=== PATIENT | female | born 1960 | race Caucasian/White ===

== ENCOUNTER → 2017-07-02 | Outpatient (CLI) | payer BC ==
[2017-07-02 14:46] LABS: Basophils % (A) 0 %; Eosinophils # (A) 0.1 k/uL (0-0.7); Eosinophils % (A) 1 %; HCT 43.6 % (34.0-46.0); HGB 14.7 gm/dL (11.4-16.0); Lymphocytes # (A) 2.8 k/uL (1.0-4.8); Lymphocytes % (A) 30 %; MCH 33.5 pg (25.0-35.0); MCHC 33.8 g/dL (31.0-37.0); MCV 99.1 fL (80.0-100.0); Mean Platelet Volume 7.9; Monocytes # (A) 0.6 k/uL (0-1.0); Monocytes % (A) 6 %; Neutrophils # (A) 5.9 k/uL (1.3-7.7); Neutrophils % (A) 62 %; Platelet Count 246 k/uL (150-450); RDW 11.8 % (11.5-15.5); WBC 9.5 k/uL (3.8-10.6)
[2017-07-02 14:50] LABS: Appearance,Urine Clear (Clear); Bacteria,Urine Occasional /hpf; Bilirubin,Urine Negative (Negative); Blood,Urine Negative (Negative); Color,Urine Light Yellow; Glucose,Urine (UA) Negative (Negative); Ketones,Urine Negative (Negative); Leukocyte Esterase,Urine Small (Negative); Mucus,Urine Rare /hpf; PH, Urine 5.5 (5.0-8.0); Protein,Urine Negative (Negative); RBC,Urine <1 /hpf (0-5); Specific Gravity,Urine 1.008 (1.001-1.035); Squamous Epithelial Cell,Urine 2 /hpf (0-4); Urobilinogen,Urine <2.0 mg/dL (<2.0); WBC,Urine 10 /hpf (0-5)
[2017-07-02 17:54] LABS: Erythrocyte Sedimentation Rate 28 mm/hr (0-20)
[2017-07-02 20:26] LABS: Anti-DNA, DS unit <1.0 IU/mL; Cardiolipin Ab IgG Interp NEGATIVE (NEGATIVE); Cardiolipin Ab IgM Interp Positive (NEGATIVE); Cardiolipin IgM Antibody 38.9 U/mL; DNA Double-Stranded NEGATIVE (NEGATIVE)
[2017-07-03 11:40] LABS: ANA Pattern Speckled; ANA Pattern 2 Nucleolar
[2017-07-03 12:35] LABS: APTT 43 Sec(s) (<43); Dilute Russell Viper Venom 40 Sec(s) (<44)
[2017-07-03 14:45] LABS: C-ANCA <1:20 Titer (<1:20); P-ANCA <1:20 Titer (<1:20)
== END | disposition home or self-care (01) ==
LOC: LABWHC1 13:34
PROVIDERS: ATTEND Internal Medicine Rheumatology
DX: I73.00 Raynaud's syndrome without gangrene (principal); F17.210 Nicotine dependence, cigarettes, uncomplicated; I10 Essential (primary) hypertension
CPT/HCPCS: 36415; 81001; 83516; 85025; 85613; 85652; 85730; 86038; 86039; 86140; 86147; 86160; 86225; 86255; 86850; 86880

== ENCOUNTER 2017-07-20 08:00 | Day surgery (SDC) | payer BC, OTHER ==
[2017-07-15 16:36] VITALS: BMI 38.5
[~2017-07-20 08:00] MED LIST: LACTATED RINGERS 1,000 ML IV SCH
[2017-07-20 09:28] VITALS: RESP 16; TEMP 98.2
[2017-07-20] MEDS ORDERED: PROPOFOL 10 MG/ML 20 ML VIAL IV ONE (09:40)
--- NOTE | 2017-07-20 10:24 | P.PCN ---
Date of Procedure: 07/20/17 Procedure(s) Performed: Procedure: 1. Esophagogastroduodenoscopy and biopsy. 2. Total colonoscopy and biopsy. Preoperative diagnosis: Hemoccult-positive stools. Postoperative diagnoses: 1. Small sliding hiatal hernia with no obvious esophagitis or complicated reflux disease. 2. Mild antral gastritis. 3. Diverticulosis with no evidence of acute diverticulitis or strictures. 4. Diminutive polyp sigmoid biopsied but no large polyps or cancer. Preparation: HalfLytely prep. Sedation: Was provided by anesthesia. Brief clinical history: The patient is a 56-year-old female who is scheduled for this evaluation because of finding of Hemoccult positive stools. The patient had chronic reflux symptoms and had a prior upper endoscopy several years back but had no prior colonoscopy. She has no abdominal complaints, overt bleeding or anemia. No family history of colon cancer. Procedure: With the patient on her left lateral decubitus position and after informed consent and adequate sedation, I passed the Olympus-GIF 160 video upper endoscope through the cricopharyngeus down the esophagus. GE junction was around 38 cm from the incisors and there was a small sliding hiatal hernia. The esophagus did not show any evidence of esophagitis or complicated reflux disease. The endoscope was then advanced into the stomach which was insufflated with air and inspected in detail including the retroflex view in the cardia. There was some mottling and erythema in the antrum but no ulcers or erosions. Pyloric channel, duodenal bulb, post bulbar area and descending duodenum appeared within normal limits. With her history, I obtained biopsies from the duodenum, antrum and esophagus then the endoscope was withdrawn and I proceeded with the colonoscopy. The perianal area was inspected and it did not show any fissures or fistulas. There were no masses felt on digital rectal examination. The Olympus CFQ 160L endoscope was then inserted in the rectum in the usual fashion and advanced to the cecum. The mucosa appeared healthy. A diminutive polyp was seen in the sigmoid, around 40 cm from the anal verge, which was biopsied but there were no large polyps or cancer. Multiple diverticular orifices were seen scattered in the colon with no evidence of acute diverticulitis or strictures. I retroflexed the endoscope in the rectum before the endoscope was withdrawn. Low-grade internal hemorrhoids were noted but there was no evidence of bleeding. The patient tolerated the procedure well. Plan: The patient was reassured. Discussed dietary measures. She will follow up with you as planned and I recommended repeat colonoscopy in 5-10 years.
[2017-07-20 10:30] VITALS: BP 126/79; PULSE 62
== END 2017-07-20 11:11 | disposition home or self-care (01) ==
LOC: ORWHC2ENDO 08:00
DX: K63.5 Polyp of colon (principal); K44.9 Diaphragmatic hernia without obstruction or gangrene; K57.30 Diverticulosis of large intestine without perforation or abscess without bleeding; K29.50 Unspecified chronic gastritis without bleeding; I10 Essential (primary) hypertension; I73.00 Raynaud's syndrome without gangrene; Z79.899 Other long term (current) drug therapy
CPT/HCPCS: 88305; 45380; 43239; J2704

== ENCOUNTER → 2020-11-27 | Outpatient (CLI) | payer BC ==
--- NOTE | 2020-11-28 09:11 | XR ---
EXAMINATION TYPE: XR chest special 3 views DATE OF EXAM: 11/27/2020 COMPARISON: NONE TECHNIQUE: 3 views submitted. HISTORY: Supraclavicular swelling FINDINGS: The lungs are clear and there is no pneumothorax, pleural effusion, or focal pneumonia. Heart is en larged. There is mild hyperinflation lungs and degenerative change of the spine. IMPRESSION: 1. I suggests COPD and cardiomegaly..
== END | disposition home or self-care (01) ==
LOC: RADXRYALE 16:01
PROVIDERS: ATTEND Internal Medicine Rheumatology
DX: R22.1 Localized swelling, mass and lump, neck (principal)
CPT/HCPCS: 71047

== ENCOUNTER 2021-03-11 16:55 | Inpatient (IN) | payer BC ==
[2021-03-11] MEDS ORDERED: IPRATROPIUM 0.5 MG/2.5 ML NEBU INHALATION STA (18:25)
[2021-03-11] MEDS ORDERED: ALBUTEROL NEBULIZED 2.5 MG/3 ML INHALATION STA (18:25)
[2021-03-11] MEDS ORDERED: methylPREDNISolone SOD SUCCI 125 MG/2 ML VIAL IV STA (18:25)
[2021-03-11] MEDS ORDERED: MAGNESIUM SULFATE-D5W PMX 1 GM in DEXTROSE/WATER 1 100ML.BAG IVPB STA (18:25)
[2021-03-11] MEDS ORDERED: SODIUM CHLORIDE 0.9% 1,000 ML IV STA ×3 (18:25→20:17)
[2021-03-11 19:33] LABS: Basophils % (A) 0 %; Eosinophils % (A) 0 %; HGB 17.7 gm/dL (11.4-16.0); Hyperchromasia Slight; Lymphocytes # (A) 0.6 k/uL (1.0-4.8); Lymphocytes % (A) 9 %; MCH 35.3 pg (25.0-35.0); MCHC 35.4 g/dL (31.0-37.0); MCV 99.7 fL (80.0-100.0); Mean Platelet Volume 8.2; Monocytes # (A) 0.3 k/uL (0-1.0); Monocytes % (A) 5 %; Neutrophils # (A) 5.6 k/uL (1.3-7.7); Neutrophils % (A) 84 %; Platelet Count 159 k/uL (150-450); RBC 5.02 m/uL (3.80-5.40); RDW 11.9 % (11.5-15.5); WBC 6.7 k/uL (3.8-10.6)
[2021-03-11 19:43] LABS: INR 1.1 (<1.2); Partial Thromboplastin Time 24.2 sec (22.0-30.0); Prothrombin Time 11.8 sec (9.0-12.0)
[2021-03-11 19:45] LABS: Albumin 4.2 g/dL (3.5-5.0); Calcium 8.8 mg/dL (8.4-10.2); Magnesium 2.3 mg/dL (1.6-2.3); Total Bilirubin 1.3 mg/dL (0.2-1.3); Total Protein 7.9 g/dL (6.3-8.2)
[2021-03-11 19:50] LABS: Potassium 5.6 mmol/L (3.5-5.1)
--- NOTE | 2021-03-11 20:36 | CT ---
EXAMINATION TYPE: CT angio chest DATE OF EXAM: 03/11/2021 COMPARISON: None HISTORY: covid, sob CT DLP: 866 mGycm Automated exposure control for dose reduction was used. CONTRAST: Performed with IV Contrast, patient injected with 100 mL of Isovue 370. Images obtained from the thoracic inlet to the diaphragm with IV contrast. There are 3-D post process ed images. There is extensive patchy interstitial and airspace infiltrate in both lungs. There are a few mediastinal lymph nodes that measure up to 1.5 cm. There are bronchial lymph nodes up to 1 cm. There is no evidence of filling defect in the pulmonary arteries. Thoracic aorta is intact. There is no aneurysm or dissection. Ascending aorta measures 3.6 cm. There is no pleural effusion. The bony thorax is intact. IMPRESSION: No evidence of pulmonary embolism. Extensive pulmonary infiltrates consistent with pneumonia and RDS.
--- NOTE | 2021-03-11 20:41 | ED ---
SOB HPI - General Chief Complaint: Shortness of Breath Stated Complaint: Difficulty Breathing Time Seen by Provider: 03/11/21 18:06 Source: patient Mode of arrival: wheelchair Limitations: no limitations - History of Present Illness Initial Comments: Patient presents with respiratory distress. Nothing makes it better or worse. She has taken no medicines. She has discomfort of the chest. She has no belly or back pain. She has no nausea or vomiting. She has no diaphoresis. He has no focal weakness. She has no swelling in the arms or legs. She does have palpitations. - Related Data Home Medications Medication Instructions Recorded Confirmed [employer] Supplement 1 tab PO DAILY 07/15/17 07/15/17 Calcium Carbonate [Calcium] 600 mg PO DAILY 07/15/17 07/20/17 Cholecalciferol (Vitamin D3) 5,000 unit PO DAILY 07/15/17 07/20/17 [Vitamin D3] Cinnamon Bark [Cinnamon] 500 mg PO DAILY 07/15/17 07/20/17 Cyanocobalamin [Vitamin B-12] 500 mcg PO DAILY 07/15/17 07/20/17 Folic Acid 1 mg PO DAILY 07/15/17 07/20/17 Milk Thistle 150 mg PO DAILY 07/15/17 07/20/17 NIFEdipine XL [Procardia Xl] 30 mg PO HS 07/15/17 07/20/17 atenoloL [Tenormin] 50 mg PO QA 07/15/17 07/20/17 Garlic 500 mg PO DAILY 07/20/17 07/20/17 Lansoprazole [Prevacid] 30 mg PO DAILY 07/20/17 07/20/17 Magnesium 400 mg PO 07/20/17 Ranitidine HCl [Zantac] 300 mg PO HS 07/20/17 07/20/17 Allergies Allergy/AdvReac Type Severity Reaction Status Date / Time No Known Allergies Allergy Verified 03/11/21 18:00 Review of Systems ROS Statement: Those systems with pertinent positive or pertinent negative responses have been documented in the HPI. ROS Other: All systems not noted in ROS Statement are negative. Past Medical History Past Medical History: Fibromyalgia, GERD/Reflux, Hyperlipidemia, Hypertension Additional Past Medical History / Comment(s): diverticulitis, thromboembolism, mitral valve regurg, raynauds, lupus History of Any Multi-Drug Resistant Organisms: None Reported Past Surgical History: No Surgical Hx Reported Past Psychological History: No Psychological Hx Reported Smoking Status: Never smoker Past Alcohol Use History: None Reported Past Drug Use History: None Reported General Exam Limitations: no limitations General appearance: anxious Head exam: Present: atraumatic Eye exam: Present: normal appearance Neck exam: Present: normal inspection Respiratory exam: Present: respiratory distress, wheezes Cardiovascular Exam: Present: tachycardia, irregular rhythm GI/Abdominal exam: Present: soft. Absent: tenderness Rectal exam: Present: deferred Extremities exam: Present: normal inspection, full ROM. Absent: tenderness Back exam: Present: normal inspection, full ROM. Absent: tenderness Neurological exam: Present: alert, oriented X3 Psychiatric exam: Present: normal affect Skin exam: Present: warm, intact Course Vital Signs 03/11/21 18:01 Temperature 97.8 F Pulse Rate 109 H Respiratory 22 Rate Blood Pressure 83/58 O2 Sat by Pulse 80 L Oximetry Medical Decision Making - Medical Decision Making Patient presents with shortness of breath. She is placed on BiPAP because of her hypoxemia. I obtained a CT of the chest which is negative for PE but demonstrates multifocal pneumonia. Covid test is positive. I have given her fluid bolus. I spoke with the ICU attending. Patient will be admitted to the hospital. - Lab Data Result diagrams: 03/11/21 18:35 03/11/21 18:35 Lab Results 03/11/21 03/11/21 03/11/21 Range/Units 18:35 18:35 18:35 WBC 6.7 (3.8-10.6) k/uL RBC 5.02 (3.80-5.40) m/uL Hgb 17.7 H (11.4-16.0) gm/dL Hct 50.0 H (34.0-46.0) % MCV 99.7 (80.0-100.0) fL MCH 35.3 H (25.0-35.0) pg MCHC 35.4 (31.0-37.0) g/dL RDW 11.9 (11.5-15.5) % Plt Count 159 (150-450) k/uL MPV 8.2 Neutrophils % 84 % Lymphocytes % 9 % Monocytes % 5 % Eosinophils % 0 % Basophils % 0 % Neutrophils # 5.6 (1.3-7.7) k/uL Lymphocytes # 0.6 L (1.0-4.8) k/uL Monocytes # 0.3 (0-1.0) k/uL Eosinophils # 0.0 (0-0.7) k/uL Basophils # 0.0 (0-0.2) k/uL Hyperchromasia Slight PT 11.8 (9.0-12.0) sec INR 1.1 (<1.2) APTT 24.2 (22.0-30.0) sec Sodium 116 L* (137-145) mmol/L Potassium 5.6 H (3.5-5.1) mmol/L Chloride 81 L (98-107) mmol/L Carbon Dioxide 16 L (22-30) mmol/L Anion Gap 19 mmol/L BUN 23 H (7-17) mg/dL Creatinine 0.83 (0.52-1.04) mg/dL Est GFR (CKD-EPI)AfAm 90 (>60 ml/min/1.73 sqM) Est GFR (CKD-EPI)NonAf 78 (>60 ml/min/1.73 sqM) Glucose 348 H (74-99) mg/dL Plasma Lactic Acid Senthil (0.7-2.0) mmol/L Calcium 8.8 (8.4-10.2) mg/dL Magnesium 2.3 (1.6-2.3) mg/dL Total Bilirubin 1.3 (0.2-1.3) mg/dL AST 179 H (14-36) U/L ALT 65 H (4-34) U/L Alkaline Phosphatase 58 (38-126) U/L Troponin I (0.000-0.034) ng/mL NT-Pro-B Natriuret Pep pg/mL Total Protein 7.9 (6.3-8.2) g/dL Albumin 4.2 (3.5-5.0) g/dL Coronavirus (PCR) (Not Detectd) 03/11/21 03/11/21 03/11/21 Range/Units 18:35 18:35 18:47 WBC (3.8-10.6) k/uL RBC (3.80-5.40) m/uL Hgb (11.4-16.0) gm/dL Hct (34.0-46.0) % MCV (80.0-100.0) fL MCH (25.0-35.0) pg MCHC (31.0-37.0) g/dL RDW (11.5-15.5) % Plt Count (150-450) k/uL MPV Neutrophils % % Lymphocytes % % Monocytes % % Eosinophils % % Basophils % % Neutrophils # (1.3-7.7) k/uL Lymphocytes # (1.0-4.8) k/uL Monocytes # (0-1.0) k/uL Eosinophils # (0-0.7) k/uL Basophils # (0-0.2) k/uL Hyperchromasia PT (9.0-12.0) sec INR (<1.2) APTT (22.0-30.0) sec Sodium (137-145) mmol/L Potassium (3.5-5.1) mmol/L Chloride (98-107) mmol/L Carbon Dioxide (22-30) mmol/L Anion Gap mmol/L BUN (7-17) mg/dL Creatinine (0.52-1.04) mg/dL Est GFR (CKD-EPI)AfAm (>60 ml/min/1.73 sqM) Est GFR (CKD-EPI)NonAf (>60 ml/min/1.73 sqM) Glucose (74-99) mg/dL Plasma Lactic Acid Senthil 3.2 H* (0.7-2.0) mmol/L Calcium (8.4-10.2) mg/dL Magnesium (1.6-2.3) mg/dL Total Bilirubin (0.2-1.3) mg/dL AST (14-36) U/L ALT (4-34) U/L Alkaline Phosphatase (38-126) U/L Troponin I 0.302 H* (0.000-0.034) ng/mL NT-Pro-B Natriuret Pep pg/mL Total Protein (6.3-8.2) g/dL Albumin (3.5-5.0) g/dL Coronavirus (PCR) Detected A (Not Detectd) 03/11/21 Range/Units 18:47 WBC (3.8-10.6) k/uL RBC (3.80-5.40) m/uL Hgb (11.4-16.0) gm/dL Hct (34.0-46.0) % MCV (80.0-100.0) fL MCH (25.0-35.0) pg MCHC (31.0-37.0) g/dL RDW (11.5-15.5) % Plt Count (150-450) k/uL MPV Neutrophils % % Lymphocytes % % Monocytes % % Eosinophils % % Basophils % % Neutrophils # (1.3-7.7) k/uL Lymphocytes # (1.0-4.8) k/uL Monocytes # (0-1.0) k/uL Eosinophils # (0-0.7) k/uL Basophils # (0-0.2) k/uL Hyperchromasia PT (9.0-12.0) sec INR (<1.2) APTT (22.0-30.0) sec Sodium (137-145) mmol/L Potassium (3.5-5.1) mmol/L Chloride (98-107) mmol/L Carbon Dioxide (22-30) mmol/L Anion Gap mmol/L BUN (7-17) mg/dL Creatinine (0.52-1.04) mg/dL Est GFR (CKD-EPI)AfAm (>60 ml/min/1.73 sqM) Est GFR (CKD-EPI)NonAf (>60 ml/min/1.73 sqM) Glucose (74-99) mg/dL Plasma Lactic Acid Senthil (0.7-2.0) mmol/L Calcium (8.4-10.2) mg/dL Magnesium (1.6-2.3) mg/dL Total Bilirubin (0.2-1.3) mg/dL AST (14-36) U/L ALT (4-34) U/L Alkaline Phosphatase (38-126) U/L Troponin I (0.000-0.034) ng/mL NT-Pro-B Natriuret Pep 5250 pg/mL Total Protein (6.3-8.2) g/dL Albumin (3.5-5.0) g/dL Coronavirus (PCR) (Not Detectd) 03/11/21 20:40 Twelve-lead EKG shows ventricular rate 110 bpm, there are no P waves present, there is no ST elevation or depression, the QRS complexes are normal, interpreted by me as atrial fibrillation with rapid ventricular response. Critical Care Time Critical Care Time: Yes (BIPAP) Total Critical Care Time: 35 Disposition Clinical Impression: COVID-19 Disposition: ADMITTED IP TO THIS HOSP Condition: Serious Is patient prescribed a controlled substance at d/c from ED?: No Referrals: Osmany Monroe DO [Primary Care Provider] - 1-2 days
[2021-03-11] MEDS ORDERED: HEPARIN SODIUM 1,000 UN/ML (10ML VL) IV ONE (20:43)
[2021-03-11] MEDS ORDERED: NALOXONE 0.4 MG/ML 1 ML VIAL IV PRN (20:45)
[2021-03-11] MEDS: HEPARIN SOD,PORK IN 0.45% NACL 25,000 UNIT in 0.45% NACL 1 250ML.BAG IV SCH (21:34)
[2021-03-11] MEDS: FAMOTIDINE 20 MG TAB PO SCH (21:36)
[2021-03-11 22:12] LABS: Basophils % (A) 0 %; Eosinophils % (A) 0 %; HCT 45.3 % (34.0-46.0); HGB 16.4 gm/dL (11.4-16.0); Lymphocytes # (A) 0.5 k/uL (1.0-4.8); Lymphocytes % (A) 6 %; MCH 36.5 pg (25.0-35.0); MCHC 36.3 g/dL (31.0-37.0); MCV 100.6 fL (80.0-100.0); Mean Platelet Volume 8.3; Monocytes # (A) 0.3 k/uL (0-1.0); Monocytes % (A) 3 %; Neutrophils # (A) 8.2 k/uL (1.3-7.7); Neutrophils % (A) 91 %; Platelet Count 133 k/uL (150-450); RDW 11.2 % (11.5-15.5); WBC 9.1 k/uL (3.8-10.6)
[2021-03-11 22:19] LABS: Glucose,Whole Blood 305 mg/dL (75-99)
[2021-03-11] MEDS ORDERED: FUROSEMIDE 10 MG/ML 4 ML VIAL IV STA (22:46)
[2021-03-11 22:59] LABS: ABG Base Excess -3.5 mmol/L; ABG HCO3 22 mmol/L (21-25); ABG Oxygen Saturation 93.8 % (94-97); ABG PCO2 37 mmHg (35-45); ABG PH 7.37 (7.35-7.45); ABG PO2 72 mmHg (83-108); ABG TCO2 23 mmol/L (19-24); Allen Test Performed? Yes
[2021-03-11 23:00] LABS: Amorphous Sediment,Urine Rare /hpf; Appearance,Urine Cloudy (Clear); Bacteria,Urine Rare /hpf; Bilirubin,Urine Negative (Negative); Blood,Urine Negative (Negative); Color,Urine Yellow; Glucose,Urine (UA) 2+ (Negative); Hyaline Casts,Urine 158 /lpf (0-2); Ketones,Urine 1+ (Negative); Leukocyte Esterase,Urine Negative (Negative); Mucus,Urine Occasional /hpf; Nitrite,Urine Negative (Negative); Protein,Urine 1+ (Negative); RBC,Urine 2 /hpf (0-5); Squamous Epithelial Cell,Urine 8 /hpf (0-4); Urobilinogen,Urine <2.0 mg/dL (<2.0); WBC,Urine 3 /hpf (0-5)
[2021-03-11 23:04] LABS: African American GFR (CKD) >90 (>60 ml/min/1.73 sqM); Anion Gap 12 mmol/L; Blood Urea Nitrogen 22 mg/dL (7-17); Carbon Dioxide 20 mmol/L (22-30); Chloride 87 mmol/L (98-107); Glucose 293 mg/dL (74-99); Magnesium 3.2 mg/dL (1.6-2.3); Non-African American GFR(CKD) >90 (>60 ml/min/1.73 sqM); Potassium 4.3 mmol/L (3.5-5.1)
[2021-03-11] MEDS: NIFEdipine XL 30 MG TAB.ER.24 PO SCH (23:11)
[2021-03-11 23:14] LABS: Specific Gravity,Urine >1.050 (1.001-1.035)
[2021-03-11 23:17] LABS: Sodium 119 mmol/L (137-145)
[2021-03-11] MEDS: DEXMEDETOMIDINE/0.9% NACL(PMX) 400 MCG in EMPTY BAG 1 BAG IV SCH (23:20)
[2021-03-12 05:05] LABS: Basophils % (A) 1 %; Eosinophils % (A) 0 %; HCT 44.8 % (34.0-46.0); HGB 15.6 gm/dL (11.4-16.0); Lymphocytes # (A) 0.7 k/uL (1.0-4.8); Lymphocytes % (A) 14 %; MCH 35.2 pg (25.0-35.0); MCHC 34.8 g/dL (31.0-37.0); MCV 101.1 fL (80.0-100.0); Mean Platelet Volume 8.7; Monocytes # (A) 0.2 k/uL (0-1.0); Monocytes % (A) 4 %; Neutrophils # (A) 4.1 k/uL (1.3-7.7); Neutrophils % (A) 80 %; Platelet Count 111 k/uL (150-450); RBC 4.43 m/uL (3.80-5.40); RDW 11.3 % (11.5-15.5); WBC 5.1 k/uL (3.8-10.6)
[2021-03-12 05:53] LABS: African American GFR (CKD) >90 (>60 ml/min/1.73 sqM); Anion Gap 10 mmol/L; Blood Urea Nitrogen 24 mg/dL (7-17); Calcium 7.6 mg/dL (8.4-10.2); Carbon Dioxide 19 mmol/L (22-30); Chloride 91 mmol/L (98-107); Glucose 304 mg/dL (74-99); Non-African American GFR(CKD) >90 (>60 ml/min/1.73 sqM); Potassium 4.4 mmol/L (3.5-5.1); Sodium 120 mmol/L (137-145)
[2021-03-12] MEDS ORDERED: PANTOPRAZOLE 40 MG/10 ML VIAL IV SCH (09:00)
[2021-03-12] MEDS: SODIUM CHLORIDE 0.9% 1,000 ML IV SCH ×2 (09:30→22:23)
[2021-03-12] MEDS ORDERED: FUROSEMIDE 10 MG/ML 2 ML VIAL IV STA (09:42)
[2021-03-12] MEDS: CHOLECALCIFEROL 25 MCG (1000 IU) TABLET PO SCH (09:50)
[2021-03-12] MEDS: FOLIC ACID 1 MG TAB PO SCH (10:04)
[2021-03-12] MEDS: CYANOCOBALAMIN 500 MCG TAB PO SCH (10:04)
[2021-03-12] MEDS: CALCIUM CARBONATE 500 MG CHEWABLE PO SCH (10:04)
[2021-03-12] MEDS: atenoloL 50 MG TAB PO SCH (10:05)
[2021-03-12] MEDS: PANTOPRAZOLE 40 MG TABLET PO SCH (10:05)
[2021-03-12] MEDS: DEXAMETHASONE SOD PHOSPHATE 10 MG/ML 1 ML VIAL IVP SCH (10:05)
--- NOTE | 2021-03-12 10:59 | XR ---
EXAMINATION TYPE: XR chest 1V portable DATE OF EXAM: 03/12/2021 COMPARISON: Chest x-ray 11/27/2020, CT chest 03/11/2021 HISTORY: Cold with positive, shortness of breath TECHNIQUE: Single frontal view of the chest is obtained. FINDINGS: Patchy bilateral glass density, airspace disease is present within the lungs. There are ov erlying artifacts. No evident pneumothorax or pleural effusion. The heart is enlarged, patient is rot ated. IMPRESSION: Correlate for pneumonia. Cardiomegaly. Rotated exam.
[2021-03-12 11:19] LABS: C Reactive Protein 8.3 mg/dL (<1.0)
[2021-03-12] MEDS: BARICITINIB 2 MG TABLET PO SCH (12:00)
--- NOTE | 2021-03-12 12:09 | P.CNPUL ---
History of Present Illness Consult date: 03/12/21 Requesting physician: Scar Plmumer Reason for consult: pneumonia Chief complaint: Shortness of breath History of present illness: His is a 60-year-old female, no major medical illnesses, presented to the ER yesterday with at least 1 week history of shortness of breath, intermittent cough, chest discomfort, she had no GI symptoms, no headache, no nausea no vomiting no diarrhea. Patient felt generally weak, and upon arrival to the ER, patient was noted to be hypoxic. CT of the chest showed no evidence of pulmonary embolism, but it did show extensive pulmonary infiltrates consistent w ith Covid19 pneumonia. COVID-19 PCR was positive. CBC was relatively normal except for a relative lymphopenia, relative thrombocytopenia, d-dimer was 0.94, patient was noted to have low sodium of 116, normal renal profile was noted, bicarb was noted to be a bit low at 20. Blood sugar was 293. If her enzymes were noted to be a bit elevated with AST of 179 and ALT of 65. LDH was extremely elevated at 3959, C-reactive protein of 8.3, pro BNP was over 5000, troponin was also noted to be elevated at 0.30. Patient is also known to have history of positive anti-cardiolipin antibody. Patient was placed on BiPAP, she remains on BiPAP at present, she is actually on the 100% FiO2, IPAP of 12 and EPAP of 6, and she has marginal O2 saturation. ABG last night was done on BiPAP, and her pO2 was 72 pCO2 37 pH of 7.37. Patient is yet to be seen by cardiology, however heparin was advised by cardiology, and she is on heparin drip at present. Again her CT angiogram of the chest was negative for thromboembolic disease. D-dimer was noted to be 0.94. Her pulmonary status was quite marginal last night, hence patient was given 1 dose of Lasix 40 mg IV push, and she was approached by the nurse about possible worsening and intubation, patient clearly stated to the nurse that she did not want to be intubated tomorrow what. Apparently she discussed this with her , and both agreed on no intubation. Review of Systems Constitutional: Weakness fatigue malaise, low-grade fever. HEENT: Negative no loss of sensation of taste or smell. No sore throat. Pulmonary: Cough and shortness of breath. Cardiac: Negative in spite of of multiple abnormal labs related to her cardiac status. GI: Negative Genitourinary: Negative Musculoskeletal: Vague aches and pains Skin: Negative Urologic: Negative Hematologic: Negative Psychiatric: Negative Endocrine: Negative. Past Medical History Past Medical History: Fibromyalgia, GERD/Reflux, Hyperlipidemia, Hypertension Additional Past Medical History / Comment(s): diverticulitis, thromboembolism, mitral valve regurg, raynauds, lupus History of Any Multi-Drug Resistant Organisms: None Reported Past Surgical History: No Surgical Hx Reported Past Anesthesia/Blood Transfusion Reactions: No Reported Reaction Past Psychological History: No Psychological Hx Reported Smoking Status: Former smoker Past Alcohol Use History: None Reported Past Drug Use History: None Reported Medications and Allergies Home Medications Medication Instructions Recorded Confirmed Type Cinnamon Bark [Cinnamon] 500 mg PO DAILY 07/15/17 03/11/21 History NIFEdipine XL [Procardia Xl] 30 mg PO DAILY PRN 07/15/17 03/11/21 History Lansoprazole [Prevacid] 30 mg PO BID 07/20/17 03/11/21 History Albuterol Sulfate [Ventolin HFA] 1 - 2 puff INHALATION Q4-6H PRN 03/11/21 03/11/21 History Butalb/Acetaminophen/Caffeine 1 cap PO DAILY PRN 03/11/21 03/11/21 History [Fioricet 50-300-40 mg Capsule] Calcium 500mg 500 mg PO DAILY 03/11/21 03/11/21 History Cyanocobalamin (Vitamin B-12) 1,000 mcg PO DAILY 03/11/21 03/11/21 History [Vitamin B-12] Fluticasone Nasal Viola [Flonase 1 spray EA NOSTRIL BID PRN 03/11/21 03/11/21 History Nasal Viola] Folic Acid 0.4 mg PO DAILY 03/11/21 03/11/21 History Ketorolac Tromethamine [Acular 1 drop BOTH EYES TID PRN 03/11/21 03/11/21 History 0.5%] Magnesium Oxide 400 mg PO DAILY 03/11/21 03/11/21 History Milk Thistle 500mg 500 mg PO DAILY 03/11/21 03/11/21 History Montelukast [Singulair] 10 mg PO DAILY 03/11/21 03/11/21 History Ondansetron [Zofran] 4 - 8 mg PO Q8H PRN 03/11/21 03/11/21 History Oxybutynin ER [Ditropan Xl] 10 mg PO DAILY 03/11/21 03/11/21 History Turmeric Root Extract [Turmeric] 1,053 mg PO DAILY 03/11/21 03/11/21 History Vitamin E 400 unit PO DAILY 03/11/21 03/11/21 History Zinc 15mg 15 mg PO DAILY 03/11/21 03/11/21 History atenoloL [Tenormin] 25 mg PO DAILY 03/11/21 03/11/21 History predniSONE See Taper PO DIRECTED 03/11/21 03/11/21 History Allergies Allergy/AdvReac Type Severity Reaction Status Date / Time No Known Allergies Allergy Verified 03/11/21 20:55 Physical Exam Vitals: Vital Signs Temp Pulse Resp BP Pulse Ox 03/12/21 11:00 101 H 44 H 148/103 03/12/21 10:30 95 46 H 102/73 03/12/21 10:00 81 45 H 127/71 03/12/21 09:30 80 49 H 03/12/21 09:00 97 42 H 143/111 03/12/21 08:30 98 73 H 138/107 85 L 03/12/21 08:00 93 29 H 128/101 03/12/21 07:30 92 49 H 94/71 93 L 03/12/21 07:00 71 31 H 91/65 90 L 03/12/21 06:30 72 41 H 89/59 87 L 03/12/21 06:00 82 39 H 91/63 88 L 03/12/21 05:30 75 47 H 100/81 91 L 03/12/21 05:00 69 38 H 101/62 90 L 03/12/21 04:30 76 35 H 88/45 86 L 03/12/21 04:00 98.2 F 65 34 H 87/68 88 L 03/12/21 03:30 84 34 H 87/68 87 L 03/12/21 03:00 85 35 H 108/71 89 L 03/12/21 02:30 77 37 H 108/71 86 L 03/12/21 02:00 78 40 H 88/65 88 L 03/12/21 01:30 80 50 H 95/50 85 L 03/12/21 01:00 91 60 H 96/73 87 L 03/12/21 00:30 85 37 H 96/73 82 L 03/12/21 00:00 98.0 F 100 45 H 136/100 86 L 03/11/21 23:30 91 56 H 135/106 93 L 03/11/21 23:00 109 H 44 H 125/102 92 L 03/11/21 22:30 116 H 52 H 125/101 89 L 03/11/21 21:30 98 32 H 134/98 93 L 03/11/21 21:21 109 H 50 H 131/79 92 L 03/11/21 21:00 111 H 28 H 110/72 92 L 03/11/21 20:30 99 36 H 107/80 93 L 03/11/21 20:00 104 H 36 H 108/84 89 L 03/11/21 19:30 96 38 H 136/91 91 L 03/11/21 19:05 50 H 03/11/21 18:01 97.8 F 109 H 22 83/58 80 L Intake and Output 03/11/21 03/12/21 03/12/21 22:59 06:59 14:59 Intake Total 277.950 320 Output Total 600 Balance 277.950 -280 Intake: IV 140 320 0.9 140 320 Intake, IV Titration 137.950 Amount Dexmedetomidine/0.9% NaCl 44.227 (Pmx) 400 mcg In Empty Bag 1 bag @ 0.2 MCG/KG/HR 4.536 mls/hr IV .Q22H3M YANNICK Rx#:[id number] Heparin Sod,Pork in 0.45% 93.723 NaCl 25,000 unit In 0.45 % NaCl 1 250ml.bag @ 11. 03 UNITS/KG/HR 10.006 mls /hr IV .Q24H YANNICK Rx#: [id number] Output: Urine 600 Other: Voiding Method External Catheter External Catheter # Voids 0 0 Weight 90.718 kg 92.2 kg Physical Exam: Revealed a 60-year-old female on BiPAP, seems to be comfortable, O2 sats is marginal, however the patient does not seem to be in distress. Head: Atraumatic, normocephalic. HEENT:[Neck is supple.] [No neck masses.] [No thyromegaly.] [No JVD.] Chest: Crackles at the bases bilaterally. No rhonchi and no wheezes. Cardiac Exam: [Normal S1 and S2, no S3 gallop, no murmur.] Abdomen: [Soft, nontender, no megaly, no rebound, no guarding, normal bowel sounds.] Extremities: [No clubbing, no edema, no cyanosis.] Neurological Exam: [No focal neurologic deficit.] Alert oriented 3. Psychiatric: Normal mood affect and normal mental status examination. Skin: No rashes. Musculoskeletal: No deformities and no limitation in range of motion. Results - Laboratory Findings CBC and BMP: 03/12/21 04:22 03/12/21 04:22 ABG ABG pH 7.37 (7.35-7.45) 03/11/21 22:47 ABG pCO2 37 mmHg (35-45) 03/11/21 22:47 ABG pO2 72 mmHg (83-108) L 03/11/21 22:47 ABG O2 Saturation 93.8 % (94-97) L 03/11/21 22:47 PT/INR, D-dimer PT 11.8 sec (9.0-12.0) 03/11/21 18:35 INR 1.1 (<1.2) 03/11/21 18:35 D-Dimer 0.94 mg/L FEU (<0.60) H 03/12/21 10:42 Abnormal lab findings: Abnormal Labs 03/11/21 03/11/21 03/11/21 18:35 18:35 18:35 Hgb 17.7 H Hct 50.0 H MCV MCH 35.3 H RDW Plt Count Neutrophils # Lymphocytes # 0.6 L APTT D-Dimer ABG pO2 ABG O2 Saturation Sodium 116 L* Potassium 5.6 H Chloride 81 L Carbon Dioxide 16 L BUN 23 H Glucose 348 H POC Glucose (mg/dL) Plasma Lactic Acid Senthil 3.2 H* Calcium Magnesium AST 179 H ALT 65 H Lactate Dehydrogenase Troponin I C-Reactive Protein Urine Appearance Ur Specific Miracle Urine Protein Urine Glucose (UA) Urine Ketones Ur Squamous Epith Cells Amorphous Sediment Urine Bacteria Hyaline Casts Urine Mucus Coronavirus (PCR) 03/11/21 03/11/21 03/11/21 18:35 18:47 21:48 Hgb 16.4 H Hct MCV 100.6 H MCH 36.5 H RDW 11.2 L Plt Count 133 L Neutrophils # 8.2 H Lymphocytes # 0.5 L APTT D-Dimer ABG pO2 ABG O2 Saturation Sodium Potassium Chloride Carbon Dioxide BUN Glucose POC Glucose (mg/dL) Plasma Lactic Acid Senthil Calcium Magnesium AST ALT Lactate Dehydrogenase Troponin I 0.302 H* C-Reactive Protein Urine Appearance Ur Specific Miracle Urine Protein Urine Glucose (UA) Urine Ketones Ur Squamous Epith Cells Amorphous Sediment Urine Bacteria Hyaline Casts Urine Mucus Coronavirus (PCR) Detected A 03/11/21 03/11/21 03/11/21 21:48 22:00 22:18 Hgb Hct MCV MCH RDW Plt Count Neutrophils # Lymphocytes # APTT D-Dimer ABG pO2 ABG O2 Saturation Sodium 119 L* Potassium Chloride 87 L Carbon Dioxide 20 L BUN 22 H Glucose 293 H POC Glucose (mg/dL) 305 H Plasma Lactic Acid Senthil Calcium 8.0 L Magnesium 3.2 H AST ALT Lactate Dehydrogenase Troponin I C-Reactive Protein Urine Appearance Cloudy H Ur Specific Miracle >1.050 H Urine Protein 1+ H Urine Glucose (UA) 2+ H Urine Ketones 1+ H Ur Squamous Epith Cells 8 H Amorphous Sediment Rare H Urine Bacteria Rare H Hyaline Casts 158 H Urine Mucus Occasional H Coronavirus (PCR) 03/11/21 03/12/21 03/12/21 22:47 04:22 04:22 Hgb Hct MCV 101.1 H MCH 35.2 H RDW 11.3 L Plt Count 111 L Neutrophils # Lymphocytes # 0.7 L APTT D-Dimer ABG pO2 72 L ABG O2 Saturation 93.8 L Sodium 120 L Potassium Chloride 91 L Carbon Dioxide 19 L BUN 24 H Glucose 304 H POC Glucose (mg/dL) Plasma Lactic Acid Senthil Calcium 7.6 L Magnesium AST ALT Lactate Dehydrogenase Troponin I C-Reactive Protein Urine Appearance Ur Specific Miracle Urine Protein Urine Glucose (UA) Urine Ketones Ur Squamous Epith Cells Amorphous Sediment Urine Bacteria Hyaline Casts Urine Mucus Coronavirus (PCR) 03/12/21 03/12/21 03/12/21 04:22 10:42 10:42 Hgb Hct MCV MCH RDW Plt Count Neutrophils # Lymphocytes # APTT 128.5 H* D-Dimer 0.94 H ABG pO2 ABG O2 Saturation Sodium Potassium Chloride Carbon Dioxide BUN Glucose POC Glucose (mg/dL) Plasma Lactic Acid Senthil Calcium Magnesium AST ALT Lactate Dehydrogenase 3959 H Troponin I C-Reactive Protein 8.3 H Urine Appearance Ur Specific Miracle Urine Protein Urine Glucose (UA) Urine Ketones Ur Squamous Epith Cells Amorphous Sediment Urine Bacteria Hyaline Casts Urine Mucus Coronavirus (PCR) - Diagnostic Findings Chest x-ray: image reviewed (Chest x-ray this morning showed patchy bilateral opacities,disease in both lungs.) CT scan - chest: image reviewed (As noted in HPI.) Assessment and Plan Assessment: Impression: Acute hypoxic respiratory failure secondary to COVID-19 pneumonia Elevated inflammatory markers secondary to COVID-19 pneumonia Suspect non-ST elevation myocardial infarction. Patient is yet to be seen by cardiology on consultation. Hyponatremia, possibly hypovolemic in nature. Patient did receive fluid boluses yesterday, and at one point she did receive 1 dose of Lasix. Sodium improved from 116 up to 120 this morning. Remains on IV fluid in the form of 0.9 normal saline. History of positive KESHIA and positive cardiolipin antibody. Recommendation: Continue oxygen and titrate accordingly. Cardiology to see the patient on consultation for her abnormal troponin, echocardiogram is pending. Start patient on COVID-19 cocktail including Decadron, she is also on multivitamins, and I recommending starting the patient on baricitinib GI and DVT prophylaxis. Monitor platelets closely, may have to discontinue heparin close monitoring of the sodium. prognosis is definitely guarded, we will continue to monitor in the ICU. patient clearly expressed wishes as not to be intubated no matter what, and this was discussed last night with the nurse taking care of the patient. Time with Patient: Greater than 30
--- NOTE | 2021-03-12 12:23 | CONS ---
CONSULTATION This is a 60-year-old lady with a history of hypertension, gastroesophageal reflux disease who is unvaccinated. She came into the hospital with increasing shortness of breath and has been admitted to the hospital with COVID pneumonia, hypoxia requiring BiPAP. She has no chest discomfort. There is a troponin elevation which may represent a type 2 myocardial infarction. She has hypertension, hyperlipidemia and history of fibromyalgia and gastroesophageal reflux disease. No documented prior myocardial infarction. She is on a BiPAP at this time but indicates to me that she is more comfortable compared to when she came in. She has no chest pain at the time of my evaluation. PAST MEDICAL HISTORY: 1. Patient is unvaccinated and has come in with what seems to be COVID pneumonia. 2. Hypertension. 3. Hyperlipidemia. 4. Gastroesophageal reflux disease. 5. Probable underlying Raynaud's phenomenon. MEDICATIONS: Medications at home include some supplements, Procardia XL 30 mg daily, atenolol 50 mg daily, calcium supplements, and also Prevacid 30 mg daily. ALLERGIES: NONE. PHYSICAL EXAMINATION: On examination, blood pressure is 96/60. Pulse rate is about 70 per minute. HEENT unremarkable. Fundus was not examined. Neck is supple. There is no JVD or carotid bruit. Heart exam reveals S1, S2 with irregularity in rhythm and a short systolic murmur. Lungs revealed diminished air entry with scattered rales. Abdomen is soft. Lower extremities reveal diminished pulses. Central nervous system grossly no focal deficits. EKG revealed atrial fibrillation, moderate ventricular rate, nonspecific ST changes. IMPRESSION: 1. COVID pneumonia. 2. New-onset atrial fibrillation. 3. Troponin elevation suggestive of a type 2 [id number] DE. The troponin is 0.3 on arrival. BNP is 5250. RECOMMENDATIONS: I am recommending that we continue the IV heparin and obtain an echocardiogram to assess LV function and continue supportive care with oxygenation per Pulmonology. Overall prognosis remains guarded. Beta melany has been resumed. Sodium is low. Will hydrate her with 0.9 saline 75 mL/hour. Obtain echocardiogram to assess LV function. Further management from a pulmonary standpoint will be addressed by Dr. Starkey. Atrial fibrillation rate is well controlled. Beta melany will be continued. Intravenous heparin is also on board. Will continue to follow. MMODL / IJN: [id number] /
--- NOTE | 2021-03-12 13:00 | ECHOF ---
Referral Reason:cardiomyopathy MEASUREMENTS -------- HEIGHT: 152.4 cm WEIGHT: 92.1 kg BP: 91/63 RVIDd: 3.1 cm (< 3.3) Ao Diam: 2.6 cm (2.0 - 3.7) AV Cusp: 1.8 cm (1.5 - 2.6) RAP: 5.00 mmHg RVSP: 31.78 mmHg FINDINGS -------- Sinus rhythm. This was a technically difficult study with suboptimal views. The left ventricular size is normal. Overall left ventricular systolic function is low-normal with, an EF between 50 - 55 %. There is apical cap hypokinesis which may be seen with Takotsubo's cardio myopathy. Clinical correlation recommended. The RV was not well visualized. The left atrium was not well visualized. The right atrium was not well visualized. 5.0mg of Lumason was utilized for enhancement of images The aortic valve was not well visualized. There is no evidence of aortic regurgitation. There is no evidence of aortic stenosis. The mitral valve was not well visualized. No mitral regurgitation. The tricuspid valve was not well visualized. The pulmonic valve was not well visualized. The aortic root size is normal. IVC Not well visulized. There is no pericardial effusion. CONCLUSIONS -------- 1. The left ventricular size is normal. 2. Overall left ventricular systolic function is low-normal with, an EF between 50 - 55 %. 3. There is apical cap hypokinesis which may be seen with Takotsubo's cardiomyopathy. Clinical corre lation recommended. POT FIRER: Marcella Gupta RDCS
[2021-03-12] MEDS ORDERED: BUTALB/APAP/CAFF 50-325-40MG TAB PO PRN (14:43)
[2021-03-12] MEDS ORDERED: FLUTICASONE 50MCG/SPRAY NASAL 16GM EA NOSTRIL PRN (14:43)
--- NOTE | 2021-03-12 16:09 | US ---
EXAMINATION TYPE: US venous doppler duplex LE DATE OF EXAM: 03/12/2021 3:48 PM COMPARISON: NONE CLINICAL HISTORY: dvt. SOB SIDE PERFORMED: Bilateral TECHNIQUE: The lower extremity deep venous system is examined utilizing real time linear array sonog lachelle with graded compression, doppler sonography and color-flow sonography. VESSELS IMAGED: Common Femoral Vein Deep Femoral Vein Greater Saphenous Vein * Femoral Vein Popliteal Vein Small Saphenous Vein * Proximal Calf Veins (* superficial vessels) There is normal flow, compressibility, vascular waveforms Right Leg: Negative for DVT Left Leg: Negative for DVT Limited exam due to patient body habitus, IMPRESSION: There is no evident deep venous thrombosis from the level of the knee centrally within th e lower extremities within the limitations of the exam
[2021-03-12 17:11] LABS: Glucose,Whole Blood 119 mg/dL (75-99)
--- NOTE | 2021-03-12 17:42 | HP ---
HISTORY AND PHYSICAL DATE OF SERVICE: 03/12/2021. CHIEF COMPLAINT: Shortness of breath. HISTORY OF PRESENT ILLNESS: This 60-year-old woman with a past medical history of multiple medical problems, including fibromyalgia, GERD, hypertension, hyperlipidemia, history of diverticulosis, history of thromboembolism, history of mitral valve regurgitation, history of Raynaud's, history of lupus, being followed by Dr. Monroe in the outpatient setting, is complaining of shortness of breath. The patient was taking no medications home, but the patient had some chest discomfort, intermittent cough and was found to have COVID- 19 positive pneumonia. The patient also was found to be hypoxic. Patient had elevated inflammatory markers of COVID-19. D-dimer is elevated at 0.94 and troponin elevated up to 0.063. LDH was also elevated. The patient was admitted for further evaluation and treatment. The EKG done at the time of admission showed atrial fibrillation with diffuse ST-T changes. Otherwise, a chest CT and a chest x-ray were also done, both reviewed personally by me, showing extensive bilateral interstitial infiltrates highly suggestive of COVID-19 pneumonia. Patient admitted for further evaluation and treatment. The patient is on high-flow nasal cannula at this time. The patient is conscious and able to answer the questions. There is no history of rigor or chills at this time. The patient is unvaccinated. PAST MEDICAL HISTORY: History of fibromyalgia, GERD, hypertension, hyperlipidemia, history of diverticulitis. HOME MEDICATIONS: Prednisone, zinc, vitamin E, turmeric, Zofran, Ditropan, Fioricet, Singulair, Ventolin, milk thistle, Procardia, Prevacid, vitamin B12, calcium and cinnamon. Doses are reviewed. ALLERGIES: NONE. FAMILY HISTORY: No history of heart disease or strokes in the family. SOCIAL HISTORY: Previous history of smoking. REVIEW OF SYSTEMS: ENT: No diminished hearing. No diminished vision. CARDIOVASCULAR SYSTEM: As mentioned earlier. RESPIRATORY SYSTEM: As mentioned earlier. GI: No nausea, vomiting, diarrhea. : No dysuria. NERVOUS SYSTEM: No numbness, weakness. ALLERGY/IMMUNOLOGY: No asthma or hay fever. MUSCULOSKELETAL: As mentioned earlier. HEMATOLOGY/ONCOLOGY: No history of anemia. ENDOCRINE: No history of diabetes or hypothyroidism. CONSTITUTIONAL: As mentioned earlier. DERMATOLOGY: Negative. RHEUMATOLOGY: Negative. PSYCHIATRY: As mentioned earlier. PHYSICAL EXAMINATION: Patient alert and oriented x3. Pulse 70, blood pressure 100/51, respiration 20, temperature normal, pulse ox 89% on 10 L oxygen. HEENT: Conjunctivae normal. NECK: No jugular venous distention. CARDIOVASCULAR: S1, S2 muffled. RESPIRATION: Breath sounds diminished at the bases. A few scattered rhonchi. ABDOMEN: Soft, nontender. No mass palpable. LEGS: No edema. No swelling. NERVOUS SYSTEM: Higher functions as mentioned earlier. Moves all 4 limbs. No focal motor or sensory deficit. LYMPHATICS: No lymph node palpable in neck, axillae or groin. SKIN: No ulcer, rash, bleeding. JOINTS: No active deforming arthropathy. LABS: WBC 5.1, hemoglobin 15.6, and D-dimer is 0.94. ABGS noted. Sodium 120, potassium 4.4 and troponin 0.063. ASSESSMENT: 1. Acute COVID-19 pneumonia with acute bilateral interstitial pneumonia with acute hypoxic respiratory failure, present on admission. 2. Elevated troponin 0.063. Rule out acute myocardial infarction. 3. Elevated inflammatory markers of COVID-19. 4. Diabetes mellitus, type 2, with hyperglycemia, uncontrolled. 5. Elevated D-dimer without evidence of pulmonary embolism. 6. Increased mean corpuscular volume. 7. Thrombocytopenia. 8. History of fibromyalgia. 9. Gastroesophageal reflux disease. 10.Hypertension. 11.Hyperlipidemia. 12.History of diverticulitis. 13.History of thromboembolism. 14.History of mitral valve regurgitation. 15.History of Raynaud's. 16.History of lupus. 17.Obesity with body mass index of 13.7. 18.History of positive KESHIA and positive cardiolipin antibody. 19.FULL CODE. RECOMMENDATIONS AND DISCUSSION: In this 60-year-old woman who presented with multiple complex medical issues, we will monitor the patient closely, continue the current medications, continue symptomatic treatment. We will monitor the patient closely in the ICU. Bronchodilators, steroids, dexamethasone, IV heparin have been initiated. The prognosis is guarded because of multiple complex medical issues. Further recommendations to follow. See orders for further details. Closely follow with Pulmonary. I would also recommend ultrasound of the leg and a 2D echo with Doppler to complete the workup. Repeat labs will be ordered. A copy of this dictation is being forwarded to Dr. Monroe, who is the primary physician. MMODL / IJN: [id number] / DEBRA
[2021-03-12] MEDS: DEXMEDETOMIDINE/0.9% NACL(PMX) 400 MCG in EMPTY BAG 1 BAG IV SCH (20:33)
[2021-03-12] MEDS: FAMOTIDINE 20 MG TAB PO SCH (21:00)
[2021-03-12] MEDS: HEPARIN SOD,PORK IN 0.45% NACL 25,000 UNIT in 0.45% NACL 1 250ML.BAG IV SCH (21:16)
[2021-03-12] MEDS: NIFEdipine XL 30 MG TAB.ER.24 PO SCH (21:17)
[2021-03-13] MEDS: HEPARIN SODIUM 1,000 UN/ML (10ML VL) IV PRN ×2 (00:55→22:54)
[2021-03-13] MEDS: SODIUM CHLORIDE 0.9% 1,000 ML IV SCH (04:35)
[2021-03-13] MEDS: HEPARIN SOD,PORK IN 0.45% NACL 25,000 UNIT in 0.45% NACL 1 250ML.BAG IV SCH (05:00)
[2021-03-13 07:14] LABS: Glucose,Whole Blood 264 mg/dL (75-99)
[2021-03-13 07:14] LABS: Glucose,Whole Blood 309 mg/dL (75-99)
[2021-03-13 07:28] LABS: African American GFR (CKD) >90 (>60 ml/min/1.73 sqM); Anion Gap 8 mmol/L; Blood Urea Nitrogen 22 mg/dL (7-17); Calcium 8.2 mg/dL (8.4-10.2); Carbon Dioxide 21 mmol/L (22-30); Chloride 100 mmol/L (98-107); Glucose 262 mg/dL (74-99); Non-African American GFR(CKD) >90 (>60 ml/min/1.73 sqM); Sodium 129 mmol/L (137-145)
[2021-03-13 07:33] LABS: Basophils % (A) 0 %; Eosinophils % (A) 0 %; HCT 45.8 % (34.0-46.0); HGB 16.1 gm/dL (11.4-16.0); Lymphocytes # (A) 0.6 k/uL (1.0-4.8); Lymphocytes % (A) 6 %; MCH 36.1 pg (25.0-35.0); MCHC 35.2 g/dL (31.0-37.0); MCV 102.4 fL (80.0-100.0); Macrocytosis Slight; Mean Platelet Volume 8.3; Monocytes # (A) 0.2 k/uL (0-1.0); Monocytes % (A) 2 %; Neutrophils # (A) 7.9 k/uL (1.3-7.7); Neutrophils % (A) 90 %; Platelet Count 149 k/uL (150-450); RBC 4.48 m/uL (3.80-5.40); RDW 12.4 % (11.5-15.5); WBC 8.8 k/uL (3.8-10.6)
[2021-03-13 07:41] LABS: LDH 3064 U/L (313-618); Potassium 4.5 mmol/L (3.5-5.1)
[2021-03-13] MEDS: DEXAMETHASONE SOD PHOSPHATE 10 MG/ML 1 ML VIAL IVP SCH (09:18)
[2021-03-13] MEDS: atenoloL 25 MG TAB PO SCH (09:18)
[2021-03-13] MEDS: PANTOPRAZOLE 40 MG TABLET PO SCH (09:19)
[2021-03-13] MEDS: atenoloL 50 MG TAB PO SCH (09:19)
[2021-03-13] MEDS: OXYBUTYNIN 10 MG TAB.ER.24 PO SCH (09:19)
[2021-03-13] MEDS: CALCIUM CARBONATE 500 MG CHEWABLE PO SCH (09:19)
--- NOTE | 2021-03-13 09:19 | PN ---
PROGRESS NOTE Mrs. Cain is still on high-flow oxygen. She has no chest pain. Her troponins have shown a downward trend. She has COVID pneumonia and the troponin profile suggests secondary myocardial injury secondary to hypoxia, but she is doing better. We will continue IV heparin for now. I will place her on Lasix 20 mg b.i.d. and I will change the atenolol to 25 mg b.i.d. She is in atrial fibrillation. Rate is controlled. I am recommending that we continue IV heparin, switch the atenolol from 50 mg daily to 25 b.i.d. and Lasix 20 mg p.o. b.i.d. I will continue to see the patient as needed. Patient will need all long-term anticoagulation. JOHN / JOEN: [id number] /
[2021-03-13] MEDS: FUROSEMIDE 20 MG TAB PO SCH ×2 (09:20→16:48)
[2021-03-13] MEDS: CYANOCOBALAMIN 500 MCG TAB PO SCH (09:20)
[2021-03-13] MEDS: FOLIC ACID 1 MG TAB PO SCH ×2 (09:20→09:23)
[2021-03-13] MEDS: BARICITINIB 2 MG TABLET PO SCH (09:20)
[2021-03-13] MEDS: CHOLECALCIFEROL 25 MCG (1000 IU) TABLET PO SCH (09:20)
[2021-03-13 09:41] LABS: C Reactive Protein 5.7 mg/dL (<1.0)
[2021-03-13 11:59] LABS: Glucose,Whole Blood 214 mg/dL (75-99)
--- NOTE | 2021-03-13 13:04 | P.PN ---
Subjective Progress Note Date: 03/13/21 Principal diagnosis: Acute hypoxic respiratory failure secondary to COVID-19 pneumonia THis is a 60-year-old female, no major medical illnesses, presented to the ER yesterday with at least 1 week history of shortness of breath, intermittent cough, chest discomfort, she had no GI symptoms, no headache, no nausea no vomiting no diarrhea. Patient felt generally weak, and upon arrival to the ER, patient was noted to be hypoxic. CT of the chest showed no evidence of pulmonary embolism, but it did show extensive pulmonary infiltrates consistent with Covid19 pneumonia. COVID-19 PCR was positive. CBC was relatively normal except for a relative lymphopenia, relative thrombocytopenia, d-dimer was 0.94, patient was noted to have low sodium of 116, normal renal profile was noted, bicarb was noted to be a bit low at 20. Blood sugar was 293. If her enzymes were noted to be a bit elevated with AST of 179 and ALT of 65. LDH was extremely elevated at 3959, C-reactive protein of 8.3, pro BNP was over 5000, troponin was also noted to be elevated at 0.30. Patient is also known to have history of positive anti-cardiolipin antibody. Patient was placed on BiPAP, she remains on BiPAP at present, she is actually on the 100% FiO2, IPAP of 12 and EPAP of 6, and she has marginal O2 saturation. ABG last night was done on BiPAP, and her pO2 was 72 pCO2 37 pH of 7.37. Patient is yet to be seen by cardiology, however heparin was advised by cardiology, and she is on heparin dri p at present. Again her CT angiogram of the chest was negative for thromboembolic disease. D-dimer was noted to be 0.94. Her pulmonary status was quite marginal last night, hence patient was given 1 dose of Lasix 40 mg IV push, and she was approached by the nurse about possible worsening and intu bation, patient clearly stated to the nurse that she did not want to be intubated tomorrow what. Apparently she discussed this with her , and both agreed on no intubation. Patient was reevaluated today on 03/13/21, remains in the ICU, remains on BiPAP on the percent FiO2, EPAP of 6 and IPAP of 12. O2 saturation remains extremely marginal. Patient has previously expressed wishes as she does not want to be intubated and placed on mechanical ventilation no matter what. Patient is on the COVID-19 cocktail, she was also started upon admission on BARICITINIB and she was seen on consultation by cardiology for her possible non-ST elevation myocardial infarction. Remains on heparin. Echocardiogram showed good ejection fraction. No significant abnormality noted. Although there was a mention of apical Hypokinesis, and the compression molding machine tender raised the possibility of takustubo syndrome. And she was given Lasix by the consulting compression molding machine tender. Her EDC count today is 8.8 hemoglobin is 16.1. Electrolytes showed low sodium of 129, renal profile is normal bicarb is normal. A shunt sodium on presentation was 116. PTT today is 66, and have d-dimer 0.50. LDH is elevated over 3000 and C- reactive protein is 5.7. Objective - Vital Signs Vital signs: Vital Signs Temp 98.5 F 03/13/21 08:00 Pulse 73 03/13/21 11:30 Resp 42 H 03/13/21 11:30 BP 123/95 03/13/21 11:30 Pulse Ox 89 L 03/13/21 11:30 Intake & Output 03/12/21 03/13/21 03/13/21 18:59 06:59 18:59 Intake Total 6711.452 4998.538 577.739 Output Total 1225 550 Balance -82.700 515.538 577.739 Weight 94.3 kg Intake: IV 620 825 0.9 620 825 Intake, IV Titration 232.300 190.538 407.739 Amount Dexmedetomidine/0.9% NaCl 29.484 12.077 (Pmx) 400 mcg In Empty Bag 1 bag @ 0.2 MCG/KG/HR 4.536 mls/hr IV .Q22H3M YANNICK Rx#:[id number] Heparin Sod,Pork in 0.45% 52.816 103.461 32.739 NaCl 25,000 unit In 0.45 % NaCl 1 250ml.bag @ 11. 03 UNITS/KG/HR 10.006 mls /hr IV .Q24H YANNICK Rx#: [id number] Sodium Chloride 0.9% 1, 150 75 375 000 ml @ 75 mls/hr IV . [id number] YANNICK Rx#:[id number] Oral 290 50 170 Output: Urine 1225 550 Other: Voiding Method External Catheter External Catheter External Catheter # Voids 0 0 0 - Exam Physical Exam: Revealed a 60-year-old female on BiPAP, 100% IPAP of 12 EPAP of 6. Head: Atraumatic, normocephalic. HEENT:[Neck is supple.] [No neck masses.] [No thyromegaly.] [No JVD.] Chest: Crackles at the bases bilaterally. No rhonchi and no wheezes. Cardiac Exam: [Normal S1 and S2, no S3 gallop, no murmur.] Abdomen: [Soft, nontender, no megaly, no rebound, no guarding, normal bowel sounds.] Extremities: [No clubbing, no edema, no cyanosis.] Neurological Exam: [No focal neurologic deficit.] Alert oriented 3. Psychiatric: Normal mood affect and normal mental status examination. Skin: No rashes. Musculoskeletal: No deformities and no limitation in range of motion. - Labs CBC & Chem 7: 03/13/21 06:55 03/13/21 06:55 Labs: Abnormal Lab Results - Last 24 Hours (Table) 03/12/21 03/12/21 03/12/21 Range/Units 14:45 17:09 23:46 Hgb (11.4-16.0) gm/dL MCV (80.0-100.0) fL MCH (25.0-35.0) pg Plt Count (150-450) k/uL Neutrophils # (1.3-7.7) k/uL Lymphocytes # (1.0-4.8) k/uL APTT 38.9 H 42.8 H (22.0-30.0) sec Sodium (137-145) mmol/L Carbon Dioxide (22-30) mmol/L BUN (7-17) mg/dL Creatinine (0.52-1.04) mg/dL Glucose (74-99) mg/dL POC Glucose (mg/dL) 119 H (75-99) mg/dL Calcium (8.4-10.2) mg/dL Lactate Dehydrogenase (313-618) U/L C-Reactive Protein (<1.0) mg/dL 03/13/21 03/13/21 03/13/21 Range/Units 06:55 06:55 06:55 Hgb 16.1 H (11.4-16.0) gm/dL MCV 102.4 H (80.0-100.0) fL MCH 36.1 H (25.0-35.0) pg Plt Count 149 L (150-450) k/uL Neutrophils # 7.9 H (1.3-7.7) k/uL Lymphocytes # 0.6 L (1.0-4.8) k/uL APTT 66.0 H (22.0-30.0) sec Sodium 129 L (137-145) mmol/L Carbon Dioxide 21 L (22-30) mmol/L BUN 22 H (7-17) mg/dL Creatinine 0.50 L (0.52-1.04) mg/dL Glucose 262 H (74-99) mg/dL POC Glucose (mg/dL) (75-99) mg/dL Calcium 8.2 L (8.4-10.2) mg/dL Lactate Dehydrogenase 3064 H (313-618) U/L C-Reactive Protein 5.7 H (<1.0) mg/dL 03/13/21 03/13/21 03/13/21 Range/Units 07:11 07:13 11:58 Hgb (11.4-16.0) gm/dL MCV (80.0-100.0) fL MCH (25.0-35.0) pg Plt Count (150-450) k/uL Neutrophils # (1.3-7.7) k/uL Lymphocytes # (1.0-4.8) k/uL APTT (22.0-30.0) sec Sodium (137-145) mmol/L Carbon Dioxide (22-30) mmol/L BUN (7-17) mg/dL Creatinine (0.52-1.04) mg/dL Glucose (74-99) mg/dL POC Glucose (mg/dL) 309 H 264 H 214 H (75-99) mg/dL Calcium (8.4-10.2) mg/dL Lactate Dehydrogenase (313-618) U/L C-Reactive Protein (<1.0) mg/dL Assessment and Plan Assessment: Impression: Acute hypoxic respiratory failure secondary to COVID-19 pneumonia Elevated inflammatory markers secondary to COVID-19 pneumonia Suspect non-ST elevation myocardial infarction. HEENT followed by cardiology, remains on heparin. Hyponatremia, possibly hypovolemic in nature. Improved, her sodium is 129 today. History of positive KESHIA and positive cardiolipin antibody. Recommendation: Continue oxygen and titrate accordingly. Continue BiPAP for now. Reviewed the results of the echocardiogram, remains on heparin. Continue COVID-19 cocktail including Decadron, she is also on multivitamins, continue baricitinib GI and DVT prophylaxis. Monitor platelets closely close monitoring of the sodium. prognosis is definitely guarded, we will continue to monitor in the ICU. patient clearly expressed wishes as not to be intubated no matter what, and this was discussed last night with the nurse taking care of the patient. Time with Patient: Less than 30
[2021-03-13] MEDS ORDERED: LIDOCAINE 1% INJ 10MG/ML (20 ML MDV) ONE (13:12)
[2021-03-13] MEDS ORDERED: LIDOCAINE 1% INJ 10MG/ML (20 ML MDV) SQ ONE (14:18)
--- NOTE | 2021-03-13 15:04 | XR ---
EXAMINATION TYPE: XR chest 1V confirm line [facility] DATE OF EXAM: 03/13/2021 COMPARISON: Chest x-ray 03/12/2021 HISTORY: Status post PICC line placement TECHNIQUE: Single frontal view of the chest is obtained. FINDINGS: There is no focal air space opacity, pleural effusion, or pneumothorax seen. The cardiac silhouette size is within normal limits. There's been interval placement of left-sided PICC line, di stal tips overlying the superior vena cava. The osseous structures are intact. IMPRESSION: No evident complication status post PICC line placement.
[2021-03-13] MEDS ORDERED: INSULIN DETEMIR (LEVEMIR) 100 UNIT/ML SYR SQ ONE (15:15)
--- NOTE | 2021-03-13 15:17 | IR ---
EXAMINATION TYPE: IR cvc insert >=5 years DATE OF EXAM: 03/13/2021 COMPARISON: NONE HISTORY: Covid infection Hypotension Needs long-term intravenous access for nasal processes, intraven ous fluid. FINDINGS: Maximal barrier technique was utilized. Hand hygiene obtained with soap and water and alco hol-based hand rub. The skin overlying the left basilic vein was localized with ultrasound and noted to be compressible and patent by ultrasound. An ultrasound image was obtained and submitted on huma clarke's chart. Sterile technique utilized with the ultrasound machine. The skin overlying was prepped an d draped and Lidocaine used for local anesthesia. A skin eneida was made with a scalpel. Access was g ained to the vein under direct ultrasound guidance with a 21-gauge needle and a 0.018 inch wire was a dvanced. Access site was dilated with a peel-away sheath and the catheter tailored to length. Charlee ter advanced centrally and a post procedure chest x-ray verified placement with tip at the superior v gilbert cava. Catheter was fixed to the skin and a sterile dressing placed. Hemostasis achieved and the catheter was aspirated and flushed with sterile saline. The patient remained in stable condition. IMPRESSION: STATUS POST ULTRASOUND GUIDED PICC LINE PLACEMENT, READY FOR USE. THIS PROCEDURE WAS PER FORMED BY THE UNDERSIGNED.
[2021-03-13] MEDS ORDERED: DRY MOUTH SPRAY 44.3 SPRAY/44.3 ML SPRAY MUCOUS MEM PRN (15:51)
[2021-03-13 16:56] LABS: Glucose,Whole Blood 279 mg/dL (75-99)
--- NOTE | 2021-03-13 17:22 | PN ---
PROGRESS NOTE DATE OF SERVICE: 03/13/2021 This 60-year-old woman who was admitted with acute Covid 19 pneumonia as well as bilateral interstitial pneumonia with acute hypoxic respiratory failure also had elevated troponin. The patient is on IV heparin. Cardiology is following the patient closely. Blood sugar is also elevated. The patient probably has diabetes mellitus also unmasked by the high-dose IV steroids as well. Secondary myocardial injury due to hypoxia has been considered at this time. The EKG which was reviewed personally by me showed atrial fibrillation with rapid ventricular response also. The patient is on BiPAP, saturating on low 90s at this time. PAST MEDICAL HISTORY: Reviewed. REVIEW OF SYSTEMS: Cardiovascular: As mentioned earlier. Respiratory as mentioned earlier. GI: As mentioned earlier. : No dysuria. Nervous system: No numbness, weakness. PHYSICAL EXAMINATION: Cardiovascular: S1, S2. Respiration: A few scattered rhonchi. Abdomen: Soft, nontender. Legs are no edema. No swelling. Nervous system: No focal deficits. LABS: WBC 8.8, hemoglobin 16.1. APTT noted. Sodium 129, glucose noted. ASSESSMENT: 1. Acute COVID-19 infection with acute bilateral interstitial pneumonia with acute hypoxic respiratory failure, present on admission, on BiPAP. 2. Elevated troponin 0.063, possibly secondary to Covid 19 and type 2 myocardial infarction, or myocardial injury. 3. Elevated inflammatory markers of COVID-19. 4. Atrial fibrillation with fast ventricular rate. 5. Heparin monitoring. 6. Diabetes mellitus type 2 with hyperglycemia, uncontrolled. 7. Elevated D-dimer without any evidence of acute pulmonary embolism. 8. Increased MCV. 9. Thrombocytopenia. 10.History of fibromyalgia. 11.Gastroesophageal reflux disease. 12.Hypertension. 13.Hyperlipidemia. 14.History of diverticulitis. 15.History of thromboembolism. 16.History of mitral valve regurgitation. 17.History of Raynaud's. 18.History of lupus. 19.Obesity with body mass index of 13.7. 20.History of positive KESHIA and positive anticardiolipin antibody. 21.FULL CODE. RECOMMENDATIONS AND DISCUSSION: I recommend to continue current medications, symptomatic treatment. Otherwise, continue the BiPAP. Otherwise, I would recommend continue with IV heparin at this time, transition to Eliquis once stable and okay with Cardiology. Otherwise continue the bronchodilators, rest of the Covid medications and continue to monitor. Prognosis guarded because of multiple complex medical issues. Further recommendations to follow. There is no evidence of any pulmonary embolism currently. The patient has bilateral extensive interstitial pneumonia, so still hypoxic. Further recommendations to follow. MMODL / IJN: [id number] /
[2021-03-13] MEDS: INSULIN ASPART (NovoLOG) 100 UNIT/ML VIAL SQ SCH ×2 (17:32→21:58)
[2021-03-13 21:36] LABS: Glucose,Whole Blood 281 mg/dL (75-99)
[2021-03-13] MEDS: DEXMEDETOMIDINE/0.9% NACL(PMX) 400 MCG in EMPTY BAG 1 BAG IV SCH (21:56)
[2021-03-13] MEDS: FAMOTIDINE 20 MG TAB PO SCH (21:57)
[2021-03-13] MEDS: NIFEdipine XL 30 MG TAB.ER.24 PO SCH (21:57)
[2021-03-14] MEDS: INSULIN DETEMIR (LEVEMIR) 100 UNIT/ML SYR SQ SCH ×2 (00:02→20:37)
[2021-03-14] MEDS: SODIUM CHLORIDE 0.9% 1,000 ML IV SCH ×2 (00:13→15:31)
[2021-03-14 05:26] LABS: Basophils % (A) 0 %; Eosinophils % (A) 0 %; HCT 41.2 % (34.0-46.0); HGB 14.3 gm/dL (11.4-16.0); Lymphocytes # (A) 0.7 k/uL (1.0-4.8); Lymphocytes % (A) 9 %; MCH 35.3 pg (25.0-35.0); MCHC 34.8 g/dL (31.0-37.0); MCV 101.2 fL (80.0-100.0); Mean Platelet Volume 8.6; Monocytes # (A) 0.3 k/uL (0-1.0); Monocytes % (A) 4 %; Neutrophils # (A) 6.6 k/uL (1.3-7.7); Neutrophils % (A) 86 %; Platelet Count 175 k/uL (150-450); RBC 4.07 m/uL (3.80-5.40); RDW 11.6 % (11.5-15.5); WBC 7.6 k/uL (3.8-10.6)
[2021-03-14 05:57] LABS: ALT 41 U/L (4-34); AST 54 U/L (14-36); African American GFR (CKD) >90 (>60 ml/min/1.73 sqM); Albumin 2.8 g/dL (3.5-5.0); Alkaline Phosphatase 66 U/L (38-126); Anion Gap 4 mmol/L; Blood Urea Nitrogen 19 mg/dL (7-17); Calcium 8.2 mg/dL (8.4-10.2); Carbon Dioxide 30 mmol/L (22-30); Chloride 101 mmol/L (98-107); Glucose 180 mg/dL (74-99); Non-African American GFR(CKD) >90 (>60 ml/min/1.73 sqM); Potassium 3.5 mmol/L (3.5-5.1); Sodium 135 mmol/L (137-145); Total Bilirubin 0.8 mg/dL (0.2-1.3); Total Protein 5.7 g/dL (6.3-8.2)
[2021-03-14] MEDS ORDERED: Potassium Replacement Protocol 1 EACH MISC MISCELLANE PRN (06:07)
[2021-03-14] MEDS: POTASSIUM CHLORIDE 10 MEQ in WATER FOR INJECTION 1 100ML.BAG IVPB SCH ×4 (06:15→11:25)
[2021-03-14] MEDS: HEPARIN SOD,PORK IN 0.45% NACL 25,000 UNIT in 0.45% NACL 1 250ML.BAG IV SCH (06:24)
[2021-03-14 06:33] LABS: Glucose,Whole Blood 171 mg/dL (75-99)
[2021-03-14] MEDS: INSULIN ASPART (NovoLOG) 100 UNIT/ML VIAL SQ SCH ×4 (06:33→20:37)
[2021-03-14] MEDS: atenoloL 25 MG TAB PO SCH ×2 (07:56→20:36)
[2021-03-14] MEDS: FOLIC ACID 1 MG TAB PO SCH ×2 (07:56→07:58)
[2021-03-14] MEDS: DEXAMETHASONE SOD PHOSPHATE 10 MG/ML 1 ML VIAL IVP SCH (07:56)
[2021-03-14] MEDS: OXYBUTYNIN 10 MG TAB.ER.24 PO SCH (07:56)
[2021-03-14] MEDS: PANTOPRAZOLE 40 MG TABLET PO SCH (07:56)
[2021-03-14] MEDS: FUROSEMIDE 20 MG TAB PO SCH ×2 (07:57→16:44)
[2021-03-14] MEDS: NIFEdipine XL 30 MG TAB.ER.24 PO SCH (07:57)
[2021-03-14] MEDS: CYANOCOBALAMIN 500 MCG TAB PO SCH (07:57)
[2021-03-14] MEDS: CALCIUM CARBONATE 500 MG CHEWABLE PO SCH (07:57)
[2021-03-14] MEDS: CHOLECALCIFEROL 25 MCG (1000 IU) TABLET PO SCH (07:57)
[2021-03-14] MEDS: BARICITINIB 2 MG TABLET PO SCH (08:00)
--- NOTE | 2021-03-14 09:26 | XR ---
EXAMINATION TYPE: XR chest 1V portable DATE OF EXAM: 03/14/2021 COMPARISON: NONE HISTORY: PICC line placement TECHNIQUE: Single frontal view of the chest is obtained. FINDINGS: Diffuse interstitial pattern with bilateral infiltrates and pleural effusion. PICC line se en the tip overlying the SVC. No sizable pneumothorax. Heart enlarged. Underlying COPD suspected. IMPRESSION: Stable diffuse bilateral infiltrate
--- NOTE | 2021-03-14 10:21 | CDI ---
Documentation Clarification Form Date: 03/14/2021 09:39:17 AM From: Evi Cummings RN CCDS Admit Date: 03/11/2021 08:45:00 PM Patient Name: Liliane Cain Visit Number: [id number] Discharge Date: ATTENTION: The Clinical Documentation Specialists (CDI) and [facility] Coding Staff appreciate your assistance in clarifying documentation. Please respond to the clarification below the line at the bottom and electronically sign. The CDI & [facility] Coding staff will review the response and follow-up if needed. Please note: Queries are made part of the Legal Health Record. If you have any questions, please contact the author of this message via ITS. Dr. Harjinder Ridley There is documentation of Takotsubos cardiomyopathy, 03/12, Echo. Additional clarification is requested. History/Risk Factors: 60-year-old female presents to the ED with increasing shortness of breath admitted with COVID Pneumonia. Medical History: HTN & HLD. 03/12, Cardiology Consult. Clinical Indicators: LABS: 03/11: BNP 5250; 03/01 Troponin 0.302, 03/12 Troponin 0.063 ECHO 03/12 Left ventricular size is normal. Overall left ventricular systolic function is low-normal with, EF between 50-55%. There is apical cap hypokinesis which may be seen with Takotsubos cardiomyopathy. Treatment: 03/11 to current Procardia XL PO HS, 03/11 Lasix 40mg IV x 1, 03/12 Lasix 20mg IV x 1, 03/13 to current Lasix 20mg PO BID, 03/11 Heparin 4,000 units IV x 1, 03/11 to current Heparin Sodium 25,000 in Sodium Chloride 250mls @ 10.006 mls/hr IVPB Q24HR, 03/12 -03/13 Tenormin 50mg PO QAM, 03/13 to current Tenormin 25mg PO BID. Is there an additional diagnosis and/or clinical significance to the above Echocardiogram result/information? [ ] Takotsubo Cardiomyopathy [ ] Other, please specify [ ] Unable to determine (Template Last Revised: June 2020) Unable to determine MTDD
--- NOTE | 2021-03-14 10:40 | CDI ---
The patient presented with the following clinical indicators. Additional clarification regarding the etiology/cause of the clinical indicators is requested. History/Risk Factors: 60-year-old female presents to the ED with shortness of breath, chest discomfort and intermittent cough. Medical History: HTN, HLD, Fibromyalgia and Obesity. 03/12, H&P. Clinical Indicators: Admitted with COVID 19 pneumonia, Acute Hypoxic Respiratory. WBC: 03/11 6.7 Lactic acid: 03/11 3.2 Serology: 03/11 Coronavirus (PCR) Detected. Vitals signs: 03/11 B/P 83/58, HR 109, Temp 97.8 F, RR 22, SpO2 80% ra Treatment: Pulmonary Consult: 03/12 Acute hypoxic respiratory failure secondary to COVID 19 pneumonia. Elevated inflammatory markers secondary to COVID 19 pneumonia. Medications: 03/12 to current 03/14 Baricitinib 4mg PO Daily, 03/12 to current Vitamin D3 125mcg PO Daily, 03/12 to current Vitamin B-12, 03/12 to current Decadron 6mg IVP Daily, 03/02 to current Folic Acid 1mg PO Daily. IV Bolus: 03/11 3L 0.9NS IV Bolus In your professional opinion, please clarify if these findings signify one of the following conditions: [ ] Sepsis Ruled Out [ ] Sepsis POA [ ] Other, please specify [ ] Unable to determine SIRS Criteria: 2 or more of the following may indicate SIRS -Temperature < 96.8F (36C) or > 101.0F (38.3C) -Heart Rate > 90 bpm -Respiratory Rate > 20 breaths/min or PaCO2 < 32 mmHg -White Blood Cell Count > 12,000 or < 4,000 cells/mm3 or > 10% bands ] Sepsis Ruled Out MTDD
[2021-03-14 11:48] LABS: Glucose,Whole Blood 217 mg/dL (75-99)
--- NOTE | 2021-03-14 12:36 | P.PN ---
Subjective Progress Note Date: 03/14/21 Principal diagnosis: Acute hypoxic respiratory failure secondary to COVID-19 pneumonia THis is a 60-year-old female, no major medical illnesses, presented to the ER yesterday with at least 1 week history of shortness of breath, intermittent cough, chest discomfort, she had no GI symptoms, no headache, no nausea no vomiting no diarrhea. Patient felt generally weak, and upon arrival to the ER, patient was noted to be hypoxic. CT of the chest showed no evidence of pulmonary embolism, but it did show extensive pulmonary infiltrates consistent with Covid19 pneumonia. COVID-19 PCR was positive. CBC was relatively normal except for a relative lymphopenia, relative thrombocytopenia, d-dimer was 0.94, patient was noted to have low sodium of 116, normal renal profile was noted, bicarb was noted to be a bit low at 20. Blood sugar was 293. If her enzymes were noted to be a bit elevated with AST of 179 and ALT of 65. LDH was extremely elevated at 3959, C-reactive protein of 8.3, pro BNP was over 5000, troponin was also noted to be elevated at 0.30. Patient is also known to have history of positive anti-cardiolipin antibody. Patient was placed on BiPAP, she remains on BiPAP at present, she is actually on the 100% FiO2, IPAP of 12 and EPAP of 6, and she has marginal O2 saturation. ABG last night was done on BiPAP, and her pO2 was 72 pCO2 37 pH of 7.37. Patient is yet to be seen by cardiology, however heparin was advised by cardiology, and she is on heparin dri p at present. Again her CT angiogram of the chest was negative for thromboembolic disease. D-dimer was noted to be 0.94. Her pulmonary status was quite marginal last night, hence patient was given 1 dose of Lasix 40 mg IV push, and she was approached by the nurse about possible worsening and intu bation, patient clearly stated to the nurse that she did not want to be intubated tomorrow what. Apparently she discussed this with her , and both agreed on no intubation. Patient was reevaluated today on 03/13/21, remains in the ICU, remains on BiPAP on the percent FiO2, EPAP of 6 and IPAP of 12. O2 saturation remains extremely marginal. Patient has previously expressed wishes as she does not want to be intubated and placed on mechanical ventilation no matter what. Patient is on the COVID-19 cocktail, she was also started upon admission on BARICITINIB and she was seen on consultation by cardiology for her possible non-ST elevation myocardial infarction. Remains on heparin. Echocardiogram showed good ejection fraction. No significant abnormality noted. Although there was a mention of apical Hypokinesis, and the wardrobe assistant raised the possibility of takustubo syndrome. And she was given Lasix by the consulting wardrobe assistant. Her EDC count today is 8.8 hemoglobin is 16.1. Electrolytes showed low sodium of 129, renal profile is normal bicarb is normal. A shunt sodium on presentation was 116. PTT today is 66, and have d-dimer 0.50. LDH is elevated over 3000 and C- reactive protein is 5.7. Patient was reevaluated today on 03/14/21, remains in the ICU, remains on BiPAP with FiO2 of 100% IPAP of 14 and EPAP of 6, remains marginal at best. O2 saturation is in the low 90s. Patient is requiring Precedex drip otherwise she gets extremely agitated and anxious. Patient is also on the COVID-19 cocktail, and she was seen by cardiology were and the patient was placed on heparin for possible non-ST elevation myocardial infarction. Her Precedex is at 0.15 mcg/kg per hour. CBC count is normal left lites are normal renal profile is normal. Chest x-ray continues to show bilateral infiltrates consistent with COVID-19 pneumonia. Patient had a PICC line placed to yesterday, and the plan is to start TPN on this patient because she is not eating much Objective - Vital Signs Vital signs: Vital Signs Temp 98.1 F 03/14/21 12:00 Pulse 75 03/14/21 12:00 Resp 41 H 03/14/21 12:00 BP 89/59 03/14/21 12:00 Pulse Ox 93 L 03/14/21 12:00 Intake & Output 03/13/21 03/14/21 03/14/21 18:59 06:59 18:59 Intake Total 8689.167 8323.615 900 Output Total 1275 250 400 Balance -2.261 953.615 500 Weight 95.1 kg 95.1 kg Intake: IV 825 750 0.9 825 75 Potassium Chloride 10 meq 300 In Water For Injection 1 100ml.bag @ 100 mls/hr IVPB Q1HR YANNICK Rx#: [id number] Sodium Chloride 0.9% 1, 375 000 ml @ 75 mls/hr IV . [id number] YANNICK Rx#:[id number] Intake, IV Titration 932.739 378.615 Amount Dexmedetomidine/0.9% NaCl 86.354 (Pmx) 400 mcg In Empty Bag 1 bag @ 0.2 MCG/KG/HR 4.536 mls/hr IV .Q22H3M YANNICK Rx#:[id number] Heparin Sod,Pork in 0.45% 32.739 217.261 NaCl 25,000 unit In 0.45 % NaCl 1 250ml.bag @ 11. 03 UNITS/KG/HR 10.006 mls /hr IV .Q24H YANNICK Rx#: [id number] Sodium Chloride 0.9% 1, 900 75 000 ml @ 75 mls/hr IV . [id number] YANNICK Rx#:[id number] Oral 340 150 Output: Urine 1275 250 400 Other: Voiding Method External Catheter External Catheter External Catheter # Voids 0 1 - Exam Physical Exam: Revealed a 60-year-old female on BiPAP, 100% IPAP of 14 and EPAP of 6. Head: Atraumatic, normocephalic. HEENT:[Neck is supple.] [No neck masses.] [No thyromegaly.] [No JVD.] Chest: Crackles at the bases bilaterally. No rhonchi and no wheezes. Cardiac Exam: [Normal S1 and S2, no S3 gallop, no murmur.] Abdomen: [Soft, nontender, no megaly, no rebound, no guarding, normal bowel sounds.] Extremities: [No clubbing, no edema, no cyanosis.] Neurological Exam: [No focal neurologic deficit.] Alert oriented 3. Psychiatric: Normal mood affect and normal mental status examination. Skin: No rashes. Musculoskeletal: No deformities and no limitation in range of motion. - Labs CBC & Chem 7: 03/14/21 05:00 03/14/21 05:00 Labs: Abnormal Lab Results - Last 24 Hours (Table) 03/13/21 03/13/21 03/14/21 Range/Units 16:55 21:35 05:00 MCV 101.2 H (80.0-100.0) fL MCH 35.3 H (25.0-35.0) pg Lymphocytes # 0.7 L (1.0-4.8) k/uL APTT (22.0-30.0) sec Sodium (137-145) mmol/L BUN (7-17) mg/dL Glucose (74-99) mg/dL POC Glucose (mg/dL) 279 H 281 H (75-99) mg/dL Calcium (8.4-10.2) mg/dL AST (14-36) U/L ALT (4-34) U/L Total Protein (6.3-8.2) g/dL Albumin (3.5-5.0) g/dL 03/14/21 03/14/21 03/14/21 Range/Units 05:00 05:00 06:31 MCV (80.0-100.0) fL MCH (25.0-35.0) pg Lymphocytes # (1.0-4.8) k/uL APTT 89.7 H (22.0-30.0) sec Sodium 135 L (137-145) mmol/L BUN 19 H (7-17) mg/dL Glucose 180 H (74-99) mg/dL POC Glucose (mg/dL) 171 H (75-99) mg/dL Calcium 8.2 L (8.4-10.2) mg/dL AST 54 H (14-36) U/L ALT 41 H (4-34) U/L Total Protein 5.7 L (6.3-8.2) g/dL Albumin 2.8 L (3.5-5.0) g/dL 03/14/21 Range/Units 11:47 MCV (80.0-100.0) fL MCH (25.0-35.0) pg Lymphocytes # (1.0-4.8) k/uL APTT (22.0-30.0) sec Sodium (137-145) mmol/L BUN (7-17) mg/dL Glucose (74-99) mg/dL POC Glucose (mg/dL) 217 H (75-99) mg/dL Calcium (8.4-10.2) mg/dL AST (14-36) U/L ALT (4-34) U/L Total Protein (6.3-8.2) g/dL Albumin (3.5-5.0) g/dL Assessment and Plan Assessment: Impression: Acute hypoxic respiratory failure secondary to COVID-19 pneumonia Elevated inflammatory markers secondary to COVID-19 pneumonia Suspect non-ST elevation myocardial infarction. HEENT followed by cardiology, remains on heparin. Hyponatremia, possibly hypovolemic in nature. Improved History of positive KESHIA and positive cardiolipin antibody. Recommendation: Continue oxygen and titrate accordingly. Continue BiPAP for now. Continue heparin as per cardiology. Continue COVID-19 cocktail including Decadron,, continue baricitinib GI and DVT prophylaxis. Monitor platelets closely To be flutter electrolytes, we'll order inflammatory markers to be done in a.m. And follow-up chest x-ray in a.m. prognosis is definitely guarded, we will continue to monitor in the ICU. Time with Patient: Less than 30
[2021-03-14 13:55] LABS: Ionized Calcium 4.4 mg/dL (4.5-5.3)
[2021-03-14 14:00] LABS: Magnesium 2.2 mg/dL (1.6-2.3)
[2021-03-14] MEDS ORDERED: MVI, ADULT NO.4 WITH VIT K 10 ML, TRACE (CONC-1ML/DOSE) 1 ML in AMINO ACID 5%-D20W+LYTE... IV SCH ×3 (15:00)
--- NOTE | 2021-03-14 15:30 | PN ---
PROGRESS NOTE DATE OF SERVICE: 03/14/2021. This 60-year-old woman who was admitted with acute COVID-19 infection, acute bilateral interstitial pneumonia and acute hypoxic respiratory failure is still on BiPAP at this time. The chest x-ray showed extensive bilateral infiltrates which were confirmed by CT scan of the chest, which I reviewed personally. The patient is on BiPAP at this time. The chest x-ray showed some minimal improvement at this time. The patient also had elevated troponin. Cardiology is following the patient closely. A 2D echo with Doppler showed ejection fraction about 50% to 55% with LV size normal. Apical hypokinesis was also noted, possibly takotsubo syndrome. The patient is being closely monitored. Past medical history reviewed. REVIEW OF SYSTEMS: CARDIOVASCULAR SYSTEM: No angina. RESPIRATION: As mentioned earlier. GI: As mentioned earlier. : No dysuria. NERVOUS SYSTEM: No numbness, weakness. LABS: WBC 7.6, hemoglobin is 14.3, sodium 132, potassium 3.5. ASSESSMENT: 1. Acute COVID-19 infection with acute bilateral interstitial pneumonia with acute hypoxic respiratory failure, present on admission, on BiPAP. 2. Elevated troponin 0.063. Possible acute vzb-PA-jxpljvc-elevation myocardial infarction, type 2 myocardial infarction, possibly. 3. Possible takotsubo syndrome. 4. Elevated inflammatory markers of COVID-19. 5. Atrial fibrillation with fast ventricular rate. 6. Heparin monitoring. 7. Diabetes mellitus, type 2, with hyperglycemia, uncontrolled. 8. Elevated D-dimer without any evidence of pulmonary embolism. 9. Increased mean corpuscular volume. 10.Thrombocytopenia. 11.History of fibromyalgia. 12.Gastroesophageal reflux disease. 13.Hypertension. 14.Hyperlipidemia. 15.History of diverticulitis. 16.History of thromboembolism. 17.History of mitral regurgitation. 18.History of Raynaud's. 19.History of lupus. 20.Obesity with body mass index of . 21.History of positive KESHIA and positive anticardiolipin antibodies. 22.FULL CODE. RECOMMENDATIONS AND DISCUSSION: I recommend to continue current medications, continue with symptomatic treatment. Otherwise at this time I would also recommend evaluation of the KESHIA, rheumatoid factor, follow the inflammatory markers. Continue the medications. Continue with IV heparin per Cardiology. Overall prognosis is extremely guarded because of multiple complex medical issues, including the pulmonary and respiratory complications of COVID- 19, as mentioned earlier. Guarded prognosis. Further recommendations to follow. MMODL / IJN: [id number] / MTDSherri
[2021-03-14 16:58] LABS: Glucose,Whole Blood 207 mg/dL (75-99)
[2021-03-14 17:29] LABS: Potassium 4.3 mmol/L (3.5-5.1)
[2021-03-14 20:30] LABS: Glucose,Whole Blood 301 mg/dL (75-99)
[2021-03-14] MEDS: FAMOTIDINE 20 MG TAB PO SCH (20:36)
[2021-03-15] MEDS: DEXMEDETOMIDINE/0.9% NACL(PMX) 400 MCG in EMPTY BAG 1 BAG IV SCH ×2 (00:37→17:39)
[2021-03-15 04:31] LABS: Cardiolipin Ab IgG Interp NEGATIVE (NEGATIVE); Cardiolipin Ab IgM Interp Positive (NEGATIVE); Cardiolipin IgA Antibody 3.4 U/mL; Cardiolipin IgM Antibody 35.3 U/mL
[2021-03-15 04:34] LABS: HCT 48.4 % (34.0-46.0); Hyperchromasia Slight; MCHC 35.7 g/dL (31.0-37.0); Mean Platelet Volume 8.6; Platelet Count 266 k/uL (150-450); RBC 4.79 m/uL (3.80-5.40); RDW 12.2 % (11.5-15.5); WBC 13.6 k/uL (3.8-10.6)
[2021-03-15 04:35] LABS: HGB 17.3 gm/dL (11.4-16.0)
[2021-03-15 04:37] LABS: Phosphorus 1.8 mg/dL (2.5-4.5)
[2021-03-15 04:41] LABS: ALT 53 U/L (4-34); AST 74 U/L (14-36); African American GFR (CKD) >90 (>60 ml/min/1.73 sqM); Albumin 3.6 g/dL (3.5-5.0); Alkaline Phosphatase 96 U/L (38-126); Anion Gap 10 mmol/L; Blood Urea Nitrogen 19 mg/dL (7-17); C Reactive Protein 4.3 mg/dL (<1.0); Calcium 9.3 mg/dL (8.4-10.2); Carbon Dioxide 28 mmol/L (22-30); Chloride 94 mmol/L (98-107); Glucose 237 mg/dL (74-99); Non-African American GFR(CKD) >90 (>60 ml/min/1.73 sqM); Potassium 3.6 mmol/L (3.5-5.1); Sodium 132 mmol/L (137-145); Total Bilirubin 1.4 mg/dL (0.2-1.3); Total Protein 6.8 g/dL (6.3-8.2)
[2021-03-15] MEDS: HEPARIN SOD,PORK IN 0.45% NACL 25,000 UNIT in 0.45% NACL 1 250ML.BAG IV SCH (04:47)
[2021-03-15] MEDS: SODIUM CHLORIDE 0.9% 1,000 ML IV SCH ×2 (04:47→18:53)
[2021-03-15 04:58] LABS: LDH 2667 U/L (313-618)
[2021-03-15 05:04] LABS: Band Neutrophils % 1 %; Lymphocytes # (M) 0.82 k/uL (1.0-4.8); Monocytes # (M) 0.41 k/uL (0-1.0); Neutrophils % (M) 90 %; Nucleated Red Blood Cells 0 /100 WBC (0-0); Total Cells Counted 100
[2021-03-15] MEDS: POTASSIUM CHLORIDE 10 MEQ in WATER FOR INJECTION 1 100ML.BAG IVPB SCH ×2 (05:06→06:30)
[2021-03-15 06:23] LABS: Glucose,Whole Blood 272 mg/dL (75-99)
[2021-03-15] MEDS: INSULIN ASPART (NovoLOG) 100 UNIT/ML VIAL SQ SCH ×3 (06:29→23:15)
[2021-03-15] MEDS ORDERED: SODIUM PHOSPHATE 10 MMOL in SODIUM CHLORIDE 0.9% 250 ML IVPB ONE (09:00)
[2021-03-15] MEDS: CHOLECALCIFEROL 25 MCG (1000 IU) TABLET PO SCH (09:51)
[2021-03-15] MEDS: CALCIUM CARBONATE 500 MG CHEWABLE PO SCH (09:51)
[2021-03-15] MEDS: atenoloL 50 MG TAB PO SCH (09:51)
[2021-03-15] MEDS: CYANOCOBALAMIN 500 MCG TAB PO SCH (09:51)
[2021-03-15] MEDS: PANTOPRAZOLE 40 MG TABLET PO SCH (09:52)
[2021-03-15] MEDS: FUROSEMIDE 20 MG TAB PO SCH ×2 (09:52→17:40)
[2021-03-15] MEDS: OXYBUTYNIN 10 MG TAB.ER.24 PO SCH (09:52)
[2021-03-15] MEDS: FOLIC ACID 1 MG TAB PO SCH (09:52)
[2021-03-15] MEDS: DEXAMETHASONE SOD PHOSPHATE 10 MG/ML 1 ML VIAL IVP SCH (10:09)
--- NOTE | 2021-03-15 10:27 | XR ---
EXAMINATION TYPE: XR chest 1V portable DATE OF EXAM: 03/15/2021 COMPARISON: Chest x-ray 03/14/[address] 03/11/2021 HISTORY: Covid pneumonia TECHNIQUE: Single frontal view of the chest is obtained. FINDINGS: Bilateral airspace disease is again noted, there is some prominence of interstitium. Left- sided PICC line shows the distal tip overlying the superior vena cava. There is no evident pneumothor ax or pleural effusion. Cardiac mediastinal silhouette shows an enlarged heart. There are overlying a rtifacts. IMPRESSION: Findings are similar to prior exam. Rotated exam, correlate for pneumonia. Appearance of enlarged heart may be at least in part due to prominent epicardial fat pads.
--- NOTE | 2021-03-15 11:32 | P.PN ---
Subjective Progress Note Date: 03/15/21 Principal diagnosis: Acute hypoxic respiratory failure secondary to acute COVID-19 pneumonia THis is a 60-year-old female, no major medical illnesses, presented to the ER yesterday with at least 1 week history of shortness of breath, intermittent cough, chest discomfort, she had no GI symptoms, no headache, no nausea no vomiting no diarrhea. Patient felt generally weak, and upon arrival to the ER, patient was noted to be hypoxic. CT of the chest showed no evidence of pulmo nary embolism, but it did show extensive pulmonary infiltrates consistent with Covid19 pneumonia. COVID-19 PCR was positive. CBC was relatively normal except for a relative lymphopenia, relative thrombocytopenia, d-dimer was 0.94, patient was noted to have low sodium of 116, normal renal profile was noted, bicarb was noted to be a bit low at 20. Blood sugar was 293. If her enzymes were noted to be a bit elevated with AST of 179 and ALT of 65. LDH was extremely elevated at 3959, C-reactive protein of 8.3, pro BNP was over 5000, troponin was also noted to be elevated at 0.30. Patient is also known to have history of positive anti- cardiolipin antibody. Patient was placed on BiPAP, she remains on BiPAP at present, she is actually on the 100% FiO2, IPAP of 12 and EPAP of 6, and she has marginal O2 saturation. ABG last night was done on BiPAP, and her pO2 was 72 pCO2 37 pH of 7.37. Patient is yet to be seen by cardiology, however heparin was advised by cardiology, and she is on heparin drip at present. Again her CT angiogram of the chest was negative for thromboembolic disease. D-dimer was noted to be 0.94. Her pulmonary status was quite marginal last night, hence patient was given 1 dose of Lasix 40 mg IV push, and she was approached by the nurse about possible worsening and intubation, patient clearly stated to the nurse that she did not want to be intubated tomorrow what. Apparently she discussed this with her , and both agreed on no intubation. Patient was reevaluated today on 03/13/21, remains in the ICU, remains on BiPAP on the percent FiO2, EPAP of 6 and IPAP of 12. O2 saturation remains extremely marginal. Patient has previously expressed wishes as she does not want to be intubated and placed on mechanical ventilation no matter what. Patient is on the COVID-19 cocktail, she was also started upon admission on BARICITINIB and she was seen on consultation by cardiology for her possible non-ST elevation myocardial infarction. Remains on heparin. Echocardiogram showed good ejection fraction. No significant abnormality noted. Although there was a mention of apical Hypokinesis, and the auto transmission mechanic raised the possibility of takustubo syndrome. And she was given Lasix by the consulting auto transmission mechanic. Her EDC count today is 8.8 hemoglobin is 16.1. Electrolytes showed low sodium of 129, renal profile is normal bicarb is normal. A shunt sodium on presentation was 116. PTT today is 66, and have d-dimer 0.50. LDH is elevated over 3000 and C- reactive protein is 5.7. Patient was reevaluated today on 03/14/21, remains in the ICU, remains on BiPAP with FiO2 of 100% IPAP of 14 and EPAP of 6, remains marginal at best. O2 saturation is in the low 90s. Patient is requiring Precedex drip otherwise she gets extremely agitated and anxious. Patient is also on the COVID-19 cocktail, and she was seen by cardiology were and the patient was placed on heparin for possible non-ST elevation myocardial infarction. Her Precedex is at 0.15 mcg/kg per hour. CBC count is normal left lites are normal renal profile is normal. Chest x-ray continues to show bilateral infiltrates consistent with COVID-19 pneumonia. Patient had a PICC line placed to yesterday, and the plan is to start TPN on this patient because she is not eating much The patient is seen today 03/15/2021 in follow-up in the intensive care unit. She has not shown much improvement. She is on BiPAP 16/6 and 100% FiO2 to maintain O2 saturations in the upper 80s. Chest x-ray continues to show bilateral airspace disease. No evidence of pneumothorax or pleural effusions. She remains in atrial fibrillation with a rapid ventricular response. She is currently on a heparin drip. She is on Precedex at 0.6 micrograms per kilogram per hour. She remains on Decadron. Continued on Baricitinib. Continued on vitamin supplements. White count 13.6. Hemoglobin 17.3. Lymphocytes 0.82. D- dimer 1.54. Sodium 132. Potassium 3.6. Creatinine 0.47. LDH 2667. C- reactive protein 4.3. She is being nourished with TPN. Objective - Vital Signs Vital signs: Vital Signs Temp 98.1 F 03/15/21 00:00 Pulse 134 H 03/15/21 10:00 Resp 55 H 03/15/21 10:00 BP 107/85 03/15/21 10:00 Pulse Ox 87 L 03/15/21 10:00 Intake & Output 03/14/21 03/15/21 03/15/21 18:59 06:59 18:59 Intake Total 1440 1621.469 119.062 Output Total 1050 1750 Balance 390 -128.531 119.062 Weight 95.1 kg 91.7 kg 91.7 kg Intake: IV 1290 930 75 0.9 75 Mvi, Adult No.4 with Vit 90 30 K 10 ml Trace (Conc-1Ml/ Dose) 1 ml In Amino Acid 5%-D20w+Lytes*E* 1,000 ml @ 30 mls/hr IV .Q24H YANNICK Rx#:[id number] Potassium Chloride 10 meq 300 In Water For Injection 1 100ml.bag @ 100 mls/hr IVPB Q1HR YANNICK Rx#: [id number] Sodium Chloride 0.9% 1, 825 900 75 000 ml @ 75 mls/hr IV . [id number] YANNICK Rx#:[id number] Intake, IV Titration 361.469 14.062 Amount Dexmedetomidine/0.9% NaCl 126.630 14.062 (Pmx) 400 mcg In Empty Bag 1 bag @ 0.2 MCG/KG/HR 4.536 mls/hr IV .Q22H3M YANNICK Rx#:[id number] Heparin Sod,Pork in 0.45% 234.839 NaCl 25,000 unit In 0.45 % NaCl 1 250ml.bag @ 11. 03 UNITS/KG/HR 10.006 mls /hr IV .Q24H YANNICK Rx#: [id number] Oral 150 TPN/PPN 330 30 Mvi, Adult No.4 with Vit 330 30 K 10 ml Trace (Conc-1Ml/ Dose) 1 ml In Amino Acid 5%-D20w+Lytes*E* 1,000 ml @ 30 mls/hr IV .Q24H YANNICK Rx#:[id number] Output: Urine 1050 1750 Other: Voiding Method External Catheter External Catheter # Voids 1 - Exam GENERAL EXAM: Alert, restless, 60-year-old female patient, on BiPAP 16/6 and 100% FiO2, and mild to moderate respiratory distress. HEAD: Normocephalic. EYES: Normal reaction of pupils, equal size. NOSE: Clear with pink turbinates. THROAT: No erythema or exudates. NECK: No masses, no JVD. CHEST: No chest wall deformity. LUNGS: Equal air entry with coarse crackles in the posterior bases. CVS: S1 and S2 normal with no audible murmur, regular rhythm. ABDOMEN: No hepatosplenomegaly, normal bowel sounds, no guarding or rigidity. SPINE: No scoliosis or deformity SKIN: No rashes CENTRAL NERVOUS SYSTEM: No focal deficits, tone is normal in all 4 extremities. EXTREMITIES: Left upper extremity PICC line. There is no peripheral edema. No clubbing, no cyanosis. Peripheral pulses are intact. - Labs CBC & Chem 7: 03/15/21 03:58 03/15/21 03:58 Labs: Abnormal Lab Results - Last 24 Hours (Table) 03/14/21 03/14/21 03/14/21 Range/Units 11:47 12:26 12:27 WBC (3.8-10.6) k/uL Hgb (11.4-16.0) gm/dL Hct (34.0-46.0) % MCV (80.0-100.0) fL MCH (25.0-35.0) pg Neutrophils # (Manual) (1.3-7.7) k/uL Lymphocytes # (Manual) (1.0-4.8) k/uL APTT 62.6 H (22.0-30.0) sec D-Dimer (<0.60) mg/L FEU Sodium (137-145) mmol/L Chloride (98-107) mmol/L BUN (7-17) mg/dL Creatinine (0.52-1.04) mg/dL Glucose (74-99) mg/dL POC Glucose (mg/dL) 217 H (75-99) mg/dL Ionized Calcium Maday 4.4 L (4.5-5.3) mg/dL Phosphorus 2.0 L (2.5-4.5) mg/dL Total Bilirubin (0.2-1.3) mg/dL AST (14-36) U/L ALT (4-34) U/L Lactate Dehydrogenase (313-618) U/L C-Reactive Protein (<1.0) mg/dL Triglycerides 200.00 H (0.00-149.00) mg/dL Cardiolipin IgM Interp (NEGATIVE) 03/14/21 03/14/21 03/14/21 Range/Units 13:54 16:57 20:29 WBC (3.8-10.6) k/uL Hgb (11.4-16.0) gm/dL Hct (34.0-46.0) % MCV (80.0-100.0) fL MCH (25.0-35.0) pg Neutrophils # (Manual) (1.3-7.7) k/uL Lymphocytes # (Manual) (1.0-4.8) k/uL APTT (22.0-30.0) sec D-Dimer (<0.60) mg/L FEU Sodium (137-145) mmol/L Chloride (98-107) mmol/L BUN (7-17) mg/dL Creatinine (0.52-1.04) mg/dL Glucose (74-99) mg/dL POC Glucose (mg/dL) 207 H 301 H (75-99) mg/dL Ionized Calcium Maday (4.5-5.3) mg/dL Phosphorus (2.5-4.5) mg/dL Total Bilirubin (0.2-1.3) mg/dL AST (14-36) U/L ALT (4-34) U/L Lactate Dehydrogenase (313-618) U/L C-Reactive Protein (<1.0) mg/dL Triglycerides (0.00-149.00) mg/dL Cardiolipin IgM Interp Positive A (NEGATIVE) 03/15/21 03/15/21 03/15/21 Range/Units 03:58 03:58 03:58 WBC 13.6 H (3.8-10.6) k/uL Hgb 17.3 H D (11.4-16.0) gm/dL Hct 48.4 H (34.0-46.0) % MCV 101.0 H (80.0-100.0) fL MCH 36.0 H (25.0-35.0) pg Neutrophils # (Manual) 12.30 H (1.3-7.7) k/uL Lymphocytes # (Manual) 0.82 L (1.0-4.8) k/uL APTT (22.0-30.0) sec D-Dimer 1.54 H (<0.60) mg/L FEU Sodium 132 L (137-145) mmol/L Chloride 94 L (98-107) mmol/L BUN 19 H (7-17) mg/dL Creatinine 0.47 L (0.52-1.04) mg/dL Glucose 237 H (74-99) mg/dL POC Glucose (mg/dL) (75-99) mg/dL Ionized Calcium Maday (4.5-5.3) mg/dL Phosphorus (2.5-4.5) mg/dL Total Bilirubin 1.4 H (0.2-1.3) mg/dL AST 74 H (14-36) U/L ALT 53 H (4-34) U/L Lactate Dehydrogenase 2667 H (313-618) U/L C-Reactive Protein 4.3 H (<1.0) mg/dL Triglycerides (0.00-149.00) mg/dL Cardiolipin IgM Interp (NEGATIVE) 03/15/21 03/15/21 03/15/21 Range/Units 03:58 03:58 06:22 WBC (3.8-10.6) k/uL Hgb (11.4-16.0) gm/dL Hct (34.0-46.0) % MCV (80.0-100.0) fL MCH (25.0-35.0) pg Neutrophils # (Manual) (1.3-7.7) k/uL Lymphocytes # (Manual) (1.0-4.8) k/uL APTT 37.1 H (22.0-30.0) sec D-Dimer (<0.60) mg/L FEU Sodium (137-145) mmol/L Chloride (98-107) mmol/L BUN (7-17) mg/dL Creatinine (0.52-1.04) mg/dL Glucose (74-99) mg/dL POC Glucose (mg/dL) 272 H (75-99) mg/dL Ionized Calcium Maday (4.5-5.3) mg/dL Phosphorus 1.8 L (2.5-4.5) mg/dL Total Bilirubin (0.2-1.3) mg/dL AST (14-36) U/L ALT (4-34) U/L Lactate Dehydrogenase (313-618) U/L C-Reactive Protein (<1.0) mg/dL Triglycerides (0.00-149.00) mg/dL Cardiolipin IgM Interp (NEGATIVE) Assessment and Plan Assessment: 1 Acute hypoxemic respiratory failure secondary to COVID-19 pneumonia 2 Elevated inflammatory markers secondary to above 3 Suspected non-ST segment elevation myocardial infarction 4 Atrial fibrillation with rapid ventricular response, currently on a heparin drip 5 Hyponatremia improving currently 132 Plan: The patient was seen and evaluated by Dr. Starkey Chest xray and labs reviewed Her prognosis remains poor Continue Baricitinib, Decadron, heparin drip Increase BiPAP to 16/6 at 100% FiO2 Continue to titrate Precedex DO NOT INTUBATE CODE STATUS to come in to visit with the patient today We will continue to offer supportive care I, the cosigning physician, performed a history & physical examination of the patient. Lungs sounds crackles in the bilateral bases. Maintaining O2 saturations in the 80s on BiPAP 16/6 and 100% FiO2. I discussed the assessment and plan of care with my nurse practitioner, Shi Arias. I attest to the above note as dictated by her.
[2021-03-15 12:10] LABS: APTT 94 Sec(s) (<43); APTT 1:1 Mix 67 Sec(s) (<43); DRVVT 1:1 Mix 39 Sec(s) (<44); Dilute Russell Viper Venom 47 Sec(s) (<44); Hexagonal Phase Neutralization Negative (Negative)
[2021-03-15] MEDS ORDERED: DEXTROSE 5% IN WATER 100 ML with AMIODARONE 150 MG IV ONE (14:13)
[2021-03-15] MEDS ORDERED: AMIODARONE 360 MG in DEXTROSE 5% IN WATER 200 ML IV ONE ×2 (14:13)
[2021-03-15] MEDS: BARICITINIB 2 MG TABLET PO SCH (14:20)
--- NOTE | 2021-03-15 14:49 | PN ---
PROGRESS NOTE DATE OF SERVICE: 03/15/2021 This 60-year-old woman who was admitted with acute COVID-19 infection has extensive bilateral interstitial pneumonia which is possibly secondary to COVID-19 acute hypoxia. Patient is on BiPAP at this time. The patient also had possibly takotsubo cardiomyopathy. The patient is on 100% FiO2. Saturations are 87. Patient is extremely short of breath. Patient is tachycardic also. The patient apparently refused intubations also. Past medical history reviewed. Review of systems could not be taken; the patient is extremely short of breath, on BiPAP. CURRENT MEDICATIONS: Reviewed. They include Fioricet, Tenormin, Tums, vitamin B12, Decadron, Pepcid, TPN, folic acid, Lasix, IV heparin, Levemir, Procardia, Ditropan, Protonix, Zosyn. PHYSICAL EXAMINATION: Patient is alert, oriented x2. Pulse is 134, blood pressure 106/85, respiration , temperature normal. Pulse ox 87% on 100% FiO2. BiPAP settings are noted. HEENT: Conjunctivae normal. NECK: No jugular venous distention. CARDIOVASCULAR: S1, S2 muffled. Tachycardic. RESPIRATION: Breath sounds diminished at the bases. A few scattered rhonchi. ABDOMEN: Soft, obese. LEGS: No edema. No swelling. NERVOUS SYSTEM: Diffusely weak. LABS/INVESTIGATIONS: WBC 13.6, hemoglobin 17.3. D-dimer is 1.54. Sodium 132. Otherwise LFTs are noted. Magnesium 1.4 cardiolipin antibody IgM is positive. ASSESSMENT: 1. Acute COVID-19 infection with bilateral interstitial pneumonia with acute hypoxic respiratory failure, present on admission, on BiPAP, worsening. 2. Elevated troponin 0.063. Possible acute lsb-IC-xwyrhaq-elevation myocardial infarction, type 2 myocardial infarction possibly. 3. Possible takotsubo syndrome. 4. Elevated inflammatory markers of COVID-19. 5. Change in mental status, metabolic encephalopathy, multifactorial. 6. Atrial fibrillation with fast ventricular rate. 7. Hypomagnesemia. 8. Heparin monitoring. 9. Elevated D-dimer without any evidence of acute pulmonary embolism. 10.Diabetes mellitus, type 2, with hyperglycemia, uncontrolled. 11.Increased mean corpuscular volume. 12.Thrombocytopenia. 13.History of fibromyalgia. 14.Gastroesophageal reflux disease. 15.Hypertension. 16.Hyperlipidemia. 17.History of diverticulitis. 18.History of thromboembolism. 19.History of mitral regurgitation. 20.History of Raynaud's. 21.History of lupus. 22.Obesity with body mass index of 39.5. 23.Positive cardiolipin. 24.Hyponatremia. 25.Increased white count. RECOMMENDATIONS AND DISCUSSION: In this 60-year-old woman who presented with multiple complex medical issues, we will monitor the patient closely, continue the current medications, continue symptomatic treatment. The patient is actually worsening despite intensive treatment. Will continue with the dexamethasone and other medications and continue to monitor. Guarded prognosis because of multiple complex medical issues. Further recommendations to follow. Discussed with the family at length, and at this time apparently the patient's wishes are not to be intubated; however, we will continue to monitor along with Pulmonary. Chest x-ray was reviewed personally. MMGARETTL / IVÁN: [id number] / MTDD
[2021-03-15] MEDS ORDERED: FAT EMULSION 20% 250 ML IV SCH (15:00)
[2021-03-15] MEDS ORDERED: AMIODARONE IN DEXTROSE,ISO-OSM 360 MG/200 ML PLAST..BAG IV ONE (15:00)
[2021-03-15] MEDS ORDERED: AMIODARONE IN DEXTROSE,ISO-OSM 150 MG/100 ML PLAST..BAG IV ONE (15:00)
[2021-03-15] MEDS ORDERED: CISATRACURIUM 2 MG/ML 5 ML VIAL IV ONE (16:59)
[2021-03-15] MEDS ORDERED: propofoL 100 ML IV ONE (17:20)
[2021-03-15] MEDS ORDERED: SODIUM BICARB 8.4% 50 ML SYR (1 MEQ/ML) ONE (17:21)
[2021-03-15] MEDS: CISATRACURIUM 200 MG in SODIUM CHLORIDE 0.9% 180 ML IV SCH (17:28)
[2021-03-15] MEDS: fentaNYL (PF). 1,000 MCG in SODIUM CHLORIDE 0.9% 80 ML IV SCH (17:36)
[2021-03-15] MEDS: 1: AMINO ACID 5%-D20W+LYTES*E* 1,000 ML 2: MVI, ADULT NO.4 WITH VIT K 10 ML, TRACE (CON IV SCH ×3 (17:39)
[2021-03-15] MEDS: NOREPINEPHRINE 8 MG in SODIUM CHLORIDE 0.9% 250 ML IV SCH ×2 (18:05→23:05)
--- NOTE | 2021-03-15 18:14 | XR ---
EXAMINATION TYPE: XR chest 1V portable DATE OF EXAM: 03/15/2021 COMPARISON: 03/15/2021 HISTORY: 60 years Female. STUDY INDICATION GIVEN: ett placement . TECHNIQUE: Portable AP supine chest radiograph IMPRESSION: Interval intubation. Tip of ET tube 3.6 cm above andrew. Enteric tube courses into the stomach. Left upper extremity PICC tip at the junction of the left brachiocephalic and superior vena cava stable in position since prior. Again demonstrated are findings of multifocal pneumonia and mild interstitial pneumonia with bibasila r right greater than left atelectasis. No pneumothorax or pleural effusion. The cardiomediastinal silhouette within normal limit.
[2021-03-15 18:34] LABS: ABG Base Excess 3.2 mmol/L; ABG HCO3 27 mmol/L (21-25); ABG Oxygen Saturation 74.3 % (94-97); ABG PCO2 39 mmHg (35-45); ABG PH 7.45 (7.35-7.45); ABG TCO2 28 mmol/L (19-24); Allen Test Performed? Yes
[2021-03-15 18:41] LABS: ABG PO2 39 mmHg (83-108)
[2021-03-15] MEDS ORDERED: FUROSEMIDE 10 MG/ML 4 ML VIAL IV STA (18:46)
[2021-03-15 19:00] LABS: Glucose,Whole Blood 207 mg/dL (75-99)
[2021-03-15] MEDS: AMIODARONE 450 MG in DEXTROSE 5% IN WATER 250 ML IV SCH ×2 (20:07)
[2021-03-15] MEDS: atenoloL 25 MG TAB PO SCH (20:33)
[2021-03-15] MEDS: ARTIFICIAL TEARS-HYPROMELLOSE DROPS 15 ML BTL BOTH EYES SCH ×2 (20:33→23:05)
[2021-03-15] MEDS: NIFEdipine XL 30 MG TAB.ER.24 PO SCH (20:33)
[2021-03-15] MEDS: FAMOTIDINE 20 MG TAB PO SCH (20:35)
[2021-03-15] MEDS: INSULIN DETEMIR (LEVEMIR) 100 UNIT/ML SYR SQ SCH (20:35)
[2021-03-15] MEDS: CHLORHEXIDINE GLUCONATE 15 ML CUP MUCOUS MEM SCH (20:35)
[2021-03-15 23:13] LABS: Glucose,Whole Blood 210 mg/dL (75-99)
[2021-03-16] MEDS: HEPARIN SOD,PORK IN 0.45% NACL 25,000 UNIT in 0.45% NACL 1 250ML.BAG IV SCH
[2021-03-16] MEDS: 1: AMINO ACID 5%-D20W+LYTES*E* 1,000 ML 2: MVI, ADULT NO.4 WITH VIT K 10 ML, TRACE (CON IV SCH ×3 (00:05)
[2021-03-16] MEDS: NOREPINEPHRINE 8 MG in SODIUM CHLORIDE 0.9% 250 ML IV SCH ×5 (03:50→22:01)
[2021-03-16] MEDS: ARTIFICIAL TEARS-HYPROMELLOSE DROPS 15 ML BTL BOTH EYES SCH ×6 (03:53→23:57)
[2021-03-16 04:59] LABS: HCT 43.2 % (34.0-46.0); HGB 15.5 gm/dL (11.4-16.0); MCH 36.5 pg (25.0-35.0); MCHC 35.8 g/dL (31.0-37.0); MCV 102.2 fL (80.0-100.0); Macrocytosis Slight; Mean Platelet Volume 9.7; Platelet Count 223 k/uL (150-450); Poikilocytosis Slight; RBC 4.23 m/uL (3.80-5.40); RDW 12.9 % (11.5-15.5); WBC 8.5 k/uL (3.8-10.6)
[2021-03-16 05:15] LABS: Glucose,Whole Blood 174 mg/dL (75-99)
[2021-03-16] MEDS: INSULIN ASPART (NovoLOG) 100 UNIT/ML VIAL SQ SCH ×4 (05:17→23:56)
[2021-03-16 05:44] LABS: Band Neutrophils % 24 %; Lymphocytes # (M) 0.94 k/uL (1.0-4.8); Monocytes # (M) 0.09 k/uL (0-1.0); Neutrophils % (M) 64 %; Nucleated Red Blood Cells 0 /100 WBC (0-0); Total Cells Counted 100
[2021-03-16 06:05] LABS: Albumin 2.5 g/dL (3.5-5.0); Calcium 7.7 mg/dL (8.4-10.2); Potassium 3.8 mmol/L (3.5-5.1); Total Bilirubin 1.5 mg/dL (0.2-1.3); Total Protein 5.3 g/dL (6.3-8.2)
[2021-03-16 06:17] LABS: ABG HCO3 25 mmol/L (21-25); ABG Oxygen Saturation 91.7 % (94-97); ABG PCO2 44 mmHg (35-45); ABG PH 7.37 (7.35-7.45); ABG PO2 61 mmHg (83-108); ABG TCO2 27 mmol/L (19-24); Allen Test Performed? Yes
[2021-03-16] MEDS: SODIUM CHLORIDE 0.9% 1,000 ML IV SCH ×2 (07:57→19:02)
--- NOTE | 2021-03-16 08:04 | XR ---
EXAMINATION TYPE: XR chest 1V portable DATE OF EXAM: 03/16/2021 Comparison: 03/15/2021 Clinical History: 60-year-old female Tube placement Findings: ET tube tip at the level of the medial clavicular heads. Left PICC tip at the lower SVC level. Heart borderline enlarged. Hyperinflation. Diffuse interstitial densities persist. More confluent consolida tion now in the right mid and lower lung. NG tube sidehole is above the GE junction by at least 3.5 c m. Impression: 1. COPD with continued diffuse interstitial changes but with significantly worsening airspace disease in the right mid and lower lung. 2. Note that the NG tube sidehole is above the diaphragm, at least 3.5 cm to the GE junction.
[2021-03-16] MEDS: BARICITINIB 2 MG TABLET PO SCH (08:16)
[2021-03-16] MEDS: atenoloL 50 MG TAB PO SCH (08:16)
[2021-03-16] MEDS: CALCIUM CARBONATE 500 MG CHEWABLE PO SCH (08:17)
[2021-03-16] MEDS: CHOLECALCIFEROL 25 MCG (1000 IU) TABLET PO SCH (08:18)
[2021-03-16] MEDS: CHLORHEXIDINE GLUCONATE 15 ML CUP MUCOUS MEM SCH ×2 (08:18→20:21)
[2021-03-16] MEDS: CYANOCOBALAMIN 500 MCG TAB PO SCH (08:19)
[2021-03-16] MEDS: FUROSEMIDE 20 MG TAB PO SCH ×2 (08:19→15:55)
[2021-03-16] MEDS: FOLIC ACID 1 MG TAB PO SCH (08:19)
[2021-03-16] MEDS: DEXAMETHASONE SOD PHOSPHATE 10 MG/ML 1 ML VIAL IVP SCH ×2 (08:19→20:21)
[2021-03-16] MEDS: OXYBUTYNIN 10 MG TAB.ER.24 PO SCH (08:20)
[2021-03-16] MEDS: PANTOPRAZOLE 40 MG TABLET PO SCH (08:20)
[2021-03-16] MEDS: AMIODARONE 450 MG in DEXTROSE 5% IN WATER 250 ML IV SCH ×2 (08:34)
[2021-03-16] MEDS: PIPERACILLIN-TAZOBACTAM 3.375 GM in SODIUM CHLORIDE 0.9% 100 ML IVPB SCH ×3 (08:53→23:57)
[2021-03-16 09:53] LABS: Magnesium 1.8 mg/dL (1.6-2.3); Phosphorus 3.4 mg/dL (2.5-4.5)
[2021-03-16] MEDS ORDERED: POTASSIUM CHLORIDE ER 20 MEQ TAB.ER PO SCH (10:00)
--- NOTE | 2021-03-16 10:22 | P.PN ---
Subjective Progress Note Date: 03/16/21 Principal diagnosis: Acute hypoxic respiratory failure secondary to acute COVID-19 pneumonia THis is a 60-year-old female, no major medical illnesses, presented to the ER yesterday with at least 1 week history of shortness of breath, intermittent cough, chest discomfort, she had no GI symptoms, no headache, no nausea no vomiting no diarrhea. Patient felt generally weak, and upon arrival to the ER, patient was noted to be hypoxic. CT of the chest showed no evidence of pulmo nary embolism, but it did show extensive pulmonary infiltrates consistent with Covid19 pneumonia. COVID-19 PCR was positive. CBC was relatively normal except for a relative lymphopenia, relative thrombocytopenia, d-dimer was 0.94, patient was noted to have low sodium of 116, normal renal profile was noted, bicarb was noted to be a bit low at 20. Blood sugar was 293. If her enzymes were noted to be a bit elevated with AST of 179 and ALT of 65. LDH was extremely elevated at 3959, C-reactive protein of 8.3, pro BNP was over 5000, troponin was also noted to be elevated at 0.30. Patient is also known to have history of positive anti- cardiolipin antibody. Patient was placed on BiPAP, she remains on BiPAP at present, she is actually on the 100% FiO2, IPAP of 12 and EPAP of 6, and she has marginal O2 saturation. ABG last night was done on BiPAP, and her pO2 was 72 pCO2 37 pH of 7.37. Patient is yet to be seen by cardiology, however heparin was advised by cardiology, and she is on heparin drip at present. Again her CT angiogram of the chest was negative for thromboembolic disease. D-dimer was noted to be 0.94. Her pulmonary status was quite marginal last night, hence patient was given 1 dose of Lasix 40 mg IV push, and she was approached by the nurse about possible worsening and intubation, patient clearly stated to the nurse that she did not want to be intubated tomorrow what. Apparently she discussed this with her , and both agreed on no intubation. Patient was reevaluated today on 03/13/21, remains in the ICU, remains on BiPAP on the percent FiO2, EPAP of 6 and IPAP of 12. O2 saturation remains extremely marginal. Patient has previously expressed wishes as she does not want to be intubated and placed on mechanical ventilation no matter what. Patient is on the COVID-19 cocktail, she was also started upon admission on BARICITINIB and she was seen on consultation by cardiology for her possible non-ST elevation myocardial infarction. Remains on heparin. Echocardiogram showed good ejection fraction. No significant abnormality noted. Although there was a mention of apical Hypokinesis, and the call center dispatcher raised the possibility of takustubo syndrome. And she was given Lasix by the consulting call center dispatcher. Her EDC count today is 8.8 hemoglobin is 16.1. Electrolytes showed low sodium of 129, renal profile is normal bicarb is normal. A shunt sodium on presentation was 116. PTT today is 66, and have d-dimer 0.50. LDH is elevated over 3000 and C- reactive protein is 5.7. Patient was reevaluated today on 03/14/21, remains in the ICU, remains on BiPAP with FiO2 of 100% IPAP of 14 and EPAP of 6, remains marginal at best. O2 saturation is in the low 90s. Patient is requiring Precedex drip otherwise she gets extremely agitated and anxious. Patient is also on the COVID-19 cocktail, and she was seen by cardiology were and the patient was placed on heparin for possible non-ST elevation myocardial infarction. Her Precedex is at 0.15 mcg/kg per hour. CBC count is normal left lites are normal renal profile is normal. Chest x-ray continues to show bilateral infiltrates consistent with COVID-19 pneumonia. Patient had a PICC line placed to yesterday, and the plan is to start TPN on this patient because she is not eating much The patient is seen today 03/15/2021 in follow-up in the intensive care unit. She has not shown much improvement. She is on BiPAP 16/6 and 100% FiO2 to maintain O2 saturations in the upper 80s. Chest x-ray continues to show bilateral airspace disease. No evidence of pneumothorax or pleural effusions. She remains in atrial fibrillation with a rapid ventricular response. She is currently on a heparin drip. She is on Precedex at 0.6 micrograms per kilogram per hour. She remains on Decadron. Continued on Baricitinib. Continued on vitamin supplements. White count 13.6. Hemoglobin 17.3. Lymphocytes 0.82. D- dimer 1.54. Sodium 132. Potassium 3.6. Creatinine 0.47. LDH 2667. C- reactive protein 4.3. She is being nourished with TPN. The patient is seen today 03/16/2021 in follow-up in the intensive care unit. Her condition continued to deteriorate yesterday and her family came in and requested she be a full code CODE STATUS. She was subsequently intubated and placed on mechanical ventilator. Currently he says control mode with a rate of 36, tidal volume 375, FiO2 100% and a PEEP of 18. Morning blood gases revealed a pO2 of 61, pCO2 44, pH 7.37. She is sedated on propofol at 40 mcg/kg/m. She is on an amiodarone drip at 0.5 mg/m. Heparin drip per weight based protocol, n orepinephrine at 0.2 mcg/kg/m. She is paralyzed with Nimbex at 1.25 mcg/kg/m. Fentanyl drip at 0.5 mcg/kg per hour. Her chest x-ray shows infiltrate in the right lower lobe with possible bacterial pneumonia on top of CoVID 19 pneumonia. White count 8.5. Hemoglobin 15.5. Lymphocytes 0.9. Sodium 133. Potassium 3.8. Creatinine 0.88. Glucose 187. AST 41. ALT 30. She remains on Decadron, Baricitinib, vitamin supplements. Objective - Vital Signs Vital signs: Vital Signs Temp 98.8 F 03/16/21 04:00 Pulse 112 H 03/16/21 07:00 Resp 36 H 03/16/21 07:00 BP 114/99 03/15/21 17:00 Pulse Ox 92 L 03/16/21 07:00 Intake & Output 03/15/21 03/16/21 03/16/21 18:59 06:59 18:59 Intake Total 132.491 8325.179 460.529 Output Total 300 685 30 Balance 138.422 1276.179 430.529 Weight 91.7 kg 92 kg 92 kg Intake: IV 315 753 23 0.9 220 20 Mvi, Adult No.4 with Vit 240 K 10 ml Trace (Conc-1Ml/ Dose) 1 ml In Amino Acid 5%-D20w+Lytes*E* 1,000 ml @ 30 mls/hr IV .Q24H [facility] Rx#:[id number] Sodium Chloride 0.9% 1, 75 500 000 ml @ 75 mls/hr IV . [id number] [facility] Rx#:[id number] pressure bag 33 3 Intake, IV Titration 79.518 979.179 437.529 Amount Amiodarone 450 mg In 207.504 Dextrose 5% in Water 250 ml @ 0.5 MG/MIN 16.667 mls/hr IV .Q15H [facility] Rx#: [id number] Cisatracurium 200 mg In 7.978 88.307 33.244 Sodium Chloride 0.9% 180 ml @ 1 MCG/KG/MIN 5.502 mls/hr IV .Q24H [facility] Rx#: [id number] Dexmedetomidine/0.9% NaCl 64.147 (Pmx) 400 mcg In Empty Bag 1 bag @ 0.2 MCG/KG/HR 4.536 mls/hr IV .Q22H3M [facility] Rx#:[id number] Heparin Sod,Pork in 0.45% 238.827 0 NaCl 25,000 unit In 0.45 % NaCl 1 250ml.bag @ 11. 03 UNITS/KG/HR 10.006 mls /hr IV .Q24H [facility] Rx#: [id number] Norepinephrine 8 mg In 7.393 455.577 196.781 Sodium Chloride 0.9% 250 ml @ 0.05 MCG/KG/MIN 8. 872 mls/hr IV .Q24H [facility] Rx#:[id number] fentaNYL (PF). 1,000 mcg 0 0 In Sodium Chloride 0.9% 80 ml @ 0.5 MCG/KG/HR 4. 585 mls/hr IV .Q02H05X [facility] Rx#:[id number] propofoL 1,000 mg In 196.468 Empty Bag 1 bag @ Titrate IV .Q0M [facility] Rx#: [id number] TPN/PPN 30 0 Mvi, Adult No.4 with Vit 30 0 K 10 ml Trace (Conc-1Ml/ Dose) 1 ml In Amino Acid 5%-D20w+Lytes*E* 1,000 ml @ 30 mls/hr IV .Q24H [facility] Rx#:[id number] Output: Urine 300 685 30 Other: Voiding Method External Catheter Indwelling Catheter ABP, PAP, CO, CI - Last Documented Arterial Blood Pressure 90/57 - Exam GENERAL EXAM: Intubated, sedated, paralyzed 60-year-old female patient, on the mechanical ventilator. HEAD: Normocephalic. EYES: Normal reaction of pupils, equal size. NOSE: Clear with pink turbinates. THROAT: No erythema or exudates. NECK: No masses, no JVD. CHEST: No chest wall deformity. LUNGS: Equal air entry with coarse crackles in the posterior bases right greater than left. CVS: S1 and S2 normal with no audible murmur, regular rhythm. ABDOMEN: No hepatosplenomegaly, normal bowel sounds, no guarding or rigidity. SPINE: No scoliosis or deformity SKIN: No rashes CENTRAL NERVOUS SYSTEM: No focal deficits, tone is normal in all 4 extremities. EXTREMITIES: Left upper extremity PICC line. There is no peripheral edema. No clubbing, no cyanosis. Peripheral pulses are intact. - Labs CBC & Chem 7: 03/16/21 04:00 03/16/21 05:00 Labs: Abnormal Lab Results - Last 24 Hours (Table) 03/14/21 03/15/21 03/15/21 Range/Units 13:54 18:31 18:59 MCV (80.0-100.0) fL MCH (25.0-35.0) pg Lymphocytes # (Manual) (1.0-4.8) k/uL APTT (22.0-30.0) sec Lupus Anticoag aPTT 94 H (<43) Sec(s) Lupus Anticoag PTT Mix 67 H (<43) Sec(s) Dil Bacilio Viper Venom 47 H (<44) Sec(s) ABG pO2 39 L* (83-108) mmHg ABG HCO3 27 H (21-25) mmol/L ABG Total CO2 28 H (19-24) mmol/L ABG O2 Saturation 74.3 L (94-97) % Sodium (137-145) mmol/L BUN (7-17) mg/dL Glucose (74-99) mg/dL POC Glucose (mg/dL) 207 H (75-99) mg/dL Calcium (8.4-10.2) mg/dL Total Bilirubin (0.2-1.3) mg/dL AST (14-36) U/L Total Protein (6.3-8.2) g/dL Albumin (3.5-5.0) g/dL 11/19/21 11/19/21 11/20/21 Range/Units 20:07 23:12 04:00 MCV 102.2 H (80.0-100.0) fL MCH 36.5 H (25.0-35.0) pg Lymphocytes # (Manual) 0.94 L (1.0-4.8) k/uL APTT 100.9 H* (22.0-30.0) sec Lupus Anticoag aPTT (<43) Sec(s) Lupus Anticoag PTT Mix (<43) Sec(s) Dil Bacilio Viper Venom (<44) Sec(s) ABG pO2 (83-108) mmHg ABG HCO3 (21-25) mmol/L ABG Total CO2 (19-24) mmol/L ABG O2 Saturation (94-97) % Sodium (137-145) mmol/L BUN (7-17) mg/dL Glucose (74-99) mg/dL POC Glucose (mg/dL) 210 H (75-99) mg/dL Calcium (8.4-10.2) mg/dL Total Bilirubin (0.2-1.3) mg/dL AST (14-36) U/L Total Protein (6.3-8.2) g/dL Albumin (3.5-5.0) g/dL 03/16/21 03/16/21 03/16/21 Range/Units 04:00 05:00 05:13 MCV (80.0-100.0) fL MCH (25.0-35.0) pg Lymphocytes # (Manual) (1.0-4.8) k/uL APTT 109.6 H* (22.0-30.0) sec Lupus Anticoag aPTT (<43) Sec(s) Lupus Anticoag PTT Mix (<43) Sec(s) Dil Bacilio Viper Venom (<44) Sec(s) ABG pO2 (83-108) mmHg ABG HCO3 (21-25) mmol/L ABG Total CO2 (19-24) mmol/L ABG O2 Saturation (94-97) % Sodium 133 L (137-145) mmol/L BUN 28 H (7-17) mg/dL Glucose 187 H (74-99) mg/dL POC Glucose (mg/dL) 174 H (75-99) mg/dL Calcium 7.7 L (8.4-10.2) mg/dL Total Bilirubin 1.5 H (0.2-1.3) mg/dL AST 41 H (14-36) U/L Total Protein 5.3 L (6.3-8.2) g/dL Albumin 2.5 L (3.5-5.0) g/dL 03/16/21 Range/Units 06:12 MCV (80.0-100.0) fL MCH (25.0-35.0) pg Lymphocytes # (Manual) (1.0-4.8) k/uL APTT (22.0-30.0) sec Lupus Anticoag aPTT (<43) Sec(s) Lupus Anticoag PTT Mix (<43) Sec(s) Dil Bacilio Viper Venom (<44) Sec(s) ABG pO2 61 L (83-108) mmHg ABG HCO3 (21-25) mmol/L ABG Total CO2 27 H (19-24) mmol/L ABG O2 Saturation 91.7 L (94-97) % Sodium (137-145) mmol/L BUN (7-17) mg/dL Glucose (74-99) mg/dL POC Glucose (mg/dL) (75-99) mg/dL Calcium (8.4-10.2) mg/dL Total Bilirubin (0.2-1.3) mg/dL AST (14-36) U/L Total Protein (6.3-8.2) g/dL Albumin (3.5-5.0) g/dL Assessment and Plan Assessment: 1 Acute hypoxemic respiratory failure secondary to COVID-19 pneumonia with deterioration. Possible bacterial pneumonia in the right lower lobe. On Baricitinib. Required intubation mechanical ventilatory support on 03/15/2021. 2 Hypotension requiring pressor support 3 Suspected non-ST segment elevation myocardial infarction 4 Atrial fibrillation with rapid ventricular response, currently on a heparin drip 5 Hyponatremia improving currently 132 Plan: The patient was seen and evaluated by Dr. Starkey The patient's family reversed the CODE STATUS and she was intubated yesterday Chest xray, ABGs and labs reviewed Discontinue Baricitinib Initiate Zosyn Increase Decadron to twice a day Discontinue TPN Initiate tube feedings Prognosis remains quite poor and guarded We will continue follow and make further recommendations based on her clinical status Critical care time 38 minutes I, the cosigning physician, performed a history & physical examination of the patient. Lungs sounds crackles in the bilateral bases. Maintaining O2 saturations in the 90s on 100% FiO2 and a PEEP of 18 via the mechanical ventilator. I discussed the assessment and plan of care with my nurse practitioner, Shi Arias. I attest to the above note as dictated by her.
[2021-03-16 11:24] LABS: Glucose,Whole Blood 129 mg/dL (75-99)
[2021-03-16] MEDS: SODIUM CHLORIDE 0.9% 50 ML with VASOPRESSIN 20 UNIT IVPB SCH ×4 (13:07→20:06)
--- NOTE | 2021-03-16 15:21 | XR ---
EXAMINATION TYPE: XR chest 1V portable DATE OF EXAM: 03/16/2021 COMPARISON: Today HISTORY: Check tube placement TECHNIQUE: FINDINGS: Heart is enlarged. There is nasogastric tube in the stomach. There is endotracheal tube 4.5 cm from the andrew. There is left subclavian catheter with tip in the superior vena cava. There is p atchy pulmonary edema. There are chest leads. IMPRESSION: Tubing in fairly good position. Pulmonary edema which is improved on the right side ruben red to exam earlier today.
[2021-03-16] MEDS: CISATRACURIUM 200 MG in SODIUM CHLORIDE 0.9% 180 ML IV SCH (15:56)
[2021-03-16 17:39] LABS: Glucose,Whole Blood 125 mg/dL (75-99)
[2021-03-16] MEDS ORDERED: AMIODARONE 450 MG in DEXTROSE 5% IN WATER 250 ML IV SCH ×2 (19:00)
[2021-03-16 19:25] LABS: Glucose,Whole Blood 125 mg/dL (75-99)
[2021-03-16] MEDS: fentaNYL (PF). 1,000 MCG in SODIUM CHLORIDE 0.9% 80 ML IV SCH (20:04)
[2021-03-16] MEDS: atenoloL 25 MG TAB PO SCH (20:21)
[2021-03-16] MEDS: INSULIN DETEMIR (LEVEMIR) 100 UNIT/ML SYR SQ SCH (20:21)
[2021-03-16] MEDS: FAMOTIDINE 20 MG TAB PO SCH (20:21)
[2021-03-16] MEDS: NIFEdipine XL 30 MG TAB.ER.24 PO SCH (20:21)
--- NOTE | 2021-03-16 21:34 | PN ---
PROGRESS NOTE DATE OF SERVICE: 03/16/2021 This 60-year-old woman who was admitted with acute COVID-19 infection also had acute COVID-19 bilateral interstitial pneumonia and acute hypoxic respiratory failure. Patient took a turn for the worse yesterday. Apparently the family would like to continue with mechanical ventilation. The patient is on mechanical ventilation. The vent settings are noted. Dr. Starkey is following the patient closely. The patient was on amiodarone drip also. The patient is on steroids and heparin also. Multiple consultants are following the patient closely. Patient is on broad-spectrum IV antibiotics also. The cultures are negative so far. ABGs are noted. Past medical history reviewed. Review of systems could not be taken. Procalcitonin is 9.12. The patient was also hypotensive, on pressure support. CURRENT MEDICATIONS: Reviewed. They include Fioricet, Tenormin, Tums, Peridex, vitamin B2, Decadron. Other medications and doses are reviewed. PHYSICAL EXAMINATION: Patient is mechanically ventilated and sedated. Pulse 87, blood pressure 98/85, respiration 36, temperature 99 degrees, pulse ox 97% on 100%. HEENT: Conjunctivae normal. NECK: No jugular venous distention. CARDIOVASCULAR: S1, S2 muffled. RESPIRATION: Breath sounds diminished at the bases. ABDOMEN: Soft, obese. LEGS: No edema. No swelling. NERVOUS SYSTEM: Patient is mechanically ventilated and sedated. LABS: Labs at this time show WBC 8.3, hemoglobin 15.5. Other labs are noted. ASSESSMENT: 1. Acute COVID-19 infection with bilateral interstitial pneumonia with acute hypoxic respiratory failure. Was on BiPAP, currently on mechanical ventilation. 2. Elevated troponin at 0.06 with possible acute dxv-[id number]-elevation myocardial infarction with type 2 myocardial infarction possibly. 3. Acute possible superadded bacterial pneumonia with severe sepsis and hypotension, on pressor support. 4. Possible takotsubo syndrome. 5. Elevated inflammatory markers of COVID-19. 6. Change in mental status, acute metabolic encephalopathy, multifactorial. 7. Atrial fibrillation with fast ventricular rate. 8. Hypomagnesemia. 9. Heparin monitoring. 10.Elevated D-dimer without any evidence of acute pulmonary embolism. 11.Diabetes mellitus, type 2, with hyperglycemia, uncontrolled. 12.Elevated procalcitonin. 13.Increased mean corpuscular volume. 14.Thrombocytopenia. 15.History of fibromyalgia. 16.Gastroesophageal reflux disease. 17.Hypertension. 18.Hyperlipidemia. 19.History of diverticulitis. 20.History of thromboembolism. 21.History of mitral regurgitation. 22.History of Raynaud's. 23.History of lupus. 24.Obesity with body mass index of 39.5. 25.Positive cardiolipin. 26.Hyponatremia. 27.Increased white count. 28.FULL CODE. RECOMMENDATIONS AND DISCUSSION: I recommend to continue current medications, continue with symptomatic treatment. Otherwise at this time I would recommend continuing with mechanical ventilation. Continue with pressor support. Continue the broad-spectrum IV antibiotics. Prognosis guarded because of multiple complex medical issues. Further recommendations to follow. I had a detailed discussion with the family yesterday and the patient is currently FULL CODE. See orders for further details. MMODL / IJN: [id number] /
[2021-03-16 23:32] LABS: Glucose,Whole Blood 148 mg/dL (75-99)
[2021-03-17] MEDS: NOREPINEPHRINE 8 MG in SODIUM CHLORIDE 0.9% 250 ML IV SCH ×3 (01:53→17:13)
[2021-03-17] MEDS: fentaNYL (PF). 1,000 MCG in SODIUM CHLORIDE 0.9% 80 ML IV SCH ×2 (01:55→21:08)
[2021-03-17] MEDS: ARTIFICIAL TEARS-HYPROMELLOSE DROPS 15 ML BTL BOTH EYES SCH ×6 (04:42→23:53)
[2021-03-17 04:59] LABS: HCT 42.3 % (34.0-46.0); HGB 14.3 gm/dL (11.4-16.0); MCH 35.6 pg (25.0-35.0); MCHC 33.8 g/dL (31.0-37.0); MCV 105.3 fL (80.0-100.0); Macrocytosis Slight; Mean Platelet Volume 9.5; Platelet Count 219 k/uL (150-450); RBC 4.02 m/uL (3.80-5.40); RDW 12.2 % (11.5-15.5); WBC 10.5 k/uL (3.8-10.6)
[2021-03-17 05:37] LABS: Glucose,Whole Blood 165 mg/dL (75-99)
[2021-03-17] MEDS: INSULIN ASPART (NovoLOG) 100 UNIT/ML VIAL SQ SCH ×4 (05:38→23:52)
[2021-03-17 05:40] LABS: Albumin 2.4 g/dL (3.5-5.0); Calcium 7.5 mg/dL (8.4-10.2); Magnesium 2.1 mg/dL (1.6-2.3); Phosphorus 3.9 mg/dL (2.5-4.5); Total Bilirubin 1.9 mg/dL (0.2-1.3); Total Protein 5.2 g/dL (6.3-8.2)
[2021-03-17 05:45] LABS: Band Neutrophils % 14 %; Lymphocytes # (M) 1.16 k/uL (1.0-4.8); Monocytes # (M) 0.21 k/uL (0-1.0); Neutrophils % (M) 73 %; Nucleated Red Blood Cells 0 /100 WBC (0-0); Total Cells Counted 100
[2021-03-17 06:03] LABS: ABG Base Excess -4.6 mmol/L; ABG HCO3 21 mmol/L (21-25); ABG Oxygen Saturation 94.3 % (94-97); ABG PCO2 38 mmHg (35-45); ABG PH 7.35 (7.35-7.45); ABG PO2 71 mmHg (83-108); ABG TCO2 22 mmol/L (19-24); Allen Test Performed? Yes
--- NOTE | 2021-03-17 07:56 | XR ---
EXAMINATION TYPE: XR chest 1V portable DATE OF EXAM: 03/17/2021 COMPARISON: 03/16/2021 HISTORY: 60 years Female. STUDY INDICATION GIVEN: Tube placement . TECHNIQUE: AP chest radiograph IMPRESSION: The patient is rotated. The tip of endotracheal tube is 4.5 cm above the andrew. The enteric tube courses into the stomach. T ip of left upper extremity PICC is stable in course. Due to patient rotation appearance of the tubes and drains is shifted to the left side of the midline compared to the prior study. There are stable airspace opacities in the right lung and increased opacities in the left lower lobe which likely reflects combination of infiltrates and atelectasis. There is moderate right greater than left interstitial edema. No large pleural effusion or pneumothorax. Stable mild cardiomegaly.
[2021-03-17] MEDS: CHLORHEXIDINE GLUCONATE 15 ML CUP MUCOUS MEM SCH ×2 (08:08→20:44)
[2021-03-17] MEDS: PIPERACILLIN-TAZOBACTAM 3.375 GM in SODIUM CHLORIDE 0.9% 100 ML IVPB SCH ×3 (08:08→23:53)
[2021-03-17] MEDS: OXYBUTYNIN 10 MG TAB.ER.24 PO SCH (08:11)
[2021-03-17] MEDS: CALCIUM CARBONATE 500 MG CHEWABLE PO SCH (08:11)
[2021-03-17] MEDS: CHOLECALCIFEROL 25 MCG (1000 IU) TABLET PO SCH (08:11)
[2021-03-17] MEDS: FUROSEMIDE 20 MG TAB PO SCH (08:12)
[2021-03-17] MEDS: PANTOPRAZOLE 40 MG TABLET PO SCH (08:12)
[2021-03-17] MEDS: SODIUM CHLORIDE 0.9% 1,000 ML IV SCH ×2 (08:13→15:55)
[2021-03-17] MEDS: DEXAMETHASONE SOD PHOSPHATE 10 MG/ML 1 ML VIAL IVP SCH ×2 (08:14→20:44)
[2021-03-17] MEDS: CYANOCOBALAMIN 500 MCG TAB PO SCH (08:14)
[2021-03-17] MEDS: FOLIC ACID 1 MG TAB PO SCH (08:17)
[2021-03-17] MEDS: AMIODARONE 200 MG TAB PO SCH ×2 (08:25→20:43)
[2021-03-17] MEDS ORDERED: atenoloL 25 MG TAB PO SCH (09:00)
[2021-03-17] MEDS: SODIUM CHLORIDE 0.9% 50 ML with VASOPRESSIN 20 UNIT IVPB SCH ×4 (09:07→21:13)
[2021-03-17] MEDS: HEPARIN SOD,PORK IN 0.45% NACL 25,000 UNIT in 0.45% NACL 1 250ML.BAG IV SCH (12:00)
[2021-03-17 12:15] LABS: Glucose,Whole Blood 213 mg/dL (75-99)
--- NOTE | 2021-03-17 14:25 | P.PN ---
Subjective Progress Note Date: 03/17/21 Principal diagnosis: Acute hypoxic respiratory failure secondary to acute COVID-19 pneumonia THis is a 60-year-old female, no major medical illnesses, presented to the ER yesterday with at least 1 week history of shortness of breath, intermittent cough, chest discomfort, she had no GI symptoms, no headache, no nausea no vomiting no diarrhea. Patient felt generally weak, and upon arrival to the ER, patient was noted to be hypoxic. CT of the chest showed no evidence of pulmo nary embolism, but it did show extensive pulmonary infiltrates consistent with Covid19 pneumonia. COVID-19 PCR was positive. CBC was relatively normal except for a relative lymphopenia, relative thrombocytopenia, d-dimer was 0.94, patient was noted to have low sodium of 116, normal renal profile was noted, bicarb was noted to be a bit low at 20. Blood sugar was 293. If her enzymes were noted to be a bit elevated with AST of 179 and ALT of 65. LDH was extremely elevated at 3959, C-reactive protein of 8.3, pro BNP was over 5000, troponin was also noted to be elevated at 0.30. Patient is also known to have history of positive anti- cardiolipin antibody. Patient was placed on BiPAP, she remains on BiPAP at present, she is actually on the 100% FiO2, IPAP of 12 and EPAP of 6, and she has marginal O2 saturation. ABG last night was done on BiPAP, and her pO2 was 72 pCO2 37 pH of 7.37. Patient is yet to be seen by cardiology, however heparin was advised by cardiology, and she is on heparin drip at present. Again her CT angiogram of the chest was negative for thromboembolic disease. D-dimer was noted to be 0.94. Her pulmonary status was quite marginal last night, hence patient was given 1 dose of Lasix 40 mg IV push, and she was approached by the nurse about possible worsening and intubation, patient clearly stated to the nurse that she did not want to be intubated tomorrow what. Apparently she discussed this with her , and both agreed on no intubation. Patient was reevaluated today on 03/13/21, remains in the ICU, remains on BiPAP on the percent FiO2, EPAP of 6 and IPAP of 12. O2 saturation remains extremely marginal. Patient has previously expressed wishes as she does not want to be intubated and placed on mechanical ventilation no matter what. Patient is on the COVID-19 cocktail, she was also started upon admission on BARICITINIB and she was seen on consultation by cardiology for her possible non-ST elevation myocardial infarction. Remains on heparin. Echocardiogram showed good ejection fraction. No significant abnormality noted. Although there was a mention of apical Hypokinesis, and the governor assembler hydraulic raised the possibility of takustubo syndrome. And she was given Lasix by the consulting governor assembler hydraulic. Her EDC count today is 8.8 hemoglobin is 16.1. Electrolytes showed low sodium of 129, renal profile is normal bicarb is normal. A shunt sodium on presentation was 116. PTT today is 66, and have d-dimer 0.50. LDH is elevated over 3000 and C- reactive protein is 5.7. Patient was reevaluated today on 03/14/21, remains in the ICU, remains on BiPAP with FiO2 of 100% IPAP of 14 and EPAP of 6, remains marginal at best. O2 saturation is in the low 90s. Patient is requiring Precedex drip otherwise she gets extremely agitated and anxious. Patient is also on the COVID-19 cocktail, and she was seen by cardiology were and the patient was placed on heparin for possible non-ST elevation myocardial infarction. Her Precedex is at 0.15 mcg/kg per hour. CBC count is normal left lites are normal renal profile is normal. Chest x-ray continues to show bilateral infiltrates consistent with COVID-19 pneumonia. Patient had a PICC line placed to yesterday, and the plan is to start TPN on this patient because she is not eating much The patient is seen today 03/15/2021 in follow-up in the intensive care unit. She has not shown much improvement. She is on BiPAP 16/6 and 100% FiO2 to maintain O2 saturations in the upper 80s. Chest x-ray continues to show bilateral airspace disease. No evidence of pneumothorax or pleural effusions. She remains in atrial fibrillation with a rapid ventricular response. She is currently on a heparin drip. She is on Precedex at 0.6 micrograms per kilogram per hour. She remains on Decadron. Continued on Baricitinib. Continued on vitamin supplements. White count 13.6. Hemoglobin 17.3. Lymphocytes 0.82. D- dimer 1.54. Sodium 132. Potassium 3.6. Creatinine 0.47. LDH 2667. C- reactive protein 4.3. She is being nourished with TPN. The patient is seen today 03/16/2021 in follow-up in the intensive care unit. Her condition continued to deteriorate yesterday and her family came in and requested she be a full code CODE STATUS. She was subsequently intubated and placed on mechanical ventilator. Currently he says control mode with a rate of 36, tidal volume 375, FiO2 100% and a PEEP of 18. Morning blood gases revealed a pO2 of 61, pCO2 44, pH 7.37. She is sedated on propofol at 40 mcg/kg/m. She is on an amiodarone drip at 0.5 mg/m. Heparin drip per weight based protocol, n orepinephrine at 0.2 mcg/kg/m. She is paralyzed with Nimbex at 1.25 mcg/kg/m. Fentanyl drip at 0.5 mcg/kg per hour. Her chest x-ray shows infiltrate in the right lower lobe with possible bacterial pneumonia on top of CoVID 19 pneumonia. White count 8.5. Hemoglobin 15.5. Lymphocytes 0.9. Sodium 133. Potassium 3.8. Creatinine 0.88. Glucose 187. AST 41. ALT 30. She remains on Decadron, Baricitinib, vitamin supplements. The patient is seen today 03/17/2021 in follow-up in the intensive care unit. She remains intubated and on the mechanical ventilator. Current settings are assist-control mode, rate of 36, tidal volume 375, FiO2 80% and a PEEP of 18. Pressures 36. Plateau pressure 34. Morning blood gases revealed a pO2 of 71, pCO2 37, pH 7.37. Urine output remains borderline at 25-30 ML's per hour. She is being nourished with vital HPI at 25 ML's per hour which is goal. She remains on amiodarone at 0.5 mg/m. Fentanyl drip at 0.5 mcg/kg per hour, Nimbex at 1.25 mcg/kg/m propofol at 40 mcg/kg/m. She remains on norepinephrine at 0.15 g/kg/m. She is also on vasopressin now at 0.03 units/m. She is continued on Decadron. Anticoagulated with a heparin drip per weight base protocol. Remains in atrial fibrillation with a controlled ventricular rate. X-ray continues to show bilateral airspace disease. White count 10.5. Hemoglobin 14.3. Sodium 137. Potassium 4.0. Creatinine 1.13. Glucose 196. Objective - Vital Signs Vital signs: Vital Signs Temp 98.5 F 03/17/21 08:00 Pulse 88 03/17/21 12:00 Resp 36 H 03/17/21 12:00 BP 110/79 03/17/21 12:00 Pulse Ox 91 L 03/17/21 12:00 Intake & Output 03/16/21 03/17/21 03/17/21 18:59 06:59 18:59 Intake Total 2295.205 1792.102 1351.998 Output Total 295 330 350 Balance 7608.573 3372.102 1001.998 Weight 92 kg 94.6 kg Intake: IV 516 858 468 0.9 180 825 75 Sodium Chloride 0.9% 1, 300 375 000 ml @ 125 mls/hr IV . Q8H YANNICK Rx#:[id number] pressure bag 36 33 18 Intake, IV Titration 1234.264 884.102 603.998 Amount Amiodarone 450 mg In 207.504 Dextrose 5% in Water 250 ml @ 0.5 MG/MIN 16.667 mls/hr IV .Q15H YANNICK Rx#: [id number] Amiodarone 450 mg In 194.726 Dextrose 5% in Water 250 ml @ 0.5 MG/MIN 16.667 mls/hr IV .Q15H YANNICK Rx#: [id number] Cisatracurium 200 mg In 71.391 Sodium Chloride 0.9% 180 ml @ 1 MCG/KG/MIN 5.502 mls/hr IV .Q24H YANNICK Rx#: [id number] Heparin Sod,Pork in 0.45% 0 182.563 NaCl 25,000 unit In 0.45 % NaCl 1 250ml.bag @ 11. 03 UNITS/KG/HR 10.006 mls /hr IV .Q24H YANNICK Rx#: [id number] Norepinephrine 8 mg In 755.369 630.975 135.445 Sodium Chloride 0.9% 250 ml @ 0.05 MCG/KG/MIN 8. 872 mls/hr IV .Q24H YANNICK Rx#:[id number] Piperacillin-Tazobactam 3 100 .375 gm In Sodium Chloride 0.9% 100 ml @ 25 mls/hr IVPB Q8HR YANNICK Rx# :[id number] fentaNYL (PF). 1,000 mcg 0 78.327 In Sodium Chloride 0.9% 80 ml @ 0.5 MCG/KG/HR 4. 585 mls/hr IV .[id number] YANNICK Rx#:[id number] propofoL 1,000 mg In 100 174.800 91.264 Empty Bag 1 bag @ Titrate IV .Q0M YANNICK Rx#: [id number] Tube Feeding 110 255 150 Other 60 90 130 Output: Urine 295 330 350 Other: Voiding Method Indwelling Catheter Indwelling Catheter Indwelling Catheter ABP, PAP, CO, CI - Last Documented Arterial Blood Pressure 104/67 - Exam GENERAL EXAM: Intubated, sedated, paralyzed 60-year-old female patient, on the mechanical ventilator. HEAD: Normocephalic. EYES: Normal reaction of pupils, equal size. NOSE: Clear with pink turbinates. THROAT: No erythema or exudates. NECK: No masses, no JVD. CHEST: No chest wall deformity. LUNGS: Equal air entry with coarse crackles in the posterior bases right greater than left. CVS: S1 and S2 normal with no audible murmur, regular rhythm. ABDOMEN: No hepatosplenomegaly, normal bowel sounds, no guarding or rigidity. SPINE: No scoliosis or deformity SKIN: No rashes CENTRAL NERVOUS SYSTEM: No focal deficits, tone is normal in all 4 extremities. EXTREMITIES: Left upper extremity PICC line. There is no peripheral edema. No clubbing, no cyanosis. Peripheral pulses are intact. - Labs CBC & Chem 7: 03/17/21 04:10 03/17/21 04:10 Labs: Abnormal Lab Results - Last 24 Hours (Table) 03/16/21 03/16/21 03/16/21 Range/Units 04:00 13:30 17:38 MCV (80.0-100.0) fL MCH (25.0-35.0) pg Neutrophils # (Manual) (1.3-7.7) k/uL APTT 55.1 H (22.0-30.0) sec ABG pO2 (83-108) mmHg Carbon Dioxide (22-30) mmol/L BUN (7-17) mg/dL Creatinine (0.52-1.04) mg/dL Glucose (74-99) mg/dL POC Glucose (mg/dL) 125 H (75-99) mg/dL Calcium (8.4-10.2) mg/dL Total Bilirubin (0.2-1.3) mg/dL AST (14-36) U/L Total Protein (6.3-8.2) g/dL Albumin (3.5-5.0) g/dL Procalcitonin 9.12 H (0.02-0.09) ng/mL 03/16/21 03/16/21 03/17/21 Range/Units 19:24 23:30 04:10 MCV 105.3 H (80.0-100.0) fL MCH 35.6 H (25.0-35.0) pg Neutrophils # (Manual) 9.10 H (1.3-7.7) k/uL APTT (22.0-30.0) sec ABG pO2 (83-108) mmHg Carbon Dioxide (22-30) mmol/L BUN (7-17) mg/dL Creatinine (0.52-1.04) mg/dL Glucose (74-99) mg/dL POC Glucose (mg/dL) 125 H 148 H (75-99) mg/dL Calcium (8.4-10.2) mg/dL Total Bilirubin (0.2-1.3) mg/dL AST (14-36) U/L Total Protein (6.3-8.2) g/dL Albumin (3.5-5.0) g/dL Procalcitonin (0.02-0.09) ng/mL 03/17/21 03/17/21 03/17/21 Range/Units 04:10 04:10 05:36 MCV (80.0-100.0) fL MCH (25.0-35.0) pg Neutrophils # (Manual) (1.3-7.7) k/uL APTT 45.4 H (22.0-30.0) sec ABG pO2 (83-108) mmHg Carbon Dioxide 19 L (22-30) mmol/L BUN 40 H (7-17) mg/dL Creatinine 1.13 H (0.52-1.04) mg/dL Glucose 196 H (74-99) mg/dL POC Glucose (mg/dL) 165 H (75-99) mg/dL Calcium 7.5 L (8.4-10.2) mg/dL Total Bilirubin 1.9 H (0.2-1.3) mg/dL AST 38 H (14-36) U/L Total Protein 5.2 L (6.3-8.2) g/dL Albumin 2.4 L (3.5-5.0) g/dL Procalcitonin (0.02-0.09) ng/mL 03/17/21 03/17/21 Range/Units 05:55 12:13 MCV (80.0-100.0) fL MCH (25.0-35.0) pg Neutrophils # (Manual) (1.3-7.7) k/uL APTT (22.0-30.0) sec ABG pO2 71 L (83-108) mmHg Carbon Dioxide (22-30) mmol/L BUN (7-17) mg/dL Creatinine (0.52-1.04) mg/dL Glucose (74-99) mg/dL POC Glucose (mg/dL) 213 H (75-99) mg/dL Calcium (8.4-10.2) mg/dL Total Bilirubin (0.2-1.3) mg/dL AST (14-36) U/L Total Protein (6.3-8.2) g/dL Albumin (3.5-5.0) g/dL Procalcitonin (0.02-0.09) ng/mL Microbiology - Last 24 Hours (Table) 03/16/21 20:00 Urine Culture - Preliminary Urine,Catheterized 03/16/21 19:55 Sputum Culture - Preliminary Sputum Assessment and Plan Assessment: 1 Acute hypoxemic respiratory failure secondary to COVID-19 pneumonia with deterioration. Possible bacterial pneumonia in the right lower lobe. On Baric itinib. Required intubation mechanical ventilatory support on 03/15/2021. 2 Hypotension requiring pressor support 3 Suspected non-ST segment elevation myocardial infarction 4 Atrial fibrillation with rapid ventricular response, currently on a heparin drip. On amiodarone and atenolol and rate is better controlled 5 Hyponatremia improving currently 137 Plan: The patient was seen and evaluated by Dr. Starkey Chest xray, ABGs and labs reviewed Discontinue Lasix Increase 0.9 normal saline to 125 ML's per hour Decrease FiO2 to 75% Continue to titrate as tolerated Follow-up chest x-ray, ABGs and labs in the a.m. Prognosis remains quite poor and guarded We will continue follow and make further recommendations based on her clinical status Critical care time 36 minutes I, the cosigning physician, performed a history & physical examination of the patient. Lungs sounds crackles in the bilateral bases. Maintaining O2 saturations in the 90s on 75% FiO2 and a PEEP of 18 via the mechanical ventilator. I discussed the assessment and plan of care with my nurse practitioner, Shi Arias. I attest to the above note as dictated by her.
[2021-03-17] MEDS ORDERED: VANCOMYCIN IV PER PHARMACY 1 EACH MISC MISCELLANE PRN (18:48)
[2021-03-17] MEDS: CISATRACURIUM 200 MG in SODIUM CHLORIDE 0.9% 180 ML IV SCH (18:56)
[2021-03-17 19:02] LABS: Glucose,Whole Blood 322 mg/dL (75-99)
[2021-03-17] MEDS ORDERED: VANCOMYCIN 1,500 MG in SODIUM CHLORIDE 0.9% 250 ML IVPB ONE (20:00)
--- NOTE | 2021-03-17 20:09 | PN ---
PROGRESS NOTE DATE OF SERVICE: 03/17/2021 This 60-year-old woman who was admitted with acute Covid 19 infection bilateral pneumonia had acute hypoxic respiratory failure also. The patient mechanically sedated. The patient on pressor support. The vasopressor support is being stabilized at this time. Chest x-ray showed bilateral interstitial pneumonia, right more the left. Patient being closely monitored. Vent settings are noted. Dr. Starkey is following the patient closely. Past medical history reviewed. REVIEW OF SYSTEMS: Could not be taken, the patient mechanically ventilated and sedated. MEDICATIONS: Current medications reviewed and include: Fioricet, Cordarone, Tenormin, Peridex, Pepcid, Fentanyl, other doses reviewed. IV heparin. PHYSICAL EXAMINATION: Patient is mechanically sedated. Pulse is 79, blood pressure 99/62, respiration 30, temperature 99.1 pulse ox 93% on 70% FiO2. HEENT: Conjunctivae normal. Neck: No JVD. Cardiovascular: S1, S2 muffled. Respiratory: Breath sounds diminished in the bases. Bilateral scattered rhonchi and crackles. Abdomen: Soft, nontender. Legs are no edema. No swelling. Nervous system: Sedated. LABS: CBC noted. Otherwise sodium 137, potassium 4, creatinine is 1.13. LFTs are noted. ASSESSMENT: 1. Acute COVID-19 infection with bilateral interstitial pneumonia with acute hypoxic respiratory failure, currently on mechanical ventilation. 2. Elevated troponin 0.06. Possible acute [id number]-elevation myocardial infarction with type 2 myocardial infarction possibly. 3. Acute supra added bacterial pneumonia possibly with severe sepsis and hypotension on pressor support. 4. Possible takotsubo syndrome. 5. Elevated inflammatory markers of Covid 19. 6. Change in mental status, acute metabolic encephalopathy multifactorial. 7. Atrial fibrillation with fast ventricular rate. 8. Hypomagnesemia. 9. Heparin monitoring. 10.Elevated D-dimer without any evidence of acute pulmonary embolism. 11.Diabetes mellitus type 2 with hyperglycemia uncontrolled. 12.Elevated procalcitonin. 13.Increased MCV. 14.Thrombocytopenia. 15.History of fibromyalgia. 16.History of gastroesophageal reflux disease. 17.Hypertension. 18.Hyperlipidemia. 19.History of diverticulitis. 20.History of thromboembolism. 21.History of mitral regurgitation. 22.History of Raynaud's. 23.History of lupus. 24.Obesity with body mass index of 39.5. 25.Positive cardiolipin. 26.Hyponatremia. 27.Increased WBC. 28.FULL CODE. RECOMMENDATIONS AND DISCUSSION: To continue current medications, management. Symptomatic treatment. Continue with IV antibiotics. Continue the bronchodilators. Continue with mechanical ventilation. Continue with the steroids. Continue the rest of medications. Repeat labs. Continue with IV heparin. The cultures are negative so far. The preliminary blood culture showed some gram-positive cocci. Vancomycin also added to the current regimen. Guarded prognosis. Further recommendations to follow. MMGARETTL / IJN: [id number] / [facility]
[2021-03-17] MEDS: INSULIN DETEMIR (LEVEMIR) 100 UNIT/ML SYR SQ SCH (20:42)
[2021-03-17] MEDS: atenoloL 25 MG TAB PO SCH (20:44)
[2021-03-17] MEDS: FAMOTIDINE 20 MG TAB PO SCH (20:44)
[2021-03-17] MEDS: NIFEdipine XL 30 MG TAB.ER.24 PO SCH (20:44)
[2021-03-17 23:52] LABS: Glucose,Whole Blood 287 mg/dL (75-99)
[2021-03-18] MEDS: PIPERACILLIN-TAZOBACTAM 3.375 GM in SODIUM CHLORIDE 0.9% 100 ML IVPB SCH (00:40)
[2021-03-18] MEDS: NOREPINEPHRINE 8 MG in SODIUM CHLORIDE 0.9% 250 ML IV SCH (02:46)
[2021-03-18 03:54] LABS: Basophils % (A) 0 %; Eosinophils % (A) 0 %; HCT 38.9 % (34.0-46.0); HGB 13.1 gm/dL (11.4-16.0); Lymphocytes # (A) 0.5 k/uL (1.0-4.8); Lymphocytes % (A) 5 %; MCH 35.5 pg (25.0-35.0); MCHC 33.6 g/dL (31.0-37.0); MCV 105.5 fL (80.0-100.0); Macrocytosis Slight; Mean Platelet Volume 9.2; Monocytes # (A) 0.3 k/uL (0-1.0); Monocytes % (A) 3 %; Neutrophils # (A) 8.6 k/uL (1.3-7.7); Neutrophils % (A) 92 %; Platelet Count 174 k/uL (150-450); RBC 3.69 m/uL (3.80-5.40); RDW 12.5 % (11.5-15.5); WBC 9.4 k/uL (3.8-10.6)
[2021-03-18] MEDS: ARTIFICIAL TEARS-HYPROMELLOSE DROPS 15 ML BTL BOTH EYES SCH ×6 (04:10→23:49)
[2021-03-18 04:32] LABS: ALT 27 U/L (4-34); AST 39 U/L (14-36); African American GFR (CKD) >90 (>60 ml/min/1.73 sqM); Albumin 2.1 g/dL (3.5-5.0); Alkaline Phosphatase 102 U/L (38-126); Anion Gap 7 mmol/L; Blood Urea Nitrogen 28 mg/dL (7-17); Calcium 7.8 mg/dL (8.4-10.2); Carbon Dioxide 23 mmol/L (22-30); Chloride 110 mmol/L (98-107); Glucose 315 mg/dL (74-99); Non-African American GFR(CKD) >90 (>60 ml/min/1.73 sqM); Phosphorus 1.9 mg/dL (2.5-4.5); Sodium 140 mmol/L (137-145); Total Bilirubin 1.6 mg/dL (0.2-1.3); Total Protein 4.9 g/dL (6.3-8.2)
[2021-03-18 05:06] LABS: Glucose,Whole Blood 303 mg/dL (75-99)
[2021-03-18] MEDS: INSULIN ASPART (NovoLOG) 100 UNIT/ML VIAL SQ SCH ×2 (05:06→13:11)
[2021-03-18] MEDS: POTASSIUM BICARBONATE/CIT AC 20 MEQ TABLET.EFF NG-TUBE SCH ×2 (05:07→06:10)
[2021-03-18 05:54] LABS: ABG Base Excess -1.6 mmol/L; ABG HCO3 24 mmol/L (21-25); ABG Oxygen Saturation 85.2 % (94-97); ABG PCO2 43 mmHg (35-45); ABG PH 7.36 (7.35-7.45); ABG TCO2 25 mmol/L (19-24); Allen Test Performed? Yes
[2021-03-18 05:57] LABS: ABG PO2 50 mmHg (83-108)
[2021-03-18] MEDS: SODIUM CHLORIDE 0.9% 1,000 ML IV SCH ×2 (06:11→15:20)
[2021-03-18 08:29] LABS: ABG Base Excess -0.5 mmol/L; ABG HCO3 25 mmol/L (21-25); ABG Oxygen Saturation 88.6 % (94-97); ABG PCO2 44 mmHg (35-45); ABG PH 7.36 (7.35-7.45); ABG TCO2 26 mmol/L (19-24)
[2021-03-18 08:30] LABS: ABG PO2 55 mmHg (83-108)
[2021-03-18] MEDS ORDERED: VANCOMYCIN 1,500 MG in SODIUM CHLORIDE 0.9% 250 ML IVPB SCH (09:00)
[2021-03-18] MEDS ORDERED: FAT EMULSION 20% 500 ML in EMPTY BAG 1 BAG IV SCH (09:00)
--- NOTE | 2021-03-18 09:11 | XR ---
EXAMINATION TYPE: XR chest 1V portable DATE OF EXAM: 03/18/2021 COMPARISON: Chest x-ray 03/17/2021 HISTORY: Intubated TECHNIQUE: Single frontal view of the chest is obtained. FINDINGS: Patient is rotated. Endotracheal tube, NG tube, left-sided PICC line are overlying appropr iate positions, there is no evident pneumothorax. Biapical pleural thickening is stable. Cardiac medi astinal silhouette felt likely to be stable. Bilateral airspace disease is again noted. Interstitium is increased. Difficult to exclude left effusion, the hemidiaphragms obscured. IMPRESSION: Rotated exam, no significant interval change is evident.
[2021-03-18] MEDS: CALCIUM CARBONATE 500 MG CHEWABLE PO SCH (09:33)
[2021-03-18] MEDS: DEXAMETHASONE SOD PHOSPHATE 10 MG/ML 1 ML VIAL IVP SCH ×2 (09:33→21:05)
[2021-03-18] MEDS: CHLORHEXIDINE GLUCONATE 15 ML CUP MUCOUS MEM SCH ×2 (09:33→21:05)
[2021-03-18] MEDS: PANTOPRAZOLE 40 MG TABLET PO SCH (09:33)
[2021-03-18] MEDS: ZINC SULFATE 220 MG CAP PO SCH (09:33)
[2021-03-18] MEDS: CYANOCOBALAMIN 500 MCG TAB PO SCH (09:34)
[2021-03-18] MEDS: AMIODARONE 200 MG TAB PO SCH ×2 (09:34→21:04)
[2021-03-18] MEDS: CHOLECALCIFEROL 25 MCG (1000 IU) TABLET PO SCH (09:34)
[2021-03-18] MEDS: FOLIC ACID 1 MG TAB PO SCH (09:34)
[2021-03-18] MEDS: ASCORBIC ACID 500 MG TAB PO SCH ×2 (09:34→21:05)
[2021-03-18] MEDS: OXYBUTYNIN 10 MG TAB.ER.24 PO SCH (10:30)
--- NOTE | 2021-03-18 10:44 | P.PN ---
Subjective Progress Note Date: 03/18/21 Principal diagnosis: Respiratory failure. Acute hypoxic respiratory failure secondary to acute COVID-19 pneumonia THis is a 60-year-old female, no major medical illnesses, presented to the ER yesterday with at least 1 week history of shortness of breath, intermittent cough, chest discomfort, she had no GI symptoms, no headache, no nausea no vomiting no diarrhea. Patient felt generally weak, and upon arrival to the ER, patient was noted to be hypoxic. CT of the chest showed no evidence of pulmonary embolism, but it did show extensive pulmonary infiltrates consistent with Covid19 pneumonia. COVID-19 PCR was positive. CBC was relatively normal except for a relative lymphopenia, relative thrombocytopenia, d-dimer was 0.94, patient was noted to have low sodium of 116, normal renal profile was noted, bicarb was noted to be a bit low at 20. Blood sugar was 293. If her enzymes were noted to be a bit elevated with AST of 179 and ALT of 65. LDH was extremely elevated at 3959, C-reactive protein of 8.3, pro BNP was over 5000, troponin was also noted to be elevated at 0.30. Patient is also known to have history of positive anti-cardiolipin antibody. Patient was placed on BiPAP, she remains on BiPAP at present, she is actually on the 100% FiO2, IPAP of 12 and EP AP of 6, and she has marginal O2 saturation. ABG last night was done on BiPAP, and her pO2 was 72 pCO2 37 pH of 7.37. Patient is yet to be seen by cardiology, however heparin was advised by cardiology, and she is on heparin drip at present. Again her CT angiogram of the chest was negative for thromboembolic disease. D-dimer was noted to be 0.94. Her pulmonary status was quite marginal last night, hence patient was given 1 dose of Lasix 40 mg IV push, and she was approached by the nurse about possible worsening and intubation, patient clearly stated to the nurse that she did not want to be intubated tomorrow what. Apparently she discussed this with her , and both agreed on no int ubation. Patient was reevaluated today on 03/13/21, remains in the ICU, remains on BiPAP on the percent FiO2, EPAP of 6 and IPAP of 12. O2 saturation remains extremely marginal. Patient has previously expressed wishes as she does not want to be intubated and placed on mechanical ventilation no matter what. Patient is on the COVID-19 cocktail, she was also started upon admission on BARICITINIB and she was seen on consultation by cardiology for her possible non-ST elevation myocardial infarction. Remains on heparin. Echocardiogram showed good ejection fraction. No significant abnormality noted. Although there was a mention of apical Hypokinesis, and the electrocardiogram technician raised the possibility of takustubo syndrome. And she was given Lasix by the consulting electrocardiogram technician. Her EDC count today is 8.8 hemoglobin is 16.1. Electrolytes showed low sodium of 129, renal profile is normal bicarb is normal. A shunt sodium on presentation was 116. PTT today is 66, and have d-dimer 0.50. LDH is elevated over 3000 and C- reactive protein is 5.7. Patient was reevaluated today on 03/14/21, remains in the ICU, remains on BiPAP with FiO2 of 100% IPAP of 14 and EPAP of 6, remains marginal at best. O2 saturation is in the low 90s. Patient is requiring Precedex drip otherwise she gets extremely agitated and anxious. Patient is also on the COVID-19 cocktail, and she was seen by cardiology were and the patient was placed on heparin for possible non-ST elevation myocardial infarction. Her Precedex is at 0.15 mcg/kg per hour. CBC count is normal left lites are normal renal profile is normal. Chest x-ray continues to show bilateral infiltrates consistent with COVID-19 pneumonia. Patient had a PICC line placed to yesterday, and the plan is to start TPN on this patient because she is not eating much The patient is seen today 03/15/2021 in follow-up in the intensive care unit. She has not shown much improvement. She is on BiPAP 16/6 and 100% FiO2 to maintain O2 saturations in the upper 80s. Chest x-ray continues to show bilateral airspace disease. No evidence of pneumothorax or pleural effusions. She remains in atrial fibrillation with a rapid ventricular response. She is currently on a heparin drip. She is on Precedex at 0.6 micrograms per kilogram per hour. She remains on Decadron. Continued on Baricitinib. Continued on vitamin supplements. White count 13.6. Hemoglobin 17.3. Lymphocytes 0.82. D- dimer 1.54. Sodium 132. Potassium 3.6. Creatinine 0.47. LDH 2667. C- reactive protein 4.3. She is being nourished with TPN. The patient is seen today 03/16/2021 in follow-up in the intensive care unit. Her condition continued to deteriorate yesterday and her family came in and requested she be a full code CODE STATUS. She was subsequently intubated and placed on mechanical ventilator. Currently he says control mode with a rate of 36, tidal volume 375, FiO2 100% and a PEEP of 18. Morning blood gases revealed a pO2 of 61, pCO2 44, pH 7.37. She is sedated on propofol at 40 mcg/kg/m. She is on an amiodarone drip at 0.5 mg/m. Heparin drip per weight based protocol, norepinephrine at 0.2 mcg/kg/m. She is paralyzed with Nimbex at 1.25 mcg/kg/m. Fentanyl drip at 0.5 mcg/kg per hour. Her chest x-ray shows infiltrate in the right lower lobe with possible bacterial pneumonia on top of CoVID 19 pneumonia. White count 8.5. Hemoglobin 15.5. Lymphocytes 0.9. Sodium 133. Potassium 3.8. Creatinine 0.88. Glucose 187. AST 41. ALT 30. She remains on Decadron, Baricitinib, vitamin supplements. The patient is seen today 03/17/2021 in follow-up in the intensive care unit. She remains intubated and on the mechanical ventilator. Current settings are assist-control mode, rate of 36, tidal volume 375, FiO2 80% and a PEEP of 18. Pressures 36. Plateau pressure 34. Morning blood gases revealed a pO2 of 71, pCO2 37, pH 7.37. Urine output remains borderline at 25-30 ML's per hour. She is being nourished with vital HPI at 25 ML's per hour which is goal. She remains on amiodarone at 0.5 mg/m. Fentanyl drip at 0.5 mcg/kg per hour, Nimbex at 1.25 mcg/kg/m propofol at 40 mcg/kg/m. She remains on norepinephrine at 0.15 g/kg/m. She is also on vasopressin now at 0.03 units/m. She is continued on Decadron. Anticoagulated with a heparin drip per weight base protocol. Remains in atrial fibrillation with a controlled ventricular rate. X-ray continues to show bilateral airspace disease. White count 10.5. Hemoglobin 14.3. Sodium 137. Potassium 4.0. Creatinine 1.13. Glucose 196. Progress note dated 03/18/2021. The patient is again seen in the intensive care unit, in room 256. The patient was admitted back on March 11, for coronavirus infection, non-ST segment elevation myocardial infarction, and atrial fibrillation. The patient was intubated on March 15 the patient remains on the mechanical ventilator, with settings of volume assist control mode, rate 36, tidal volume 375, FiO2 70%, and PEEP of 20. Arterial blood gases show a PaO2 of 55, pCO2 of 44, and a pH is 7.36. Earlier blood gases, had a pO2 of only 50. The patient is on propofol at 40 mcg/kg/m, fentanyl at 0.5 mcg/kg/h, vital AF at 25 mL an hour, which is goal, 0.9 at 125 mL an hour, heparin via weightbase protocol, norepinephrine at 9.5 m cg/m, and Nimbex at 1 mcg/kg/m. White count 9.4, he will 13.1, hematocrit 38.9, and platelet count was normal. Sodium 140, potassium 3, chlorides 110, CO2 23, anion gap 7, BUN 28, and creatinine 0.59. Chest x-ray shows diffuse bilateral infiltrates. Chest x-ray, when compared to the chest x-ray from a day earlier, is unchanged. Objective - Vital Signs Vital signs: Vital Signs Temp 96.7 F L 03/18/21 04:00 Pulse 86 03/18/21 07:00 Resp 36 H 03/18/21 07:00 BP 120/81 03/18/21 07:00 Pulse Ox 89 L 03/18/21 07:00 Intake & Output 03/17/21 03/18/21 03/18/21 18:59 06:59 18:59 Intake Total 2473.088 2842.672 278 Output Total 795 875 45 Balance 5891.309 3668.672 233 Intake: IV 936 1736 128 0.9 75 1375 125 Sodium Chloride 0.9% 1, 825 75 000 ml @ 125 mls/hr IV . Q8H [facility] Rx#:[id number] Vancomycin 1,500 mg In 250 Sodium Chloride 0.9% 250 ml @ 125 mls/hr IVPB ONCE ONE Rx#:[id number] pressure bag 36 36 3 Intake, IV Titration 1047.088 716.672 100 Amount Amiodarone 450 mg In 194.726 Dextrose 5% in Water 250 ml @ 0.5 MG/MIN 16.667 mls/hr IV .Q15H [facility] Rx#: [id number] Cisatracurium 200 mg In 148.554 Sodium Chloride 0.9% 180 ml @ 1 MCG/KG/MIN 5.502 mls/hr IV .Q24H [facility] Rx#: [id number] Heparin Sod,Pork in 0.45% 182.563 104.352 NaCl 25,000 unit In 0.45 % NaCl 1 250ml.bag @ 11. 03 UNITS/KG/HR 10.006 mls /hr IV .Q24H [facility] Rx#: [id number] Norepinephrine 8 mg In 329.981 249.391 Sodium Chloride 0.9% 250 ml @ 0.05 MCG/KG/MIN 8. 872 mls/hr IV .Q24H [facility] Rx#:[id number] fentaNYL (PF). 1,000 mcg 88.108 In Sodium Chloride 0.9% 80 ml @ 0.5 MCG/KG/HR 4. 585 mls/hr IV .[id number] [facility] Rx#:[id number] propofoL 1,000 mg In 191.264 274.821 100 Empty Bag 1 bag @ Titrate IV .Q0M [facility] Rx#: [id number] Tube Feeding 300 300 50 Other 190 90 Output: Urine 795 875 45 Other: Voiding Method Indwelling Catheter Indwelling Catheter ABP, PAP, CO, CI - Last Documented Arterial Blood Pressure 113/62 - Exam No acute distress, currently sedated, and paralyzed. The patient has a orally placed endotracheal tube and NG tube. HEENT examination is grossly unremarkable. Neck supple. Full range of motion. No adenopathy thyromegaly or neck vein distention. Cardiovascular examination reveals an irregular rhythm and rate. S1-S2 normal. No S3 or S4. No discernible murmur noted. Heart rate 86 bpm. Heart sounds are distant. Lungs reveal bilateral coarse rhonchi, and crackles. Breath sounds are equal bilaterally. No wheezes. Abdomen soft bowel sounds are heard. No masses or tenderness. Extremities are intact. No cyanosis clubbing or edema. Skin is without rash or lesion. Neurologic examination cannot be adequately assessed as the patient's heavily sedated and paralyzed. - Labs CBC & Chem 7: 03/18/21 03:45 03/18/21 03:45 Labs: Abnormal Lab Results - Last 24 Hours (Table) 03/17/21 03/17/21 03/17/21 Range/Units 12:13 19:01 23:50 RBC (3.80-5.40) m/uL MCV (80.0-100.0) fL MCH (25.0-35.0) pg Neutrophils # (1.3-7.7) k/uL Lymphocytes # (1.0-4.8) k/uL ABG pO2 (83-108) mmHg ABG Total CO2 (19-24) mmol/L ABG O2 Saturation (94-97) % Potassium (3.5-5.1) mmol/L Chloride (98-107) mmol/L BUN (7-17) mg/dL Glucose (74-99) mg/dL POC Glucose (mg/dL) 213 H 322 H 287 H (75-99) mg/dL Calcium (8.4-10.2) mg/dL Phosphorus (2.5-4.5) mg/dL Total Bilirubin (0.2-1.3) mg/dL AST (14-36) U/L Total Protein (6.3-8.2) g/dL Albumin (3.5-5.0) g/dL 03/18/21 03/18/21 03/18/21 Range/Units 03:45 03:45 05:04 RBC 3.69 L (3.80-5.40) m/uL MCV 105.5 H (80.0-100.0) fL MCH 35.5 H (25.0-35.0) pg Neutrophils # 8.6 H (1.3-7.7) k/uL Lymphocytes # 0.5 L (1.0-4.8) k/uL ABG pO2 (83-108) mmHg ABG Total CO2 (19-24) mmol/L ABG O2 Saturation (94-97) % Potassium 3.0 L (3.5-5.1) mmol/L Chloride 110 H (98-107) mmol/L BUN 28 H (7-17) mg/dL Glucose 315 H (74-99) mg/dL POC Glucose (mg/dL) 303 H (75-99) mg/dL Calcium 7.8 L (8.4-10.2) mg/dL Phosphorus 1.9 L (2.5-4.5) mg/dL Total Bilirubin 1.6 H (0.2-1.3) mg/dL AST 39 H (14-36) U/L Total Protein 4.9 L (6.3-8.2) g/dL Albumin 2.1 L (3.5-5.0) g/dL 03/18/21 03/18/21 Range/Units 05:51 08:26 RBC (3.80-5.40) m/uL MCV (80.0-100.0) fL MCH (25.0-35.0) pg Neutrophils # (1.3-7.7) k/uL Lymphocytes # (1.0-4.8) k/uL ABG pO2 50 L* 55 L* (83-108) mmHg ABG Total CO2 25 H 26 H (19-24) mmol/L ABG O2 Saturation 85.2 L 88.6 L (94-97) % Potassium (3.5-5.1) mmol/L Chloride (98-107) mmol/L BUN (7-17) mg/dL Glucose (74-99) mg/dL POC Glucose (mg/dL) (75-99) mg/dL Calcium (8.4-10.2) mg/dL Phosphorus (2.5-4.5) mg/dL Total Bilirubin (0.2-1.3) mg/dL AST (14-36) U/L Total Protein (6.3-8.2) g/dL Albumin (3.5-5.0) g/dL Microbiology - Last 24 Hours (Table) 03/16/21 19:55 Gram Stain - Preliminary Sputum Sputum Culture - Preliminary 03/16/21 20:02 Blood Culture Gram Stain - Preliminary Blood Blood Culture - Preliminary Staphylococcus aureus 03/16/21 20:02 Blood Culture - Final Blood 03/16/21 20:00 Urine Culture - Preliminary Urine,Catheterized Assessment and Plan Assessment: Acute hypoxemic respiratory failure, secondary to coronavirus associated pneumonia. Status post intubation and mechanical ventilation on 03/15/2021. Hypotension, likely related to underlying coronavirus associated sepsis, non-ST segment elevation myocardial infarction, and atrial fibrillation with RVR. Non-ST segment elevation myocardial infarction. History of atrial fibrillation with RVR. Hyponatremia, improved. Plan: Plan dated 03/18/2021. The patient's IV fluids will be discontinued. She is way ahead on fluids. Labs x-rays a medications are all reviewed. Overall prognosis remains very guarded. The patient remains on IV heparin, norepinephrine, Nimbex, propofol, fentanyl, and tube feeds. We will continue to follow make recommendations where appropriate. Prognosis is very guarded. Time with Patient: Greater than 30
[2021-03-18 11:31] LABS: Glucose,Whole Blood 291 mg/dL (75-99)
[2021-03-18 11:46] LABS: African American GFR (CKD) >90 (>60 ml/min/1.73 sqM); Anion Gap 5 mmol/L; Blood Urea Nitrogen 27 mg/dL (7-17); Carbon Dioxide 24 mmol/L (22-30); Chloride 109 mmol/L (98-107); Glucose 332 mg/dL (74-99); Non-African American GFR(CKD) >90 (>60 ml/min/1.73 sqM); Potassium 3.9 mmol/L (3.5-5.1); Sodium 138 mmol/L (137-145)
[2021-03-18] MEDS: HEPARIN SODIUM 1,000 UN/ML (10ML VL) IV PRN (13:19)
--- NOTE | 2021-03-18 13:47 | P.PN ---
Subjective Progress Note Date: 03/18/21 This is a 51 female who was in hospital for an acute COVID-19 infection with acute hypoxic respiratory failure requiring intubation on 03/15/2021. 03/18/2021 Patient is evaluated today in the intensive care unit. She is being followed closely by intensive care/pulmonary services. She is currently intubated. Chest x-ray today shows no significant interval change as compared to yesterday. There is no evidence for pneumothorax. Blood culture is positive for staph aureus, repeat blood cultures pending. Patient was transitioned to oral amiodarone off the amiodarone drip. Continues on heparin drip. Adequate urine output, urine is clear yellow. Labs today show a white count of 9.4, RBC 3.69, sodium 138, potassium 3.9, chloride 109, CO2 24, BUN 27, creatinine 0.52, sugars in the 200s, follows 1.9, mag 2.0, total bili 1.6, AST 39. Blood pressure is 115/80 on pressor support, heart rate 104, respiratory rate 36, afebrile and last 48 hours. Patient's prognosis as guarded she is currently intubated, and requires pressor support. Unable to complete a review of system as patient is intubated PHYSICAL EXAMINATION: GENERAL: Patient is intubated. HEENT: Pupils are round and equally reacting to light. EOMI. No scleral icterus. No conjunctival pallor. Normocephalic, atraumatic. No pharyngeal erythema. No thyromegaly. CARDIOVASCULAR: S1 and S2 present. No murmurs, rubs, or gallops. PULMONARY: Chest is clear to auscultation, no wheezing or crackles. ABDOMEN: Soft, nontender, nondistended, normoactive bowel sounds. No palpable organomegaly. MUSCULOSKELETAL: No joint swelling or deformity. EXTREMITIES: No cyanosis, clubbing, or pedal edema. NEUROLOGICAL: Unable to complete as patient is intubated SKIN: No rashes. Assessment and plan Assessment Acute COVID-19 infection with bilateral interstitial pneumonia with acute hypoxic respiratory failure, currently on mechanical ventilation Elevated troponins, possibility of acute NSTEMI with type II myocardial infarction Possible bacterial pneumonia with severe sepsis and hypotension on pressor sup port Positive blood culture with staph aureus Possible Takotsubo syndrome Atrial fibrillation with fast ventricular rate Elevated d-dimer, CT negative for pulmonary embolism Diabetes mellitus type 2 with hyperglycemia Thrombocytopenia Hypomagnesemia Hyponatremia History of GERD Hypertension Hyperlipidemia History of thromboembolism History of mitral regurgitation GI prophylaxis Protonix DVT prophylaxis heparin drip Full code Plan IV fluids discontinued per risk control consultant Continues on tube feeds Continue with empiric IV antibiotics Continue with systemic steroids and bronchodilators Continue all other supportive care Adjust insulin for hyperglycemia Repeat labs in the morning Objective - Vital Signs Vital signs: Vital Signs Temp 99.3 F 03/18/21 08:00 Pulse 104 H 03/18/21 11:00 Resp 36 H 03/18/21 11:00 BP 115/80 03/18/21 11:00 Pulse Ox 90 L 03/18/21 09:00 Intake & Output 03/17/21 03/18/21 03/18/21 18:59 06:59 18:59 Intake Total 2473.088 2842.672 725 Output Total 795 875 320 Balance 2118.050 1473.672 405 Intake: IV 936 1736 325 0.9 75 1375 310 Sodium Chloride 0.9% 1, 825 75 000 ml @ 125 mls/hr IV . Q8H [facility] Rx#:[id number] Vancomycin 1,500 mg In 250 Sodium Chloride 0.9% 250 ml @ 125 mls/hr IVPB ONCE ONE Rx#:[id number] pressure bag 36 36 15 Intake, IV Titration 1047.088 716.672 150 Amount Amiodarone 450 mg In 194.726 Dextrose 5% in Water 250 ml @ 0.5 MG/MIN 16.667 mls/hr IV .Q15H [facility] Rx#: [id number] Cisatracurium 200 mg In 148.554 Sodium Chloride 0.9% 180 ml @ 1 MCG/KG/MIN 5.502 mls/hr IV .Q24H [facility] Rx#: [id number] Heparin Sod,Pork in 0.45% 182.563 104.352 NaCl 25,000 unit In 0.45 % NaCl 1 250ml.bag @ 11. 03 UNITS/KG/HR 10.006 mls /hr IV .Q24H [facility] Rx#: [id number] Norepinephrine 8 mg In 329.981 249.391 Sodium Chloride 0.9% 250 ml @ 0.05 MCG/KG/MIN 8. 872 mls/hr IV .Q24H [facility] Rx#:[id number] ceFAZolin 2 gm In Sodium 50 Chloride 0.9% 50 ml @ 100 mls/hr IVPB Q8HR [facility] Rx# :[id number] fentaNYL (PF). 1,000 mcg 88.108 In Sodium Chloride 0.9% 80 ml @ 0.5 MCG/KG/HR 4. 585 mls/hr IV .[id number] [facility] Rx#:[id number] propofoL 1,000 mg In 191.264 274.821 100 Empty Bag 1 bag @ Titrate IV .Q0M [facility] Rx#: [id number] Tube Feeding 300 300 150 Other 190 90 100 Output: Urine 795 875 320 Other: Voiding Method Indwelling Catheter Indwelling Catheter Indwelling Catheter ABP, PAP, CO, CI - Last Documented Arterial Blood Pressure 122/72 - Labs CBC & Chem 7: 03/18/21 03:45 03/18/21 11:14 Labs: Abnormal Lab Results - Last 24 Hours (Table) 03/17/21 03/17/21 03/18/21 Range/Units 19:01 23:50 03:45 RBC (3.80-5.40) m/uL MCV (80.0-100.0) fL MCH (25.0-35.0) pg Neutrophils # (1.3-7.7) k/uL Lymphocytes # (1.0-4.8) k/uL APTT (22.0-30.0) sec ABG pO2 (83-108) mmHg ABG Total CO2 (19-24) mmol/L ABG O2 Saturation (94-97) % Potassium 3.0 L (3.5-5.1) mmol/L Chloride 110 H (98-107) mmol/L BUN 28 H (7-17) mg/dL Glucose 315 H (74-99) mg/dL POC Glucose (mg/dL) 322 H 287 H (75-99) mg/dL Calcium 7.8 L (8.4-10.2) mg/dL Phosphorus 1.9 L (2.5-4.5) mg/dL Total Bilirubin 1.6 H (0.2-1.3) mg/dL AST 39 H (14-36) U/L Total Protein 4.9 L (6.3-8.2) g/dL Albumin 2.1 L (3.5-5.0) g/dL 03/18/21 03/18/21 03/18/21 Range/Units 03:45 05:04 05:51 RBC 3.69 L (3.80-5.40) m/uL MCV 105.5 H (80.0-100.0) fL MCH 35.5 H (25.0-35.0) pg Neutrophils # 8.6 H (1.3-7.7) k/uL Lymphocytes # 0.5 L (1.0-4.8) k/uL APTT (22.0-30.0) sec ABG pO2 50 L* (83-108) mmHg ABG Total CO2 25 H (19-24) mmol/L ABG O2 Saturation 85.2 L (94-97) % Potassium (3.5-5.1) mmol/L Chloride (98-107) mmol/L BUN (7-17) mg/dL Glucose (74-99) mg/dL POC Glucose (mg/dL) 303 H (75-99) mg/dL Calcium (8.4-10.2) mg/dL Phosphorus (2.5-4.5) mg/dL Total Bilirubin (0.2-1.3) mg/dL AST (14-36) U/L Total Protein (6.3-8.2) g/dL Albumin (3.5-5.0) g/dL 03/18/21 03/18/21 03/18/21 Range/Units 08:26 11:14 11:14 RBC (3.80-5.40) m/uL MCV (80.0-100.0) fL MCH (25.0-35.0) pg Neutrophils # (1.3-7.7) k/uL Lymphocytes # (1.0-4.8) k/uL APTT 30.1 H (22.0-30.0) sec ABG pO2 55 L* (83-108) mmHg ABG Total CO2 26 H (19-24) mmol/L ABG O2 Saturation 88.6 L (94-97) % Potassium (3.5-5.1) mmol/L Chloride 109 H (98-107) mmol/L BUN 27 H (7-17) mg/dL Glucose 332 H (74-99) mg/dL POC Glucose (mg/dL) (75-99) mg/dL Calcium 8.0 L (8.4-10.2) mg/dL Phosphorus (2.5-4.5) mg/dL Total Bilirubin (0.2-1.3) mg/dL AST (14-36) U/L Total Protein (6.3-8.2) g/dL Albumin (3.5-5.0) g/dL 03/18/21 Range/Units 11:29 RBC (3.80-5.40) m/uL MCV (80.0-100.0) fL MCH (25.0-35.0) pg Neutrophils # (1.3-7.7) k/uL Lymphocytes # (1.0-4.8) k/uL APTT (22.0-30.0) sec ABG pO2 (83-108) mmHg ABG Total CO2 (19-24) mmol/L ABG O2 Saturation (94-97) % Potassium (3.5-5.1) mmol/L Chloride (98-107) mmol/L BUN (7-17) mg/dL Glucose (74-99) mg/dL POC Glucose (mg/dL) 291 H (75-99) mg/dL Calcium (8.4-10.2) mg/dL Phosphorus (2.5-4.5) mg/dL Total Bilirubin (0.2-1.3) mg/dL AST (14-36) U/L Total Protein (6.3-8.2) g/dL Albumin (3.5-5.0) g/dL Microbiology - Last 24 Hours (Table) 03/16/21 20:02 Blood Culture Gram Stain - Preliminary Blood Blood Culture - Preliminary Staphylococcus aureus 03/16/21 20:00 Urine Culture - Final Urine,Catheterized 03/16/21 19:55 Gram Stain - Preliminary Sputum Sputum Culture - Preliminary 03/16/21 20:02 Blood Culture - Final Blood Assessment and Plan Time with Patient: Greater than 30
[2021-03-18] MEDS ORDERED: INSULIN REGULAR BOLUS (FROM DRIP BAG) IV PRN (13:49)
[2021-03-18] MEDS ORDERED: INSULIN REGULAR 100 UNIT in SODIUM CHLORIDE 0.9% 100 ML IV SCH (14:00)
[2021-03-18] MEDS: atenoloL 50 MG TAB PO SCH (15:40)
[2021-03-18 15:49] LABS: Glucose,Whole Blood 241 mg/dL (75-99)
[2021-03-18 17:07] LABS: Glucose,Whole Blood 202 mg/dL (75-99)
[2021-03-18] MEDS: fentaNYL (PF). 1,000 MCG in SODIUM CHLORIDE 0.9% 80 ML IV SCH (17:37)
[2021-03-18] MEDS: HEPARIN SOD,PORK IN 0.45% NACL 25,000 UNIT in 0.45% NACL 1 250ML.BAG IV SCH (17:37)
[2021-03-18] MEDS: CISATRACURIUM 200 MG in SODIUM CHLORIDE 0.9% 180 ML IV SCH (17:39)
[2021-03-18 18:03] LABS: Glucose,Whole Blood 191 mg/dL (75-99)
[2021-03-18 19:07] LABS: Glucose,Whole Blood 133 mg/dL (75-99)
[2021-03-18 20:14] LABS: Glucose,Whole Blood 113 mg/dL (75-99)
[2021-03-18] MEDS ORDERED: INSULIN DETEMIR (LEVEMIR) 100 UNIT/ML SYR SQ SCH (21:00)
[2021-03-18] MEDS: FAMOTIDINE 20 MG TAB PO SCH (21:05)
[2021-03-18] MEDS: atenoloL 25 MG TAB PO SCH (21:05)
[2021-03-18 21:17] LABS: Glucose,Whole Blood 109 mg/dL (75-99)
[2021-03-18 22:15] LABS: Glucose,Whole Blood 121 mg/dL (75-99)
--- NOTE | 2021-03-18 22:54 | P.CONS ---
History of Present Illness - Reason for Consult Consult date: 03/18/21 bacteremia Requesting physician: Fransisco Starkey - Chief Complaint shortness of breath x days - History of Present Illness History of present illness : Patient is 60-year female presented to the hospital about a week ago for evaluation of increasing shortness of breath and this patient with evidence of extensive pulmonary. Consistent with ARDS/ COVID-19 positive test (U07.1, COVID-19) with Acute Pneumonia (J12.89, Other viral pneumonia) (If respiratory failure or sepsis present, add as separate assessment) Patient on presentation to the hospital was afebrile and did not have any fever until 03/16/2020 1 repeat spiked a fever 100.7 F and 9 point the patient did have a blood cultures obtained as well as sputum cultures blood cultures are coming back positive with staph for his has been finalized with MSSA patient was initially on Zosyn and vancomycin was added yesterday antibiotic has been adjusted to cefazolin this morning after the cultures are finalized infectious disease was consulted last evening for further management of antibiotic therapy most information has been obtained from review the chart and talking nursing staff and the patient is currently intubated on the vent patient is on low-dose pressor support is currently being weaned off no significant purulent secretion through the ET diarrhea or any other change reported by nursing staff patient currently to have a PICC line and art line and no evidence of any cellulitis around his IV sites Review of system: Positive point has been mentioned in HPI complete review could not be obtained because patient is sedated on the vent Past medical history : Reviewed, documented below Past surgical history : Reviewed, documented below Social history: Reviewed, documented below Medications: Reviewed, as documented below EXAMINATION: Vital sigans= Reviewed and documented below GENERAL DESCRIPTION: Middle-aged female intubated on the vent, no distress. No tachypnea or accessory muscle of respiration use. HEENT: Shows Pallor , no scleral icterus. Oral mucous membrane is dry. NECK: Trachea central, no thyromegaly. LUNGS: Unlabored breathing. Decrease intensity of breath sounds. No wheeze or crackle. HEART: S1, S2, regular rate and rhythm. ABDOMEN: Soft, no tenderness , guarding or rigidity EXTREMITIES: No edema of feet. SKIN: No rash, no masses palpable. NEUROLOGICAL: The patient is sedated on the vent LABS AND RADIOLOGY: Reviewed results see below Assessment : 1-patient with MSSA bacteremia and this patient has been admitted to the hospital with acute respiratory failure secondary to extensive COVID-19 pneumonia patient was afebrile on admission and did spike a fever on 03/16/2021 and which her blood cultures are now coming back positive with MSSA, source p ossibly pneumonia as the patient currently do not have any evidence of cellulitis at her art line or the PICC line no evidence of any joint swelling or cellulitis Plan: 1-blood cultures will be repeated document clearance of bacteremia 2-await sputum culture to finalize 3-cefazolin 2 g every 8 hours We will follow on clinical condition and cultures to further adjust medication if needed Thank you for this consultation we will follow the patient along with you Past Medical History Past Medical History: Fibromyalgia, GERD/Reflux, Hyperlipidemia, Hypertension Additional Past Medical History / Comment(s): diverticulitis, thromboembolism, mitral valve regurg, raynauds, lupus History of Any Multi-Drug Resistant Organisms: None Reported Past Surgical History: No Surgical Hx Reported Past Anesthesia/Blood Transfusion Reactions: No Reported Reaction Past Psychological History: No Psychological Hx Reported Smoking Status: Former smoker Past Alcohol Use History: None Reported Past Drug Use History: None Reported Medications and Allergies Home Medications Medication Instructions Recorded Confirmed Type Cinnamon Bark [Cinnamon] 500 mg PO DAILY 07/15/17 03/11/21 History NIFEdipine XL [Procardia Xl] 30 mg PO DAILY PRN 07/15/17 03/11/21 History Lansoprazole [Prevacid] 30 mg PO BID 07/20/17 03/11/21 History Albuterol Sulfate [Ventolin HFA] 1 - 2 puff INHALATION Q4-6H PRN 03/11/21 03/11/21 History Butalb/Acetaminophen/Caffeine 1 cap PO DAILY PRN 03/11/21 03/11/21 History [Fioricet 50-300-40 mg Capsule] Calcium 500mg 500 mg PO DAILY 03/11/21 03/11/21 History Cyanocobalamin (Vitamin B-12) 1,000 mcg PO DAILY 03/11/21 03/11/21 History [Vitamin B-12] Fluticasone Nasal Keller [Flonase 1 spray EA NOSTRIL BID PRN 03/11/21 03/11/21 History Nasal Keller] Folic Acid 0.4 mg PO DAILY 03/11/21 03/11/21 History Ketorolac Tromethamine [Acular 1 drop BOTH EYES TID PRN 03/11/21 03/11/21 History 0.5%] Magnesium Oxide 400 mg PO DAILY 03/11/21 03/11/21 History Milk Thistle 500mg 500 mg PO DAILY 03/11/21 03/11/21 History Montelukast [Singulair] 10 mg PO DAILY 03/11/21 03/11/21 History Ondansetron [Zofran] 4 - 8 mg PO Q8H PRN 03/11/21 03/11/21 History Oxybutynin ER [Ditropan Xl] 10 mg PO DAILY 03/11/21 03/11/21 History Turmeric Root Extract [Turmeric] 1,053 mg PO DAILY 03/11/21 03/11/21 History Vitamin E 400 unit PO DAILY 03/11/21 03/11/21 History Zinc 15mg 15 mg PO DAILY 03/11/21 03/11/21 History atenoloL [Tenormin] 25 mg PO DAILY 03/11/21 03/11/21 History predniSONE See Taper PO DIRECTED 03/11/21 03/11/21 History Allergies Allergy/AdvReac Type Severity Reaction Status Date / Time No Known Allergies Allergy Verified 03/11/21 20:55 Physical Exam Vitals: Vital Signs Temp Pulse Resp BP Pulse Ox 03/18/21 07:00 86 36 H 120/81 89 L 03/18/21 06:00 84 36 H 111/80 89 L 03/18/21 05:00 69 36 H 113/85 88 L 03/18/21 04:00 96.7 F L 76 36 H 114/79 91 L 03/18/21 03:00 70 36 H 108/85 91 L 03/18/21 02:00 78 36 H 106/80 93 L 03/18/21 01:00 89 36 H 112/78 91 L 03/18/21 00:00 97.9 F 83 36 H 97/69 87 L 03/17/21 23:20 82 36 H 99/75 89 L 03/17/21 23:00 79 36 H 94/70 90 L 03/17/21 22:00 81 36 H 99/64 90 L 03/17/21 21:00 80 36 H 101/69 91 L 03/17/21 20:00 97.8 F 78 36 H 101/66 91 L 03/17/21 19:00 79 36 H 99/62 92 L 03/17/21 18:00 82 29 H 109/71 03/17/21 17:00 99.1 F 80 29 H 86/50 03/17/21 16:00 82 29 H 93/63 90 L 03/17/21 15:00 79 24 107/78 92 L 03/17/21 14:00 84 29 H 101/76 03/17/21 13:00 80 36 H 104/74 92 L 03/17/21 12:00 88 36 H 110/79 91 L Intake and Output 03/17/21 03/18/21 03/18/21 22:59 06:59 14:59 Intake Total 6007.879 8388.445 278 Output Total 595 550 45 Balance 3413.396 4803.445 233 Intake: IV 1024 1024 128 0.9 375 1000 125 Sodium Chloride 0.9% 1, 375 000 ml @ 125 mls/hr IV . Q8H [facility]ANN[facility] Rx#:[id number] Vancomycin 1,500 mg In 250 Sodium Chloride 0.9% 250 ml @ 125 mls/hr IVPB ONCE ONE Rx#:[id number] pressure bag 24 24 3 Intake, IV Titration 612.317 447.445 100 Amount Cisatracurium 200 mg In 148.554 Sodium Chloride 0.9% 180 ml @ 1 MCG/KG/MIN 5.502 mls/hr IV .Q24H [facility]ANN[facility] Rx#: [id number] Heparin Sod,Pork in 0.45% 104.352 NaCl 25,000 unit In 0.45 % NaCl 1 250ml.bag @ 11. 03 UNITS/KG/HR 10.006 mls /hr IV .Q24H [facility] Rx#: [id number] Norepinephrine 8 mg In 275.655 168.272 Sodium Chloride 0.9% 250 ml @ 0.05 MCG/KG/MIN 8. 872 mls/hr IV .Q24H [facility] Rx#:[id number] fentaNYL (PF). 1,000 mcg 88.108 In Sodium Chloride 0.9% 80 ml @ 0.5 MCG/KG/HR 4. 585 mls/hr IV .[id number] [facility]ANN[facility] Rx#:[id number] propofoL 1,000 mg In 100 174.821 100 Empty Bag 1 bag @ Titrate IV .Q0M [facility] Rx#: [id number] Tube Feeding 200 200 50 Other 60 60 Output: Urine 595 550 45 Other: Voiding Method Indwelling Catheter Indwelling Catheter ABP, PAP, CO, CI - Last 8 Hours Arterial Blood Pressure 113/62 Arterial Blood Pressure 115/60 Arterial Blood Pressure 94/59 Arterial Blood Pressure 110/65 Results CBC & Chem 7: 03/18/21 03:45 03/18/21 11:14 Labs: Abnormal Lab Results - Last 24 Hours (Table) 03/17/21 03/17/21 03/17/21 Range/Units 12:13 19:01 23:50 RBC (3.80-5.40) m/uL MCV (80.0-100.0) fL MCH (25.0-35.0) pg Neutrophils # (1.3-7.7) k/uL Lymphocytes # (1.0-4.8) k/uL ABG pO2 (83-108) mmHg ABG Total CO2 (19-24) mmol/L ABG O2 Saturation (94-97) % Potassium (3.5-5.1) mmol/L Chloride (98-107) mmol/L BUN (7-17) mg/dL Glucose (74-99) mg/dL POC Glucose (mg/dL) 213 H 322 H 287 H (75-99) mg/dL Calcium (8.4-10.2) mg/dL Phosphorus (2.5-4.5) mg/dL Total Bilirubin (0.2-1.3) mg/dL AST (14-36) U/L Total Protein (6.3-8.2) g/dL Albumin (3.5-5.0) g/dL 03/18/21 03/18/21 03/18/21 Range/Units 03:45 03:45 05:04 RBC 3.69 L (3.80-5.40) m/uL MCV 105.5 H (80.0-100.0) fL MCH 35.5 H (25.0-35.0) pg Neutrophils # 8.6 H (1.3-7.7) k/uL Lymphocytes # 0.5 L (1.0-4.8) k/uL ABG pO2 (83-108) mmHg ABG Total CO2 (19-24) mmol/L ABG O2 Saturation (94-97) % Potassium 3.0 L (3.5-5.1) mmol/L Chloride 110 H (98-107) mmol/L BUN 28 H (7-17) mg/dL Glucose 315 H (74-99) mg/dL POC Glucose (mg/dL) 303 H (75-99) mg/dL Calcium 7.8 L (8.4-10.2) mg/dL Phosphorus 1.9 L (2.5-4.5) mg/dL Total Bilirubin 1.6 H (0.2-1.3) mg/dL AST 39 H (14-36) U/L Total Protein 4.9 L (6.3-8.2) g/dL Albumin 2.1 L (3.5-5.0) g/dL 03/18/21 03/18/21 Range/Units 05:51 08:26 RBC (3.80-5.40) m/uL MCV (80.0-100.0) fL MCH (25.0-35.0) pg Neutrophils # (1.3-7.7) k/uL Lymphocytes # (1.0-4.8) k/uL ABG pO2 50 L* 55 L* (83-108) mmHg ABG Total CO2 25 H 26 H (19-24) mmol/L ABG O2 Saturation 85.2 L 88.6 L (94-97) % Potassium (3.5-5.1) mmol/L Chloride (98-107) mmol/L BUN (7-17) mg/dL Glucose (74-99) mg/dL POC Glucose (mg/dL) (75-99) mg/dL Calcium (8.4-10.2) mg/dL Phosphorus (2.5-4.5) mg/dL Total Bilirubin (0.2-1.3) mg/dL AST (14-36) U/L Total Protein (6.3-8.2) g/dL Albumin (3.5-5.0) g/dL Microbiology - Last 24 Hours (Table) 03/16/21 20:00 Urine Culture - Final Urine,Catheterized 03/16/21 19:55 Gram Stain - Preliminary Sputum Sputum Culture - Preliminary 03/16/21 20:02 Blood Culture Gram Stain - Preliminary Blood Blood Culture - Preliminary Staphylococcus aureus 03/16/21 20:02 Blood Culture - Final Blood
[2021-03-18 23:04] LABS: Glucose,Whole Blood 134 mg/dL (75-99)
[2021-03-18 23:58] LABS: Glucose,Whole Blood 147 mg/dL (75-99)
[2021-03-19 01:09] LABS: Glucose,Whole Blood 142 mg/dL (75-99)
[2021-03-19] MEDS: NOREPINEPHRINE 8 MG in SODIUM CHLORIDE 0.9% 250 ML IV SCH ×3 (01:36→20:57)
[2021-03-19 02:22] LABS: Glucose,Whole Blood 126 mg/dL (75-99)
[2021-03-19 03:11] LABS: Glucose,Whole Blood 117 mg/dL (75-99)
[2021-03-19 03:16] LABS: Glucose,Whole Blood 121 mg/dL (75-99)
[2021-03-19 04:11] LABS: HCT 39.5 % (34.0-46.0); HGB 13.2 gm/dL (11.4-16.0); MCH 35.7 pg (25.0-35.0); MCHC 33.3 g/dL (31.0-37.0); MCV 107.1 fL (80.0-100.0); Macrocytosis Moderate; Mean Platelet Volume 10.6; Platelet Count 128 k/uL (150-450); Poikilocytosis Slight; RBC 3.69 m/uL (3.80-5.40); RDW 12.6 % (11.5-15.5)
[2021-03-19 04:39] LABS: African American GFR (CKD) >90 (>60 ml/min/1.73 sqM); Anion Gap 6 mmol/L; Blood Urea Nitrogen 31 mg/dL (7-17); Calcium 8.2 mg/dL (8.4-10.2); Carbon Dioxide 24 mmol/L (22-30); Chloride 110 mmol/L (98-107); Glucose 136 mg/dL (74-99); Non-African American GFR(CKD) >90 (>60 ml/min/1.73 sqM); Potassium 4.4 mmol/L (3.5-5.1); Sodium 140 mmol/L (137-145)
[2021-03-19 04:53] LABS: Band Neutrophils % 13 %; Monocytes # (M) 0.16 k/uL (0-1.0); Neutrophils % (M) 80 %; Nucleated Red Blood Cells 3 /100 WBC (0-0); Total Cells Counted 100
[2021-03-19 04:54] LABS: Lymphocytes # (M) 0.39 k/uL (1.0-4.8); Polychromasia Present; WBC 7.8 k/uL (3.8-10.6)
[2021-03-19 04:57] LABS: Glucose,Whole Blood 138 mg/dL (75-99)
--- NOTE | 2021-03-19 05:19 | XR ---
EXAMINATION TYPE: XR chest 1V portable DATE OF EXAM: 03/19/2021 COMPARISON: Yesterday HISTORY: Check line placement TECHNIQUE: FINDINGS: There is moderate diffuse pulmonary edema. There is nasogastric tube in the stomach. The en dotracheal tube is 4.3 cm from the andrew. There is left subclavian catheter with the tip over the le ft subclavian vein at the mid clavicle. There is no pleural effusion. IMPRESSION: Moderate pulmonary edema without change compared to yesterday. There is change in positio n of the left side central venous catheter.
[2021-03-19 05:29] LABS: C Reactive Protein 36.1 mg/dL (<1.0)
[2021-03-19] MEDS: ARTIFICIAL TEARS-HYPROMELLOSE DROPS 15 ML BTL BOTH EYES SCH ×5 (06:02→21:01)
[2021-03-19 06:12] LABS: Allen Test Performed? Yes
[2021-03-19 06:19] LABS: ABG Base Excess -1.1 mmol/L; ABG HCO3 25 mmol/L (21-25); ABG PCO2 50 mmHg (35-45); ABG PH 7.32 (7.35-7.45); ABG PO2 52 mmHg (83-108); ABG TCO2 16 mmol/L (19-24)
[2021-03-19 06:42] LABS: Glucose,Whole Blood 146 mg/dL (75-99)
[2021-03-19 08:16] LABS: Glucose,Whole Blood 138 mg/dL (75-99)
[2021-03-19] MEDS: DEXAMETHASONE SOD PHOSPHATE 10 MG/ML 1 ML VIAL IVP SCH ×2 (08:48→21:00)
[2021-03-19] MEDS: CALCIUM CARBONATE 500 MG CHEWABLE PO SCH (08:48)
[2021-03-19] MEDS: ZINC SULFATE 220 MG CAP PO SCH (08:48)
[2021-03-19] MEDS: CYANOCOBALAMIN 500 MCG TAB PO SCH (08:48)
[2021-03-19] MEDS: ASCORBIC ACID 500 MG TAB PO SCH ×2 (08:48→20:57)
[2021-03-19] MEDS: PANTOPRAZOLE 40 MG TABLET PO SCH (08:48)
[2021-03-19] MEDS: CHOLECALCIFEROL 25 MCG (1000 IU) TABLET PO SCH (08:49)
[2021-03-19] MEDS: AMIODARONE 200 MG TAB PO SCH ×2 (08:49→20:57)
[2021-03-19] MEDS: CHLORHEXIDINE GLUCONATE 15 ML CUP MUCOUS MEM SCH ×2 (08:49→21:00)
--- NOTE | 2021-03-19 11:18 | XR ---
EXAMINATION TYPE: XR chest 1V portable DATE OF EXAM: 03/19/2021 CLINICAL HISTORY: Central line placement. TECHNIQUE: Single AP portable semiupright view of the chest is obtained. COMPARISON: Chest x-ray from earlier today and older studies. FINDINGS: New left internal jugular central venous catheter terminates the cavoatrial junction. Stab le endotracheal and orogastric tubes. Stable left-sided PICC line short of the SVC. Cardiac silhouette size stable and within normal limits with atherosclerotic thoracic aorta. Persiste nt bilateral multifocal and confluent opacities. Osseous structures are intact. IMPRESSION: No pneumothorax after central line placement. Other findings stable. Findings consistent with known covid-19 infection redemonstrated.
--- NOTE | 2021-03-19 11:21 | P.PN ---
Subjective Progress Note Date: 03/19/21 Principal diagnosis: Respiratory failure. Acute hypoxic respiratory failure secondary to acute COVID-19 pneumonia THis is a 60-year-old female, no major medical illnesses, presented to the ER yesterday with at least 1 week history of shortness of breath, intermittent cough, chest discomfort, she had no GI symptoms, no headache, no nausea no vomiting no diarrhea. Patient felt generally weak, and upon arrival to the ER, patient was noted to be hypoxic. CT of the chest showed no evidence of pulmonary embolism, but it did show extensive pulmonary infiltrates consistent with Covid19 pneumonia. COVID-19 PCR was positive. CBC was relatively normal except for a relative lymphopenia, relative thrombocytopenia, d-dimer was 0.94, patient was noted to have low sodium of 116, normal renal profile was noted, bicarb was noted to be a bit low at 20. Blood sugar was 293. If her enzymes were noted to be a bit elevated with AST of 179 and ALT of 65. LDH was extremely elevated at 3959, C-reactive protein of 8.3, pro BNP was over 5000, troponin was also noted to be elevated at 0.30. Patient is also known to have history of positive anti-cardiolipin antibody. Patient was placed on BiPAP, she remains on BiPAP at present, she is actually on the 100% FiO2, IPAP of 12 and EP AP of 6, and she has marginal O2 saturation. ABG last night was done on BiPAP, and her pO2 was 72 pCO2 37 pH of 7.37. Patient is yet to be seen by cardiology, however heparin was advised by cardiology, and she is on heparin drip at present. Again her CT angiogram of the chest was negative for thromboembolic disease. D-dimer was noted to be 0.94. Her pulmonary status was quite marginal last night, hence patient was given 1 dose of Lasix 40 mg IV push, and she was approached by the nurse about possible worsening and intubation, patient clearly stated to the nurse that she did not want to be intubated tomorrow what. Apparently she discussed this with her , and both agreed on no int ubation. Patient was reevaluated today on 03/13/21, remains in the ICU, remains on BiPAP on the percent FiO2, EPAP of 6 and IPAP of 12. O2 saturation remains extremely marginal. Patient has previously expressed wishes as she does not want to be intubated and placed on mechanical ventilation no matter what. Patient is on the COVID-19 cocktail, she was also started upon admission on BARICITINIB and she was seen on consultation by cardiology for her possible non-ST elevation myocardial infarction. Remains on heparin. Echocardiogram showed good ejection fraction. No significant abnormality noted. Although there was a mention of apical Hypokinesis, and the night cleaner raised the possibility of takustubo syndrome. And she was given Lasix by the consulting night cleaner. Her EDC count today is 8.8 hemoglobin is 16.1. Electrolytes showed low sodium of 129, renal profile is normal bicarb is normal. A shunt sodium on presentation was 116. PTT today is 66, and have d-dimer 0.50. LDH is elevated over 3000 and C- reactive protein is 5.7. Patient was reevaluated today on 03/14/21, remains in the ICU, remains on BiPAP with FiO2 of 100% IPAP of 14 and EPAP of 6, remains marginal at best. O2 saturation is in the low 90s. Patient is requiring Precedex drip otherwise she gets extremely agitated and anxious. Patient is also on the COVID-19 cocktail, and she was seen by cardiology were and the patient was placed on heparin for possible non-ST elevation myocardial infarction. Her Precedex is at 0.15 mcg/kg per hour. CBC count is normal left lites are normal renal profile is normal. Chest x-ray continues to show bilateral infiltrates consistent with COVID-19 pneumonia. Patient had a PICC line placed to yesterday, and the plan is to start TPN on this patient because she is not eating much The patient is seen today 03/15/2021 in follow-up in the intensive care unit. She has not shown much improvement. She is on BiPAP 16/6 and 100% FiO2 to maintain O2 saturations in the upper 80s. Chest x-ray continues to show bilateral airspace disease. No evidence of pneumothorax or pleural effusions. She remains in atrial fibrillation with a rapid ventricular response. She is currently on a heparin drip. She is on Precedex at 0.6 micrograms per kilogram per hour. She remains on Decadron. Continued on Baricitinib. Continued on vitamin supplements. White count 13.6. Hemoglobin 17.3. Lymphocytes 0.82. D- dimer 1.54. Sodium 132. Potassium 3.6. Creatinine 0.47. LDH 2667. C- reactive protein 4.3. She is being nourished with TPN. The patient is seen today 03/16/2021 in follow-up in the intensive care unit. Her condition continued to deteriorate yesterday and her family came in and requested she be a full code CODE STATUS. She was subsequently intubated and placed on mechanical ventilator. Currently he says control mode with a rate of 36, tidal volume 375, FiO2 100% and a PEEP of 18. Morning blood gases revealed a pO2 of 61, pCO2 44, pH 7.37. She is sedated on propofol at 40 mcg/kg/m. She is on an amiodarone drip at 0.5 mg/m. Heparin drip per weight based protocol, norepinephrine at 0.2 mcg/kg/m. She is paralyzed with Nimbex at 1.25 mcg/kg/m. Fentanyl drip at 0.5 mcg/kg per hour. Her chest x-ray shows infiltrate in the right lower lobe with possible bacterial pneumonia on top of CoVID 19 pneumonia. White count 8.5. Hemoglobin 15.5. Lymphocytes 0.9. Sodium 133. Potassium 3.8. Creatinine 0.88. Glucose 187. AST 41. ALT 30. She remains on Decadron, Baricitinib, vitamin supplements. The patient is seen today 03/17/2021 in follow-up in the intensive care unit. She remains intubated and on the mechanical ventilator. Current settings are assist-control mode, rate of 36, tidal volume 375, FiO2 80% and a PEEP of 18. Pressures 36. Plateau pressure 34. Morning blood gases revealed a pO2 of 71, pCO2 37, pH 7.37. Urine output remains borderline at 25-30 ML's per hour. She is being nourished with vital HPI at 25 ML's per hour which is goal. She remains on amiodarone at 0.5 mg/m. Fentanyl drip at 0.5 mcg/kg per hour, Nimbex at 1.25 mcg/kg/m propofol at 40 mcg/kg/m. She remains on norepinephrine at 0.15 g/kg/m. She is also on vasopressin now at 0.03 units/m. She is continued on Decadron. Anticoagulated with a heparin drip per weight base protocol. Remains in atrial fibrillation with a controlled ventricular rate. X-ray continues to show bilateral airspace disease. White count 10.5. Hemoglobin 14.3. Sodium 137. Potassium 4.0. Creatinine 1.13. Glucose 196. Progress note dated 03/18/2021. The patient is again seen in the intensive care unit, in room 256. The patient was admitted back on March 11, for coronavirus infection, non-ST segment elevation myocardial infarction, and atrial fibrillation. The patient was intubated on March 15 the patient remains on the mechanical ventilator, with settings of volume assist control mode, rate 36, tidal volume 375, FiO2 70%, and PEEP of 20. Arterial blood gases show a PaO2 of 55, pCO2 of 44, and a pH is 7.36. Earlier blood gases, had a pO2 of only 50. The patient is on propofol at 40 mcg/kg/m, fentanyl at 0.5 mcg/kg/h, vital AF at 25 mL an hour, which is goal, 0.9 at 125 mL an hour, heparin via weightbase protocol, norepinephrine at 9.5 m cg/m, and Nimbex at 1 mcg/kg/m. White count 9.4, he will 13.1, hematocrit 38.9, and platelet count was normal. Sodium 140, potassium 3, chlorides 110, CO2 23, anion gap 7, BUN 28, and creatinine 0.59. Chest x-ray shows diffuse bilateral infiltrates. Chest x-ray, when compared to the chest x-ray from a day earlier, is unchanged. Progress note dated 03/19/2021. This is a 60-year-old female, again seen in room 256. She was admitted back on March 11 for coronavirus infection, non-ST segment elevation myocardial infarction, and atrial fibrillation. Because of worsening hypoxemic respiratory failure, she was intubated on March 15. She remains on the mechanical ventilator. She is on the volume assist control mode, rate 36, tidal volume 375, FiO2 is 70%, PEEP of 20. Arterial blood gases show pO2 of 52, pCO2 of 50, and a pH is 7.32. The FiO2 was increased to 100%. Repeat blood gas will be done in 4-6 hours. The patient is currently on heparin via weightbase protocol, saline at 20 mL an hour, propofol at 40 mcg/kg/m, norepinephrine at 9 mcg/m, Nimbex at 1 mcg/kg/m, fentanyl at 0.5 mcg/kg/h, insulin drip is on hold, and vital AF is running at goal, which is 25 mL an hour. White count 7.8, hemoglobin 13.2, hematocrit 39.5, platelet count 128,000. Sodium 140, potassium 4.4, chlorides 110, CO2 24, anion gap 6, BUN 31, creatinine 0.65. Pro- calcitonin level is 6.99. Chest x-ray shows diffuse bilateral infiltrates, essentially unchanged, and consistent with a diagnosis of coronavirus associated pneumonia. Objective - Vital Signs Vital signs: Vital Signs Temp 98.6 F 03/19/21 08:30 Pulse 101 H 03/19/21 11:00 Resp 36 H 03/19/21 11:00 BP 112/83 03/19/21 11:00 Pulse Ox 94 L 03/19/21 11:00 Intake & Output 03/18/21 03/19/21 03/19/21 18:59 06:59 18:59 Intake Total 1665.767 631.259 167.426 Output Total 735 400 Balance 930.767 231.259 167.426 Weight 94.6 kg Intake: IV 486 243 0.9 450 220 pressure bag 36 23 Intake, IV Titration 929.767 363.259 167.426 Amount Cisatracurium 200 mg In 124.987 Sodium Chloride 0.9% 180 ml @ 1 MCG/KG/MIN 5.502 mls/hr IV .Q24H YANNICK Rx#: [id number] Heparin Sod,Pork in 0.45% 131.390 NaCl 25,000 unit In 0.45 % NaCl 1 250ml.bag @ 11. 03 UNITS/KG/HR 10.006 mls /hr IV .Q24H YANNICK Rx#: [id number] Insulin Regular 100 unit 21.480 In Sodium Chloride 0.9% 100 ml @ Per Protocol IV .Q0M YANNICK Rx#:[id number] Norepinephrine 8 mg In 196.604 55.125 67.426 Sodium Chloride 0.9% 250 ml @ 0.05 MCG/KG/MIN 8. 872 mls/hr IV .Q24H YANNICK Rx#:[id number] ceFAZolin 2 gm In Sodium 100 100 Chloride 0.9% 50 ml @ 100 mls/hr IVPB Q8HR YANNICK Rx# :[id number] fentaNYL (PF). 1,000 mcg 93.916 In Sodium Chloride 0.9% 80 ml @ 0.5 MCG/KG/HR 4. 585 mls/hr IV .[id number] YANNICK Rx#:[id number] propofoL 1,000 mg In 282.87 186.654 100 Empty Bag 1 bag @ Titrate IV .Q0M YANNICK Rx#: [id number] Tube Feeding 150 25 Other 100 Output: Urine 735 400 Other: Voiding Method Indwelling Catheter Indwelling Catheter ABP, PAP, CO, CI - Last Documented Arterial Blood Pressure 129/75 - Exam No acute distress, currently sedated, and paralyzed. The patient has a orally placed endotracheal tube and NG tube. HEENT examination is grossly unremarkable. Neck supple. Full range of motion. No adenopathy thyromegaly or neck vein distention. Cardiovascular examination reveals an irregular rhythm and rate. S1-S2 normal. No S3 or S4. No discernible murmur noted. Heart rate 101 bpm. Heart sounds are distant. Lungs reveal bilateral coarse rhonchi, and crackles. Breath sounds are equal bilaterally. No wheezes. Abdomen soft bowel sounds are heard. No masses or tenderness. Extremities are intact. No cyanosis clubbing or edema. Skin is without rash or lesion. Neurologic examination cannot be adequately assessed as the patient's heavily sedated and paralyzed. - Labs CBC & Chem 7: 03/19/21 03:45 03/19/21 03:45 Labs: Abnormal Lab Results - Last 24 Hours (Table) 03/18/21 03/18/21 03/18/21 Range/Units 11:14 11:14 11:29 RBC (3.80-5.40) m/uL MCV (80.0-100.0) fL MCH (25.0-35.0) pg Plt Count (150-450) k/uL Lymphocytes # (Manual) (1.0-4.8) k/uL Nucleated RBCs (0-0) /100 WBC APTT 30.1 H (22.0-30.0) sec ABG pH (7.35-7.45) ABG pCO2 (35-45) mmHg ABG pO2 (83-108) mmHg ABG Total CO2 (19-24) mmol/L ABG O2 Saturation (94-97) % Chloride 109 H (98-107) mmol/L BUN 27 H (7-17) mg/dL Glucose 332 H (74-99) mg/dL POC Glucose (mg/dL) 291 H (75-99) mg/dL Calcium 8.0 L (8.4-10.2) mg/dL C-Reactive Protein (<1.0) mg/dL Procalcitonin (0.02-0.09) ng/mL 03/18/21 03/18/21 03/18/21 Range/Units 15:48 17:06 18:02 RBC (3.80-5.40) m/uL MCV (80.0-100.0) fL MCH (25.0-35.0) pg Plt Count (150-450) k/uL Lymphocytes # (Manual) (1.0-4.8) k/uL Nucleated RBCs (0-0) /100 WBC APTT (22.0-30.0) sec ABG pH (7.35-7.45) ABG pCO2 (35-45) mmHg ABG pO2 (83-108) mmHg ABG Total CO2 (19-24) mmol/L ABG O2 Saturation (94-97) % Chloride (98-107) mmol/L BUN (7-17) mg/dL Glucose (74-99) mg/dL POC Glucose (mg/dL) 241 H 202 H 191 H (75-99) mg/dL Calcium (8.4-10.2) mg/dL C-Reactive Protein (<1.0) mg/dL Procalcitonin (0.02-0.09) ng/mL 03/18/21 03/18/21 03/18/21 Range/Units 19:06 19:13 20:12 RBC (3.80-5.40) m/uL MCV (80.0-100.0) fL MCH (25.0-35.0) pg Plt Count (150-450) k/uL Lymphocytes # (Manual) (1.0-4.8) k/uL Nucleated RBCs (0-0) /100 WBC APTT 47.6 H (22.0-30.0) sec ABG pH (7.35-7.45) ABG pCO2 (35-45) mmHg ABG pO2 (83-108) mmHg ABG Total CO2 (19-24) mmol/L ABG O2 Saturation (94-97) % Chloride (98-107) mmol/L BUN (7-17) mg/dL Glucose (74-99) mg/dL POC Glucose (mg/dL) 133 H 113 H (75-99) mg/dL Calcium (8.4-10.2) mg/dL C-Reactive Protein (<1.0) mg/dL Procalcitonin (0.02-0.09) ng/mL 03/18/21 03/18/21 03/18/21 Range/Units 21:15 22:13 23:02 RBC (3.80-5.40) m/uL MCV (80.0-100.0) fL MCH (25.0-35.0) pg Plt Count (150-450) k/uL Lymphocytes # (Manual) (1.0-4.8) k/uL Nucleated RBCs (0-0) /100 WBC APTT (22.0-30.0) sec ABG pH (7.35-7.45) ABG pCO2 (35-45) mmHg ABG pO2 (83-108) mmHg ABG Total CO2 (19-24) mmol/L ABG O2 Saturation (94-97) % Chloride (98-107) mmol/L BUN (7-17) mg/dL Glucose (74-99) mg/dL POC Glucose (mg/dL) 109 H 121 H 134 H (75-99) mg/dL Calcium (8.4-10.2) mg/dL C-Reactive Protein (<1.0) mg/dL Procalcitonin (0.02-0.09) ng/mL 03/18/21 03/19/21 03/19/21 Range/Units 23:56 01:07 02:21 RBC (3.80-5.40) m/uL MCV (80.0-100.0) fL MCH (25.0-35.0) pg Plt Count (150-450) k/uL Lymphocytes # (Manual) (1.0-4.8) k/uL Nucleated RBCs (0-0) /100 WBC APTT (22.0-30.0) sec ABG pH (7.35-7.45) ABG pCO2 (35-45) mmHg ABG pO2 (83-108) mmHg ABG Total CO2 (19-24) mmol/L ABG O2 Saturation (94-97) % Chloride (98-107) mmol/L BUN (7-17) mg/dL Glucose (74-99) mg/dL POC Glucose (mg/dL) 147 H 142 H 126 H (75-99) mg/dL Calcium (8.4-10.2) mg/dL C-Reactive Protein (<1.0) mg/dL Procalcitonin (0.02-0.09) ng/mL 03/19/21 03/19/21 03/19/21 Range/Units 03:09 03:14 03:45 RBC (3.80-5.40) m/uL MCV (80.0-100.0) fL MCH (25.0-35.0) pg Plt Count (150-450) k/uL Lymphocytes # (Manual) (1.0-4.8) k/uL Nucleated RBCs (0-0) /100 WBC APTT 48.7 H (22.0-30.0) sec ABG pH (7.35-7.45) ABG pCO2 (35-45) mmHg ABG pO2 (83-108) mmHg ABG Total CO2 (19-24) mmol/L ABG O2 Saturation (94-97) % Chloride (98-107) mmol/L BUN (7-17) mg/dL Glucose (74-99) mg/dL POC Glucose (mg/dL) 117 H 121 H (75-99) mg/dL Calcium (8.4-10.2) mg/dL C-Reactive Protein (<1.0) mg/dL Procalcitonin (0.02-0.09) ng/mL 03/19/21 03/19/21 03/19/21 Range/Units 03:45 03:45 03:45 RBC 3.69 L (3.80-5.40) m/uL MCV 107.1 H (80.0-100.0) fL MCH 35.7 H (25.0-35.0) pg Plt Count 128 L (150-450) k/uL Lymphocytes # (Manual) 0.39 L (1.0-4.8) k/uL Nucleated RBCs 3 H (0-0) /100 WBC APTT (22.0-30.0) sec ABG pH (7.35-7.45) ABG pCO2 (35-45) mmHg ABG pO2 (83-108) mmHg ABG Total CO2 (19-24) mmol/L ABG O2 Saturation (94-97) % Chloride 110 H (98-107) mmol/L BUN 31 H (7-17) mg/dL Glucose 136 H (74-99) mg/dL POC Glucose (mg/dL) (75-99) mg/dL Calcium 8.2 L (8.4-10.2) mg/dL C-Reactive Protein 36.1 H (<1.0) mg/dL Procalcitonin 6.99 H (0.02-0.09) ng/mL 03/19/21 03/19/21 03/19/21 Range/Units 04:55 06:00 06:41 RBC (3.80-5.40) m/uL MCV (80.0-100.0) fL MCH (25.0-35.0) pg Plt Count (150-450) k/uL Lymphocytes # (Manual) (1.0-4.8) k/uL Nucleated RBCs (0-0) /100 WBC APTT (22.0-30.0) sec ABG pH 7.32 L (7.35-7.45) ABG pCO2 50 H (35-45) mmHg ABG pO2 52 L* (83-108) mmHg ABG Total CO2 16 L (19-24) mmol/L ABG O2 Saturation 88.0 L (94-97) % Chloride (98-107) mmol/L BUN (7-17) mg/dL Glucose (74-99) mg/dL POC Glucose (mg/dL) 138 H 146 H (75-99) mg/dL Calcium (8.4-10.2) mg/dL C-Reactive Protein (<1.0) mg/dL Procalcitonin (0.02-0.09) ng/mL 03/19/21 Range/Units 08:14 RBC (3.80-5.40) m/uL MCV (80.0-100.0) fL MCH (25.0-35.0) pg Plt Count (150-450) k/uL Lymphocytes # (Manual) (1.0-4.8) k/uL Nucleated RBCs (0-0) /100 WBC APTT (22.0-30.0) sec ABG pH (7.35-7.45) ABG pCO2 (35-45) mmHg ABG pO2 (83-108) mmHg ABG Total CO2 (19-24) mmol/L ABG O2 Saturation (94-97) % Chloride (98-107) mmol/L BUN (7-17) mg/dL Glucose (74-99) mg/dL POC Glucose (mg/dL) 138 H (75-99) mg/dL Calcium (8.4-10.2) mg/dL C-Reactive Protein (<1.0) mg/dL Procalcitonin (0.02-0.09) ng/mL Microbiology - Last 24 Hours (Table) 03/16/21 19:55 Gram Stain - Preliminary Sputum Sputum Culture - Preliminary Proteus mirabilis Presumptive Staph aureus 03/17/21 19:58 Blood Culture Gram Stain - Preliminary Blood 03/17/21 19:58 Blood Culture - Final Blood 03/16/21 20:02 Blood Culture Gram Stain - Preliminary Blood Blood Culture - Preliminary Staphylococcus aureus 03/16/21 20:00 Urine Culture - Final Urine,Catheterized Assessment and Plan Assessment: Acute hypoxemic respiratory failure, secondary to coronavirus associated p neumonia. Status post intubation and mechanical ventilation on 03/15/2021. Hypotension, likely related to underlying coronavirus associated sepsis, non-ST segment elevation myocardial infarction, and atrial fibrillation with RVR. Non-ST segment elevation myocardial infarction. History of atrial fibrillation with RVR. Hyponatremia, improved. Plan: Plan dated 03/18/2021. The patient's IV fluids will be discontinued. She is way ahead on fluids. Labs x-rays a medications are all reviewed. Overall prognosis remains very guarded. The patient remains on IV heparin, norepinephrine, Nimbex, propofol, fentanyl, and tube feeds. We will continue to follow make recommendations where appropriate. Prognosis is very guarded. Plan dated 03/19/2021. The patient remains on the mechanical ventilator. She still very critically ill. The FiO2 was increased to 100%. Her blood gases will be repeated in 4 hours. In the process of moving here from the prone position to the supine position, all her IVs were lost. Hence, a left internal jugular triple-lumen catheter was placed this morning, as well as a right femoral arterial line. The patient remains on a number drips including propofol, norepinephrine, Nimbex, fentanyl, insulin, and IV heparin. Additional recommendations and suggestions are forthcoming. Prognosis is guarded. We will continue to follow make recommendations where appropriate. Time with Patient: Greater than 30
--- NOTE | 2021-03-19 11:38 | PCN ---
PROCEDURE NOTE PLACEMENT OF LEFT INTERNAL JUGULAR TRIPLE-LUMEN CATHETER: OPERATORS: 1. Dr. Trotter. 2. Dr. Arias. 3. Dr. Fernandez. PREOPERATIVE DIAGNOSIS: Administration of fluids and pressors. POSTOPERATIVE DIAGNOSIS: Administration of fluids and pressors. PROCEDURE DESCRIPTION: A time-out was completed verifying correct patient, procedure, site, positioning, and implant(s) or special equipment if applicable. The patient was placed in a dependent position appropriate for triple lumen catheter placement based on the vein to be cannulated. The patient's left neck was prepped and draped in sterile fashion. 1% Lidocaine was used to anesthetize the surrounding skin area. A triple lumen 9F Cordis catheter was introduced into the left internal jugular vein using Seldinger technique. We did a posterior approach. The catheter was threaded smoothly over the guide wire and appropriate blood return was obtained. There was good blood return from all 3 ports. Each lumen of the catheter was evacuated of air and flushed with sterile saline. The catheter was then sutured in place to the skin and a sterile dressing applied by the nurse. Perfusion to the extremity distal to the point of catheter insertion was checked and found to be adequate. A chest x-ray was ordered to rule out pneumothorax and to check catheter placement. There was no immediate complication. The patient tolerated the procedure well. PLACEMENT OF RIGHT FEMORAL ARTERIAL LINE: PREOPERATIVE DIAGNOSIS: Frequent blood draws and blood gas monitoring. POSTOPERATIVE DIAGNOSIS: Frequent blood draws and blood gas monitoring. OPERATORS: 1. Dr. Trotter. 2. Dr. Fernandez. 3. Dr. Arias. PROCEDURE DESCRIPTION: A time-out was completed verifying correct patient, procedure, site, positioning, and implant(s) or special equipment if applicable. Travon's test was performed to ensure adequate perfusion. The patient's right groin was prepped and draped in sterile fashion. 1% Lidocaine was used to anesthetize the area. An 18G Arrow arterial line was introduced into the right femoral artery. The catheter was threaded over the guide wire and the needle was removed with appropriate pulsatile blood return. Blood loss was minimal. The catheter was then sutured in place to the skin and a sterile dressing applied by the nurse. Perfusion to the extremity distal to the point of catheter insertion was checked and found to be adequate. The patient tolerated the procedure well and there was no immediate complication. MMODL / IJN: [id number] /
[2021-03-19 11:43] LABS: Glucose,Whole Blood 134 mg/dL (75-99)
[2021-03-19] MEDS: atenoloL 50 MG TAB PO SCH (12:02)
[2021-03-19 13:09] LABS: ABG Base Excess 0.1 mmol/L; ABG HCO3 26 mmol/L (21-25); ABG Oxygen Saturation 93.6 % (94-97); ABG PCO2 51 mmHg (35-45); ABG PH 7.32 (7.35-7.45); ABG PO2 70 mmHg (83-108); ABG TCO2 28 mmol/L (19-24)
--- NOTE | 2021-03-19 14:44 | P.PN ---
Subjective Progress Note Date: 03/19/21 This is a 51 female who was in hospital for an acute COVID-19 infection with acute hypoxic respiratory failure requiring intubation on 03/15/2021. 03/18/2021 Patient is evaluated today in the intensive care unit. She is being followed closely by intensive care/pulmonary services. She is currently intubated. Chest x-ray today shows no significant interval change as compared to yesterday. There is no evidence for pneumothorax. Blood culture is positive for staph aureus, repeat blood cultures pending. Patient was transitioned to oral amiodarone off the amiodarone drip. Continues on heparin drip. Adequate urine output, urine is clear yellow. Labs today show a white count of 9.4, RBC 3.69, sodium 138, potassium 3.9, chloride 109, CO2 24, BUN 27, creatinine 0.52, sugars in the 200s, follows 1.9, mag 2.0, total bili 1.6, AST 39. Blood pressure is 115/80 on pressor support, heart rate 104, respiratory rate 36, afebrile and last 48 hours. Patient's prognosis as guarded she is currently intubated, and requires pressor support. 03/19/2021 Patient still intubated in the intensive care unit. She is being followed closely by intensive care and pulmonary services. Labs today show white count 7.8, neutrophils 10.2. Her ABGs show oxygen saturation 93.6%, pO2 of 70, pCO2 of 51 and a pH of 7.32, HCO3 is 26. Sodium is 140, potassium 4.4, chloride 110, BUN 31, creatinine 0.65, sugars in the 130s. Inflammatory markers today show a CRP of 36.1, pro calcitonin 6.99. Patient was started on IV cefepime for empiric coverage. She continues on propofol, levophed support, heparin drip, insulin drip, and vital AF at goal. Blood sugars have improved since yesterday, and gtt has been on hold most of the day. Chest x-ray today shows findings consistent with known COVID-19 infection redemonstrated. Patient had a central line placed today. She was proned for around 16 hours yesterday per RN and today her blood gas was worsening and subsequently her FiO2 was increased to 100% today. Will discuss and update family today. Unable to complete a review of system as patient is intubated PHYSICAL EXAMINATION: GENERAL: Patient is intubated. HEENT: Pupils are round and equally reacting to light CARDIOVASCULAR: S1 and S2 present. No murmurs, rubs, or gallops. PULMONARY: ABDOMEN: Soft, nontender, nondistended, normoactive bowel sounds. No palpable organomegaly. MUSCULOSKELETAL: No joint swelling or deformity. EXTREMITIES: No cyanosis, clubbing, or pedal edema. NEUROLOGICAL: Unable to complete as patient is intubated SKIN: No rashes. Assessment and plan Assessment Acute COVID-19 infection with bilateral interstitial pneumonia with acute hypox ic respiratory failure, currently on mechanical ventilation, 100% FiO2 Elevated troponins, possibility of acute NSTEMI with type II myocardial infarction Possible bacterial pneumonia with severe sepsis and hypotension on pressor support Positive blood culture with staph aureus, repeat cultures are pending Possible Takotsubo syndrome Atrial fibrillation with fast ventricular rate Elevated d-dimer, CT negative for pulmonary embolism Diabetes mellitus type 2 with hyperglycemia Mild protein malnutrition requiring TPN due to intubation Thrombocytopenia Hypomagnesemia Hyponatremia History of GERD Hypertension Hyperlipidemia History of thromboembolism History of mitral regurgitation GI prophylaxis Protonix DVT prophylaxis heparin drip Full code Plan Continues on tube feeds Continue with empiric IV antibiotics Continue with systemic steroids and bronchodilators Continue all other supportive care Blood sugars improved, will transition to novolog s/s coverage Q4h off the insulin gtt. Repeat labs in the morning Objective - Vital Signs Vital signs: Vital Signs Temp 98.7 F 03/19/21 05:00 Pulse 91 03/19/21 07:00 Resp 36 H 03/19/21 07:00 BP 117/72 03/19/21 07:00 Pulse Ox 91 L 03/19/21 07:00 Intake & Output 03/18/21 03/19/21 03/19/21 18:59 06:59 18:59 Intake Total 1665.767 631.259 44.951 Output Total 735 400 Balance 930.767 231.259 44.951 Intake: IV 486 243 0.9 450 220 pressure bag 36 23 Intake, IV Titration 929.767 363.259 44.951 Amount Cisatracurium 200 mg In 124.987 Sodium Chloride 0.9% 180 ml @ 1 MCG/KG/MIN 5.502 mls/hr IV .Q24H [facility] Rx#: [id number] Heparin Sod,Pork in 0.45% 131.390 NaCl 25,000 unit In 0.45 % NaCl 1 250ml.bag @ 11. 03 UNITS/KG/HR 10.006 mls /hr IV .Q24H [facility] Rx#: [id number] Insulin Regular 100 unit 21.480 In Sodium Chloride 0.9% 100 ml @ Per Protocol IV .Q0M [facility] Rx#:[id number] Norepinephrine 8 mg In 196.604 55.125 44.951 Sodium Chloride 0.9% 250 ml @ 0.05 MCG/KG/MIN 8. 872 mls/hr IV .Q24H [facility] Rx#:[id number] ceFAZolin 2 gm In Sodium 100 100 Chloride 0.9% 50 ml @ 100 mls/hr IVPB Q8HR [facility] Rx# :[id number] fentaNYL (PF). 1,000 mcg 93.916 In Sodium Chloride 0.9% 80 ml @ 0.5 MCG/KG/HR 4. 585 mls/hr IV .[id number] [facility] Rx#:[id number] propofoL 1,000 mg In 282.87 186.654 Empty Bag 1 bag @ Titrate IV .Q0M [facility] Rx#: [id number] Tube Feeding 150 25 Other 100 Output: Urine 735 400 Other: Voiding Method Indwelling Catheter Indwelling Catheter ABP, PAP, CO, CI - Last Documented Arterial Blood Pressure 89/46 - Labs CBC & Chem 7: 03/19/21 03:45 03/19/21 03:45 Labs: Abnormal Lab Results - Last 24 Hours (Table) 03/18/21 03/18/21 03/18/21 Range/Units 08:26 11:14 11:14 RBC (3.80-5.40) m/uL MCV (80.0-100.0) fL MCH (25.0-35.0) pg Plt Count (150-450) k/uL Lymphocytes # (Manual) (1.0-4.8) k/uL Nucleated RBCs (0-0) /100 WBC APTT 30.1 H (22.0-30.0) sec ABG pH (7.35-7.45) ABG pCO2 (35-45) mmHg ABG pO2 55 L* (83-108) mmHg ABG Total CO2 26 H (19-24) mmol/L ABG O2 Saturation 88.6 L (94-97) % Chloride 109 H (98-107) mmol/L BUN 27 H (7-17) mg/dL Glucose 332 H (74-99) mg/dL POC Glucose (mg/dL) (75-99) mg/dL Calcium 8.0 L (8.4-10.2) mg/dL C-Reactive Protein (<1.0) mg/dL 03/18/21 03/18/21 03/18/21 Range/Units 11:29 15:48 17:06 RBC (3.80-5.40) m/uL MCV (80.0-100.0) fL MCH (25.0-35.0) pg Plt Count (150-450) k/uL Lymphocytes # (Manual) (1.0-4.8) k/uL Nucleated RBCs (0-0) /100 WBC APTT (22.0-30.0) sec ABG pH (7.35-7.45) ABG pCO2 (35-45) mmHg ABG pO2 (83-108) mmHg ABG Total CO2 (19-24) mmol/L ABG O2 Saturation (94-97) % Chloride (98-107) mmol/L BUN (7-17) mg/dL Glucose (74-99) mg/dL POC Glucose (mg/dL) 291 H 241 H 202 H (75-99) mg/dL Calcium (8.4-10.2) mg/dL C-Reactive Protein (<1.0) mg/dL 03/18/21 03/18/21 03/18/21 Range/Units 18:02 19:06 19:13 RBC (3.80-5.40) m/uL MCV (80.0-100.0) fL MCH (25.0-35.0) pg Plt Count (150-450) k/uL Lymphocytes # (Manual) (1.0-4.8) k/uL Nucleated RBCs (0-0) /100 WBC APTT 47.6 H (22.0-30.0) sec ABG pH (7.35-7.45) ABG pCO2 (35-45) mmHg ABG pO2 (83-108) mmHg ABG Total CO2 (19-24) mmol/L ABG O2 Saturation (94-97) % Chloride (98-107) mmol/L BUN (7-17) mg/dL Glucose (74-99) mg/dL POC Glucose (mg/dL) 191 H 133 H (75-99) mg/dL Calcium (8.4-10.2) mg/dL C-Reactive Protein (<1.0) mg/dL 03/18/21 03/18/21 03/18/21 Range/Units 20:12 21:15 22:13 RBC (3.80-5.40) m/uL MCV (80.0-100.0) fL MCH (25.0-35.0) pg Plt Count (150-450) k/uL Lymphocytes # (Manual) (1.0-4.8) k/uL Nucleated RBCs (0-0) /100 WBC APTT (22.0-30.0) sec ABG pH (7.35-7.45) ABG pCO2 (35-45) mmHg ABG pO2 (83-108) mmHg ABG Total CO2 (19-24) mmol/L ABG O2 Saturation (94-97) % Chloride (98-107) mmol/L BUN (7-17) mg/dL Glucose (74-99) mg/dL POC Glucose (mg/dL) 113 H 109 H 121 H (75-99) mg/dL Calcium (8.4-10.2) mg/dL C-Reactive Protein (<1.0) mg/dL 03/18/21 03/18/21 03/19/21 Range/Units 23:02 23:56 01:07 RBC (3.80-5.40) m/uL MCV (80.0-100.0) fL MCH (25.0-35.0) pg Plt Count (150-450) k/uL Lymphocytes # (Manual) (1.0-4.8) k/uL Nucleated RBCs (0-0) /100 WBC APTT (22.0-30.0) sec ABG pH (7.35-7.45) ABG pCO2 (35-45) mmHg ABG pO2 (83-108) mmHg ABG Total CO2 (19-24) mmol/L ABG O2 Saturation (94-97) % Chloride (98-107) mmol/L BUN (7-17) mg/dL Glucose (74-99) mg/dL POC Glucose (mg/dL) 134 H 147 H 142 H (75-99) mg/dL Calcium (8.4-10.2) mg/dL C-Reactive Protein (<1.0) mg/dL 03/19/21 03/19/21 03/19/21 Range/Units 02:21 03:09 03:14 RBC (3.80-5.40) m/uL MCV (80.0-100.0) fL MCH (25.0-35.0) pg Plt Count (150-450) k/uL Lymphocytes # (Manual) (1.0-4.8) k/uL Nucleated RBCs (0-0) /100 WBC APTT (22.0-30.0) sec ABG pH (7.35-7.45) ABG pCO2 (35-45) mmHg ABG pO2 (83-108) mmHg ABG Total CO2 (19-24) mmol/L ABG O2 Saturation (94-97) % Chloride (98-107) mmol/L BUN (7-17) mg/dL Glucose (74-99) mg/dL POC Glucose (mg/dL) 126 H 117 H 121 H (75-99) mg/dL Calcium (8.4-10.2) mg/dL C-Reactive Protein (<1.0) mg/dL 03/19/21 03/19/21 03/19/21 Range/Units 03:45 03:45 03:45 RBC 3.69 L (3.80-5.40) m/uL MCV 107.1 H (80.0-100.0) fL MCH 35.7 H (25.0-35.0) pg Plt Count 128 L (150-450) k/uL Lymphocytes # (Manual) 0.39 L (1.0-4.8) k/uL Nucleated RBCs 3 H (0-0) /100 WBC APTT 48.7 H (22.0-30.0) sec ABG pH (7.35-7.45) ABG pCO2 (35-45) mmHg ABG pO2 (83-108) mmHg ABG Total CO2 (19-24) mmol/L ABG O2 Saturation (94-97) % Chloride 110 H (98-107) mmol/L BUN 31 H (7-17) mg/dL Glucose 136 H (74-99) mg/dL POC Glucose (mg/dL) (75-99) mg/dL Calcium 8.2 L (8.4-10.2) mg/dL C-Reactive Protein 36.1 H (<1.0) mg/dL 03/19/21 03/19/21 03/19/21 Range/Units 04:55 06:00 06:41 RBC (3.80-5.40) m/uL MCV (80.0-100.0) fL MCH (25.0-35.0) pg Plt Count (150-450) k/uL Lymphocytes # (Manual) (1.0-4.8) k/uL Nucleated RBCs (0-0) /100 WBC APTT (22.0-30.0) sec ABG pH 7.32 L (7.35-7.45) ABG pCO2 50 H (35-45) mmHg ABG pO2 52 L* (83-108) mmHg ABG Total CO2 16 L (19-24) mmol/L ABG O2 Saturation 88.0 L (94-97) % Chloride (98-107) mmol/L BUN (7-17) mg/dL Glucose (74-99) mg/dL POC Glucose (mg/dL) 138 H 146 H (75-99) mg/dL Calcium (8.4-10.2) mg/dL C-Reactive Protein (<1.0) mg/dL 03/19/21 Range/Units 08:14 RBC (3.80-5.40) m/uL MCV (80.0-100.0) fL MCH (25.0-35.0) pg Plt Count (150-450) k/uL Lymphocytes # (Manual) (1.0-4.8) k/uL Nucleated RBCs (0-0) /100 WBC APTT (22.0-30.0) sec ABG pH (7.35-7.45) ABG pCO2 (35-45) mmHg ABG pO2 (83-108) mmHg ABG Total CO2 (19-24) mmol/L ABG O2 Saturation (94-97) % Chloride (98-107) mmol/L BUN (7-17) mg/dL Glucose (74-99) mg/dL POC Glucose (mg/dL) 138 H (75-99) mg/dL Calcium (8.4-10.2) mg/dL C-Reactive Protein (<1.0) mg/dL Microbiology - Last 24 Hours (Table) 03/17/21 19:58 Blood Culture Gram Stain - Preliminary Blood 03/17/21 19:58 Blood Culture - Final Blood 03/16/21 19:55 Gram Stain - Preliminary Sputum Sputum Culture - Preliminary Gram Neg Bacilli 03/16/21 20:02 Blood Culture Gram Stain - Preliminary Blood Blood Culture - Preliminary Staphylococcus aureus 03/16/21 20:00 Urine Culture - Final Urine,Catheterized Assessment and Plan Time with Patient: Greater than 30
[2021-03-19] MEDS ORDERED: INSULIN ASPART (NovoLOG) 100 UNIT/ML VIAL SQ SCH (15:00)
[2021-03-19] MEDS: SODIUM CHLORIDE 0.9% 1,000 ML IV SCH (16:01)
[2021-03-19] MEDS: CEFEPIME 2 GM in SODIUM CHLORIDE 0.9% 100 ML IVPB SCH (16:51)
[2021-03-19] MEDS: fentaNYL (PF). 1,000 MCG in SODIUM CHLORIDE 0.9% 80 ML IV SCH (16:52)
[2021-03-19 16:59] LABS: Glucose,Whole Blood 117 mg/dL (75-99)
[2021-03-19] MEDS: INSULIN ASPART (NovoLOG) 100 UNIT/ML VIAL SQ SCH ×2 (17:39→21:01)
[2021-03-19] MEDS: HEPARIN SOD,PORK IN 0.45% NACL 25,000 UNIT in 0.45% NACL 1 250ML.BAG IV SCH (17:57)
[2021-03-19 20:49] LABS: Glucose,Whole Blood 188 mg/dL (75-99)
[2021-03-19 20:50] VITALS: RESP 36
[2021-03-19] MEDS: FAMOTIDINE 20 MG TAB PO SCH (20:57)
[2021-03-19] MEDS: atenoloL 25 MG TAB PO SCH (21:00)
[2021-03-19] MEDS: CISATRACURIUM 200 MG in SODIUM CHLORIDE 0.9% 180 ML IV SCH (21:01)
--- NOTE | 2021-03-19 22:47 | PN ---
PROGRESS NOTE DATE OF SERVICE: 03/19/2021 REASON FOR FOLLOWUP: Bacteremia and pneumonia. INTERVAL HISTORY: The patient has been running a fever. She did spike a fever of 100.2 last night. The patient is requiring more pressor support. FiO2 is up to 100%. No significant purulent secretions through the ET, diarrhea or any other changes reported by the nursing staff. PHYSICAL EXAMINATION: Blood pressure 113/76 pulse 115, temperature 100.1. She is 92% on 100% FiO2. General description is a middle-aged female lying in bed in no distress. Respiratory system: Unlabored breathing, decreased intensity of breath sounds. No wheeze. Heart S1, S2. Regular rate and rhythm. Abdomen soft, no tenderness. Extremities no edema of the feet. LABS: Hemoglobin 13.1, white count 7.8. BUN of 31, creatinine 0.65. Procalcitonin is 6.99. Sputum is showing presumptive Staph aureus and Proteus mirabilis that is resistant to the cefazolin. DIAGNOSTIC IMPRESSION AND PLAN: Patient with MSSA bacteremia. Source is likely pneumonia in this patient now with also Proteus mirabilis in the sputum that is resistant to cefazolin. Antibiotic has been adjusted to cefepime to cover for both pathogens. Blood cultures will be repeated to document clearance of bacteremia and monitor clinical course closely. MMODL / IJN: [id number] /
[2021-03-20 00:03] LABS: Glucose,Whole Blood 191 mg/dL (75-99)
[2021-03-20] MEDS: INSULIN ASPART (NovoLOG) 100 UNIT/ML VIAL SQ SCH ×6 (00:06→22:20)
[2021-03-20] MEDS: ARTIFICIAL TEARS-HYPROMELLOSE DROPS 15 ML BTL BOTH EYES SCH ×7 (00:07→23:25)
[2021-03-20] MEDS: CEFEPIME 2 GM in SODIUM CHLORIDE 0.9% 100 ML IVPB SCH ×2 (00:07→09:49)
[2021-03-20 04:23] LABS: Glucose,Whole Blood 190 mg/dL (75-99)
[2021-03-20 04:33] LABS: Basophils % (A) 0 %; Eosinophils % (A) 0 %; HCT 39.1 % (34.0-46.0); HGB 12.5 gm/dL (11.4-16.0); Lymphocytes # (A) 0.6 k/uL (1.0-4.8); Lymphocytes % (A) 6 %; MCH 34.6 pg (25.0-35.0); MCHC 31.9 g/dL (31.0-37.0); MCV 108.6 fL (80.0-100.0); Macrocytosis Moderate; Mean Platelet Volume 11.3; Monocytes # (A) 0.3 k/uL (0-1.0); Monocytes % (A) 3 %; Neutrophils % (A) 90 %; Platelet Count 134 k/uL (150-450); Poikilocytosis Slight; RDW 12.8 % (11.5-15.5)
[2021-03-20] MEDS: NOREPINEPHRINE 8 MG in SODIUM CHLORIDE 0.9% 250 ML IV SCH ×2 (04:50→15:27)
[2021-03-20 05:25] LABS: Potassium 4.9 mmol/L (3.5-5.1)
[2021-03-20 05:28] LABS: Calcium 8.2 mg/dL (8.4-10.2)
[2021-03-20 06:18] LABS: ABG Base Excess -2.4 mmol/L; ABG HCO3 25 mmol/L (21-25); ABG Oxygen Saturation 92.5 % (94-97); ABG PCO2 57 mmHg (35-45); ABG PH 7.25 (7.35-7.45); ABG PO2 69 mmHg (83-108); ABG TCO2 27 mmol/L (19-24); Allen Test Performed? Yes
--- NOTE | 2021-03-20 09:19 | XR ---
EXAMINATION TYPE: XR chest 1V portable DATE OF EXAM: 03/20/2021 COMPARISON: Chest x-ray 03/19/2021 HISTORY: Intubated TECHNIQUE: Single frontal view of the chest is obtained. FINDINGS: Endotracheal tube and NG tube, left jugular central venous catheter are overlying appropri ate positions, stable. Bilateral airspace disease, prominence interstitium shows a similar appearance , there is biapical pleural thickening. Cardiac mediastinal silhouette is not significantly changed. There are overlying artifacts. IMPRESSION: Correlate for pneumonia, congestive heart failure, ARDS
[2021-03-20] MEDS: atenoloL 50 MG TAB PO SCH (09:50)
[2021-03-20] MEDS: DEXAMETHASONE SOD PHOSPHATE 10 MG/ML 1 ML VIAL IVP SCH ×2 (09:50→20:09)
[2021-03-20] MEDS: AMIODARONE 200 MG TAB PO SCH ×2 (09:50→20:09)
[2021-03-20] MEDS: ASCORBIC ACID 500 MG TAB PO SCH ×2 (09:50→20:09)
[2021-03-20] MEDS: fentaNYL (PF). 1,000 MCG in SODIUM CHLORIDE 0.9% 80 ML IV SCH (09:50)
[2021-03-20] MEDS: CYANOCOBALAMIN 500 MCG TAB PO SCH (09:50)
[2021-03-20] MEDS: PANTOPRAZOLE 40 MG TABLET PO SCH (09:50)
[2021-03-20] MEDS: CALCIUM CARBONATE 500 MG CHEWABLE PO SCH (09:50)
[2021-03-20] MEDS: ZINC SULFATE 220 MG CAP PO SCH (09:50)
[2021-03-20] MEDS: CHLORHEXIDINE GLUCONATE 15 ML CUP MUCOUS MEM SCH ×2 (09:50→20:09)
[2021-03-20] MEDS: CHOLECALCIFEROL 25 MCG (1000 IU) TABLET PO SCH (09:51)
[2021-03-20 10:03] LABS: Glucose,Whole Blood 146 mg/dL (75-99)
[2021-03-20] MEDS: HEPARIN SOD,PORK IN 0.45% NACL 25,000 UNIT in 0.45% NACL 1 250ML.BAG IV SCH (11:59)
[2021-03-20] MEDS: LACTULOSE 20 GM/30 ML CUP PO SCH (11:59)
[2021-03-20 12:09] LABS: Glucose,Whole Blood 163 mg/dL (75-99)
--- NOTE | 2021-03-20 12:21 | P.PN ---
Subjective Progress Note Date: 03/20/21 Principal diagnosis: Respiratory failure. Acute hypoxic respiratory failure secondary to acute COVID-19 pneumonia THis is a 60-year-old female, no major medical illnesses, presented to the ER yesterday with at least 1 week history of shortness of breath, intermittent cough, chest discomfort, she had no GI symptoms, no headache, no nausea no vomiting no diarrhea. Patient felt generally weak, and upon arrival to the ER, patient was noted to be hypoxic. CT of the chest showed no evidence of pulmonary embolism, but it did show extensive pulmonary infiltrates consistent with Covid19 pneumonia. COVID-19 PCR was positive. CBC was relatively normal except for a relative lymphopenia, relative thrombocytopenia, d-dimer was 0.94, patient was noted to have low sodium of 116, normal renal profile was noted, bicarb was noted to be a bit low at 20. Blood sugar was 293. If her enzymes were noted to be a bit elevated with AST of 179 and ALT of 65. LDH was extremely elevated at 3959, C-reactive protein of 8.3, pro BNP was over 5000, troponin was also noted to be elevated at 0.30. Patient is also known to have history of positive anti-cardiolipin antibody. Patient was placed on BiPAP, she remains on BiPAP at present, she is actually on the 100% FiO2, IPAP of 12 and EP AP of 6, and she has marginal O2 saturation. ABG last night was done on BiPAP, and her pO2 was 72 pCO2 37 pH of 7.37. Patient is yet to be seen by cardiology, however heparin was advised by cardiology, and she is on heparin drip at present. Again her CT angiogram of the chest was negative for thromboembolic disease. D-dimer was noted to be 0.94. Her pulmonary status was quite marginal last night, hence patient was given 1 dose of Lasix 40 mg IV push, and she was approached by the nurse about possible worsening and intubation, patient clearly stated to the nurse that she did not want to be intubated tomorrow what. Apparently she discussed this with her , and both agreed on no int ubation. Patient was reevaluated today on 03/13/21, remains in the ICU, remains on BiPAP on the percent FiO2, EPAP of 6 and IPAP of 12. O2 saturation remains extremely marginal. Patient has previously expressed wishes as she does not want to be intubated and placed on mechanical ventilation no matter what. Patient is on the COVID-19 cocktail, she was also started upon admission on BARICITINIB and she was seen on consultation by cardiology for her possible non-ST elevation myocardial infarction. Remains on heparin. Echocardiogram showed good ejection fraction. No significant abnormality noted. Although there was a mention of apical Hypokinesis, and the sec accountant raised the possibility of takustubo syndrome. And she was given Lasix by the consulting sec accountant. Her EDC count today is 8.8 hemoglobin is 16.1. Electrolytes showed low sodium of 129, renal profile is normal bicarb is normal. A shunt sodium on presentation was 116. PTT today is 66, and have d-dimer 0.50. LDH is elevated over 3000 and C- reactive protein is 5.7. Patient was reevaluated today on 03/14/21, remains in the ICU, remains on BiPAP with FiO2 of 100% IPAP of 14 and EPAP of 6, remains marginal at best. O2 saturation is in the low 90s. Patient is requiring Precedex drip otherwise she gets extremely agitated and anxious. Patient is also on the COVID-19 cocktail, and she was seen by cardiology were and the patient was placed on heparin for possible non-ST elevation myocardial infarction. Her Precedex is at 0.15 mcg/kg per hour. CBC count is normal left lites are normal renal profile is normal. Chest x-ray continues to show bilateral infiltrates consistent with COVID-19 pneumonia. Patient had a PICC line placed to yesterday, and the plan is to start TPN on this patient because she is not eating much The patient is seen today 03/15/2021 in follow-up in the intensive care unit. She has not shown much improvement. She is on BiPAP 16/6 and 100% FiO2 to maintain O2 saturations in the upper 80s. Chest x-ray continues to show bilateral airspace disease. No evidence of pneumothorax or pleural effusions. She remains in atrial fibrillation with a rapid ventricular response. She is currently on a heparin drip. She is on Precedex at 0.6 micrograms per kilogram per hour. She remains on Decadron. Continued on Baricitinib. Continued on vitamin supplements. White count 13.6. Hemoglobin 17.3. Lymphocytes 0.82. D- dimer 1.54. Sodium 132. Potassium 3.6. Creatinine 0.47. LDH 2667. C- reactive protein 4.3. She is being nourished with TPN. The patient is seen today 03/16/2021 in follow-up in the intensive care unit. Her condition continued to deteriorate yesterday and her family came in and requested she be a full code CODE STATUS. She was subsequently intubated and placed on mechanical ventilator. Currently he says control mode with a rate of 36, tidal volume 375, FiO2 100% and a PEEP of 18. Morning blood gases revealed a pO2 of 61, pCO2 44, pH 7.37. She is sedated on propofol at 40 mcg/kg/m. She is on an amiodarone drip at 0.5 mg/m. Heparin drip per weight based protocol, norepinephrine at 0.2 mcg/kg/m. She is paralyzed with Nimbex at 1.25 mcg/kg/m. Fentanyl drip at 0.5 mcg/kg per hour. Her chest x-ray shows infiltrate in the right lower lobe with possible bacterial pneumonia on top of CoVID 19 pneumonia. White count 8.5. Hemoglobin 15.5. Lymphocytes 0.9. Sodium 133. Potassium 3.8. Creatinine 0.88. Glucose 187. AST 41. ALT 30. She remains on Decadron, Baricitinib, vitamin supplements. The patient is seen today 03/17/2021 in follow-up in the intensive care unit. She remains intubated and on the mechanical ventilator. Current settings are assist-control mode, rate of 36, tidal volume 375, FiO2 80% and a PEEP of 18. Pressures 36. Plateau pressure 34. Morning blood gases revealed a pO2 of 71, pCO2 37, pH 7.37. Urine output remains borderline at 25-30 ML's per hour. She is being nourished with vital HPI at 25 ML's per hour which is goal. She remains on amiodarone at 0.5 mg/m. Fentanyl drip at 0.5 mcg/kg per hour, Nimbex at 1.25 mcg/kg/m propofol at 40 mcg/kg/m. She remains on norepinephrine at 0.15 g/kg/m. She is also on vasopressin now at 0.03 units/m. She is continued on Decadron. Anticoagulated with a heparin drip per weight base protocol. Remains in atrial fibrillation with a controlled ventricular rate. X-ray continues to show bilateral airspace disease. White count 10.5. Hemoglobin 14.3. Sodium 137. Potassium 4.0. Creatinine 1.13. Glucose 196. Progress note dated 03/18/2021. The patient is again seen in the intensive care unit, in room 256. The patient was admitted back on March 11, for coronavirus infection, non-ST segment elevation myocardial infarction, and atrial fibrillation. The patient was intubated on March 15 the patient remains on the mechanical ventilator, with settings of volume assist control mode, rate 36, tidal volume 375, FiO2 70%, and PEEP of 20. Arterial blood gases show a PaO2 of 55, pCO2 of 44, and a pH is 7.36. Earlier blood gases, had a pO2 of only 50. The patient is on propofol at 40 mcg/kg/m, fentanyl at 0.5 mcg/kg/h, vital AF at 25 mL an hour, which is goal, 0.9 at 125 mL an hour, heparin via weightbase protocol, norepinephrine at 9.5 m cg/m, and Nimbex at 1 mcg/kg/m. White count 9.4, he will 13.1, hematocrit 38.9, and platelet count was normal. Sodium 140, potassium 3, chlorides 110, CO2 23, anion gap 7, BUN 28, and creatinine 0.59. Chest x-ray shows diffuse bilateral infiltrates. Chest x-ray, when compared to the chest x-ray from a day earlier, is unchanged. Progress note dated 03/19/2021. This is a 60-year-old female, again seen in room 256. She was admitted back on March 11 for coronavirus infection, non-ST segment elevation myocardial infarction, and atrial fibrillation. Because of worsening hypoxemic respiratory failure, she was intubated on March 15. She remains on the mechanical ventilator. She is on the volume assist control mode, rate 36, tidal volume 375, FiO2 is 70%, PEEP of 20. Arterial blood gases show pO2 of 52, pCO2 of 50, and a pH is 7.32. The FiO2 was increased to 100%. Repeat blood gas will be done in 4-6 hours. The patient is currently on heparin via weightbase protocol, saline at 20 mL an hour, propofol at 40 mcg/kg/m, norepinephrine at 9 mcg/m, Nimbex at 1 mcg/kg/m, fentanyl at 0.5 mcg/kg/h, insulin drip is on hold, and vital AF is running at goal, which is 25 mL an hour. White count 7.8, hemoglobin 13.2, hematocrit 39.5, platelet count 128,000. Sodium 140, potassium 4.4, chlorides 110, CO2 24, anion gap 6, BUN 31, creatinine 0.65. Pro- calcitonin level is 6.99. Chest x-ray shows diffuse bilateral infiltrates, essentially unchanged, and consistent with a diagnosis of coronavirus associated pneumonia. Progress note dated 03/20/2021. This is a 60-year-old female, again seen in room 256. She was admitted back on March 11 for coronavirus infection. Because of worsening hypoxemic respiratory failure, he was intubated on March 15. [facility]. She is on the volume assist control mode, rate 36, tidal volume 375, FiO2 100%, and PEEP of 20. Blood gases show a PaO2 of 69, pCO2 of 57, and a pH is 7.25. The patient remains on saline at KVO, heparin via weightbase protocol, propofol at 40 mcg/kg/m, Nimbex at 1 mcg/kg/m, fentanyl at 0.5 mcg/kg/h, and norepinephrine at 16 mcg/m. The patient's getting vital AF at 25 mL an hour, which is goal. White count 10, hemoglobin 12.5, hematocrit 39.1, and platelet count 134,000. PTT is 43.5. Sodium 140, potassium 4.9, chlorides 113, CO2 23, anion gap 7, BUN 57, creatinine 1.17. Blood cultures are positive for Staphylococcus aureus. Sputum Gram stain back on March 16 with positive for Proteus mirabilis, and staph aureus. The patient is currently on cefepime. Chest x-ray is unchanged and shows diffuse bilateral patchy infiltrates. Objective - Vital Signs Vital signs: Vital Signs Temp 100.3 F H 03/20/21 08:00 Pulse 107 H 03/20/21 11:00 Resp 36 H 03/20/21 11:00 BP 101/77 03/20/21 11:00 Pulse Ox 96 03/20/21 11:00 Intake & Output 03/19/21 03/20/21 03/20/21 18:59 06:59 18:59 Intake Total 2561.299 0009.751 972.244 Output Total 330 405 185 Balance 1172.798 914.751 787.244 Weight 94.6 kg 100.6 kg Intake: IV 276 243 112 0.9 240 220 100 Sodium Chloride 0.9% 1, 20 000 ml @ 20 mls/hr IV . Q24H YANNICK Rx#:[id number] pressure bag 36 3 12 Intake, IV Titration 1051.798 721.751 735.244 Amount Cefepime 2 gm In Sodium 150 100 Chloride 0.9% 100 ml @ 25 mls/hr IVPB Q8HR YANNICK Rx# :[id number] Cisatracurium 200 mg In 150.571 Sodium Chloride 0.9% 180 ml @ 1 MCG/KG/MIN 5.502 mls/hr IV .Q24H YANNICK Rx#: [id number] Heparin Sod,Pork in 0.45% 250 212.667 NaCl 25,000 unit In 0.45 % NaCl 1 250ml.bag @ 11. 03 UNITS/KG/HR 10.006 mls /hr IV .Q24H YANNICK Rx#: [id number] Norepinephrine 8 mg In 273.848 400.041 149.05 Sodium Chloride 0.9% 250 ml @ 0.05 MCG/KG/MIN 8. 872 mls/hr IV .Q24H YANNICK Rx#:[id number] fentaNYL (PF). 1,000 mcg 100 77.792 In Sodium Chloride 0.9% 80 ml @ 0.5 MCG/KG/HR 4. 585 mls/hr IV .[id number] YANNICK Rx#:[id number] propofoL 1,000 mg In 277.95 171.139 195.735 Empty Bag 1 bag @ Titrate IV .Q0M YANNICK Rx#: [id number] Tube Feeding 175 325 125 Other 30 Output: Urine 330 405 185 Other: Voiding Method Indwelling Catheter Indwelling Catheter Indwelling Catheter ABP, PAP, CO, CI - Last Documented Arterial Blood Pressure 111/64 - Exam No acute distress, currently sedated, and paralyzed. The patient has a orally placed endotracheal tube and NG tube. HEENT examination is grossly unremarkable. Neck supple. Full range of motion. No adenopathy thyromegaly or neck vein distention. Cardiovascular examination reveals an irregular rhythm and rate. S1-S2 normal. No S3 or S4. No discernible murmur noted. Heart rate 107 bpm. Heart sounds are distant. Lungs reveal bilateral coarse rhonchi, and crackles. Breath sounds are equal b ilaterally. No wheezes. Saturations are 96%. Abdomen soft bowel sounds are heard. No masses or tenderness. Extremities are intact. No cyanosis clubbing or edema. Skin is without rash or lesion. Neurologic examination cannot be adequately assessed as the patient's heavily sedated and paralyzed. - Labs CBC & Chem 7: 03/20/21 04:20 03/20/21 04:20 Labs: Abnormal Lab Results - Last 24 Hours (Table) 03/19/21 03/19/21 03/19/21 Range/Units 03:45 13:04 16:57 RBC (3.80-5.40) m/uL MCV (80.0-100.0) fL Plt Count (150-450) k/uL Neutrophils # (1.3-7.7) k/uL Lymphocytes # (1.0-4.8) k/uL APTT (22.0-30.0) sec ABG pH 7.32 L (7.35-7.45) ABG pCO2 51 H (35-45) mmHg ABG pO2 70 L (83-108) mmHg ABG HCO3 26 H (21-25) mmol/L ABG Total CO2 28 H (19-24) mmol/L ABG O2 Saturation 93.6 L (94-97) % Chloride (98-107) mmol/L BUN (7-17) mg/dL Creatinine (0.52-1.04) mg/dL Glucose (74-99) mg/dL POC Glucose (mg/dL) 117 H (75-99) mg/dL Hemoglobin A1c 7.7 H (4.0-6.0) % Calcium (8.4-10.2) mg/dL 03/19/21 03/20/21 03/20/21 Range/Units 20:47 00:02 04:20 RBC 3.60 L (3.80-5.40) m/uL MCV 108.6 H (80.0-100.0) fL Plt Count 134 L (150-450) k/uL Neutrophils # 9.0 H (1.3-7.7) k/uL Lymphocytes # 0.6 L (1.0-4.8) k/uL APTT (22.0-30.0) sec ABG pH (7.35-7.45) ABG pCO2 (35-45) mmHg ABG pO2 (83-108) mmHg ABG HCO3 (21-25) mmol/L ABG Total CO2 (19-24) mmol/L ABG O2 Saturation (94-97) % Chloride (98-107) mmol/L BUN (7-17) mg/dL Creatinine (0.52-1.04) mg/dL Glucose (74-99) mg/dL POC Glucose (mg/dL) 188 H 191 H (75-99) mg/dL Hemoglobin A1c (4.0-6.0) % Calcium (8.4-10.2) mg/dL 03/20/21 03/20/21 03/20/21 Range/Units 04:20 04:20 04:21 RBC (3.80-5.40) m/uL MCV (80.0-100.0) fL Plt Count (150-450) k/uL Neutrophils # (1.3-7.7) k/uL Lymphocytes # (1.0-4.8) k/uL APTT 43.5 H (22.0-30.0) sec ABG pH (7.35-7.45) ABG pCO2 (35-45) mmHg ABG pO2 (83-108) mmHg ABG HCO3 (21-25) mmol/L ABG Total CO2 (19-24) mmol/L ABG O2 Saturation (94-97) % Chloride 113 H (98-107) mmol/L BUN 57 H (7-17) mg/dL Creatinine 1.17 H (0.52-1.04) mg/dL Glucose 209 H (74-99) mg/dL POC Glucose (mg/dL) 190 H (75-99) mg/dL Hemoglobin A1c (4.0-6.0) % Calcium 8.2 L (8.4-10.2) mg/dL 03/20/21 03/20/21 03/20/21 Range/Units 06:13 10:02 12:08 RBC (3.80-5.40) m/uL MCV (80.0-100.0) fL Plt Count (150-450) k/uL Neutrophils # (1.3-7.7) k/uL Lymphocytes # (1.0-4.8) k/uL APTT (22.0-30.0) sec ABG pH 7.25 L (7.35-7.45) ABG pCO2 57 H (35-45) mmHg ABG pO2 69 L (83-108) mmHg ABG HCO3 (21-25) mmol/L ABG Total CO2 27 H (19-24) mmol/L ABG O2 Saturation 92.5 L (94-97) % Chloride (98-107) mmol/L BUN (7-17) mg/dL Creatinine (0.52-1.04) mg/dL Glucose (74-99) mg/dL POC Glucose (mg/dL) 146 H 163 H (75-99) mg/dL Hemoglobin A1c (4.0-6.0) % Calcium (8.4-10.2) mg/dL Microbiology - Last 24 Hours (Table) 03/16/21 19:55 Gram Stain - Final Sputum Sputum Culture - Final Proteus mirabilis Staphylococcus aureus 03/19/21 03:45 Blood Culture - Preliminary Blood No Growth after 24 hours 03/16/21 20:02 Blood Culture Gram Stain - Final Blood Blood Culture - Final Staphylococcus aureus Assessment and Plan Assessment: Acute hypoxemic respiratory failure, secondary to coronavirus associated pneumonia. Status post intubation and mechanical ventilation on 03/15/2021. Acute respiratory distress syndrome (ARDS). Hypotension, likely related to underlying coronavirus associated sepsis, non-ST segment elevation myocardial infarction, and atrial fibrillation with RVR. Methicillin sensitive staph aureus bacteremia. Proteus mirabilis tracheobronchitis/bronchopneumonia. Non-ST segment elevation myocardial infarction. History of atrial fibrillation with RVR. Hyponatremia, improved. Plan: Plan dated 03/18/2021. The patient's IV fluids will be discontinued. She is way ahead on fluids. Labs x-rays a medications are all reviewed. Overall prognosis remains very guarded. The patient remains on IV heparin, norepinephrine, Nimbex, propofol, fentanyl, and tube feeds. We will continue to follow make recommendations where appropriate. Prognosis is very guarded. Plan dated 03/19/2021. The patient remains on the mechanical ventilator. She still very critically ill. The FiO2 was increased to 100%. Her blood gases will be repeated in 4 hours. In the process of moving here from the prone position to the supine position, all her IVs were lost. Hence, a left internal jugular triple-lumen catheter was placed this morning, as well as a right femoral arterial line. The patient remains on a number drips including propofol, norepinephrine, Nimbex, fentanyl, insulin, and IV heparin. Additional recommendations and suggestions are forthcoming. Prognosis is guarded. We will continue to follow make recommendations where appropriate. Plan dated 03/20/2021. The patient remains on the mechanical ventilator. She is currently on 100 percent and 20 of PEEP. PO2 was only 69 mm Hg.. She remains on IV heparin, IV propofol, IV Nimbex, and IV fentanyl. She also remains on norepinephrine. She is getting tube feeds. The patient had evidence of methicillin sensitive staph aureus bacteremia, and possible Proteus mirabilis tracheobronchitis as bronchopneumonia. Been followed by infectious diseases and she is on cefepime. Overall prognosis remains very guarded/poor. We will continue to follow make recommendations where appropriate. New central line and art line were placed re cently. Time with Patient: Greater than 30
--- NOTE | 2021-03-20 13:01 | P.PN ---
Subjective Progress Note Date: 03/20/21 This is a 51 female who was in hospital for an acute COVID-19 infection with acute hypoxic respiratory failure requiring intubation on 03/15/2021. 03/18/2021 Patient is evaluated today in the intensive care unit. She is being followed closely by intensive care/pulmonary services. She is currently intubated. Chest x-ray today shows no significant interval change as compared to yesterday. There is no evidence for pneumothorax. Blood culture is positive for staph aureus, repeat blood cultures pending. Patient was transitioned to oral amiodarone off the amiodarone drip. Continues on heparin drip. Adequate urine output, urine is clear yellow. Labs today show a white count of 9.4, RBC 3.69, sodium 138, potassium 3.9, chloride 109, CO2 24, BUN 27, creatinine 0.52, sugars in the 200s, follows 1.9, mag 2.0, total bili 1.6, AST 39. Blood pressure is 115/80 on pressor support, heart rate 104, respiratory rate 36, afebrile and last 48 hours. Patient's prognosis as guarded she is currently intubated, and requires pressor support. 03/19/2021 Patient still intubated in the intensive care unit. She is being followed closely by intensive care and pulmonary services. Labs today show white count 7.8, neutrophils 10.2. Her ABGs show oxygen saturation 93.6%, pO2 of 70, pCO2 of 51 and a pH of 7.32, HCO3 is 26. Sodium is 140, potassium 4.4, chloride 110, BUN 31, creatinine 0.65, sugars in the 130s. Inflammatory markers today show a CRP of 36.1, pro calcitonin 6.99. Patient was started on IV cefepime for empiric coverage. She continues on propofol, levophed support, heparin drip, insulin drip, and vital AF at goal. Blood sugars have improved since yesterday, and gtt has been on hold most of the day. Chest x-ray today shows findings consistent with known COVID-19 infection redemonstrated. Patient had a central line placed today. She was proned for around 16 hours yesterday per RN and today her blood gas was worsening and subsequently her FiO2 was increased to 100% today. Will discuss and update family today. 03/20/2021 Patient is in the ICU intubated with an FiO2 of 100%. Bowel sounds are positive, per RN no BM in days, lactulose was ordered. Repeat blood cultures are pending. Preliminary shows no growth after 24 hours. She is on IV Cefepime per ID. Labs today show a sodium of 143, potassium 4.9, chloride 113, CO2 23, BUN 57, creatinine 1.17, sugars in the 190s to 160s. She continues on Accu-Cheks every 4 hours. Patient is being followed closely by intensive care/pulmonary services as well as infectious disease. Patient is still requiring blood pressure supp ort with norepinephrine. She is also on IVP Decadron twice a day. Prognosis is very guarded for this patient and she has a very poor prognosis due to multiple medications needed as well as being on the mechanical ventilator with a PEEP of 20 and FiO2 of 100%. Temperature today is 100.3, heart rate 107, blood pressure 101/77, respirations are 36 and she is 96% oxygen saturation on 100% FiO2 [facility] anical ventilator. Unable to complete a review of system as patient is intubated PHYSICAL EXAMINATION: GENERAL: Patient is intubated. HEENT: Pupils are round and equally reacting to light CARDIOVASCULAR: S1 and S2 present. No murmurs, rubs, or gallops. PULMONARY: Lungs are diminished ABDOMEN: Soft, nontender, nondistended, hypoactive bowel sounds MUSCULOSKELETAL: No joint swelling or deformity. EXTREMITIES: No cyanosis, clubbing, or pedal edema. NEUROLOGICAL: Unable to complete as patient is intubated SKIN: No rashes. Assessment and plan Assessment Acute COVID-19 infection with bilateral interstitial pneumonia with acute hypoxic respiratory failure, currently on mechanical ventilation, 100% FiO2 Elevated troponins, possibility of acute NSTEMI with type II myocardial infarction Possible bacterial pneumonia with severe sepsis and hypotension on pressor support Positive blood culture with staph aureus, repeat cultures are pending Possible Takotsubo syndrome Atrial fibrillation with fast ventricular rate Elevated d-dimer, CT negative for pulmonary embolism Diabetes mellitus type 2 with hyperglycemia Mild protein malnutrition requiring TPN due to intubation Thrombocytopenia Hypomagnesemia Hyponatremia History of GERD Hypertension Hyperlipidemia History of thromboembolism History of mitral regurgitation GI prophylaxis Protonix DVT prophylaxis heparin drip Full code Plan Continues on tube feeds Continue with empiric IV antibiotics Continue with systemic steroids and bronchodilators Continue all other supportive care Continue with Accu-Cheks every 4 hours with s/s coverage Lactulose daily for BM Repeat labs in the morning Guarded/poor prognosis Objective - Vital Signs Vital signs: Vital Signs Temp 99.2 F 03/20/21 04:00 Pulse 105 H 03/20/21 07:00 Resp 36 H 03/20/21 07:00 BP 113/76 03/19/21 20:30 Pulse Ox 94 L 03/20/21 07:00 Intake & Output 03/19/21 03/20/21 03/20/21 18:59 06:59 18:59 Intake Total 5520.107 4713.751 367.577 Output Total 330 405 35 Balance 1172.798 914.751 332.577 Weight 94.6 kg 100.6 kg Intake: IV 276 243 20 0.9 240 220 20 Sodium Chloride 0.9% 1, 20 000 ml @ 20 mls/hr IV . Q24H YANNICK Rx#:[id number] pressure bag 36 3 Intake, IV Titration 1051.798 721.751 322.577 Amount Cefepime 2 gm In Sodium 150 Chloride 0.9% 100 ml @ 25 mls/hr IVPB Q8HR YANNICK Rx# :[id number] Cisatracurium 200 mg In 150.571 Sodium Chloride 0.9% 180 ml @ 1 MCG/KG/MIN 5.502 mls/hr IV .Q24H YANNICK Rx#: [id number] Heparin Sod,Pork in 0.45% 250 NaCl 25,000 unit In 0.45 % NaCl 1 250ml.bag @ 11. 03 UNITS/KG/HR 10.006 mls /hr IV .Q24H YANNICK Rx#: [id number] Norepinephrine 8 mg In 273.848 400.041 149.05 Sodium Chloride 0.9% 250 ml @ 0.05 MCG/KG/MIN 8. 872 mls/hr IV .Q24H YANNICK Rx#:[id number] fentaNYL (PF). 1,000 mcg 100 77.792 In Sodium Chloride 0.9% 80 ml @ 0.5 MCG/KG/HR 4. 585 mls/hr IV .[id number] YANNICK Rx#:[id number] propofoL 1,000 mg In 277.95 171.139 95.735 Empty Bag 1 bag @ Titrate IV .Q0M YANNICK Rx#: [id number] Tube Feeding 175 325 25 Other 30 Output: Urine 330 405 35 Other: Voiding Method Indwelling Catheter Indwelling Catheter ABP, PAP, CO, CI - Last Documented Arterial Blood Pressure 114/69 - Labs CBC & Chem 7: 03/20/21 04:20 03/20/21 04:20 Labs: Abnormal Lab Results - Last 24 Hours (Table) 03/19/21 03/19/21 03/19/21 Range/Units 03:45 11:42 13:04 RBC (3.80-5.40) m/uL MCV (80.0-100.0) fL Plt Count (150-450) k/uL Neutrophils # (1.3-7.7) k/uL Lymphocytes # (1.0-4.8) k/uL APTT (22.0-30.0) sec ABG pH 7.32 L (7.35-7.45) ABG pCO2 51 H (35-45) mmHg ABG pO2 70 L (83-108) mmHg ABG HCO3 26 H (21-25) mmol/L ABG Total CO2 28 H (19-24) mmol/L ABG O2 Saturation 93.6 L (94-97) % Chloride (98-107) mmol/L BUN (7-17) mg/dL Creatinine (0.52-1.04) mg/dL Glucose (74-99) mg/dL POC Glucose (mg/dL) 134 H (75-99) mg/dL Hemoglobin A1c 7.7 H (4.0-6.0) % Calcium (8.4-10.2) mg/dL 03/19/21 03/19/21 03/20/21 Range/Units 16:57 20:47 00:02 RBC (3.80-5.40) m/uL MCV (80.0-100.0) fL Plt Count (150-450) k/uL Neutrophils # (1.3-7.7) k/uL Lymphocytes # (1.0-4.8) k/uL APTT (22.0-30.0) sec ABG pH (7.35-7.45) ABG pCO2 (35-45) mmHg ABG pO2 (83-108) mmHg ABG HCO3 (21-25) mmol/L ABG Total CO2 (19-24) mmol/L ABG O2 Saturation (94-97) % Chloride (98-107) mmol/L BUN (7-17) mg/dL Creatinine (0.52-1.04) mg/dL Glucose (74-99) mg/dL POC Glucose (mg/dL) 117 H 188 H 191 H (75-99) mg/dL Hemoglobin A1c (4.0-6.0) % Calcium (8.4-10.2) mg/dL 03/20/21 03/20/21 03/20/21 Range/Units 04:20 04:20 04:20 RBC 3.60 L (3.80-5.40) m/uL MCV 108.6 H (80.0-100.0) fL Plt Count 134 L (150-450) k/uL Neutrophils # 9.0 H (1.3-7.7) k/uL Lymphocytes # 0.6 L (1.0-4.8) k/uL APTT 43.5 H (22.0-30.0) sec ABG pH (7.35-7.45) ABG pCO2 (35-45) mmHg ABG pO2 (83-108) mmHg ABG HCO3 (21-25) mmol/L ABG Total CO2 (19-24) mmol/L ABG O2 Saturation (94-97) % Chloride 113 H (98-107) mmol/L BUN 57 H (7-17) mg/dL Creatinine 1.17 H (0.52-1.04) mg/dL Glucose 209 H (74-99) mg/dL POC Glucose (mg/dL) (75-99) mg/dL Hemoglobin A1c (4.0-6.0) % Calcium 8.2 L (8.4-10.2) mg/dL 03/20/21 03/20/21 03/20/21 Range/Units 04:21 06:13 10:02 RBC (3.80-5.40) m/uL MCV (80.0-100.0) fL Plt Count (150-450) k/uL Neutrophils # (1.3-7.7) k/uL Lymphocytes # (1.0-4.8) k/uL APTT (22.0-30.0) sec ABG pH 7.25 L (7.35-7.45) ABG pCO2 57 H (35-45) mmHg ABG pO2 69 L (83-108) mmHg ABG HCO3 (21-25) mmol/L ABG Total CO2 27 H (19-24) mmol/L ABG O2 Saturation 92.5 L (94-97) % Chloride (98-107) mmol/L BUN (7-17) mg/dL Creatinine (0.52-1.04) mg/dL Glucose (74-99) mg/dL POC Glucose (mg/dL) 190 H 146 H (75-99) mg/dL Hemoglobin A1c (4.0-6.0) % Calcium (8.4-10.2) mg/dL Microbiology - Last 24 Hours (Table) 03/19/21 03:45 Blood Culture - Preliminary Blood No Growth after 24 hours 03/16/21 20:02 Blood Culture Gram Stain - Final Blood Blood Culture - Final Staphylococcus aureus 03/16/21 19:55 Gram Stain - Preliminary Sputum Sputum Culture - Preliminary Proteus mirabilis Presumptive Staph aureus Assessment and Plan Time with Patient: Greater than 30
[2021-03-20] MEDS: SODIUM CHLORIDE 0.9% 1,000 ML IV SCH (16:47)
[2021-03-20 16:57] LABS: Glucose,Whole Blood 182 mg/dL (75-99)
[2021-03-20] MEDS: atenoloL 25 MG TAB PO SCH (20:09)
[2021-03-20] MEDS: FAMOTIDINE 20 MG TAB PO SCH (20:10)
[2021-03-20 20:20] LABS: Glucose,Whole Blood 175 mg/dL (75-99)
[2021-03-20] MEDS ORDERED: CEFEPIME 2 GM in SODIUM CHLORIDE 0.9% 100 ML IVPB SCH (21:00)
[2021-03-20] MEDS ORDERED: VANCOMYCIN IV PER PHARMACY 1 EACH MISC MISCELLANE PRN (21:44)
--- NOTE | 2021-03-20 22:18 | PN ---
PROGRESS NOTE DATE OF SERVICE: 03/20/2021 REASON FOR FOLLOWUP: MSSA bacteremia and pneumonia. INTERVAL HISTORY: Patient is afebrile. The patient is still requiring pressor support and FiO2 is currently 100%. However, no significant purulent secretions through the ET, diarrhea or any other changes reported by nursing staff. PHYSICAL EXAMINATION: Blood pressure 96/57, pulse of 78, temperature 98.6. She is 95% on 100% FIO2. General description is a middle-aged female lying in bed in no distress. Respiratory system: Unlabored breathing, decreased intensity of breath sounds. No wheeze. Heart S1, S2. Regular rate and rhythm. Abdomen soft, no tenderness. LABS: One of the blood cultures has now been finalized as MRSA. Previously was reported as MSSA. DIAGNOSTIC IMPRESSION AND PLAN: 1. Patient with MRSA/MSSA bacteremia. Blood cultures will be repeated. Vancomycin will be added. 2. Patient with Proteus mirabilis pneumonia and is covered with cefepime. Continue supportive care. MMODL / IJN: [id number] /
[2021-03-20] MEDS: CISATRACURIUM 200 MG in SODIUM CHLORIDE 0.9% 180 ML IV SCH (22:22)
[2021-03-20] MEDS ORDERED: VANCOMYCIN 2,000 MG in SODIUM CHLORIDE 0.9% 500 ML 500 ML IVPB ONE (22:30)
[2021-03-21 00:41] LABS: Glucose,Whole Blood 194 mg/dL (75-99)
[2021-03-21] MEDS: INSULIN ASPART (NovoLOG) 100 UNIT/ML VIAL SQ SCH ×6 (00:44→20:23)
[2021-03-21] MEDS: ARTIFICIAL TEARS-HYPROMELLOSE DROPS 15 ML BTL BOTH EYES SCH ×6 (03:09→23:42)
[2021-03-21 04:31] LABS: Glucose,Whole Blood 232 mg/dL (75-99)
[2021-03-21 04:44] LABS: Basophils # (A) 0.1 k/uL (0-0.2); Basophils % (A) 1 %; Eosinophils % (A) 0 %; HCT 33.1 % (34.0-46.0); HGB 10.8 gm/dL (11.4-16.0); Lymphocytes # (A) 0.6 k/uL (1.0-4.8); Lymphocytes % (A) 6 %; MCH 35.4 pg (25.0-35.0); MCHC 32.6 g/dL (31.0-37.0); MCV 108.6 fL (80.0-100.0); Macrocytosis Moderate; Mean Platelet Volume 11.2; Monocytes # (A) 0.3 k/uL (0-1.0); Monocytes % (A) 3 %; Neutrophils # (A) 8.4 k/uL (1.3-7.7); Neutrophils % (A) 90 %; Platelet Count 102 k/uL (150-450); Poikilocytosis Slight; RBC 3.05 m/uL (3.80-5.40); RDW 13.3 % (11.5-15.5); WBC 9.3 k/uL (3.8-10.6)
[2021-03-21 05:16] LABS: Calcium 8.6 mg/dL (8.4-10.2); Potassium 5.4 mmol/L (3.5-5.1)
[2021-03-21 05:59] LABS: ABG Base Excess -4.2 mmol/L; ABG HCO3 24 mmol/L (21-25); ABG Oxygen Saturation 94.4 % (94-97); ABG PCO2 59 mmHg (35-45); ABG PH 7.21 (7.35-7.45); ABG PO2 78 mmHg (83-108); ABG TCO2 25 mmol/L (19-24)
[2021-03-21] MEDS: fentaNYL (PF). 1,000 MCG in SODIUM CHLORIDE 0.9% 80 ML IV SCH (06:17)
[2021-03-21 06:33] LABS: Allen Test Performed? no
--- NOTE | 2021-03-21 07:39 | XR ---
EXAMINATION TYPE: XR chest 1V portable DATE OF EXAM: 03/21/2021 CLINICAL HISTORY: Difficulty breathing progress study. TECHNIQUE: Single AP portable upright view of the chest is obtained. COMPARISON: Chest x-ray from one day earlier and older studies. FINDINGS: Stable endotracheal and orogastric tubes. Stable left internal jugular central venous cath eter. Patient more rotated to the left on current study. Cardiac silhouette size stable and within normal l imits. Persistent bilateral multifocal and confluent opacities. Osseous structures are intact. IMPRESSION: Persistent bilateral multifocal and confluent opacities consistent with known covid-19 in fection redemonstrated. No significant change from one day earlier.
[2021-03-21] MEDS: CYANOCOBALAMIN 500 MCG TAB PO SCH (09:53)
[2021-03-21] MEDS: PANTOPRAZOLE 40 MG TABLET PO SCH (09:53)
[2021-03-21] MEDS: CHLORHEXIDINE GLUCONATE 15 ML CUP MUCOUS MEM SCH ×2 (09:53→20:31)
[2021-03-21] MEDS: AMIODARONE 200 MG TAB PO SCH ×2 (09:53→20:32)
[2021-03-21] MEDS: ASCORBIC ACID 500 MG TAB PO SCH ×2 (09:53→20:32)
[2021-03-21] MEDS: CHOLECALCIFEROL 25 MCG (1000 IU) TABLET PO SCH (09:53)
[2021-03-21] MEDS: CEFEPIME 1 GM in SODIUM CHLORIDE 0.9% 50 ML IVPB SCH ×2 (09:53→20:31)
[2021-03-21] MEDS: CALCIUM CARBONATE 500 MG CHEWABLE PO SCH (09:53)
[2021-03-21] MEDS: atenoloL 50 MG TAB PO SCH (09:54)
[2021-03-21] MEDS: DEXAMETHASONE SOD PHOSPHATE 10 MG/ML 1 ML VIAL IVP SCH ×2 (09:54→20:31)
[2021-03-21] MEDS: ZINC SULFATE 220 MG CAP PO SCH (09:55)
[2021-03-21] MEDS: LACTULOSE 20 GM/30 ML CUP PO SCH (09:55)
[2021-03-21 11:10] LABS: Glucose,Whole Blood 291 mg/dL (75-99)
--- NOTE | 2021-03-21 11:23 | P.PN ---
Subjective Progress Note Date: 03/21/21 This is a 51 female who was in hospital for an acute COVID-19 infection with acute hypoxic respiratory failure requiring intubation on 03/15/2021. 03/18/2021 Patient is evaluated today in the intensive care unit. She is being followed closely by intensive care/pulmonary services. She is currently intubated. Chest x-ray today shows no significant interval change as compared to yesterday. There is no evidence for pneumothorax. Blood culture is positive for staph aureus, repeat blood cultures pending. Patient was transitioned to oral amiodarone off the amiodarone drip. Continues on heparin drip. Adequate urine output, urine is clear yellow. Labs today show a white count of 9.4, RBC 3.69, sodium 138, potassium 3.9, chloride 109, CO2 24, BUN 27, creatinine 0.52, sugars in the 200s, follows 1.9, mag 2.0, total bili 1.6, AST 39. Blood pressure is 115/80 on pressor support, heart rate 104, respiratory rate 36, afebrile and last 48 hours. Patient's prognosis as guarded she is currently intubated, and requires pressor support. 03/19/2021 Patient still intubated in the intensive care unit. She is being followed closely by intensive care and pulmonary services. Labs today show white count 7.8, neutrophils 10.2. Her ABGs show oxygen saturation 93.6%, pO2 of 70, pCO2 of 51 and a pH of 7.32, HCO3 is 26. Sodium is 140, potassium 4.4, chloride 110, BUN 31, creatinine 0.65, sugars in the 130s. Inflammatory markers today show a CRP of 36.1, pro calcitonin 6.99. Patient was started on IV cefepime for empiric coverage. She continues on propofol, levophed support, heparin drip, insulin drip, and vital AF at goal. Blood sugars have improved since yesterday, and gtt has been on hold most of the day. Chest x-ray today shows findings consistent with known COVID-19 infection redemonstrated. Patient had a central line placed today. She was proned for around 16 hours yesterday per RN and today her blood gas was worsening and subsequently her FiO2 was increased to 100% today. Will discuss and update family today. 03/20/2021 Patient is in the ICU intubated with an FiO2 of 100%. Bowel sounds are positive, per RN no BM in days, lactulose was ordered. Repeat blood cultures are pending. Preliminary shows no growth after 24 hours. She is on IV Cefepime per ID. Labs today show a sodium of 143, potassium 4.9, chloride 113, CO2 23, BUN 57, creatinine 1.17, sugars in the 190s to 160s. She continues on Accu-Cheks every 4 hours. Patient is being followed closely by intensive care/pulmonary services as well as infectious disease. Patient is still requiring blood pressure supp ort with norepinephrine. She is also on IVP Decadron twice a day. Prognosis is very guarded for this patient and she has a very poor prognosis due to multiple medications needed as well as being on the mechanical ventilator with a PEEP of 20 and FiO2 of 100%. Temperature today is 100.3, heart rate 107, blood pressure 101/77, respirations are 36 and she is 96% oxygen saturation on 100% FiO2 [facility] anical ventilator. 03/21/2021 Patient is evaluated in intensive care unit, she is being followed closely by pulmonary, intensive care services. She is still on mechanical ventilator with an FiO2 of 100%. Patient is on IV Vanco per ID for positive blood cultures. Cultures are finalized his show methicillin-resistant staph aureus in the blood. Repeat blood cultures are preliminary, no growth after 48 hours. Labs today show white count of 9.3, hemoglobin 10.8 neutrophils 8.4. Her pO2 blood gas is improved to 78 as compared to yesterday. Potassium today is 5.4, chloride 113, BUN 84, creatinine 1.81. Sugars are in the 200s she is still on novolog Q4. Myofascial temp of 98.9, heart rate 64, respirations are 36, blood pressure 98/57 and she is 94% on 100% mechanical ventilator. Levophed is paused. No BM yet, lactulose daily. Unable to complete a review of system as patient is intubated PHYSICAL EXAMINATION: GENERAL: Patient is intubated. HEENT: Pupils are round and equally reacting to light CARDIOVASCULAR: S1 and S2 present. No murmurs, rubs, or gallops. PULMONARY: Lungs are diminished ABDOMEN: Soft, nontender, nondistended, hypoactive bowel sounds MUSCULOSKELETAL: No joint swelling or deformity. EXTREMITIES: No cyanosis, clubbing, or pedal edema. NEUROLOGICAL: Unable to complete as patient is intubated SKIN: No rashes. Assessment and plan Assessment Acute COVID-19 infection with bilateral interstitial pneumonia with acute hypoxi c respiratory failure, currently on mechanical ventilation, 100% FiO2 Elevated troponins, possibility of acute NSTEMI with type II myocardial infarction Possible bacterial pneumonia with severe sepsis and hypotension , pressor support O/H Positive blood culture with MRSA, pending finalized repeat cultures, on IV Vanco Acute kidney injury Possible Takotsubo syndrome Atrial fibrillation with fast ventricular rate, currently in sinus rhythm on po amio Elevated d-dimer, CT negative for pulmonary embolism Diabetes mellitus type 2 with hyperglycemia Mild protein malnutrition requiring TPN due to intubation Thrombocytopenia Hypomagnesemia Hyponatremia History of GERD Hypertension Hyperlipidemia History of thromboembolism History of mitral regurgitation GI prophylaxis Protonix DVT prophylaxis heparin drip Full code Plan Consult nephrology Continues on tube feeds Continue with empiric IV antibiotics Continue with systemic steroids and bronchodilators Continue all other supportive care Continue with Accu-Cheks every 4 hours with s/s coverage Lactulose daily for BM Repeat labs in the morning Guarded/poor prognosis Objective - Vital Signs Vital signs: Vital Signs Temp 97.9 F 03/21/21 04:00 Pulse 64 03/21/21 07:00 Resp 36 H 03/21/21 07:00 BP 96/58 03/21/21 07:00 Pulse Ox 94 L 03/21/21 07:00 Intake & Output 03/20/21 03/21/21 03/21/21 18:59 06:59 18:59 Intake Total 1743.002 7357.831 48 Output Total 505 465 25 Balance 1113.049 833.831 23 Intake: IV 296 253 23 0.9 260 220 20 pressure bag 36 33 3 Intake, IV Titration 997.049 680.831 Amount Cefepime 2 gm In Sodium 100 100 Chloride 0.9% 100 ml @ 25 mls/hr IVPB Q8HR [facility] Rx# :[id number] Cisatracurium 200 mg In 165.702 Sodium Chloride 0.9% 180 ml @ 1 MCG/KG/MIN 5.502 mls/hr IV .Q24H [facility]ANNICK Rx#: [id number] Heparin Sod,Pork in 0.45% 212.667 NaCl 25,000 unit In 0.45 % NaCl 1 250ml.bag @ 11. 03 UNITS/KG/HR 10.006 mls /hr IV .Q24H YANNICK Rx#: [id number] Norepinephrine 8 mg In 332.526 36.226 Sodium Chloride 0.9% 250 ml @ 0.05 MCG/KG/MIN 8. 872 mls/hr IV .Q24H YANNICK Rx#:[id number] fentaNYL (PF). 1,000 mcg 77.792 93.763 In Sodium Chloride 0.9% 80 ml @ 0.5 MCG/KG/HR 4. 585 mls/hr IV .[id number] YANNICK Rx#:[id number] propofoL 1,000 mg In 274.064 285.14 Empty Bag 1 bag @ Titrate IV .Q0M YANNICK Rx#: [id number] Tube Feeding 325 275 25 Other 90 Output: Urine 505 465 25 Other: Voiding Method Indwelling Catheter Indwelling Catheter ABP, PAP, CO, CI - Last Documented Arterial Blood Pressure 107/52 - Labs CBC & Chem 7: 03/21/21 04:30 03/21/21 04:30 Labs: Abnormal Lab Results - Last 24 Hours (Table) 03/20/21 03/20/21 03/20/21 Range/Units 10:02 12:08 16:56 RBC (3.80-5.40) m/uL Hgb (11.4-16.0) gm/dL Hct (34.0-46.0) % MCV (80.0-100.0) fL MCH (25.0-35.0) pg Plt Count (150-450) k/uL Neutrophils # (1.3-7.7) k/uL Lymphocytes # (1.0-4.8) k/uL APTT (22.0-30.0) sec ABG pH (7.35-7.45) ABG pCO2 (35-45) mmHg ABG pO2 (83-108) mmHg ABG Total CO2 (19-24) mmol/L Potassium (3.5-5.1) mmol/L Chloride (98-107) mmol/L BUN (7-17) mg/dL Creatinine (0.52-1.04) mg/dL Glucose (74-99) mg/dL POC Glucose (mg/dL) 146 H 163 H 182 H (75-99) mg/dL 03/20/21 03/21/21 03/21/21 Range/Units 20:18 00:39 04:28 RBC (3.80-5.40) m/uL Hgb (11.4-16.0) gm/dL Hct (34.0-46.0) % MCV (80.0-100.0) fL MCH (25.0-35.0) pg Plt Count (150-450) k/uL Neutrophils # (1.3-7.7) k/uL Lymphocytes # (1.0-4.8) k/uL APTT (22.0-30.0) sec ABG pH (7.35-7.45) ABG pCO2 (35-45) mmHg ABG pO2 (83-108) mmHg ABG Total CO2 (19-24) mmol/L Potassium (3.5-5.1) mmol/L Chloride (98-107) mmol/L BUN (7-17) mg/dL Creatinine (0.52-1.04) mg/dL Glucose (74-99) mg/dL POC Glucose (mg/dL) 175 H 194 H 232 H (75-99) mg/dL 03/21/21 03/21/21 03/21/21 Range/Units 04:30 04:30 04:30 RBC 3.05 L (3.80-5.40) m/uL Hgb 10.8 L (11.4-16.0) gm/dL Hct 33.1 L (34.0-46.0) % MCV 108.6 H (80.0-100.0) fL MCH 35.4 H (25.0-35.0) pg Plt Count 102 L (150-450) k/uL Neutrophils # 8.4 H (1.3-7.7) k/uL Lymphocytes # 0.6 L (1.0-4.8) k/uL APTT 54.1 H (22.0-30.0) sec ABG pH (7.35-7.45) ABG pCO2 (35-45) mmHg ABG pO2 (83-108) mmHg ABG Total CO2 (19-24) mmol/L Potassium 5.4 H (3.5-5.1) mmol/L Chloride 113 H (98-107) mmol/L BUN 84 H (7-17) mg/dL Creatinine 1.81 H (0.52-1.04) mg/dL Glucose 232 H (74-99) mg/dL POC Glucose (mg/dL) (75-99) mg/dL 03/21/21 Range/Units 05:58 RBC (3.80-5.40) m/uL Hgb (11.4-16.0) gm/dL Hct (34.0-46.0) % MCV (80.0-100.0) fL MCH (25.0-35.0) pg Plt Count (150-450) k/uL Neutrophils # (1.3-7.7) k/uL Lymphocytes # (1.0-4.8) k/uL APTT (22.0-30.0) sec ABG pH 7.21 L (7.35-7.45) ABG pCO2 59 H (35-45) mmHg ABG pO2 78 L (83-108) mmHg ABG Total CO2 25 H (19-24) mmol/L Potassium (3.5-5.1) mmol/L Chloride (98-107) mmol/L BUN (7-17) mg/dL Creatinine (0.52-1.04) mg/dL Glucose (74-99) mg/dL POC Glucose (mg/dL) (75-99) mg/dL Microbiology - Last 24 Hours (Table) 03/20/21 04:20 Blood Culture Gram Stain - Preliminary Blood 03/20/21 04:20 Blood Culture - Final Blood 03/19/21 03:45 Blood Culture - Preliminary Blood No Growth after 48 hours 03/17/21 19:58 Blood Culture Gram Stain - Final Blood Blood Culture - Final Staphylococcus aureus Methicillin resist S. aureus 03/16/21 19:55 Gram Stain - Final Sputum Sputum Culture - Final Proteus mirabilis Staphylococcus aureus Assessment and Plan Time with Patient: Greater than 30
--- NOTE | 2021-03-21 11:47 | P.PN ---
Subjective Progress Note Date: 03/21/21 Principal diagnosis: Respiratory failure. Acute hypoxic respiratory failure secondary to acute COVID-19 pneumonia THis is a 60-year-old female, no major medical illnesses, presented to the ER yesterday with at least 1 week history of shortness of breath, intermittent cough, chest discomfort, she had no GI symptoms, no headache, no nausea no vomiting no diarrhea. Patient felt generally weak, and upon arrival to the ER, patient was noted to be hypoxic. CT of the chest showed no evidence of pulmonary embolism, but it did show extensive pulmonary infiltrates consistent with Covid19 pneumonia. COVID-19 PCR was positive. CBC was relatively normal except for a relative lymphopenia, relative thrombocytopenia, d-dimer was 0.94, patient was noted to have low sodium of 116, normal renal profile was noted, bicarb was noted to be a bit low at 20. Blood sugar was 293. If her enzymes were noted to be a bit elevated with AST of 179 and ALT of 65. LDH was extremely elevated at 3959, C-reactive protein of 8.3, pro BNP was over 5000, troponin was also noted to be elevated at 0.30. Patient is also known to have history of positive anti-cardiolipin antibody. Patient was placed on BiPAP, she remains on BiPAP at present, she is actually on the 100% FiO2, IPAP of 12 and EP AP of 6, and she has marginal O2 saturation. ABG last night was done on BiPAP, and her pO2 was 72 pCO2 37 pH of 7.37. Patient is yet to be seen by cardiology, however heparin was advised by cardiology, and she is on heparin drip at present. Again her CT angiogram of the chest was negative for thromboembolic disease. D-dimer was noted to be 0.94. Her pulmonary status was quite marginal last night, hence patient was given 1 dose of Lasix 40 mg IV push, and she was approached by the nurse about possible worsening and intubation, patient clearly stated to the nurse that she did not want to be intubated tomorrow what. Apparently she discussed this with her , and both agreed on no int ubation. Patient was reevaluated today on 03/13/21, remains in the ICU, remains on BiPAP on the percent FiO2, EPAP of 6 and IPAP of 12. O2 saturation remains extremely marginal. Patient has previously expressed wishes as she does not want to be intubated and placed on mechanical ventilation no matter what. Patient is on the COVID-19 cocktail, she was also started upon admission on BARICITINIB and she was seen on consultation by cardiology for her possible non-ST elevation myocardial infarction. Remains on heparin. Echocardiogram showed good ejection fraction. No significant abnormality noted. Although there was a mention of apical Hypokinesis, and the milk delivery driver raised the possibility of takustubo syndrome. And she was given Lasix by the consulting milk delivery driver. Her EDC count today is 8.8 hemoglobin is 16.1. Electrolytes showed low sodium of 129, renal profile is normal bicarb is normal. A shunt sodium on presentation was 116. PTT today is 66, and have d-dimer 0.50. LDH is elevated over 3000 and C- reactive protein is 5.7. Patient was reevaluated today on 03/14/21, remains in the ICU, remains on BiPAP with FiO2 of 100% IPAP of 14 and EPAP of 6, remains marginal at best. O2 saturation is in the low 90s. Patient is requiring Precedex drip otherwise she gets extremely agitated and anxious. Patient is also on the COVID-19 cocktail, and she was seen by cardiology were and the patient was placed on heparin for possible non-ST elevation myocardial infarction. Her Precedex is at 0.15 mcg/kg per hour. CBC count is normal left lites are normal renal profile is normal. Chest x-ray continues to show bilateral infiltrates consistent with COVID-19 pneumonia. Patient had a PICC line placed to yesterday, and the plan is to start TPN on this patient because she is not eating much The patient is seen today 03/15/2021 in follow-up in the intensive care unit. She has not shown much improvement. She is on BiPAP 16/6 and 100% FiO2 to maintain O2 saturations in the upper 80s. Chest x-ray continues to show bilateral airspace disease. No evidence of pneumothorax or pleural effusions. She remains in atrial fibrillation with a rapid ventricular response. She is currently on a heparin drip. She is on Precedex at 0.6 micrograms per kilogram per hour. She remains on Decadron. Continued on Baricitinib. Continued on vitamin supplements. White count 13.6. Hemoglobin 17.3. Lymphocytes 0.82. D- dimer 1.54. Sodium 132. Potassium 3.6. Creatinine 0.47. LDH 2667. C- reactive protein 4.3. She is being nourished with TPN. The patient is seen today 03/16/2021 in follow-up in the intensive care unit. Her condition continued to deteriorate yesterday and her family came in and requested she be a full code CODE STATUS. She was subsequently intubated and placed on mechanical ventilator. Currently he says control mode with a rate of 36, tidal volume 375, FiO2 100% and a PEEP of 18. Morning blood gases revealed a pO2 of 61, pCO2 44, pH 7.37. She is sedated on propofol at 40 mcg/kg/m. She is on an amiodarone drip at 0.5 mg/m. Heparin drip per weight based protocol, norepinephrine at 0.2 mcg/kg/m. She is paralyzed with Nimbex at 1.25 mcg/kg/m. Fentanyl drip at 0.5 mcg/kg per hour. Her chest x-ray shows infiltrate in the right lower lobe with possible bacterial pneumonia on top of CoVID 19 pneumonia. White count 8.5. Hemoglobin 15.5. Lymphocytes 0.9. Sodium 133. Potassium 3.8. Creatinine 0.88. Glucose 187. AST 41. ALT 30. She remains on Decadron, Baricitinib, vitamin supplements. The patient is seen today 03/17/2021 in follow-up in the intensive care unit. She remains intubated and on the mechanical ventilator. Current settings are assist-control mode, rate of 36, tidal volume 375, FiO2 80% and a PEEP of 18. Pressures 36. Plateau pressure 34. Morning blood gases revealed a pO2 of 71, pCO2 37, pH 7.37. Urine output remains borderline at 25-30 ML's per hour. She is being nourished with vital HPI at 25 ML's per hour which is goal. She remains on amiodarone at 0.5 mg/m. Fentanyl drip at 0.5 mcg/kg per hour, Nimbex at 1.25 mcg/kg/m propofol at 40 mcg/kg/m. She remains on norepinephrine at 0.15 g/kg/m. She is also on vasopressin now at 0.03 units/m. She is continued on Decadron. Anticoagulated with a heparin drip per weight base protocol. Remains in atrial fibrillation with a controlled ventricular rate. X-ray continues to show bilateral airspace disease. White count 10.5. Hemoglobin 14.3. Sodium 137. Potassium 4.0. Creatinine 1.13. Glucose 196. Progress note dated 03/18/2021. The patient is again seen in the intensive care unit, in room 256. The patient was admitted back on March 11, for coronavirus infection, non-ST segment elevation myocardial infarction, and atrial fibrillation. The patient was intubated on March 15 the patient remains on the mechanical ventilator, with settings of volume assist control mode, rate 36, tidal volume 375, FiO2 70%, and PEEP of 20. Arterial blood gases show a PaO2 of 55, pCO2 of 44, and a pH is 7.36. Earlier blood gases, had a pO2 of only 50. The patient is on propofol at 40 mcg/kg/m, fentanyl at 0.5 mcg/kg/h, vital AF at 25 mL an hour, which is goal, 0.9 at 125 mL an hour, heparin via weightbase protocol, norepinephrine at 9.5 m cg/m, and Nimbex at 1 mcg/kg/m. White count 9.4, he will 13.1, hematocrit 38.9, and platelet count was normal. Sodium 140, potassium 3, chlorides 110, CO2 23, anion gap 7, BUN 28, and creatinine 0.59. Chest x-ray shows diffuse bilateral infiltrates. Chest x-ray, when compared to the chest x-ray from a day earlier, is unchanged. Progress note dated 03/19/2021. This is a 60-year-old female, again seen in room 256. She was admitted back on March 11 for coronavirus infection, non-ST segment elevation myocardial infarction, and atrial fibrillation. Because of worsening hypoxemic respiratory failure, she was intubated on March 15. She remains on the mechanical ventilator. She is on the volume assist control mode, rate 36, tidal volume 375, FiO2 is 70%, PEEP of 20. Arterial blood gases show pO2 of 52, pCO2 of 50, and a pH is 7.32. The FiO2 was increased to 100%. Repeat blood gas will be done in 4-6 hours. The patient is currently on heparin via weightbase protocol, saline at 20 mL an hour, propofol at 40 mcg/kg/m, norepinephrine at 9 mcg/m, Nimbex at 1 mcg/kg/m, fentanyl at 0.5 mcg/kg/h, insulin drip is on hold, and vital AF is running at goal, which is 25 mL an hour. White count 7.8, hemoglobin 13.2, hematocrit 39.5, platelet count 128,000. Sodium 140, potassium 4.4, chlorides 110, CO2 24, anion gap 6, BUN 31, creatinine 0.65. Pro- calcitonin level is 6.99. Chest x-ray shows diffuse bilateral infiltrates, essentially unchanged, and consistent with a diagnosis of coronavirus associated pneumonia. Progress note dated 03/20/2021. This is a 60-year-old female, again seen in room 256. She was admitted back on March 11 for coronavirus infection. Because of worsening hypoxemic respiratory failure, he was intubated on March 15. She remains on the [facility] [employer] ventilator. She is on the volume assist control mode, rate 36, tidal volume 375, FiO2 100%, and PEEP of 20. Blood gases show a PaO2 of 69, pCO2 of 57, and a pH is 7.25. The patient remains on saline at KVO, heparin via weightbase protocol, propofol at 40 mcg/kg/m, Nimbex at 1 mcg/kg/m, fentanyl at 0.5 mcg/kg/h, and norepinephrine at 16 mcg/m. The patient's getting vital AF at 25 mL an hour, which is goal. White count 10, hemoglobin 12.5, hematocrit 39.1, and platelet count 134,000. PTT is 43.5. Sodium 140, potassium 4.9, chlorides 113, CO2 23, anion gap 7, BUN 57, creatinine 1.17. Blood cultures are positive for Staphylococcus aureus. Sputum Gram stain back on March 16 with positive for Proteus mirabilis, and staph aureus. The patient is currently on cefepime. Chest x-ray is unchanged and shows diffuse bilateral patchy infiltrates. Progress note dated 03/21/2021. 60-year-old female, again seen in room 256. She was admitted on March 11 for coronavirus infection. The patient had worsening hypoxemic respiratory failure and was intubated on March 15. She remains on the ventilator. She is on the volume assist control mode, rate 36, tidal volume 375, FiO2 100%, with a PEEP of 20. Blood gases show a PaO2 of 78, pCO2 59, and pH is 7.21. The patient rem ains on Nimbex at 0.5 mcg/kg/m, propofol at 40 mcg/kg/m, fentanyl at 0.5 mcg/h, heparin via weightbase protocol, saline at 20 mL an hour, and vital, at 25 mL an hour, which is her goal. White count 9.3, hemoglobin 10.8, hematocrit 33.1, and platelet count 102,000. PTT is 54.1, with a sodium 142, potassium 5.4, chlorides 113, CO2 22, anion gap 7, BUN 84, creatinine 1.81. Chest x-ray continues to show bilateral multifocal and confluence opacities, unchanged. Objective - Vital Signs Vital signs: Vital Signs Temp 98.9 F 03/21/21 08:00 Pulse 64 03/21/21 09:30 Resp 36 H 03/21/21 09:30 BP 98/57 03/21/21 09:30 Pulse Ox 94 L 03/21/21 09:30 Intake & Output 03/20/21 03/21/21 03/21/21 18:59 06:59 18:59 Intake Total 5530.236 3615.831 48 Output Total 505 465 25 Balance 1113.049 833.831 23 Intake: IV 296 253 23 0.9 260 220 20 pressure bag 36 33 3 Intake, IV Titration 997.049 680.831 Amount Cefepime 2 gm In Sodium 100 100 Chloride 0.9% 100 ml @ 25 mls/hr IVPB Q8HR [facility] Rx# :[id number] Cisatracurium 200 mg In 165.702 Sodium Chloride 0.9% 180 ml @ 1 MCG/KG/MIN 5.502 mls/hr IV .Q24H [facility] Rx#: [id number] Heparin Sod,Pork in 0.45% 212.667 NaCl 25,000 unit In 0.45 % NaCl 1 250ml.bag @ 11. 03 UNITS/KG/HR 10.006 mls /hr IV .Q24H [facility] Rx#: [id number] Norepinephrine 8 mg In 332.526 36.226 Sodium Chloride 0.9% 250 ml @ 0.05 MCG/KG/MIN 8. 872 mls/hr IV .Q24H [facility] Rx#:[id number] fentaNYL (PF). 1,000 mcg 77.792 93.763 In Sodium Chloride 0.9% 80 ml @ 0.5 MCG/KG/HR 4. 585 mls/hr IV .[id number] [facility] Rx#:[id number] propofoL 1,000 mg In 274.064 285.14 Empty Bag 1 bag @ Titrate IV .Q0M [facility] Rx#: [id number] Tube Feeding 325 275 25 Other 90 Output: Urine 505 465 25 Other: Voiding Method Indwelling Catheter Indwelling Catheter ABP, PAP, CO, CI - Last Documented Arterial Blood Pressure 109/52 - Exam No acute distress, currently sedated, and paralyzed. The patient has a orally placed endotracheal tube and NG tube. HEENT examination is grossly unremarkable. Neck supple. Full range of motion. No adenopathy thyromegaly or neck vein distention. Cardiovascular examination reveals an irregular rhythm and rate. S1-S2 normal. No S3 or S4. No discernible murmur noted. Heart rate 64 bpm. Heart sounds are distant. Lungs reveal bilateral coarse rhonchi, and crackles. Breath sounds are equal bilaterally. No wheezes. Saturations are 94%. Abdomen soft bowel sounds are heard. No masses or tenderness. Extremities are intact. No cyanosis clubbing or edema. Skin is without rash or lesion. Neurologic examination cannot be adequately assessed as the patient's heavily sedated and paralyzed. - Labs CBC & Chem 7: 03/21/21 04:30 03/21/21 04:30 Labs: Abnormal Lab Results - Last 24 Hours (Table) 03/20/21 03/20/21 03/20/21 Range/Units 12:08 16:56 20:18 RBC (3.80-5.40) m/uL Hgb (11.4-16.0) gm/dL Hct (34.0-46.0) % MCV (80.0-100.0) fL MCH (25.0-35.0) pg Plt Count (150-450) k/uL Neutrophils # (1.3-7.7) k/uL Lymphocytes # (1.0-4.8) k/uL APTT (22.0-30.0) sec ABG pH (7.35-7.45) ABG pCO2 (35-45) mmHg ABG pO2 (83-108) mmHg ABG Total CO2 (19-24) mmol/L Potassium (3.5-5.1) mmol/L Chloride (98-107) mmol/L BUN (7-17) mg/dL Creatinine (0.52-1.04) mg/dL Glucose (74-99) mg/dL POC Glucose (mg/dL) 163 H 182 H 175 H (75-99) mg/dL 03/21/21 03/21/21 03/21/21 Range/Units 00:39 04:28 04:30 RBC 3.05 L (3.80-5.40) m/uL Hgb 10.8 L (11.4-16.0) gm/dL Hct 33.1 L (34.0-46.0) % MCV 108.6 H (80.0-100.0) fL MCH 35.4 H (25.0-35.0) pg Plt Count 102 L (150-450) k/uL Neutrophils # 8.4 H (1.3-7.7) k/uL Lymphocytes # 0.6 L (1.0-4.8) k/uL APTT (22.0-30.0) sec ABG pH (7.35-7.45) ABG pCO2 (35-45) mmHg ABG pO2 (83-108) mmHg ABG Total CO2 (19-24) mmol/L Potassium (3.5-5.1) mmol/L Chloride (98-107) mmol/L BUN (7-17) mg/dL Creatinine (0.52-1.04) mg/dL Glucose (74-99) mg/dL POC Glucose (mg/dL) 194 H 232 H (75-99) mg/dL 03/21/21 03/21/21 03/21/21 Range/Units 04:30 04:30 05:58 RBC (3.80-5.40) m/uL Hgb (11.4-16.0) gm/dL Hct (34.0-46.0) % MCV (80.0-100.0) fL MCH (25.0-35.0) pg Plt Count (150-450) k/uL Neutrophils # (1.3-7.7) k/uL Lymphocytes # (1.0-4.8) k/uL APTT 54.1 H (22.0-30.0) sec ABG pH 7.21 L (7.35-7.45) ABG pCO2 59 H (35-45) mmHg ABG pO2 78 L (83-108) mmHg ABG Total CO2 25 H (19-24) mmol/L Potassium 5.4 H (3.5-5.1) mmol/L Chloride 113 H (98-107) mmol/L BUN 84 H (7-17) mg/dL Creatinine 1.81 H (0.52-1.04) mg/dL Glucose 232 H (74-99) mg/dL POC Glucose (mg/dL) (75-99) mg/dL 03/21/21 Range/Units 11:08 RBC (3.80-5.40) m/uL Hgb (11.4-16.0) gm/dL Hct (34.0-46.0) % MCV (80.0-100.0) fL MCH (25.0-35.0) pg Plt Count (150-450) k/uL Neutrophils # (1.3-7.7) k/uL Lymphocytes # (1.0-4.8) k/uL APTT (22.0-30.0) sec ABG pH (7.35-7.45) ABG pCO2 (35-45) mmHg ABG pO2 (83-108) mmHg ABG Total CO2 (19-24) mmol/L Potassium (3.5-5.1) mmol/L Chloride (98-107) mmol/L BUN (7-17) mg/dL Creatinine (0.52-1.04) mg/dL Glucose (74-99) mg/dL POC Glucose (mg/dL) 291 H (75-99) mg/dL Microbiology - Last 24 Hours (Table) 03/20/21 04:20 Blood Culture Gram Stain - Preliminary Blood 03/20/21 04:20 Blood Culture - Final Blood 03/19/21 03:45 Blood Culture - Preliminary Blood No Growth after 48 hours 03/17/21 19:58 Blood Culture Gram Stain - Final Blood Blood Culture - Final Staphylococcus aureus Methicillin resist S. aureus 03/16/21 19:55 Gram Stain - Final Sputum Sputum Culture - Final Proteus mirabilis Staphylococcus aureus Assessment and Plan Assessment: Acute hypoxemic respiratory failure, secondary to coronavirus associated pneumonia. Status post intubation and mechanical ventilation on 03/15/2021. Acute respiratory distress syndrome (ARDS). Hypotension, likely related to underlying coronavirus associated sepsis, non-ST segment elevation myocardial infarction, and atrial fibrillation with RVR. Methicillin sensitive staph aureus bacteremia. Proteus mirabilis tracheobronchitis/bronchopneumonia. Non-ST segment elevation myocardial infarction. History of atrial fibrillation with RVR. Hyponatremia, improved. Plan: Plan dated 03/18/2021. The patient's IV fluids will be discontinued. She is way ahead on fluids. Labs x-rays a medications are all reviewed. Overall prognosis remains very guarded. The patient remains on IV heparin, norepinephrine, Nimbex, propofol, fentanyl, and tube feeds. We will continue to follow make recommendations where appropriate. Prognosis is very guarded. Plan dated 03/19/2021. The patient remains on the mechanical ventilator. She still very critically ill. The FiO2 was increased to 100%. Her blood gases will be repeated in 4 hours. In the process of moving here from the prone position to the supine position, all her IVs were lost. Hence, a left internal jugular triple-lumen c atheter was placed this morning, as well as a right femoral arterial line. The patient remains on a number drips including propofol, norepinephrine, Nimbex, fentanyl, insulin, and IV heparin. Additional recommendations and suggestions are forthcoming. Prognosis is guarded. We will continue to follow make recommendations where appropriate. Plan dated 03/20/2021. The patient remains on the mechanical ventilator. She is currently on 100 percent and 20 of PEEP. PO2 was only 69 mm Hg.. She remains on IV heparin, IV propofol, IV Nimbex, and IV fentanyl. She also remains on norepinephrine. She is getting tube feeds. The patient had evidence of methicillin sensitive staph aureus bacteremia, and possible Proteus mirabilis tracheobronchitis as bronchopneumonia. Been followed by infectious diseases and she is on cefepime. Overall prognosis remains very guarded/poor. We will continue to follow make recommendations where appropriate. New central line and art line were placed recently. Plan dated 03/21/2021. The patient remains on PEEP of 20 and 100% FiO2. The patient remains on Nimbex, propofol, and fentanyl. The patient is also on IV heparin. The patient did have evidence of a methicillin sensitive staph aureus bacteremia, and Proteus mirabilis tracheobronchitis/bronchopneumonia. The patient is being treated for both. She remains on cefepime, and vancomycin. The rest of her medications are appropriate. We will continue to follow make recommendations where appropriate. Overall prognosis remains very guarded. Time with Patient: Greater than 30
[2021-03-21] MEDS ORDERED: FUROSEMIDE 10 MG/ML 10 ML VIAL IV STA (13:05)
--- NOTE | 2021-03-21 13:13 | P.NPCON ---
History of Present Illness - Reason for Consult Consult date: 03/21/21 acute renal failure, hyperkalemia - Chief Complaint Shortness of breath - History of Present Illness 60-year-old female admitted to the hospital with the above complaints. Baseline creatinine 0.6 MG per DL. She has COVID-19 pneumonia currently on mechanical ventilator with 100% FiO2 and PEEP of 20. Nephrology was consulted for worsening renal failure and mild hyperkalemia. Urine output of [address] of the chest with contrast on 05/11/2020, no pulmonary embolism. Echo EF of 50-55%. She is on vancomycin for pneumonia. Left pressure soft in 90s, not on currently pressors. Review of Systems ROS unobtainable: due to endotracheal tube Constitutional: Reports as per HPI Past Medical History Past Medical History: Fibromyalgia, GERD/Reflux, Hyperlipidemia, Hypertension Additional Past Medical History / Comment(s): diverticulitis, thromboembolism, mitral valve regurg, raynauds, lupus History of Any Multi-Drug Resistant Organisms: None Reported Past Surgical History: No Surgical Hx Reported Past Anesthesia/Blood Transfusion Reactions: No Reported Reaction Past Psychological History: No Psychological Hx Reported Smoking Status: Former smoker Past Alcohol Use History: None Reported Past Drug Use History: None Reported Medications and Allergies Home Medications Medication Instructions Recorded Confirmed Type Cinnamon Bark [Cinnamon] 500 mg PO DAILY 07/15/17 03/11/21 History NIFEdipine XL [Procardia Xl] 30 mg PO DAILY PRN 07/15/17 03/11/21 History Lansoprazole [Prevacid] 30 mg PO BID 07/20/17 03/11/21 History Albuterol Sulfate [Ventolin HFA] 1 - 2 puff INHALATION Q4-6H PRN 03/11/21 03/11/21 History Butalb/Acetaminophen/Caffeine 1 cap PO DAILY PRN 03/11/21 03/11/21 History [Fioricet 50-300-40 mg Capsule] Calcium 500mg 500 mg PO DAILY 03/11/21 03/11/21 History Cyanocobalamin (Vitamin B-12) 1,000 mcg PO DAILY 03/11/21 03/11/21 History [Vitamin B-12] Fluticasone Nasal [place] [Flonase 1 spray EA NOSTRIL BID PRN 03/11/21 03/11/21 History Nasal [place]] Folic Acid 0.4 mg PO DAILY 03/11/21 03/11/21 History Ketorolac Tromethamine [Acular 1 drop BOTH EYES TID PRN 03/11/21 03/11/21 History 0.5%] Magnesium Oxide 400 mg PO DAILY 03/11/21 03/11/21 History Milk Thistle 500mg 500 mg PO DAILY 03/11/21 03/11/21 History Montelukast [Singulair] 10 mg PO DAILY 03/11/21 03/11/21 History Ondansetron [Zofran] 4 - 8 mg PO Q8H PRN 03/11/21 03/11/21 History Oxybutynin ER [Ditropan Xl] 10 mg PO DAILY 03/11/21 03/11/21 History Turmeric Root Extract [Turmeric] 1,053 mg PO DAILY 03/11/21 03/11/21 History Vitamin E 400 unit PO DAILY 03/11/21 03/11/21 History Zinc 15mg 15 mg PO DAILY 03/11/21 03/11/21 History atenoloL [Tenormin] 25 mg PO DAILY 03/11/21 03/11/21 History predniSONE See Taper PO DIRECTED 03/11/21 03/11/21 History Allergies Allergy/AdvReac Type Severity Reaction Status Date / Time No Known Allergies Allergy Verified 03/11/21 20:55 Physical Exam Vitals: Vital Signs Temp Pulse Resp BP Pulse Ox 03/21/21 09:30 64 36 H 98/57 94 L 03/21/21 09:00 64 36 H 95/56 95 03/21/21 08:30 64 36 H 95/56 94 L 03/21/21 08:00 98.9 F 64 36 H 99/60 94 L 03/21/21 07:30 64 36 H 99/60 93 L 03/21/21 07:00 64 36 H 96/58 94 L 03/21/21 06:30 64 36 H 93 L 03/21/21 06:00 64 36 H 97/57 94 L 03/21/21 05:30 64 36 H 93 L 03/21/21 05:00 64 36 H 91/55 93 L 03/21/21 04:30 64 36 H 91/55 93 L 03/21/21 04:00 97.9 F 63 36 H 93 L 03/21/21 03:30 64 36 H 91/56 93 L 03/21/21 03:00 64 36 H 95/59 93 L 03/21/21 02:30 64 36 H 92 L 03/21/21 02:00 63 36 H 95/54 91 L 03/21/21 01:30 60 36 H 90 L 03/21/21 01:00 64 36 H 92/54 95 03/21/21 00:30 61 36 H 94 L 03/21/21 00:00 98.3 F 65 36 H 94/54 95 03/20/21 23:30 65 36 H 96 03/20/21 23:00 66 36 H 95/56 96 03/20/21 22:30 67 36 H 96 03/20/21 22:00 67 36 H 98/56 95 03/20/21 21:30 68 36 H 95 03/20/21 21:00 68 36 H 96/57 95 03/20/21 20:30 68 36 H 95 03/20/21 20:00 98.6 F 67 36 H 95/53 95 03/20/21 19:30 68 36 H 97 03/20/21 19:00 68 36 H 101/77 97 03/20/21 18:30 67 36 H 101/77 97 03/20/21 18:00 66 36 H 101/77 97 03/20/21 17:30 66 36 H 101/77 97 03/20/21 17:00 111 H 36 H 101/77 96 03/20/21 16:30 114 H 36 H 101/77 97 03/20/21 16:00 105 H 36 H 101/77 97 03/20/21 15:30 91 36 H 101/77 96 03/20/21 15:00 112 H 36 H 101/77 97 03/20/21 14:30 94 36 H 101/77 96 03/20/21 14:00 96 36 H 101/77 97 03/20/21 13:30 113 H 36 H 101/77 96 Intake and Output 03/20/21 03/21/21 03/21/21 22:59 06:59 14:59 Intake Total 970.979 785.355 163 Output Total 320 320 235 Balance 650.979 465.355 -72 Intake: IV 184 184 138 0.9 160 160 120 pressure bag 24 24 18 Intake, IV Titration 556.979 341.355 Amount Cefepime 2 gm In Sodium 100 Chloride 0.9% 100 ml @ 25 mls/hr IVPB Q8HR [facility] Rx# :[id number] Cisatracurium 200 mg In 139.476 26.226 Sodium Chloride 0.9% 180 ml @ 1 MCG/KG/MIN 5.502 mls/hr IV .Q24H [facility] Rx#: [id number] Norepinephrine 8 mg In 139.174 36.226 Sodium Chloride 0.9% 250 ml @ 0.05 MCG/KG/MIN 8. 872 mls/hr IV .Q24H [facility] Rx#:[id number] fentaNYL (PF). 1,000 mcg 93.763 In Sodium Chloride 0.9% 80 ml @ 0.5 MCG/KG/HR 4. 585 mls/hr IV .[id number] [facility] Rx#:[id number] propofoL 1,000 mg In 178.329 185.14 Empty Bag 1 bag @ Titrate IV .Q0M [facility] Rx#: [id number] Tube Feeding 200 200 25 Other 30 60 Output: Urine 320 320 235 Other: Voiding Method Indwelling Catheter Indwelling Catheter ABP, PAP, CO, CI - Last 8 Hours Arterial Blood Pressure 109/52 Arterial Blood Pressure 106/52 Arterial Blood Pressure 104/51 Arterial Blood Pressure 103/50 Arterial Blood Pressure 101/49 Arterial Blood Pressure 107/52 Arterial Blood Pressure 104/50 Arterial Blood Pressure 106/51 Arterial Blood Pressure 104/50 For to primary team exam. Not done for Covid 19 pandemic and to limit PPE. Results - Lab Results Most recent lab results ABG pH 7.21 (7.35-7.45) L 03/21/21 05:58 ABG pCO2 59 mmHg (35-45) H 03/21/21 05:58 ABG pO2 78 mmHg (83-108) L 03/21/21 05:58 ABG HCO3 24 mmol/L (21-25) 03/21/21 05:58 ABG O2 Saturation 94.4 % (94-97) 03/21/21 05:58 Calcium 8.6 mg/dL (8.4-10.2) 03/21/21 04:30 Phosphorus 1.9 mg/dL (2.5-4.5) L 03/18/21 03:45 Magnesium 2.0 mg/dL (1.6-2.3) 03/18/21 03:45 03/21/21 04:30 03/21/21 04:30 Assessment and Plan Assessment: #1 acute kidney injury suspect hemodynamic and toxic ATN with low blood pressure and vancomycin. #2 volume overload #3 hypoxic respiratory failure on mechanical ventilator #4 Covid 19 pneumonia #5 mild hyperkalemia #6 metabolic acidosis secondary to acute kidney injury Plan: #1 start Lasix drip after 80 mg IV push of Lasix. #2 check vancomycin trough levels #3 strict ins and outs, check urine analysis and urine electrolytes. #4 if renal function does not improve we will do renal ultrasound to rule out hydronephrosis, which I doubt #5 avoid nephrotoxic agents and hypotensive episodes. #6 no acute indication for renal replacement therapy at this time.
[2021-03-21] MEDS: SODIUM CHLORIDE 0.9% 1,000 ML IV SCH (15:36)
[2021-03-21] MEDS: FUROSEMIDE 100 MG in SODIUM CHLORIDE 0.9% 90 ML IV SCH ×2 (15:40→22:38)
[2021-03-21] MEDS ORDERED: VANCOMYCIN 1,750 MG in SODIUM CHLORIDE 0.9% 500 ML 500 ML IVPB ONE (16:00)
[2021-03-21] MEDS: CISATRACURIUM 200 MG in SODIUM CHLORIDE 0.9% 180 ML IV SCH (19:18)
[2021-03-21 19:20] LABS: Glucose,Whole Blood 281 mg/dL (75-99)
[2021-03-21] MEDS: FAMOTIDINE 20 MG TAB PO SCH (20:32)
[2021-03-21] MEDS: atenoloL 25 MG TAB PO SCH (20:47)
[2021-03-21] MEDS: HEPARIN SOD,PORK IN 0.45% NACL 25,000 UNIT in 0.45% NACL 1 250ML.BAG IV SCH (20:47)
[2021-03-21] MEDS ORDERED: VANCOMYCIN 1,750 MG in SODIUM CHLORIDE 0.9% 500 ML 500 ML IVPB SCH (22:00)
[2021-03-21 23:52] LABS: Glucose,Whole Blood 291 mg/dL (75-99)
[2021-03-22] MEDS: INSULIN ASPART (NovoLOG) 100 UNIT/ML VIAL SQ SCH ×4 (00:35→12:42)
[2021-03-22] MEDS: ARTIFICIAL TEARS-HYPROMELLOSE DROPS 15 ML BTL BOTH EYES SCH ×4 (04:04→18:28)
[2021-03-22 04:18] LABS: Glucose,Whole Blood 289 mg/dL (75-99)
[2021-03-22 04:46] LABS: Calcium 8.3 mg/dL (8.4-10.2)
[2021-03-22] MEDS: fentaNYL (PF). 1,000 MCG in SODIUM CHLORIDE 0.9% 80 ML IV SCH (04:50)
[2021-03-22 05:02] LABS: Potassium 6.3 mmol/L (3.5-5.1)
[2021-03-22 06:04] LABS: HCT 29.7 % (34.0-46.0); HGB 9.6 gm/dL (11.4-16.0); Hypochromasia Slight; MCH 36.2 pg (25.0-35.0); MCHC 32.5 g/dL (31.0-37.0); MCV 111.3 fL (80.0-100.0); Macrocytosis Marked; Mean Platelet Volume 12.6; Platelet Count 94 k/uL (150-450); Poikilocytosis Slight; RBC 2.67 m/uL (3.80-5.40)
[2021-03-22] MEDS ORDERED: SODIUM ZIRCONIUM CYCLOSILICATE 10 GM PACKET PO ONE (06:15)
[2021-03-22 06:17] LABS: ABG Base Excess -6.3 mmol/L; ABG HCO3 22 mmol/L (21-25); ABG Oxygen Saturation 85.7 % (94-97); ABG PCO2 59 mmHg (35-45); ABG TCO2 24 mmol/L (19-24); Allen Test Performed? Yes
[2021-03-22 06:31] LABS: ABG PH 7.18 (7.35-7.45)
[2021-03-22 06:32] LABS: ABG PO2 56 mmHg (83-108)
[2021-03-22 07:05] LABS: Band Neutrophils % 18 %; Lymphocytes # (M) 0.37 k/uL (1.0-4.8); Metamyelocytes # (M) 0.25 k/uL (0); Metamyelocytes % 2 %; Monocytes # (M) 0.12 k/uL (0-1.0); Myelocytes # (M) 0.12 k/uL (0); Myelocytes % 1 %; Neutrophils % (M) 77 %; Nucleated Red Blood Cells 7 /100 WBC (0-0); Total Cells Counted 200; WBC 12.3 k/uL (3.8-10.6)
[2021-03-22 07:09] LABS: Large Platelets Present; Polychromasia Present
[2021-03-22 08:03] LABS: Glucose,Whole Blood 342 mg/dL (75-99)
--- NOTE | 2021-03-22 08:28 | XR ---
EXAMINATION TYPE: XR chest 1V portable DATE OF EXAM: 03/22/2021 COMPARISON: Chest x-ray 03/21/2021 HISTORY: Intubated TECHNIQUE: Single frontal view of the chest is obtained. FINDINGS: Endotracheal tube, NG tube, left jugular central venous catheter are stable and overlying appropriate positions. There are overlying artifacts. No evident pneumothorax or pleural effusion. Ca rdiac mediastinal silhouette is stable. Bilateral airspace disease is again seen. IMPRESSION: Correlate for pneumonia, congestive heart failure with edema, ARDS
[2021-03-22] MEDS: CHLORHEXIDINE GLUCONATE 15 ML CUP MUCOUS MEM SCH (08:49)
[2021-03-22] MEDS: PANTOPRAZOLE 40 MG TABLET PO SCH (08:52)
[2021-03-22] MEDS: CEFEPIME 1 GM in SODIUM CHLORIDE 0.9% 50 ML IVPB SCH (08:52)
[2021-03-22] MEDS: CHOLECALCIFEROL 25 MCG (1000 IU) TABLET PO SCH (08:52)
[2021-03-22] MEDS: CYANOCOBALAMIN 500 MCG TAB PO SCH (08:52)
[2021-03-22] MEDS: CALCIUM CARBONATE 500 MG CHEWABLE PO SCH (08:52)
[2021-03-22] MEDS: atenoloL 50 MG TAB PO SCH (08:52)
[2021-03-22] MEDS: ZINC SULFATE 220 MG CAP PO SCH (08:52)
[2021-03-22] MEDS: DEXAMETHASONE SOD PHOSPHATE 10 MG/ML 1 ML VIAL IVP SCH (08:52)
[2021-03-22] MEDS: ASCORBIC ACID 500 MG TAB PO SCH (08:52)
[2021-03-22] MEDS: AMIODARONE 200 MG TAB PO SCH (08:52)
[2021-03-22] MEDS: LACTULOSE 20 GM/30 ML CUP PO SCH (08:53)
--- NOTE | 2021-03-22 09:29 | PN ---
PROGRESS NOTE DATE OF SERVICE: 03/21/2021 REASON FOR FOLLOWUP: Bacteremia and pneumonia. INTERVAL HISTORY: Patient is afebrile. The patient remains to be sedated on the vent. FiO2 is currently at 100%. No significant purulent secretions through the ET, diarrhea or any other changes reported by the nursing staff. EXAMINATION: Blood pressure 104/49, pulse of 62, temperature of 97.7. He is 95% on 100% FIO2. General description is a middle-aged female, intubated on the vent. Respiratory system: Unlabored breathing, decreased breath sounds in the bases. No wheeze. Heart S1, S2. Regular rate and rhythm. Abdomen soft, no tenderness. LABS: Blood cultures from 03/20 came back positive DIAGNOSTIC IMPRESSION AND PLAN: Patient with MRSA as well as MSSA bacteremia, source pneumonia, concern for possible deep source with the blood culture coming back positive and did have Proteus in the sputum. The patient is currently covered with vancomycin and cefepime to continue while monitoring kidney function closely. Blood cultures will be repeated to document clearance of bacteremia. Continue supportive care. MMODL / IJN: [id number] /
[2021-03-22 09:41] VITALS: BMI 43.3
[2021-03-22 11:21] VITALS: BP 85/48; PULSE 61; TEMP 98.7
[2021-03-22 11:39] LABS: Glucose,Whole Blood 353 mg/dL (75-99)
--- NOTE | 2021-03-22 12:17 | P.PN ---
Subjective Progress Note Date: 03/22/21 Follow-up for acute kidney injury. Still on high vent settings. Potassium 6.5 today. Urine output of 1300 ML's in the last 24 hours. Objective - Vital Signs Vital signs: Vital Signs Temp 98.7 F 03/22/21 08:00 Pulse 61 03/22/21 11:00 Resp 36 H 03/22/21 11:00 BP 85/48 03/22/21 11:00 Pulse Ox 79 L 03/22/21 11:00 Intake & Output 03/21/21 03/22/21 03/22/21 18:59 06:59 18:59 Intake Total 676 992.049 140 Output Total 630 760 190 Balance 46 232.049 -50 Weight 100.6 kg 100.6 kg Intake: IV 276 276 115 0.9 240 240 100 pressure bag 36 36 15 Intake, IV Titration 350 326.049 Amount Furosemide 100 mg In 69.667 Sodium Chloride 0.9% 90 ml @ 10 MG/HR 10 mls/hr IV .Q10H [facility] Rx#: [id number] Heparin Sod,Pork in 0.45% 250 NaCl 25,000 unit In 0.45 % NaCl 1 250ml.bag @ 11. 03 UNITS/KG/HR 10.006 mls /hr IV .Q24H [facility] Rx#: [id number] fentaNYL (PF). 1,000 mcg 100 In Sodium Chloride 0.9% 80 ml @ 0.5 MCG/KG/HR 4. 585 mls/hr IV .[id number] [facility] Rx#:[id number] propofoL 1,000 mg In 100 156.382 Empty Bag 1 bag @ Titrate IV .Q0M [facility] Rx#: [id number] Tube Feeding 50 300 25 Other 90 Output: Urine 630 760 190 Other: Voiding Method Indwelling Catheter Indwelling Catheter ABP, PAP, CO, CI - Last Documented Arterial Blood Pressure 113/47 - Exam Refer to primary team exam. COVID-19 isolation - Labs CBC & Chem 7: 03/22/21 04:00 03/22/21 04:00 Labs: Abnormal Lab Results - Last 24 Hours (Table) 03/21/21 03/21/21 03/22/21 Range/Units 19:18 23:50 04:00 WBC (3.8-10.6) k/uL RBC (3.80-5.40) m/uL Hgb (11.4-16.0) gm/dL Hct (34.0-46.0) % MCV (80.0-100.0) fL MCH (25.0-35.0) pg Plt Count (150-450) k/uL Neutrophils # (Manual) (1.3-7.7) k/uL Lymphocytes # (Manual) (1.0-4.8) k/uL Metamyelocytes # (Man) (0) k/uL Myelocytes # (Manual) (0) k/uL Nucleated RBCs (0-0) /100 WBC Macrocytosis APTT 61.7 H (22.0-30.0) sec ABG pH (7.35-7.45) ABG pCO2 (35-45) mmHg ABG pO2 (83-108) mmHg ABG O2 Saturation (94-97) % Potassium (3.5-5.1) mmol/L Chloride (98-107) mmol/L Carbon Dioxide (22-30) mmol/L BUN (7-17) mg/dL Creatinine (0.52-1.04) mg/dL Glucose (74-99) mg/dL POC Glucose (mg/dL) 281 H 291 H (75-99) mg/dL Calcium (8.4-10.2) mg/dL Random Vancomycin ug/mL 03/22/21 03/22/21 03/22/21 Range/Units 04:00 04:00 04:00 WBC 12.3 H (3.8-10.6) k/uL RBC 2.67 L (3.80-5.40) m/uL Hgb 9.6 L (11.4-16.0) gm/dL Hct 29.7 L (34.0-46.0) % MCV 111.3 H (80.0-100.0) fL MCH 36.2 H (25.0-35.0) pg Plt Count 94 L (150-450) k/uL Neutrophils # (Manual) 11.60 H (1.3-7.7) k/uL Lymphocytes # (Manual) 0.37 L (1.0-4.8) k/uL Metamyelocytes # (Man) 0.25 H (0) k/uL Myelocytes # (Manual) 0.12 H (0) k/uL Nucleated RBCs 7 H (0-0) /100 WBC Macrocytosis Marked A APTT (22.0-30.0) sec ABG pH (7.35-7.45) ABG pCO2 (35-45) mmHg ABG pO2 (83-108) mmHg ABG O2 Saturation (94-97) % Potassium 6.3 H* (3.5-5.1) mmol/L Chloride 111 H (98-107) mmol/L Carbon Dioxide 21 L (22-30) mmol/L BUN 114 H* (7-17) mg/dL Creatinine 2.79 H (0.52-1.04) mg/dL Glucose 290 H (74-99) mg/dL POC Glucose (mg/dL) (75-99) mg/dL Calcium 8.3 L (8.4-10.2) mg/dL Random Vancomycin 46.7 H* ug/mL 03/22/21 03/22/21 03/22/21 Range/Units 04:17 06:16 08:02 WBC (3.8-10.6) k/uL RBC (3.80-5.40) m/uL Hgb (11.4-16.0) gm/dL Hct (34.0-46.0) % MCV (80.0-100.0) fL MCH (25.0-35.0) pg Plt Count (150-450) k/uL Neutrophils # (Manual) (1.3-7.7) k/uL Lymphocytes # (Manual) (1.0-4.8) k/uL Metamyelocytes # (Man) (0) k/uL Myelocytes # (Manual) (0) k/uL Nucleated RBCs (0-0) /100 WBC Macrocytosis APTT (22.0-30.0) sec ABG pH 7.18 L* (7.35-7.45) ABG pCO2 59 H (35-45) mmHg ABG pO2 56 L* (83-108) mmHg ABG O2 Saturation 85.7 L (94-97) % Potassium (3.5-5.1) mmol/L Chloride (98-107) mmol/L Carbon Dioxide (22-30) mmol/L BUN (7-17) mg/dL Creatinine (0.52-1.04) mg/dL Glucose (74-99) mg/dL POC Glucose (mg/dL) 289 H 342 H (75-99) mg/dL Calcium (8.4-10.2) mg/dL Random Vancomycin ug/mL 03/22/21 Range/Units 11:37 WBC (3.8-10.6) k/uL RBC (3.80-5.40) m/uL Hgb (11.4-16.0) gm/dL Hct (34.0-46.0) % MCV (80.0-100.0) fL MCH (25.0-35.0) pg Plt Count (150-450) k/uL Neutrophils # (Manual) (1.3-7.7) k/uL Lymphocytes # (Manual) (1.0-4.8) k/uL Metamyelocytes # (Man) (0) k/uL Myelocytes # (Manual) (0) k/uL Nucleated RBCs (0-0) /100 WBC Macrocytosis APTT (22.0-30.0) sec ABG pH (7.35-7.45) ABG pCO2 (35-45) mmHg ABG pO2 (83-108) mmHg ABG O2 Saturation (94-97) % Potassium (3.5-5.1) mmol/L Chloride (98-107) mmol/L Carbon Dioxide (22-30) mmol/L BUN (7-17) mg/dL Creatinine (0.52-1.04) mg/dL Glucose (74-99) mg/dL POC Glucose (mg/dL) 353 H (75-99) mg/dL Calcium (8.4-10.2) mg/dL Random Vancomycin ug/mL Microbiology - Last 24 Hours (Table) 03/20/21 04:20 Blood Culture Gram Stain - Preliminary Blood Blood Culture - Preliminary Staphylococcus aureus 03/19/21 03:45 Blood Culture - Preliminary Blood No Growth after 72 hours Assessment and Plan Assessment: #1 acute kidney injury suspect hemodynamic and toxic ATN with low blood pressure and vancomycin. #2 volume overload #3 hypoxic respiratory failure on mechanical ventilator #4 Covid 19 pneumonia #5 hyperkalemia #6 metabolic acidosis secondary to acute kidney injury Plan: #1 continue with Lasix drip. #2 Vancomycin trough levels are high, consider stopping it. #3 strict ins and outs #4 continue medical management for hyperkalemia. With multiple comorbid conditions not a candidate for dialysis. Agree with primary team discussing with the family regarding goals of care.
[2021-03-22] MEDS: FUROSEMIDE 100 MG in SODIUM CHLORIDE 0.9% 90 ML IV SCH (12:42)
--- NOTE | 2021-03-22 14:06 | P.PN ---
Subjective Progress Note Date: 03/22/21 Principal diagnosis: Acute COVID-19 infection with bilateral interstitial pneumonia with acute hypoxic respiratory failure Elevated troponins, possibility of acute NSTEMI with type II myocardial infarction Possible bacterial pneumonia with severe sepsis and hypotension , pressor support O/H Positive blood culture with MRSA, pending finalized repeat cultures, on IV Vanco Acute kidney injury Possible Takotsubo syndrome Atrial fibrillation with fast ventricular rate 51 female who was in hospital for an acute COVID-19 infection with acute hypoxic respiratory failure requiring intubation on 03/15/2021 She remains on the ventilator. She is on the volume assist control mode, rate 36, tidal volume 375, FiO2 100%, with a PEEP of 20. Blood gases show a PaO2 of 78, pCO2 59, and pH is 7.21. The patient remains sedated on Nimbex and propofol and fentanyl heparin via weightbase protocol, saline at 20 mL an hour, and vital, at 25 mL an hour, which is her goal. now review shows WBC 12.3, hemoglobin 9.6 and platelet count of 94. PTT is 54.1, with a sodium 141, potassium 6.3, BUN/creatinine of 114/2.7. Chest x-ray continues to show bilateral multifocal and confluence opacities, unchanged. Objective - Vital Signs Vital signs: Vital Signs Temp 99.5 F 03/22/21 04:00 Pulse 64 03/22/21 07:00 Resp 36 H 03/22/21 07:00 BP 90/50 03/22/21 07:00 Pulse Ox 86 L 03/22/21 07:00 Intake & Output 03/21/21 03/22/21 03/22/21 18:59 06:59 18:59 Intake Total 676 992.049 48 Output Total 630 760 40 Balance 46 232.049 8 Weight 100.6 kg Intake: IV 276 276 23 0.9 240 240 20 pressure bag 36 36 3 Intake, IV Titration 350 326.049 Amount Furosemide 100 mg In 69.667 Sodium Chloride 0.9% 90 ml @ 10 MG/HR 10 mls/hr IV .Q10H [facility] Rx#: [id number] Heparin Sod,Pork in 0.45% 250 NaCl 25,000 unit In 0.45 % NaCl 1 250ml.bag @ 11. 03 UNITS/KG/HR 10.006 mls /hr IV .Q24H [facility] Rx#: [id number] fentaNYL (PF). 1,000 mcg 100 In Sodium Chloride 0.9% 80 ml @ 0.5 MCG/KG/HR 4. 585 mls/hr IV .[id number] [facility] Rx#:[id number] propofoL 1,000 mg In 100 156.382 Empty Bag 1 bag @ Titrate IV .Q0M [facility] Rx#: [id number] Tube Feeding 50 300 25 Other 90 Output: Urine 630 760 40 Other: Voiding Method Indwelling Catheter Indwelling Catheter ABP, PAP, CO, CI - Last Documented Arterial Blood Pressure 108/47 - Exam GENERAL: Patient is intubated. HEENT: Pupils are round and equally reacting to light CARDIOVASCULAR: S1 and S2 present. No murmurs, rubs, or gallops. PULMONARY: Lungs are diminished ABDOMEN: Soft, nontender, nondistended, hypoactive bowel sounds MUSCULOSKELETAL: No joint swelling or deformity. EXTREMITIES: No cyanosis, clubbing, or pedal edema. NEUROLOGICAL: Unable to complete as patient is intubated SKIN: No rashes. - Labs CBC & Chem 7: 03/22/21 04:00 03/22/21 04:00 Labs: Abnormal Lab Results - Last 24 Hours (Table) 03/21/21 03/21/21 03/21/21 Range/Units 11:08 19:18 23:50 WBC (3.8-10.6) k/uL RBC (3.80-5.40) m/uL Hgb (11.4-16.0) gm/dL Hct (34.0-46.0) % MCV (80.0-100.0) fL MCH (25.0-35.0) pg Plt Count (150-450) k/uL Neutrophils # (Manual) (1.3-7.7) k/uL Lymphocytes # (Manual) (1.0-4.8) k/uL Metamyelocytes # (Man) (0) k/uL Myelocytes # (Manual) (0) k/uL Nucleated RBCs (0-0) /100 WBC Macrocytosis APTT (22.0-30.0) sec ABG pH (7.35-7.45) ABG pCO2 (35-45) mmHg ABG pO2 (83-108) mmHg ABG O2 Saturation (94-97) % Potassium (3.5-5.1) mmol/L Chloride (98-107) mmol/L Carbon Dioxide (22-30) mmol/L BUN (7-17) mg/dL Creatinine (0.52-1.04) mg/dL Glucose (74-99) mg/dL POC Glucose (mg/dL) 291 H 281 H 291 H (75-99) mg/dL Calcium (8.4-10.2) mg/dL Random Vancomycin ug/mL 03/22/21 03/22/21 03/22/21 Range/Units 04:00 04:00 04:00 WBC 12.3 H (3.8-10.6) k/uL RBC 2.67 L (3.80-5.40) m/uL Hgb 9.6 L (11.4-16.0) gm/dL Hct 29.7 L (34.0-46.0) % MCV 111.3 H (80.0-100.0) fL MCH 36.2 H (25.0-35.0) pg Plt Count 94 L (150-450) k/uL Neutrophils # (Manual) 11.60 H (1.3-7.7) k/uL Lymphocytes # (Manual) 0.37 L (1.0-4.8) k/uL Metamyelocytes # (Man) 0.25 H (0) k/uL Myelocytes # (Manual) 0.12 H (0) k/uL Nucleated RBCs 7 H (0-0) /100 WBC Macrocytosis Marked A APTT 61.7 H (22.0-30.0) sec ABG pH (7.35-7.45) ABG pCO2 (35-45) mmHg ABG pO2 (83-108) mmHg ABG O2 Saturation (94-97) % Potassium 6.3 H* (3.5-5.1) mmol/L Chloride 111 H (98-107) mmol/L Carbon Dioxide 21 L (22-30) mmol/L BUN 114 H* (7-17) mg/dL Creatinine 2.79 H (0.52-1.04) mg/dL Glucose 290 H (74-99) mg/dL POC Glucose (mg/dL) (75-99) mg/dL Calcium 8.3 L (8.4-10.2) mg/dL Random Vancomycin ug/mL 03/22/21 03/22/21 03/22/21 Range/Units 04:00 04:17 06:16 WBC (3.8-10.6) k/uL RBC (3.80-5.40) m/uL Hgb (11.4-16.0) gm/dL Hct (34.0-46.0) % MCV (80.0-100.0) fL MCH (25.0-35.0) pg Plt Count (150-450) k/uL Neutrophils # (Manual) (1.3-7.7) k/uL Lymphocytes # (Manual) (1.0-4.8) k/uL Metamyelocytes # (Man) (0) k/uL Myelocytes # (Manual) (0) k/uL Nucleated RBCs (0-0) /100 WBC Macrocytosis APTT (22.0-30.0) sec ABG pH 7.18 L* (7.35-7.45) ABG pCO2 59 H (35-45) mmHg ABG pO2 56 L* (83-108) mmHg ABG O2 Saturation 85.7 L (94-97) % Potassium (3.5-5.1) mmol/L Chloride (98-107) mmol/L Carbon Dioxide (22-30) mmol/L BUN (7-17) mg/dL Creatinine (0.52-1.04) mg/dL Glucose (74-99) mg/dL POC Glucose (mg/dL) 289 H (75-99) mg/dL Calcium (8.4-10.2) mg/dL Random Vancomycin 46.7 H* ug/mL 03/22/21 Range/Units 08:02 WBC (3.8-10.6) k/uL RBC (3.80-5.40) m/uL Hgb (11.4-16.0) gm/dL Hct (34.0-46.0) % MCV (80.0-100.0) fL MCH (25.0-35.0) pg Plt Count (150-450) k/uL Neutrophils # (Manual) (1.3-7.7) k/uL Lymphocytes # (Manual) (1.0-4.8) k/uL Metamyelocytes # (Man) (0) k/uL Myelocytes # (Manual) (0) k/uL Nucleated RBCs (0-0) /100 WBC Macrocytosis APTT (22.0-30.0) sec ABG pH (7.35-7.45) ABG pCO2 (35-45) mmHg ABG pO2 (83-108) mmHg ABG O2 Saturation (94-97) % Potassium (3.5-5.1) mmol/L Chloride (98-107) mmol/L Carbon Dioxide (22-30) mmol/L BUN (7-17) mg/dL Creatinine (0.52-1.04) mg/dL Glucose (74-99) mg/dL POC Glucose (mg/dL) 342 H (75-99) mg/dL Calcium (8.4-10.2) mg/dL Random Vancomycin ug/mL Microbiology - Last 24 Hours (Table) 03/19/21 03:45 Blood Culture - Preliminary Blood No Growth after 72 hours 03/20/21 04:20 Blood Culture Gram Stain - Preliminary Blood Blood Culture - Preliminary Staphylococcus aureus 03/20/21 04:20 Blood Culture - Final Blood Assessment and Plan Assessment: Acute COVID-19 infection with bilateral interstitial pneumonia with acute hypoxic respiratory failure, currently on mechanical ventilation, 100% FiO2 Elevated troponins, possibility of acute NSTEMI with type II myocardial infarction Possible bacterial pneumonia with severe sepsis and hypotension , pressor support O/H Positive blood culture with MRSA, pending finalized repeat cultures, on IV Vanco Acute kidney injury Possible Takotsubo syndrome Atrial fibrillation with fast ventricular rate, currently in sinus rhythm on po amio Elevated d-dimer, CT negative for pulmonary embolism Diabetes mellitus type 2 with hyperglycemia Mild protein malnutrition requiring TPN due to intubation Thrombocytopenia Hypomagnesemia Hyponatremia History of GERD Hypertension Hyperlipidemia History of thromboembolism History of mitral regurgitation GI prophylaxis Protonix DVT prophylaxis heparin drip Full code Plan Consult nephrology Continues on tube feeds Continue with empiric IV antibiotics Continue with systemic steroids and bronchodilators Continue all other supportive care Continue with Accu-Cheks every 4 hours with s/s coverage Lactulose daily for BM Repeat labs in the morning Guarded/poor prognosis
--- NOTE | 2021-03-22 14:33 | P.PN ---
Subjective Progress Note Date: 03/22/21 Principal diagnosis: Respiratory failure. Acute hypoxic respiratory failure secondary to acute COVID-19 pneumonia THis is a 60-year-old female, no major medical illnesses, presented to the ER yesterday with at least 1 week history of shortness of breath, intermittent cough, chest discomfort, she had no GI symptoms, no headache, no nausea no vomiting no diarrhea. Patient felt generally weak, and upon arrival to the ER, patient was noted to be hypoxic. CT of the chest showed no evidence of pulmonary embolism, but it did show extensive pulmonary infiltrates consistent with Covid19 pneumonia. COVID-19 PCR was positive. CBC was relatively normal except for a relative lymphopenia, relative thrombocytopenia, d-dimer was 0.94, patient was noted to have low sodium of 116, normal renal profile was noted, bicarb was noted to be a bit low at 20. Blood sugar was 293. If her enzymes were noted to be a bit elevated with AST of 179 and ALT of 65. LDH was extremely elevated at 3959, C-reactive protein of 8.3, pro BNP was over 5000, troponin was also noted to be elevated at 0.30. Patient is also known to have history of positive anti-cardiolipin antibody. Patient was placed on BiPAP, she remains on BiPAP at present, she is actually on the 100% FiO2, IPAP of 12 and EP AP of 6, and she has marginal O2 saturation. ABG last night was done on BiPAP, and her pO2 was 72 pCO2 37 pH of 7.37. Patient is yet to be seen by cardiology, however heparin was advised by cardiology, and she is on heparin drip at present. Again her CT angiogram of the chest was negative for thromboembolic disease. D-dimer was noted to be 0.94. Her pulmonary status was quite marginal last night, hence patient was given 1 dose of Lasix 40 mg IV push, and she was approached by the nurse about possible worsening and intubation, patient clearly stated to the nurse that she did not want to be intubated tomorrow what. Apparently she discussed this with her , and both agreed on no int ubation. Patient was reevaluated today on 03/13/21, remains in the ICU, remains on BiPAP on the percent FiO2, EPAP of 6 and IPAP of 12. O2 saturation remains extremely marginal. Patient has previously expressed wishes as she does not want to be intubated and placed on mechanical ventilation no matter what. Patient is on the COVID-19 cocktail, she was also started upon admission on BARICITINIB and she was seen on consultation by cardiology for her possible non-ST elevation myocardial infarction. Remains on heparin. Echocardiogram showed good ejection fraction. No significant abnormality noted. Although there was a mention of apical Hypokinesis, and the headrig sawyer raised the possibility of takustubo syndrome. And she was given Lasix by the consulting headrig sawyer. Her EDC count today is 8.8 hemoglobin is 16.1. Electrolytes showed low sodium of 129, renal profile is normal bicarb is normal. A shunt sodium on presentation was 116. PTT today is 66, and have d-dimer 0.50. LDH is elevated over 3000 and C- reactive protein is 5.7. Patient was reevaluated today on 03/14/21, remains in the ICU, remains on BiPAP with FiO2 of 100% IPAP of 14 and EPAP of 6, remains marginal at best. O2 saturation is in the low 90s. Patient is requiring Precedex drip otherwise she gets extremely agitated and anxious. Patient is also on the COVID-19 cocktail, and she was seen by cardiology were and the patient was placed on heparin for possible non-ST elevation myocardial infarction. Her Precedex is at 0.15 mcg/kg per hour. CBC count is normal left lites are normal renal profile is normal. Chest x-ray continues to show bilateral infiltrates consistent with COVID-19 pneumonia. Patient had a PICC line placed to yesterday, and the plan is to start TPN on this patient because she is not eating much The patient is seen today 03/15/2021 in follow-up in the intensive care unit. She has not shown much improvement. She is on BiPAP 16/6 and 100% FiO2 to maintain O2 saturations in the upper 80s. Chest x-ray continues to show bilateral airspace disease. No evidence of pneumothorax or pleural effusions. She remains in atrial fibrillation with a rapid ventricular response. She is currently on a heparin drip. She is on Precedex at 0.6 micrograms per kilogram per hour. She remains on Decadron. Continued on Baricitinib. Continued on vitamin supplements. White count 13.6. Hemoglobin 17.3. Lymphocytes 0.82. D- dimer 1.54. Sodium 132. Potassium 3.6. Creatinine 0.47. LDH 2667. C- reactive protein 4.3. She is being nourished with TPN. The patient is seen today 03/16/2021 in follow-up in the intensive care unit. Her condition continued to deteriorate yesterday and her family came in and requested she be a full code CODE STATUS. She was subsequently intubated and placed on mechanical ventilator. Currently he says control mode with a rate of 36, tidal volume 375, FiO2 100% and a PEEP of 18. Morning blood gases revealed a pO2 of 61, pCO2 44, pH 7.37. She is sedated on propofol at 40 mcg/kg/m. She is on an amiodarone drip at 0.5 mg/m. Heparin drip per weight based protocol, norepinephrine at 0.2 mcg/kg/m. She is paralyzed with Nimbex at 1.25 mcg/kg/m. Fentanyl drip at 0.5 mcg/kg per hour. Her chest x-ray shows infiltrate in the right lower lobe with possible bacterial pneumonia on top of CoVID 19 pneumonia. White count 8.5. Hemoglobin 15.5. Lymphocytes 0.9. Sodium 133. Potassium 3.8. Creatinine 0.88. Glucose 187. AST 41. ALT 30. She remains on Decadron, Baricitinib, vitamin supplements. The patient is seen today 03/17/2021 in follow-up in the intensive care unit. She remains intubated and on the mechanical ventilator. Current settings are assist-control mode, rate of 36, tidal volume 375, FiO2 80% and a PEEP of 18. Pressures 36. Plateau pressure 34. Morning blood gases revealed a pO2 of 71, pCO2 37, pH 7.37. Urine output remains borderline at 25-30 ML's per hour. She is being nourished with vital HPI at 25 ML's per hour which is goal. She remains on amiodarone at 0.5 mg/m. Fentanyl drip at 0.5 mcg/kg per hour, Nimbex at 1.25 mcg/kg/m propofol at 40 mcg/kg/m. She remains on norepinephrine at 0.15 g/kg/m. She is also on vasopressin now at 0.03 units/m. She is continued on Decadron. Anticoagulated with a heparin drip per weight base protocol. Remains in atrial fibrillation with a controlled ventricular rate. X-ray continues to show bilateral airspace disease. White count 10.5. Hemoglobin 14.3. Sodium 137. Potassium 4.0. Creatinine 1.13. Glucose 196. Progress note dated 03/18/2021. The patient is again seen in the intensive care unit, in room 256. The patient was admitted back on March 11, for coronavirus infection, non-ST segment elevation myocardial infarction, and atrial fibrillation. The patient was intubated on March 15 the patient remains on the mechanical ventilator, with settings of volume assist control mode, rate 36, tidal volume 375, FiO2 70%, and PEEP of 20. Arterial blood gases show a PaO2 of 55, pCO2 of 44, and a pH is 7.36. Earlier blood gases, had a pO2 of only 50. The patient is on propofol at 40 mcg/kg/m, fentanyl at 0.5 mcg/kg/h, vital AF at 25 mL an hour, which is goal, 0.9 at 125 mL an hour, heparin via weightbase protocol, norepinephrine at 9.5 m cg/m, and Nimbex at 1 mcg/kg/m. White count 9.4, he will 13.1, hematocrit 38.9, and platelet count was normal. Sodium 140, potassium 3, chlorides 110, CO2 23, anion gap 7, BUN 28, and creatinine 0.59. Chest x-ray shows diffuse bilateral infiltrates. Chest x-ray, when compared to the chest x-ray from a day earlier, is unchanged. Progress note dated 03/19/2021. This is a 60-year-old female, again seen in room 256. She was admitted back on March 11 for coronavirus infection, non-ST segment elevation myocardial infarction, and atrial fibrillation. Because of worsening hypoxemic respiratory failure, she was intubated on March 15. She remains on the mechanical ventilator. She is on the volume assist control mode, rate 36, tidal volume 375, FiO2 is 70%, PEEP of 20. Arterial blood gases show pO2 of 52, pCO2 of 50, and a pH is 7.32. The FiO2 was increased to 100%. Repeat blood gas will be done in 4-6 hours. The patient is currently on heparin via weightbase protocol, saline at 20 mL an hour, propofol at 40 mcg/kg/m, norepinephrine at 9 mcg/m, Nimbex at 1 mcg/kg/m, fentanyl at 0.5 mcg/kg/h, insulin drip is on hold, and vital AF is running at goal, which is 25 mL an hour. White count 7.8, hemoglobin 13.2, hematocrit 39.5, platelet count 128,000. Sodium 140, potassium 4.4, chlorides 110, CO2 24, anion gap 6, BUN 31, creatinine 0.65. Pro- calcitonin level is 6.99. Chest x-ray shows diffuse bilateral infiltrates, essentially unchanged, and consistent with a diagnosis of coronavirus associated pneumonia. Progress note dated 03/20/2021. This is a 60-year-old female, again seen in room 256. She was admitted back on March 11 for coronavirus infection. Because of worsening hypoxemic respiratory failure, he was intubated on March 15. [facility]. She is on the volume assist control mode, rate 36, tidal volume 375, FiO2 100%, and PEEP of 20. Blood gases show a PaO2 of 69, pCO2 of 57, and a pH is 7.25. The patient remains on saline at KVO, heparin via weightbase protocol, propofol at 40 mcg/kg/m, Nimbex at 1 mcg/kg/m, fentanyl at 0.5 mcg/kg/h, and norepinephrine at 16 mcg/m. The patient's getting vital AF at 25 mL an hour, which is goal. White count 10, hemoglobin 12.5, hematocrit 39.1, and platelet count 134,000. PTT is 43.5. Sodium 140, potassium 4.9, chlorides 113, CO2 23, anion gap 7, BUN 57, creatinine 1.17. Blood cultures are positive for Staphylococcus aureus. Sputum Gram stain back on March 16 with positive for Proteus mirabilis, and staph aureus. The patient is currently on cefepime. Chest x-ray is unchanged and shows diffuse bilateral patchy infiltrates. Progress note dated 03/21/2021. 60-year-old female, again seen in room 256. She was admitted on March 11 for coronavirus infection. The patient had worsening hypoxemic respiratory failure and was intubated on March 15. She remains on the ventilator. She is on the volume assist control mode, rate 36, tidal volume 375, FiO2 100%, with a PEEP of 20. Blood gases show a PaO2 of 78, pCO2 59, and pH is 7.21. The patient rem ains on Nimbex at 0.5 mcg/kg/m, propofol at 40 mcg/kg/m, fentanyl at 0.5 mcg/h, heparin via weightbase protocol, saline at 20 mL an hour, and vital, at 25 mL an hour, which is her goal. White count 9.3, hemoglobin 10.8, hematocrit 33.1, and platelet count 102,000. PTT is 54.1, with a sodium 142, potassium 5.4, chlorides 113, CO2 22, anion gap 7, BUN 84, creatinine 1.81. Chest x-ray continues to show bilateral multifocal and confluence opacities, unchanged. Progress note dated 03/22/2021. 60-year-old female, again seen in room 256. The patient was admitted to the hospital on March 21, for coronavirus infection, and intubated, on March 15, for worsening hypoxemic respiratory failure. She remains on mechanical ventilator. She is on the volume assist control mode rate 36, tidal volume 375, FiO2 100%, and PEEP of 20. Blood gases show a PaO2 of 56, pCO2 of 59, and pH is 7.1. The patient's getting propofol at 40 mcg/kg/m, heparin, via weightbase protocol, fentanyl at 0.5 mcg/kg/h. Nimbex at 0.5 mcg/kg/m, a Lasix drip at 10 mg an hour, saline at 20 mL an hour, and vital AF at 25 mL an hour, which is goal. I had a long conversation with the patient's , Ever, and told him, it was extremely unlikely that his with survive this, and wanted him to consider making her a DO NOT RESUSCITATE. White count 12.3, hemoglobin 9.6, hematocrit 29.7, and platelet count 94,000. PTT is 61.7. Sodium 141, potassium 6.3, chlorides 111, CO2 21, anion gap 9, BUN 114, creatinine 2.79. Chest x-ray is essentially unchanged, and shows diffuse bilateral infiltrates. Objective - Vital Signs Vital signs: Vital Signs Temp 98.7 F 03/22/21 08:00 Pulse 61 03/22/21 11:00 Resp 36 H 03/22/21 11:00 BP 85/48 03/22/21 11:00 Pulse Ox 79 L 03/22/21 11:00 Intake & Output 03/21/21 03/22/21 03/22/21 18:59 06:59 18:59 Intake Total 676 992.049 240 Output Total 630 760 190 Balance 46 232.049 50 Weight 100.6 kg 100.6 kg Intake: IV 276 276 115 0.9 240 240 100 pressure bag 36 36 15 Intake, IV Titration 350 326.049 100 Amount Furosemide 100 mg In 69.667 100 Sodium Chloride 0.9% 90 ml @ 10 MG/HR 10 mls/hr IV .Q10H YANNICK Rx#: [id number] Heparin Sod,Pork in 0.45% 250 NaCl 25,000 unit In 0.45 % NaCl 1 250ml.bag @ 11. 03 UNITS/KG/HR 10.006 mls /hr IV .Q24H YANNICK Rx#: [id number] fentaNYL (PF). 1,000 mcg 100 In Sodium Chloride 0.9% 80 ml @ 0.5 MCG/KG/HR 4. 585 mls/hr IV .[id number] YANNICK Rx#:[id number] propofoL 1,000 mg In 100 156.382 Empty Bag 1 bag @ Titrate IV .Q0M YANNICK Rx#: [id number] Tube Feeding 50 300 25 Other 90 Output: Urine 630 760 190 Other: Voiding Method Indwelling Catheter Indwelling Catheter Indwelling Catheter ABP, PAP, CO, CI - Last Documented Arterial Blood Pressure 113/47 - Exam No acute distress, currently sedated, and paralyzed. The patient has a orally placed endotracheal tube and NG tube. HEENT examination is grossly unremarkable. Neck supple. Full range of motion. No adenopathy thyromegaly or neck vein di stention. Cardiovascular examination reveals an irregular rhythm and rate. S1-S2 normal. No S3 or S4. No discernible murmur noted. Heart rate 61 bpm. Heart sounds are distant. Lungs reveal bilateral coarse rhonchi, and crackles. Breath sounds are equal bilaterally. No wheezes. Saturations are high 70s and low 80s. Abdomen soft bowel sounds are heard. No masses or tenderness. Extremities are intact. No cyanosis clubbing or edema. Skin is without rash or lesion. Neurologic examination cannot be adequately assessed as the patient's heavily sedated and paralyzed. - Labs CBC & Chem 7: 03/22/21 04:00 03/22/21 04:00 Labs: Abnormal Lab Results - Last 24 Hours (Table) 03/21/21 03/21/21 03/22/21 Range/Units 19:18 23:50 04:00 WBC (3.8-10.6) k/uL RBC (3.80-5.40) m/uL Hgb (11.4-16.0) gm/dL Hct (34.0-46.0) % MCV (80.0-100.0) fL MCH (25.0-35.0) pg Plt Count (150-450) k/uL Neutrophils # (Manual) (1.3-7.7) k/uL Lymphocytes # (Manual) (1.0-4.8) k/uL Metamyelocytes # (Man) (0) k/uL Myelocytes # (Manual) (0) k/uL Nucleated RBCs (0-0) /100 WBC Macrocytosis APTT 61.7 H (22.0-30.0) sec ABG pH (7.35-7.45) ABG pCO2 (35-45) mmHg ABG pO2 (83-108) mmHg ABG O2 Saturation (94-97) % Potassium (3.5-5.1) mmol/L Chloride (98-107) mmol/L Carbon Dioxide (22-30) mmol/L BUN (7-17) mg/dL Creatinine (0.52-1.04) mg/dL Glucose (74-99) mg/dL POC Glucose (mg/dL) 281 H 291 H (75-99) mg/dL Calcium (8.4-10.2) mg/dL Random Vancomycin ug/mL 03/22/21 03/22/21 03/22/21 Range/Units 04:00 04:00 04:00 WBC 12.3 H (3.8-10.6) k/uL RBC 2.67 L (3.80-5.40) m/uL Hgb 9.6 L (11.4-16.0) gm/dL Hct 29.7 L (34.0-46.0) % MCV 111.3 H (80.0-100.0) fL MCH 36.2 H (25.0-35.0) pg Plt Count 94 L (150-450) k/uL Neutrophils # (Manual) 11.60 H (1.3-7.7) k/uL Lymphocytes # (Manual) 0.37 L (1.0-4.8) k/uL Metamyelocytes # (Man) 0.25 H (0) k/uL Myelocytes # (Manual) 0.12 H (0) k/uL Nucleated RBCs 7 H (0-0) /100 WBC Macrocytosis Marked A APTT (22.0-30.0) sec ABG pH (7.35-7.45) ABG pCO2 (35-45) mmHg ABG pO2 (83-108) mmHg ABG O2 Saturation (94-97) % Potassium 6.3 H* (3.5-5.1) mmol/L Chloride 111 H (98-107) mmol/L Carbon Dioxide 21 L (22-30) mmol/L BUN 114 H* (7-17) mg/dL Creatinine 2.79 H (0.52-1.04) mg/dL Glucose 290 H (74-99) mg/dL POC Glucose (mg/dL) (75-99) mg/dL Calcium 8.3 L (8.4-10.2) mg/dL Random Vancomycin 46.7 H* ug/mL 03/22/21 03/22/21 03/22/21 Range/Units 04:17 06:16 08:02 WBC (3.8-10.6) k/uL RBC (3.80-5.40) m/uL Hgb (11.4-16.0) gm/dL Hct (34.0-46.0) % MCV (80.0-100.0) fL MCH (25.0-35.0) pg Plt Count (150-450) k/uL Neutrophils # (Manual) (1.3-7.7) k/uL Lymphocytes # (Manual) (1.0-4.8) k/uL Metamyelocytes # (Man) (0) k/uL Myelocytes # (Manual) (0) k/uL Nucleated RBCs (0-0) /100 WBC Macrocytosis APTT (22.0-30.0) sec ABG pH 7.18 L* (7.35-7.45) ABG pCO2 59 H (35-45) mmHg ABG pO2 56 L* (83-108) mmHg ABG O2 Saturation 85.7 L (94-97) % Potassium (3.5-5.1) mmol/L Chloride (98-107) mmol/L Carbon Dioxide (22-30) mmol/L BUN (7-17) mg/dL Creatinine (0.52-1.04) mg/dL Glucose (74-99) mg/dL POC Glucose (mg/dL) 289 H 342 H (75-99) mg/dL Calcium (8.4-10.2) mg/dL Random Vancomycin ug/mL 03/22/21 Range/Units 11:37 WBC (3.8-10.6) k/uL RBC (3.80-5.40) m/uL Hgb (11.4-16.0) gm/dL Hct (34.0-46.0) % MCV (80.0-100.0) fL MCH (25.0-35.0) pg Plt Count (150-450) k/uL Neutrophils # (Manual) (1.3-7.7) k/uL Lymphocytes # (Manual) (1.0-4.8) k/uL Metamyelocytes # (Man) (0) k/uL Myelocytes # (Manual) (0) k/uL Nucleated RBCs (0-0) /100 WBC Macrocytosis APTT (22.0-30.0) sec ABG pH (7.35-7.45) ABG pCO2 (35-45) mmHg ABG pO2 (83-108) mmHg ABG O2 Saturation (94-97) % Potassium (3.5-5.1) mmol/L Chloride (98-107) mmol/L Carbon Dioxide (22-30) mmol/L BUN (7-17) mg/dL Creatinine (0.52-1.04) mg/dL Glucose (74-99) mg/dL POC Glucose (mg/dL) 353 H (75-99) mg/dL Calcium (8.4-10.2) mg/dL Random Vancomycin ug/mL Microbiology - Last 24 Hours (Table) 03/20/21 04:20 Blood Culture Gram Stain - Preliminary Blood Blood Culture - Preliminary Staphylococcus aureus 03/19/21 03:45 Blood Culture - Preliminary Blood No Growth after 72 hours Assessment and Plan Assessment: Acute hypoxemic respiratory failure, secondary to coronavirus associated pneumonia. Status post intubation and mechanical ventilation on 03/15/2021. Acute respiratory distress syndrome (ARDS). Hypotension, likely related to underlying coronavirus associated sepsis, non-ST segment elevation myocardial infarction, and atrial fibrillation with RVR. Methicillin sensitive staph aureus bacteremia. Proteus mirabilis tracheobronchitis/bronchopneumonia. Non-ST segment elevation myocardial infarction. History of atrial fibrillation with RVR. Hyponatremia, improved. Plan: Plan dated 03/18/2021. The patient's IV fluids will be discontinued. She is way ahead on fluids. Labs x-rays a medications are all reviewed. Overall prognosis remains very guarded. The patient remains on IV heparin, norepinephrine, Nimbex, propofol, fentanyl, and tube feeds. We will continue to follow make recommendations where appropriate. Prognosis is very guarded. Plan dated 03/19/2021. The patient remains on the mechanical ventilator. She still very critically ill. The FiO2 was increased to 100%. Her blood gases will be repeated in 4 hours. In the process of moving here from the prone position to the supine position, all her IVs were lost. Hence, a left internal jugular triple-lumen catheter was placed this morning, as well as a right femoral arterial line. The patient remains on a number drips including propofol, norepinephrine, Nimbex, fentanyl, insulin, and IV heparin. Additional recommendations and suggestions are forthcoming. Prognosis is guarded. We will continue to follow make recommendations where appropriate. Plan dated 03/20/2021. The patient remains on the mechanical ventilator. She is currently on 100 percent and 20 of PEEP. PO2 was only 69 mm Hg.. She remains on IV heparin, IV propofol, IV Nimbex, and IV fentanyl. She also remains on norepinephrine. She is getting tube feeds. The patient had evidence of methicillin sensitive staph aureus bacteremia, and possible Proteus mirabilis tracheobronchitis as bronchopneumonia. Been followed by infectious diseases and she is on cefepime. Overall prognosis remains very guarded/poor. We will continue to follow make recommendations where appropriate. New central line and art line were placed recently. Plan dated 03/21/2021. The patient remains on PEEP of 20 and 100% FiO2. The patient remains on Nimbex, propofol, and fentanyl. The patient is also on IV heparin. The patient did have evidence of a methicillin sensitive staph aureus bacteremia, and Proteus mirabilis tracheobronchitis/bronchopneumonia. The patient is being treated for both. She remains on cefepime, and vancomycin. The rest of her medications are appropriate. We will continue to follow make recommendations where appropriate. Overall prognosis remains very guarded. Plan dated 03/22/2021. Despite 100% PEEP of 20, the patient has saturations in the high 70s and low 80s. The patient remains on propofol, heparin, fentanyl, Nimbex, and Lasix. The patient is also receiving vital AF at goal. I did have a long conversation with the patient's , Ever. He understands that his is extremely ill, and not likely to survive this illness. He's going to give some thought and maybe make some decisions about CODE STATUS. The patient has a history of methicillin sensitive staph aureus bacteremia, and Proteus mirabilis tracheobronchitis as bronchopneumonia. The patient remains on cefepime and vancomycin. Again overall prognosis is very poor. Time with Patient: Greater than 30
[2021-03-22] MEDS ORDERED: MORPHINE SULFATE 2 MG/ML SYRINGE IV PRN (15:33)
[2021-03-22] MEDS ORDERED: LORazepam 2 MG/ML INJ IV PRN (15:33)
[2021-03-22] MEDS ORDERED: ATROPINE OPHTH SOLN 1% 5ML BTL SUBLINGUAL PRN (15:33)
[2021-03-22] MEDS ORDERED: MORPHINE SULFATE 4 MG/ML SYRINGE IV PRN (15:33)
[2021-03-22] MEDS ORDERED: MORPHINE SULFATE 4 MG/ML SYRINGE IVP ONE (15:33)
[2021-03-22] MEDS ORDERED: MORPHINE SULFATE (100 MG/2 ML) 100 MG in SODIUM CHLORIDE 0.9% 100 ML IV SCH (15:45)
[2021-03-22] MEDS ORDERED: SCOPOLAMINE 1.5MG/72HR PATCH TRANSDERM SCH (15:45)
[2021-03-22] MEDS: SODIUM CHLORIDE 0.9% 1,000 ML IV SCH (18:17)
--- NOTE | 2021-04-03 12:50 | P.DS ---
Providers Date of admission: 03/11/21 20:45 Expected date of discharge: 03/22/21 Attending physician: Scar Plummer Consults: 03/11/21 20:45 Consult Physician Routine Consulting Provider: Fransisco Starkey Consult Reason/Comments: COVID Do you want consulting provider notified?: Already Contacted 03/11/21 22:47 Consult Physician Routine Consulting Provider: Javier Rae Consult Reason/Comments: New a.fib Do you want consulting provider notified?: Yes, Notify in am 03/17/21 18:51 Consult Physician Routine Consulting Provider: Jeff Mustafa Consult Reason/Comments: Positive blood culture Do you want consulting provider notified?: Yes 03/18/21 13:51 Consult Physician Routine Consulting Provider: Jeff Mustafa Consult Reason/Comments: sepsis/bacteremia Do you want consulting provider notified?: Yes 03/21/21 10:58 Consult Physician Routine Consulting Provider: Magan Crespo Consult Reason/Comments: IVONE Do you want consulting provider notified?: Yes Primary care physician: [facility] Course: 60-year-old female, no major medical illnesses, presented to the ER yesterday with at least 1 week history of shortness of breath, intermittent cough, chest discomfort, she had no GI symptoms, no headache, no nausea no vomiting no diarrhea. Patient felt generally weak, and upon arrival to the ER, patient was noted to be hypoxic. CT of the chest showed no evidence of pulmonary embolism, but it did show extensive pulmonary infiltrates consistent with Covid19 pneumonia. COVID-19 PCR was positive. CBC was relatively normal except for a relative lymphopenia, relative thrombocytopenia, d-dimer was 0.94, patient was noted to have low sodium of 116, normal renal profile was noted, bicarb was noted to be a bit low at 20. Blood sugar was 293. If her enzymes were noted to be a bit elevated with AST of 179 and ALT of 65. LDH was extremely elevated at 3959, C-reactive protein of 8.3, pro BNP was over 5000, troponin was also noted to be elevated at 0.30. Patient is also known to have history of positive anti- cardiolipin antibody. Patient was placed on BiPAP, she remains on BiPAP at present, she is actually on the 100% FiO2, IPAP of 12 and EPAP of 6, and she has marginal O2 saturation. ABG last night was done on BiPAP, and her pO2 was 72 pCO2 37 pH of 7.37. Patient is yet to be seen by cardiology, however heparin was advised by cardiology, and she is on heparin drip at present. Again her CT angiogram of the chest was negative for thromboembolic disease. D-dimer was noted to be 0.94. Her pulmonary status was quite marginal last night, hence patient was given 1 dose of Lasix 40 mg IV push, and she was approached by the nurse about possible worsening and intubation, patient clearly stated to the nurse that she did not want to be intubated tomorrow what. Apparently she discussed this with her , and both agreed on no intubation. Patient was reevaluated today on 03/14/21, remains in the ICU, remains on BiPAP with FiO2 of 100% IPAP of 14 and EPAP of 6, remains marginal at best. O2 saturation is in the low 90s. Patient is requiring Precedex drip otherwise she gets extremely agitated and anxious. Patient is also on the COVID-19 cocktail, and she was seen by cardiology were and the patient was placed on heparin for possible non-ST elevation myocardial infarction. Her Precedex is at 0.15 mcg/kg per hour. CBC count is normal left lites are normal renal profile is normal. Chest x-ray continues to show bilateral infiltrates consistent with COVID-19 pneumonia. Patient had a PICC line placed to yesterday, and the plan is to start TPN on this patient because she is not eating much The patient is seen today 03/15/2021 in follow-up in the intensive care unit. She has not shown much improvement. She is on BiPAP 16/6 and 100% FiO2 to maintain O2 saturations in the upper 80s. Chest x-ray continues to show bilateral airspace disease. No evidence of pneumothorax or pleural effusions. She remains in atrial fibrillation with a rapid ventricular response. She is currently on a heparin drip. She is on Precedex at 0.6 micrograms per kilogram per hour. She remains on Decadron. Continued on Baricitinib. Continued on vitamin supplements. White count 13.6. Hemoglobin 17.3. Lymphocytes 0.82. D- dimer 1.54. Sodium 132. Potassium 3.6. Creatinine 0.47. LDH 2667. C- reactive protein 4.3. She is being nourished with TPN. The patient is seen today 03/16/2021 in follow-up in the intensive care unit. Her condition continued to deteriorate yesterday and her family came in and requested she be a full code CODE STATUS. She was subsequently intubated and placed on mechanical ventilator. Currently he says control mode with a rate of 36, tidal volume 375, FiO2 100% and a PEEP of 18. Morning blood gases revealed a pO2 of 61, pCO2 44, pH 7.37. She is sedated on propofol at 40 mcg/kg/m. She is on an amiodarone drip at 0.5 mg/m. Heparin drip per weight based protocol, norepinephrine at 0.2 mcg/kg/m. She is paralyzed with Nimbex at 1.25 mcg/kg/m. Fentanyl drip at 0.5 mcg/kg per hour. Her chest x-ray shows infiltrate in the right lower lobe with possible bacterial pneumonia on top of CoVID 19 pneumonia. White count 8.5. Hemoglobin 15.5. Lymphocytes 0.9. Sodium 133. Potassium 3.8. Creatinine 0.88. Glucose 187. AST 41. ALT 30. She remains on Decadron, Baricitinib, vitamin supplements. 03/18/2021 Patient is evaluated today in the intensive care unit. She is being followed closely by intensive care/pulmonary services. She is currently intubated. Chest x-ray today shows no significant interval change as compared to yesterday. There is no evidence for pneumothorax. Blood culture is positive for staph aureus, repeat blood cultures pending. Patient was transitioned to oral amiodarone off the amiodarone drip. Continues on heparin drip. Adequate urine output, urine is clear yellow. Labs today show a white count of 9.4, RBC 3.69, sodium 138, potassium 3.9, chloride 109, CO2 24, BUN 27, creatinine 0.52, sugars in the 200s, follows 1.9, mag 2.0, total bili 1.6, AST 39. Blood pressure is 115/80 on pressor support, heart rate 104, respiratory rate 36, afebrile and last 48 hours. Patient's prognosis as guarded she is currently intubated, and requires pressor support. 03/19/2021 Patient still intubated in the intensive care unit. She is being followed closely by intensive care and pulmonary services. Labs today show white count 7.8, neutrophils 10.2. Her ABGs show oxygen saturation 93.6%, pO2 of 70, pCO2 of 51 and a pH of 7.32, HCO3 is 26. Sodium is 140, potassium 4.4, chloride 110, BUN 31, creatinine 0.65, sugars in the 130s. Inflammatory markers today show a CRP of 36.1, pro calcitonin 6.99. Patient was started on IV cefepime for empiric coverage. She continues on propofol, levophed support, heparin drip, insulin drip, and vital AF at goal. Blood sugars have improved since yesterday, and gtt has been on hold most of the day. Chest x-ray today shows findings consistent with known COVID-19 infection redemonstrated. Patient had a central line placed today. She was proned for around 16 hours yesterday per RN and today her blood gas was worsening and subsequently her FiO2 was increased to 100% today. Will discuss and update family today. 03/20/2021 Patient is in the ICU intubated with an FiO2 of 100%. Bowel sounds are positive, per RN no BM in days, lactulose was ordered. Repeat blood cultures are pending. Preliminary shows no growth after 24 hours. She is on IV Cefepime per ID. Labs today show a sodium of 143, potassium 4.9, chloride 113, CO2 23, BUN 57, creatinine 1.17, sugars in the 190s to 160s. She continues on Accu-Cheks every 4 hours. Patient is being followed closely by intensive care/pulmonary services as well as infectious disease. Patient is still requiring blood pressure support with norepinephrine. She is also on IVP Decadron twice a day. Prognosis is very guarded for this patient and she has a very poor prognosis due to multiple medications needed as well as being on the mechanical ventilator with a PEEP of 20 and FiO2 of 100%. Temperature today is 100.3, heart rate 107, blood pressure 101/77, respirations are 36 and she is 96% oxygen saturation on 100% FiO2 mechanical ventilator. 03/21/2021 Patient is evaluated in intensive care unit, she is being followed closely by pulmonary, intensive care services. She is still on mechanical ventilator with an FiO2 of 100%. Patient is on IV Vanco per ID for positive blood cultures. Cultures are finalized his show methicillin-resistant staph aureus in the blood. Repeat blood cultures are preliminary, no growth after 48 hours. Labs today show white count of 9.3, hemoglobin 10.8 neutrophils 8.4. Her pO2 blood gas is improved to 78 as compared to yesterday. Potassium today is 5.4, chloride 113, BUN 84, creatinine 1.81. Sugars are in the 200s she is still on novolog Q4. Myofascial temp of 98.9, heart rate 64, respirations are 36, blood pressure 98/57 and she is 94% on 100% mechanical ventilator. Levophed is paused. No BM yet, lactulose daily. Patient continued to deteriorate and condition was discussed with members. Family decided to make patient DO NOT RESUSCITATE and that comfort care; patient on 03/22/2020 Patient Condition at Discharge: Serious Plan - Discharge Summary Discharge Rx Participant: Yes New Discharge Prescriptions: No Action Cinnamon Bark [Cinnamon] 500 mg PO DAILY NIFEdipine XL [Procardia Xl] 30 mg PO DAILY PRN PRN Reason: high blood pressure Lansoprazole [Prevacid] 30 mg PO BID Cyanocobalamin (Vitamin B-12) [Vitamin B-12] 1,000 mcg PO DAILY Calcium 500mg 500 mg PO DAILY Milk Thistle 500mg 500 mg PO DAILY Vitamin E 400 unit PO DAILY Ondansetron [Zofran] 4 - 8 mg PO Q8H PRN PRN Reason: Nausea Oxybutynin ER [Ditropan Xl] 10 mg PO DAILY Butalb/Acetaminophen/Caffeine [Fioricet 50-300-40 mg Capsule] 1 cap PO DAILY PRN PRN Reason: Migraine Headache Montelukast [Singulair] 10 mg PO DAILY atenoloL [Tenormin] 25 mg PO DAILY Ketorolac Tromethamine [Acular 0.5%] 1 drop BOTH EYES TID PRN PRN Reason: Itching Albuterol Sulfate [Ventolin HFA] 1 - 2 puff INHALATION Q4-6H PRN PRN Reason: Shortness Of Breath Zinc 15mg 15 mg PO DAILY predniSONE See Taper PO DIRECTED Turmeric Root Extract [Turmeric] 1,053 mg PO DAILY Folic Acid 0.4 mg PO DAILY Magnesium Oxide 400 mg PO DAILY Fluticasone Nasal [place] [Flonase Nasal Milton] 1 spray EA NOSTRIL BID PRN PRN Reason: Allergy Symptoms Discharge Medication List Cinnamon Bark [Cinnamon] 500 mg PO DAILY 07/15/17 [History] NIFEdipine XL [Procardia Xl] 30 mg PO DAILY PRN 07/15/17 [History] Lansoprazole [Prevacid] 30 mg PO BID 07/20/17 [History] Albuterol Sulfate [Ventolin HFA] 1 - 2 puff INHALATION Q4-6H PRN 03/11/21 [History] Butalb/Acetaminophen/Caffeine [Fioricet 50-300-40 mg Capsule] 1 cap PO DAILY PRN 03/11/21 [History] Calcium 500mg 500 mg PO DAILY 03/11/21 [History] Cyanocobalamin (Vitamin B-12) [Vitamin B-12] 1,000 mcg PO DAILY 03/11/21 [History] Fluticasone Nasal [place] [Flonase Nasal [place]] 1 spray EA NOSTRIL BID PRN 03/11/21 [History] Folic Acid 0.4 mg PO DAILY 03/11/21 [History] Ketorolac Tromethamine [Acular 0.5%] 1 drop BOTH EYES TID PRN 03/11/21 [History] Magnesium Oxide 400 mg PO DAILY 03/11/21 [History] Milk Thistle 500mg 500 mg PO DAILY 03/11/21 [History] Montelukast [Singulair] 10 mg PO DAILY 03/11/21 [History] Ondansetron [Zofran] 4 - 8 mg PO Q8H PRN 03/11/21 [History] Oxybutynin ER [Ditropan Xl] 10 mg PO DAILY 03/11/21 [History] Turmeric Root Extract [Turmeric] 1,053 mg PO DAILY 03/11/21 [History] Vitamin E 400 unit PO DAILY 03/11/21 [History] Zinc 15mg 15 mg PO DAILY 03/11/21 [History] atenoloL [Tenormin] 25 mg PO DAILY 03/11/21 [History] predniSONE See Taper PO DIRECTED 03/11/21 [History] Follow up Appointment(s)/Referral(s): Osmany Monroe DO [Primary Care Provider] - 1-2 days Discharge/Stand Alone Forms: Personal Telephoto [employer] Discharge Disposition: - Preliminary Cause of Preliminary Cause of : Respiratory failure related to COVID-19 infection/pneumonia
== END 2021-03-22 19:23 | disposition expired | DRG 207 ==
LOC: EC 16:55 → 2SICU 20:45
PROVIDERS: ADMIT Internal Medicine; ATTEND Internal Medicine
PROC: XW0DXM6 Introduction of Baricitinib into Mouth and Pharynx, External Approach, New Technology Group 6 (ICD-10-PCS; principal; 2021-03-11)
PROC: 02HV33Z Insertion of Infusion Device into Superior Vena Cava, Percutaneous Approach (ICD-10-PCS; 2021-03-13)
PROC: 5A1955Z Respiratory Ventilation, Greater than 96 Consecutive Hours (ICD-10-PCS; 2021-03-15)
PROC: 0BH17EZ Insertion of Endotracheal Airway into Trachea, Via Natural or Artificial Opening (ICD-10-PCS; 2021-03-15)
PROC: 3E033XZ Introduction of Vasopressor into Peripheral Vein, Percutaneous Approach (ICD-10-PCS; 2021-03-16)
PROC: 05HN33Z Insertion of Infusion Device into Left Internal Jugular Vein, Percutaneous Approach (ICD-10-PCS; 2021-03-19)
PROC: B5141ZA Fluoroscopy of Left Jugular Veins using Low Osmolar Contrast, Guidance (ICD-10-PCS; 2021-03-19)
PROC: 04HY32Z Insertion of Monitoring Device into Lower Artery, Percutaneous Approach (ICD-10-PCS; 2021-03-19)
PROC: 4A133B1 Monitoring of Arterial Pressure, Peripheral, Percutaneous Approach (ICD-10-PCS; 2021-03-19)
PROC: 4A133J1 Monitoring of Arterial Pulse, Peripheral, Percutaneous Approach (ICD-10-PCS; 2021-03-19)
DX: U07.1 COVID-19 (principal); J12.82 Pneumonia due to coronavirus disease 2019; I21.4 Non-ST elevation (NSTEMI) myocardial infarction; G93.41 Metabolic encephalopathy; R65.20 Severe sepsis without septic shock; J15.211 Pneumonia due to Methicillin susceptible Staphylococcus aureus; J80 Acute respiratory distress syndrome; E87.1 Hypo-osmolality and hyponatremia; J84.9 Interstitial pulmonary disease, unspecified; E87.2 Acidosis; E44.1 Mild protein-calorie malnutrition; N17.9 Acute kidney failure, unspecified; K57.92 Diverticulitis of intestine, part unspecified, without perforation or abscess without bleeding; M79.7 Fibromyalgia; R76.0 Raised antibody titer; E11.65 Type 2 diabetes mellitus with hyperglycemia; Z66 Do not resuscitate; Z51.5 Encounter for palliative care; E86.1 Hypovolemia; I95.9 Hypotension, unspecified; Z87.891 Personal history of nicotine dependence; Z86.718 Personal history of other venous thrombosis and embolism; Z79.899 Other long term (current) drug therapy; Z68.39 Body mass index [BMI] 39.0-39.9, adult; I48.91 Unspecified atrial fibrillation; E66.9 Obesity, unspecified; E78.5 Hyperlipidemia, unspecified; E83.42 Hypomagnesemia; E87.5 Hyperkalemia; E87.70 Fluid overload, unspecified; R79.89 Other specified abnormal findings of blood chemistry; K21.9 Gastro-esophageal reflux disease without esophagitis; I10 Essential (primary) hypertension; D72.810 Lymphocytopenia; D69.6 Thrombocytopenia, unspecified; J40 Bronchitis, not specified as acute or chronic; I73.00 Raynaud's syndrome without gangrene; I34.0 Nonrheumatic mitral (valve) insufficiency; R76.8 Other specified abnormal immunological findings in serum; R00.0 Tachycardia, unspecified
CPT/HCPCS: 36415; 36573; 36600; 71045; 71275; 80048; 80053; 80202; 81001; 82330; 82533; 82805; 83036; 83605; 83615; 83735; 83880; 84100; 84132; 84145; 84478; 84484; 85025; 85379; 85598; 85610; 85613; 85730; 85732; 86038; 86140; 86147; 86431; 87040; 87070; 87077; 87086; 87186; 87205; 87635; 93005; 93306; 93970; 94002; 94003; 94660; 96365; 96366; 96375; 99291